=== PATIENT | female | born 1985 | race Two or more races ===

== ENCOUNTER 2020-09-25 08:46 | Outpatient (REF) | payer MEDICAID, SELFPAY | END 2020-09-25 08:47 | disposition home or self-care (01) | LOC: HO.LAB 08:46 | PROVIDERS: Visit Provider Internal Medicine | DX: Z20.828 Contact with and (suspected) exposure to other viral communicable diseases (principal) | CPT/HCPCS: C9803; U0003 ==

== ENCOUNTER → 2021-04-15 11:09 | Outpatient (BNVA) | payer MEDICAID, SELFPAY | PROVIDERS: Visit Provider Anesthesiology | DX: M41.9 Scoliosis, unspecified (principal); M47.816 Spondylosis without myelopathy or radiculopathy, lumbar region; M46.1 Sacroiliitis, not elsewhere classified | CPT/HCPCS: 99202 ==

== ENCOUNTER 2021-08-30 17:29 | Emergency (ER) | payer MEDICAID, SELFPAY ==
--- NOTE | ~2021-08-30 | CT_ITS ---
EXAMINATION: CT ABDOMEN AND PELVIS WITH CONTRAST CLINICAL INFORMATION: Right lower quadrant pain and tenderness. Vomiting. COMPARISON: None TECHNIQUE: Multidetector volumetric images were obtained from the superior aspect of the liver through the pubic symphysis following administration 85 mL of Omnipaque 350 intravenous contrast. Sagittal and coronal reformatted images were obtained on the technologist's workstation. Oral contrast: No This CT examination was performed using dose optimization techniques as appropriate, variously including the following: *Automated exposure control *Adjustment of mA and/or kV according to patient size (this includes techniques or standardized protocols for targeted exams where dose is matched to indication/reason for exam; i.e. extremities or head) *Use of iterative reconstruction technique DLP: 452 mGy-cm FINDINGS: LUNG BASES: The visualized lung bases are unremarkable. LIVER, GALLBLADDER, AND BILIARY TREE: The liver measures up to 20 cm in maximum craniocaudal dimension and is normal in shape and attenuation without focal abnormalities. There is no biliary ductal dilatation. The gallbladder is underdistended limiting assessment of wall thickening. There is no evidence of stones, pericholecystic fat stranding or pericholecystic free fluid to suspected acute cholecystitis. PANCREAS: Unremarkable. SPLEEN: Unremarkable. ADRENAL GLANDS: Unremarkable. KIDNEYS AND URETERS: The kidneys are normal in size, shape, and attenuation. There is a 3 mm calculus in the lower pole of the left kidney situated at 6 cm from the skin of the posterior mid axillary line (image 25 of series 3). There is an additional punctate stone in the mid pole of left kidney (coronal image 46 of series 5). No hydronephrosis or hydroureter. No perinephric stranding. BLADDER: Underdistended without focal abnormalities or perivesical fat stranding. GASTROINTESTINAL TRACT: Small to moderate hiatal hernia. The stomach and the small bowel are nondilated. The appendix is normal. There are no pericolic inflammatory changes or bowel obstruction. ABDOMINAL WALL: There is mild fat stranding of the abdominal wall, more prominent in the lower abdominal wall. There is asymmetric enlargement of the inferior anterior abdominal rectus muscle (image 73 of series 3 and image 71 of series 3) which heterogeneity and increased attenuation of the muscle. LYMPH NODES: No lymphadenopathy by size criteria. VASCULAR: Unremarkable. PELVIC VISCERA: Functional follicle is in both ovaries. Normal CT appearance of the uterus. Trace free fluid is likely physiologic. OSSEOUS STRUCTURES: No acute or aggressive osseous abnormalities. CT/CT abdomen pelvis w IV con IMPRESSION: 1. Asymmetric thickening of the lower anterior abdominal rectus muscle likely related with an intramuscular hematoma. Correlate with history of trauma to this area. Less likely, this could be related with focal myositis or an underlying soft tissue lesion. If indicated, this could be follow-up with a targeted ultrasound to ensure resolution. 2. Mild fat stranding in the abdominal wall, more prominent in the lower abdominal wall of uncertain etiology. Correlate clinically for any edema/tenderness. 3. Mild hepatomegaly. 4. Nonobstructive the renal calculi. 5. Small to moderate hiatal hernia.
[2021-08-30 18:08] VITALS: BP 146/83; PULSE 68; RESP 20; TEMP 37.2; O2SAT 100; BMI 24.2
[2021-08-30 18:28] LABS: MANUAL DIFF FLAG NO
[2021-08-30 18:29] LABS: Appearance Urine HAZY; Color Urine YELLOW; Glucose Urine UA NEG (NEG); Leukocyte Esterase Urine NEG (NEG); Nitrite Urine NEG (NEG); PH 6.5 (5.0-8.0); Specific Gravity - Urine 1.025 (1.005-1.025); UACC Culture Trigger NO; Urine Blood 1+ (NEG); Urine Ketones 5 MG/DL (NEG); Urine Protein NEG (NEG-TRACE)
[2021-08-30 18:30] LABS: Basophils Absolute Auto 0.1 X10*3/uL (0.0-0.2); Basophils Percent Auto 0.7 % (0-2); Eosinophils Absolute Auto 0.3 X10*3/uL (0.0-0.4); Eosinophils Percent Auto 3.2 % (0-4); Hematocrit 38.3 % (37.0-47.0); Hemoglobin 12.3 g/dl (12.0-16.0); Imm Gran Abs Auto 0.02 X10*3/uL (0.00-0.03); Imm Gran Pct Auto 0.2 % (0.0-0.4); Lymphocytes Absolute Auto 2.8 X10*3/uL (1.2-4.9); Lymphocytes Percent Auto 31.1 % (20-40); Mean Corpuscular HGB Conc 32.1 g/dl (31.0-35.0); Mean Corpuscular Volume 87.2 fL (80.0-98.0); Mean Platelet Volume 9.1 fL (9.4-12.3); Monocytes Absolute Auto 0.7 X10*3/uL (0.1-1.2); Monocytes Percent Auto 8.1 % (2-11); Neutrophils Percent Auto 56.7 % (45-73); Platelet Count 321 X10*3/uL (160-400); Red Blood Count 4.39 X10*6/uL (4.20-5.50); Red Cell Distribution Width 14.1 % (11.0-16.0); White Blood Count 8.9 X10*3/uL (4.8-10.8)
[2021-08-30 18:31] LABS: UPreg QC Valid YES; Urine Pregnancy NEGATIVE (NEGATIVE)
[2021-08-30 18:37] LABS: Mucus Urine 2+ /LPF; Squamous Epithelial Cell Urine 1+ /LPF
[2021-08-30 18:38] LABS: Bacteria Urine TRACE /LPF; WBC Urine 0 /HPF (0-4)
[2021-08-30 18:57] LABS: Anion Gap 9 (12-20); Blood Urea Nitrogen 15 mg/dL (9-16); Calcium 8.7 mg/dL (8.4-10.2); Carbon Dioxide 27 mmol/L (22-29); Chloride 106 mmol/L (96-108); Creatinine Clr Calc Pharmacy 75.1; Estimated Glomerular Filt Rate > 60; Glucose Random 94 mg/dL (60-115); Potassium 3.7 mmol/L (3.3-5.1); Sodium 138 mmol/L (135-145)
--- NOTE | 2021-08-30 20:22 | ED_ITS ---
HPI - Abdominal Pain General Chief Complaint: Abdominal Pain Stated Complaint: Lower abdominal pain Time Seen by Provider: 08/30/21 20:11 Source: patient Mode of arrival: ambulatory Limitations: no limitations History of Present Illness HPI narrative: 35 yo female presenting to the ER with constant, worsening RLQ pa in that started last night. She reports last evening she started having low back pain that made it hard for her to sleep. This morning the pain was more in the front of her lower abdomen on the right side more than left. She was nauseous and dry heaves because of the pain this morning. She denies any urinary symptoms. She started her menses today. She has no diarrhea, fever. She reports a history of lower abdominal liposuction 6-7 months ago. She has been having some lower abdominal discomfort and tenderness in that area since then. She denies any bruising or palpable mass. MD elicited complaint: abdominal pain Pertinent past history: none Onset (ago): day(s) (1) Pain Consistency: constant Location: RLQ Severity: moderate Quality: aching Radiation: LLQ Migration to: no migration Exacerbating factors: movement and other (Palpation) Relieving factors: nothing Associated symptoms: nausea and vomiting Related Data Date of Last Menstrual Period: 08/30/21 Patient : No Previous Rx's Medication Instructions Recorded tizanidine 2 mg tablet 2 mg PO TID PRN 30 Days #90 tab 05/01/21 cyclobenzaprine 10 mg tablet 10 mg PO TID PRN #10 tab 08/30/21 tramadol 50 mg tablet 50 mg PO Q8H PRN #7 tab 08/30/21 Allergies Allergy/AdvReac Type Severity Reaction Status Date / Time aspirin Allergy Unknown unknown Verified 04/15/21 11:52 Review of Systems Review of Systems Constitutional: No Fever, No Chills Cardiovascular: No Chest Pain, No SOB Respiratory: No Cough, No Sputum, No Wheezing, No dyspnea Gastrointestinal: + Nausea, + Vomiting, No Diarrhea, + abdominal Pain Genitourinary: No Dysuria, No Urinary Frequency, No Hematuria Musculoskeletal: No joint pain, No Myalgias Skin: No Skin Lesions, No rash Neuro: No Weakness, No Numbness, No Dizziness, No Headache Psych: No Anxiety/Panic, No Depression Heme/Lymph: No Bruising, No Lymphadenopathy Physical Exam Vital Signs: Vital Signs: Last Vital Signs Temp 98.2 F 08/30/21 21:56 Pulse 64 08/30/21 21:56 Resp 16 08/30/21 21:56 BP 106/55 L 08/30/21 21:56 Pulse Ox 99 08/30/21 21:56 Body Mass Index 24.2 Appearance: Alert. Oriented X3. No acute distress. Eyes: Pupils equal, round and reactive to light. ENT: Pharynx normal. Neck: Normal inspection. Neck supple. CVS: Normal heart rate and rhythm. Pulses normal. Respiratory: No respiratory distress. Breath sounds normal. Abdomen: Normal inspection, Soft with tenderness to the RLQ and lower abdominal areas, slight firmness to the RLQ, +guarding without rebound. no skin changes. +BS x4 Skin: Skin warm and dry. Normal skin color. Normal skin turgor. No rashes. Extremities: No lower extremity edema. Neuro: Oriented X 3. Grossly normal, nonfocal. Course Course Course Narrative: 35-year-old female with history of liposuction about 6 months ago presents to the ER with RLQ and lower abdominal pain that seems to be acute on chronic since her liposuction 6 months ago. Labs are unremarkable. negative. UA with 1+ blood but she is on her menses. No hx kidney stones. No CVA tenderness. Will get CT scan for further evaluation. Reevaluation(s) Reevaluation #1: CT scan showing probable lower abdominal muscle hematoma. Question post-op complication as patient denies any trauma to the area recently. No external ecchymosis. No anemia. She is not on anticoagulation. At this time she is stable for discharge home with plan for pain control, follow up with her plastic surgeon and PCP, may need U/S to ensure resolution. irrigation technician used to discuss results and plan and patient is in agreement. MDM - Abdominal Pain Lab Data Attestation: I reviewed the patient's lab results. Result diagrams: 08/30/21 18:23 08/30/21 18:23 Labs: Lab Results 08/30/21 08/30/21 08/30/21 Range/Units 18:23 18:23 18:23 WBC 8.9 (4.8-10.8) X10*3/uL RBC 4.39 (4.20-5.50) X10*6/uL Hgb 12.3 (12.0-16.0) g/dl Hct 38.3 (37.0-47.0) % MCV 87.2 (80.0-98.0) fL MCH 28.0 (27.0-33.0) pg MCHC 32.1 (31.0-35.0) g/dl RDW 14.1 (11.0-16.0) % Plt Count 321 (160-400) X10*3/uL MPV 9.1 L (9.4-12.3) fL Immature Gran % (Auto) 0.2 (0.0-0.4) % Neut % (Auto) 56.7 (45-73) % Lymph % (Auto) 31.1 (20-40) % [place] % (Auto) 8.1 (2-11) % Eos % (Auto) 3.2 (0-4) % Baso % (Auto) 0.7 (0-2) % Lymph # (Auto) 2.8 (1.2-4.9) X10*3/uL [place] # (Auto) 0.7 (0.1-1.2) X10*3/uL Eos # (Auto) 0.3 (0.0-0.4) X10*3/uL Baso # (Auto) 0.1 (0.0-0.2) X10*3/uL Abs Immat Gran (auto) 0.02 (0.00-0.03) X10*3/uL Absolute Neuts (auto) 5.0 (2.0-8.3) x10*3/uL Absolute Nucleated RBC 0.000 (0.0-0.012) X10*3/uL Nucleated RBC % (auto) 0.0 (0.0-0.2) /100WBC Sodium (135-145) mmol/L Potassium (3.3-5.1) mmol/L Chloride (96-108) mmol/L Carbon Dioxide (22-29) mmol/L Anion Gap (12-20) BUN (9-16) mg/dL Creatinine (0.5-1.4) mg/dL Estim Creat Clear Calc Estimated GFR Random Glucose (60-115) mg/dL Calcium (8.4-10.2) mg/dL Total Creatine Kinase (26-140) U/L Urine Color YELLOW Urine Appearance HAZY Urine pH 6.5 (5.0-8.0) Ur Specific [place] 1.025 (1.005-1.025) Urine Protein NEG (NEG-TRACE) MG/DL Urine Glucose (UA) NEG (NEG) MG/DL Urine Ketones 5 (NEG) MG/DL Urine Blood 1+ H (NEG) Urine Nitrite NEG (NEG) Ur Leukocyte Esterase NEG (NEG) Urine RBC 1-4 (0) /HPF Urine WBC 0 (0-4) /HPF Ur Squamous Epith Cells 1+ /LPF Urine Bacteria TRACE /LPF Urine Mucus 2+ /LPF Urine Yeast TRACE /HPF Urine Test NEGATIVE (NEGATIVE) 08/30/21 Range/Units 18:23 WBC (4.8-10.8) X10*3/uL RBC (4.20-5.50) X10*6/uL Hgb (12.0-16.0) g/dl Hct (37.0-47.0) % MCV (80.0-98.0) fL MCH (27.0-33.0) pg MCHC (31.0-35.0) g/dl RDW (11.0-16.0) % Plt Count (160-400) X10*3/uL MPV (9.4-12.3) fL Immature Gran % (Auto) (0.0-0.4) % Neut % (Auto) (45-73) % Lymph % (Auto) (20-40) % [place] % (Auto) (2-11) % Eos % (Auto) (0-4) % Baso % (Auto) (0-2) % Lymph # (Auto) (1.2-4.9) X10*3/uL [place] # (Auto) (0.1-1.2) X10*3/uL Eos # (Auto) (0.0-0.4) X10*3/uL Baso # (Auto) (0.0-0.2) X10*3/uL Abs Immat Gran (auto) (0.00-0.03) X10*3/uL Absolute Neuts (auto) (2.0-8.3) x10*3/uL Absolute Nucleated RBC (0.0-0.012) X10*3/uL Nucleated RBC % (auto) (0.0-0.2) /100WBC Sodium 138 (135-145) mmol/L Potassium 3.7 (3.3-5.1) mmol/L Chloride 106 (96-108) mmol/L Carbon Dioxide 27 (22-29) mmol/L Anion Gap 9 L (12-20) BUN 15 (9-16) mg/dL Creatinine 0.96 (0.5-1.4) mg/dL Estim Creat Clear Calc 75.1 Estimated GFR > 60 Random Glucose 94 (60-115) mg/dL Calcium 8.7 (8.4-10.2) mg/dL Total Creatine Kinase 178 H (26-140) U/L Urine Color Urine Appearance Urine pH (5.0-8.0) Ur Specific [place] (1.005-1.025) Urine Protein (NEG-TRACE) MG/DL Urine Glucose (UA) (NEG) MG/DL Urine Ketones (NEG) MG/DL Urine Blood (NEG) Urine Nitrite (NEG) Ur Leukocyte Esterase (NEG) Urine RBC (0) /HPF Urine WBC (0-4) /HPF Ur Squamous Epith Cells /LPF Urine Bacteria /LPF Urine Mucus /LPF Urine Yeast /HPF Urine Test (NEGATIVE) Imaging Data CT scan - abdomen: Attestation: I personally reviewed and interpreted this imaging study as follows: Radiologist's impression: 1.? Asymmetric thickening of the lower anterior abdominal rectus muscle likely related with an intramuscular hematoma. Correlate with history of trauma to this area. Less likely, this could be related with focal myositis or an underlying soft tissue lesion. If indicated, this could be follow-up with a targeted ultrasound to ensure resolution. 2.? Mild fat stranding in the abdominal wall, more prominent in the lower abdominal wall of uncertain etiology. Correlate clinically for any edema/tenderness. 3.? Mild hepatomegaly. 4.? Nonobstructive the renal calculi. 5.? Small to moderate hiatal hernia.? Critical Care Time Critical Care Time Critical Care Time: No Discharge Plan Discharge Clinical Impression: Abdominal wall hematoma Qualifiers: Encounter type: initial encounter Qualified Code(s): S30.1XXA - Contusion of abdominal wall, initial encounter Patient Disposition: Home, Self-Care Instructions: Abdominal Pain (ED), Hematoma (ED) Additional Instructions: Your CT scan shows some thickening of the abdominal wall muscle which is most likely related to a hematoma inside of the muscle. This could be related to your prior liposuction. It should resolve on its own, although recommend following up with your plastic surgeon. Your lab workup was otherwise unremarkable. Recommend taking the prescribed medications as needed for pain. Also recommend taking 975 mg of Tylenol every 6 hours around the clock. Rest and no strenuous activity. Recommend compression leggings or biker shorts to help with pain and for the hematoma reabsorbe. Follow-up with your primary care doctor, they may want to do an ultrasound of the area to ensure resolution. If you develop new or worsening symptoms call 911 or come back to the ER for further evaluation. [place] tomograf?a computarizada muestra un engrosamiento del m?sculo de la pared abdominal que probablemente est? relacionado con un hematoma dentro del m?sculo. [place] podr?a estar relacionado con sumner liposucci?n anterior. Deber?a resolverse por s? solo, aunque se recomienda realizar un seguimiento con sumner cirujano pl?stico. Por lo dem?s, sumner an?lisis de laboratorio no fue nada especial. Recomiende gwendolyn los medicamentos recetados seg?n sea necesario para el dolor. Tambi?n recomiende gwendolyn 975 mg de Tylenol cada 6 horas pierre todo el d?a. [place] y sin actividad extenuante. Recomendar mallas de compresi?n o pantalones cortos de motociclista para ayudar con el dolor y para la reabsorci?n del hematoma. Brenda un seguimiento con sumner m?dico de atenci?n primaria, es posible que desee realizar liv ecograf?a del ?venus para garantizar la resoluci?n. Si presenta s?ntomas nuevos o que empeoran, llame al 911 o regrese a la flo de emergencias para liv evaluaci?n adicional. Prescriptions: New cyclobenzaprine 10 mg tablet 10 mg PO TID PRN (Reason: muscle spasm) Qty: 10 RF: 0 tramadol 50 mg tablet 50 mg PO Q8H PRN (Reason: pain) Qty: 7 RF: 0 No Action tizanidine 2 mg tablet 2 mg PO TID PRN (Reason: muscle spasticity) 30 Days Qty: 90 RF: 12 Discharge Date/Time: 08/30/21 22:44 Print Language: [place]ian [facility] Past Medical History Medical History (Updated 08/30/21 @ 22:30 by NAHEED Marie) Sacroiliitis Scoliosis Scoliosis of thoracolumbar spine Spondylosis of lumbar region without myelopathy or radiculopathy Date of Last Menstrual Period: 08/30/21 Social History Social History Advance Directives: No Advance Directives Information Provided: No
[2021-08-30 20:25] VITALS: BP 137/66; PULSE 73; RESP 16; TEMP 37.2; O2SAT 99
[2021-08-30] MEDS: 0.9 % Sodium Chloride 1,000 ML 999 ML IVCONT (20:53)
[2021-08-30] MEDS: Ketorolac Tromethamine 15 MG/ML VIAL 30 MG IVPUSH (20:53)
[2021-08-30] MEDS: iohexoL 350 MG/ML 100 ML INFUS..BTL IV (21:12)
[2021-08-30 21:56] VITALS: BP 106/55; PULSE 64; RESP 16; TEMP 36.8; O2SAT 99
== END 2021-08-30 22:44 | disposition home or self-care (01) ==
PROVIDERS: Physician Assistant; Emergency Provider Internal Medicine; PCP Family Medicine
DX: S30.1XXA Contusion of abdominal wall, initial encounter (principal); X58.XXXA Exposure to other specified factors, initial encounter; Y93.9 Activity, unspecified; Y92.9 Unspecified place or not applicable; Y99.9 Unspecified external cause status
CPT/HCPCS: 36415; 74177; 80048; 81001; 81025; 82550; 85025; 96361; 96374; 99284; J1885; Q9967

== ENCOUNTER 2022-09-16 12:29 | Outpatient (REF) | payer MEDICAID, SELFPAY ==
--- NOTE | ~2022-09-16 | XR_ITS ---
EXAMINATION: XR SINUSES CLINICAL INFORMATION: The isthmus of cement placed COMPARISON: None TECHNIQUE: 4 views of the sinuses were obtained. FINDINGS: Paranasal sinuses appear clear without air-fluid levels. No fractures are identified. No radiodense foreign bodies. The mastoid air cells are well-aerated. XR/XR sinus min 3V IMPRESSION: Unremarkable sinus exam.
== END 2022-09-16 12:30 | disposition home or self-care (01) ==
LOC: HO.XRAY 12:29
PROVIDERS: Absent Provider Internal Medicine; PCP Internal Medicine; Visit Provider Internal Medicine
DX: R43.9 Unspecified disturbances of smell and taste (principal)
CPT/HCPCS: 70220

== ENCOUNTER 2022-10-24 02:23 | Emergency (ER) | payer MEDICAID, SELFPAY ==
--- NOTE | 2022-10-24 | ECG_ITS ---
Test Reason : CP Blood Pressure : / mmHG Vent. Rate : 100 BPM Atrial Rate : 100 BPM P-R Int : 146 ms QRS Dur : 080 ms QT Int : 368 ms P-R-T Axes : 091 077 076 degrees QTc Int : 474 ms Normal sinus rhythm Normal ECG When compared with ECG of 12-APR-2020 19:43, No significant change was found Referred By: Generic ED Physician Electronically Signed By:GLORIA GAMEZ
[2022-10-24 02:32] VITALS: BP 118/74; PULSE 220; PULSE 96; RESP 20; TEMP 36.7; O2SAT 100; BMI 24.2
[2022-10-24 02:40] LABS: MANUAL DIFF FLAG NO
[2022-10-24 02:41] LABS: Basophils Absolute Auto 0.1 X10*3/uL (0.0-0.2); Basophils Percent Auto 0.6 % (0-2); Eosinophils Absolute Auto 0.1 X10*3/uL (0.0-0.4); Eosinophils Percent Auto 1.5 % (0-4); Hematocrit 39.9 % (37.0-47.0); Hemoglobin 12.9 g/dl (12.0-16.0); Imm Gran Abs Auto 0.02 X10*3/uL (0.00-0.03); Imm Gran Pct Auto 0.2 % (0.0-0.4); Lymphocytes Absolute Auto 3.5 X10*3/uL (1.2-4.9); Mean Corpuscular HGB Conc 32.3 g/dl (31.0-35.0); Mean Corpuscular Hemoglobin 26.9 pg (27.0-33.0); Mean Corpuscular Volume 83.3 fL (80.0-98.0); Monocytes Absolute Auto 0.5 X10*3/uL (0.1-1.2); Monocytes Percent Auto 5.7 % (2-11); Platelet Count 382 X10*3/uL (160-400); Red Blood Count 4.79 X10*6/uL (4.20-5.50); Red Cell Distribution Width 14.9 % (11.0-16.0); White Blood Count 8.1 X10*3/uL (4.8-10.8)
[2022-10-24] MEDS: methylPREDNISolone Sod Succ 125 MG/2 ML VIAL IVPUSH (02:47)
[2022-10-24] MEDS: diphenhydrAMINE HCL 50 MG/ML VIAL 25 MG IVPUSH (02:47)
[2022-10-24 02:57] LABS: Alanine Aminotransferase 23 U/L (0-31); Alkaline Phosphatase 70 U/L (39-117); Anion Gap 16 (12-20); Aspartate Amino Transferase 28 U/L (5-31); Bilirubin Total 0.6 mg/dL (0.0-1.0); Blood Urea Nitrogen 15 mg/dL (9-16); Calcium 8.6 mg/dL (8.4-10.2); Carbon Dioxide 18 mmol/L (22-29); Chloride 108 mmol/L (96-108); Creatinine Clr Calc Pharmacy 65.5; Estimated Glomerular Filt Rate 56; Glucose Random 190 mg/dL (60-115); Potassium 4.1 mmol/L (3.3-5.1); Sodium 138 mmol/L (135-145); Total Protein 6.9 g/dL (6.5-8.0)
[2022-10-24 03:10] LABS: Troponin-I High Sensitivity < 3.5 ng/L (<3.5-17.0)
--- NOTE | 2022-10-24 03:22 | ED_ITS ---
HPI - Chest Pain General Chief Complaint: Chest Pain Stated Complaint: CP Time Seen by Provider: 10/24/22 02:33 Source: patient Mode of arrival: EMS Limitations: no limitations History of Present Illness HPI narrative: Trey if anxiety no significant cardiac history woke up from sleep with palpitation and chest discomfort when EMS arrived patient heart rate was 220's SVT was given adenosis in at which broke the rhythm to sinus rhythm. Patient was also given aspirin for the chest discomfort but patient was allergic to aspirin. After arrival in the ER patient was complaining of throat tightness patient does have history of anxiety also no significant shortness of breath or stridor noticed Related Data Previous Rx's Medication Instructions Recorded tizanidine 2 mg tablet 2 mg PO TID PRN muscle spasticity 05/01/21 30 days #90 tabs cyclobenzaprine 10 mg tablet 10 mg PO TID PRN muscle spasm #10 08/30/21 tabs tramadol 50 mg tablet 50 mg PO Q8H PRN pain #7 tabs 08/30/21 Allergies Allergy/AdvReac Type Severity Reaction Status Date / Time aspirin [Aspirin] Allergy Unknown SWELLING Unverified 09/16/22 12:41 sea food Allergy Unknown Uncoded 09/16/22 12:41 Seafood Allergy Unknown SWELLING Uncoded 09/16/22 12:41 Review of Systems Review of Systems: Yes all other systems are reviewed and are negative [facility] Past Medical History Medical History Sacroiliitis Scoliosis Scoliosis of thoracolumbar spine Spondylosis of lumbar region without myelopathy or radiculopathy Social History Social History Advance Directives: No Advance Directives Information Provided: Yes Physical Exam Vital Signs: Vital Signs: Last Vital Signs Temp 98.0 F 10/24/22 02:32 Pulse 104 H 10/24/22 04:13 Resp 16 10/24/22 04:13 BP 119/76 10/24/22 04:18 Pulse Ox 99 10/24/22 04:13 O2 Del Method 10/24/22 04:13 BMI result Body Mass Index 24.2 Appearance: Alert. Oriented X3. No acute distress. Eyes: PERRLA, No Nystagmus ENT: Pharynx normal. Oral Mucosa moist Neck: Normal inspection. Neck supple. CVS: sinus tachycardia. No murmur about the Pulses normal. Respiratory: No respiratory distress. Equal air entry bilateral, no wheezing/rales/rhonchi Abdomen: Soft and nontender. Bowel sounds are present, no mass palpable, no CVA tenderness Skin: Skin warm and dry. Normal skin color. Normal skin turgor. Extremities: No lower extremity edema. No calf tenderness Neuro: Oriented X 3. No motor deficit. No sensory deficit.No cerebellar signs , cranial nerves II-XII intact Medications Administered Discontinued Medications Generic Name Dose Route Start Last Admin Trade Name Freq PRN Reason Stop Dose Admin Diphenhydramine HCl 25 mg 10/24/22 02:34 10/24/22 02:47 Diphenhydramine Hcl 50 Mg/Ml Vial IVPUSH 10/24/22 02:35 25 mg ONCE ONE Administration Sodium Chloride 1,000 mls @ 999 mls/hr 10/24/22 03:30 10/24/22 03:32 Ns IV 10/24/22 04:30 999 mls/hr .Q1H1M ONE Administration Methylprednisolone Sodium Succinate 125 mg 10/24/22 02:34 10/24/22 02:47 Methylprednisolone Sod Succ 125 Mg/2 Ml Vial IVPUSH 10/24/22 02:35 125 mg ONCE ONE Administration Medical Decision Making Medical Decision Making [facility] Narrative: EKG done by EMS reviewed showed SVT. EKG done in ER showed normal sinus rhythm. Lab workup negative discharge patient home Lab Data [facility] Lab Attestation statement: I reviewed the patient's lab results. 10/24/22 02:37 10/24/22 02:36 Labs: Lab Results 10/24/22 10/24/22 10/24/22 Range/Units 02:36 02:36 02:37 WBC 8.1 (4.8-10.8) X10*3/uL RBC 4.79 (4.20-5.50) X10*6/uL Hgb 12.9 (12.0-16.0) g/dl Hct 39.9 (37.0-47.0) % MCV 83.3 (80.0-98.0) fL MCH 26.9 L (27.0-33.0) pg MCHC 32.3 (31.0-35.0) g/dl RDW 14.9 (11.0-16.0) % Plt Count 382 (160-400) X10*3/uL MPV 9.0 L (9.4-12.3) fL Immature Gran % (Auto) 0.2 (0.0-0.4) % Neut % (Auto) 49.0 (45-73) % Lymph % (Auto) 43.0 H (20-40) % [place] % (Auto) 5.7 (2-11) % Eos % (Auto) 1.5 (0-4) % Baso % (Auto) 0.6 (0-2) % Lymph # (Auto) 3.5 (1.2-4.9) X10*3/uL [place] # (Auto) 0.5 (0.1-1.2) X10*3/uL Eos # (Auto) 0.1 (0.0-0.4) X10*3/uL Baso # (Auto) 0.1 (0.0-0.2) X10*3/uL Abs Immat Gran (auto) 0.02 (0.00-0.03) X10*3/uL Absolute Neuts (auto) 4.0 (2.0-8.3) x10*3/uL Absolute Nucleated RBC 0.000 (0.0-0.012) X10*3/uL Nucleated RBC % (auto) 0.0 (0.0-0.2) /100WBC PT (10.0-13.1) SEC INR (0.9-1.1) Sodium 138 (135-145) mmol/L Potassium 4.1 (3.3-5.1) mmol/L Chloride 108 (96-108) mmol/L Carbon Dioxide 18 L (22-29) mmol/L Anion Gap 16 (12-20) BUN 15 (9-16) mg/dL Creatinine 1.08 (0.5-1.4) mg/dL Estim Creat Clear Calc 65.5 Estimated GFR 56 Random Glucose 190 H (60-115) mg/dL Calcium 8.6 (8.4-10.2) mg/dL Total Bilirubin 0.6 (0.0-1.0) mg/dL AST 28 (5-31) U/L ALT 23 (0-31) U/L Alkaline Phosphatase 70 (39-117) U/L Troponin I High Sens < 3.5 (<3.5-17.0) ng/L Total Protein 6.9 (6.5-8.0) g/dL Albumin 4.0 (3.5-5.0) g/dL TSH 3.42 (0.32-4.0) uIU/mL 10/24/22 Range/Units 02:37 WBC (4.8-10.8) X10*3/uL RBC (4.20-5.50) X10*6/uL Hgb (12.0-16.0) g/dl Hct (37.0-47.0) % MCV (80.0-98.0) fL MCH (27.0-33.0) pg MCHC (31.0-35.0) g/dl RDW (11.0-16.0) % Plt Count (160-400) X10*3/uL MPV (9.4-12.3) fL Immature Gran % (Auto) (0.0-0.4) % Neut % (Auto) (45-73) % Lymph % (Auto) (20-40) % [place] % (Auto) (2-11) % Eos % (Auto) (0-4) % Baso % (Auto) (0-2) % Lymph # (Auto) (1.2-4.9) X10*3/uL [place] # (Auto) (0.1-1.2) X10*3/uL Eos # (Auto) (0.0-0.4) X10*3/uL Baso # (Auto) (0.0-0.2) X10*3/uL Abs Immat Gran (auto) (0.00-0.03) X10*3/uL Absolute Neuts (auto) (2.0-8.3) x10*3/uL Absolute Nucleated RBC (0.0-0.012) X10*3/uL Nucleated RBC % (auto) (0.0-0.2) /100WBC PT 11.0 (10.0-13.1) SEC INR 1.0 (0.9-1.1) Sodium (135-145) mmol/L Potassium (3.3-5.1) mmol/L Chloride (96-108) mmol/L Carbon Dioxide (22-29) mmol/L Anion Gap (12-20) BUN (9-16) mg/dL Creatinine (0.5-1.4) mg/dL Estim Creat Clear Calc Estimated GFR Random Glucose (60-115) mg/dL Calcium (8.4-10.2) mg/dL Total Bilirubin (0.0-1.0) mg/dL AST (5-31) U/L ALT (0-31) U/L Alkaline Phosphatase (39-117) U/L Troponin I High Sens (<3.5-17.0) ng/L Total Protein (6.5-8.0) g/dL Albumin (3.5-5.0) g/dL TSH (0.32-4.0) uIU/mL Independent Interpretation I performed an independent interpretation of an: EKG Interpretation: Normal sinus rhythm heart rate 100 beats per minute normal interval normal axis no acute ST T wave changes impression normal EKG Discharge Plan Discharge Clinical Impression: SVT (supraventricular tachycardia) Patient Disposition: Home, Self-Care Instructions: Supraventricular Tachycardia (ED) Additional Instructions: Avoid caffeine Report to the ER if recurrence of the episodes Follow with PCP Prescriptions: No Action tizanidine 2 mg tablet 2 mg PO TID PRN (Reason: muscle spasticity) 30 Days Qty: 90 12RF cyclobenzaprine 10 mg tablet 10 mg PO TID PRN (Reason: muscle spasm) Qty: 10 0RF tramadol 50 mg tablet 50 mg PO Q8H PRN (Reason: pain) Qty: 7 0RF
[2022-10-24] MEDS: 0.9 % Sodium Chloride 1,000 ML 999 ML IV (03:32)
[2022-10-24 04:11] LABS: Thyroid Stimulating Hormone 3.42 uIU/mL (0.32-4.0)
[2022-10-24 04:13] VITALS: BP 107/67; PULSE 104; RESP 16; O2SAT 99
[2022-10-24 04:18] VITALS: BP 119/76
== END 2022-10-24 05:05 | disposition home or self-care (01) ==
PROVIDERS: Emergency Provider Internal Medicine
DX: I47.1 Supraventricular tachycardia (principal); R07.89 Other chest pain; R00.2 Palpitations; Z79.899 Other long term (current) drug therapy
CPT/HCPCS: 36415; 80053; 84443; 84484; 85025; 85610; 93005; 96361; 96374; 96375; 99284; 99285; J1200; J2930

== ENCOUNTER 2022-11-10 19:57 | Observation (INO) | payer MEDICAID, SELFPAY ==
--- NOTE | ~2022-11-10 | XR_ITS ---
EXAMINATION: XR CHEST CLINICAL INFORMATION: Chest pain COMPARISON: Chest 04/11/2020 TECHNIQUE: Frontal view of the chest was obtained. FINDINGS: The lungs are well-expanded and clear of acute process. The heart size and pulmonary vascularity is normal. No gross bony abnormality seen. XR/XR chest 1V IMPRESSION: Unremarkable chest exam.
--- NOTE | ~2022-11-10 | CT_ITS ---
EXAMINATION: CT ANGIOGRAM OF THE CHEST WITH AND WITHOUT CONTRAST (CT PULMONARY ANGIOGRAM FOR PE) CLINICAL INFORMATION: Reason for Exam CP elevated D dimer COMPARISON: None TECHNIQUE: Prior to contrast administration, noncontrast localization images were obtained. Subsequently, multidetector volumetric imaging was performed from the thoracic inlet to below the diaphragms following the administration of 80 mL Omnipaque 350 intravenous contrast. No contrast reaction reported Sagittal, coronal, and MIP oblique sagittal reformatted images were obtained on the CT workstation, uploaded to PACS, and reviewed. This CT examination was performed using dose optimization techniques as appropriate, variously including the following: *Automated exposure control *Adjustment of mA and/or kV according to patient size (this includes techniques or standardized protocols for targeted exams where dose is matched to indication/reason for exam; i.e. extremities or head) *Use of iterative reconstruction technique Total exam dose-length product 277 mGy-cm FINDINGS: QUALITY OF STUDY/CONTRAST BOLUS: Satisfactory. PULMONARY ARTERIES: No central or segmental pulmonary emboli. THORACIC AORTA: No aneurysm or dissection. LUNG: No focal consolidation, nodules or masses. PLEURA: No pleural effusion or pneumothorax. MEDIASTINUM: Normal heart size. No pericardial effusion. No hilar or mediastinal lymphadenopathy. No evidence of septal bowing or right heart strain. There is moderate size hiatal hernia. CORONARY ARTERY CALCIFICATION: None visualized on this study. CHEST WALL/AXILLA: No axillary or internal mammary lymphadenopathy. There are bilateral augmented breasts. OSSEOUS STRUCTURES: No acute or suspicious osseous abnormality. UPPER ABDOMEN: Unremarkable. No reflux of contrast into the hepatic veins to suggest elevated right heart pressures. CT/CT angio chest PE protocol IMPRESSION: 1. No evidence of PE. 2. No evidence of aortic dissection or aneurysm. 3. Moderate size hiatal hernia VTE: negative
[2022-11-10 20:00] VITALS: BP 135/88; PULSE 180; RESP 20; TEMP 36.2; O2SAT 100; BMI 23.2
--- NOTE | 2022-11-10 20:02 | ECG_ITS ---
Test Reason : SVT Blood Pressure : / mmHG Vent. Rate : 180 BPM Atrial Rate : 180 BPM P-R Int : 098 ms QRS Dur : 072 ms QT Int : 262 ms P-R-T Axes : 105 062 267 degrees QTc Int : [address] & T wave abnormality, consider inferior ischemia ST & T wave abnormality, consider anterolateral ischemia Abnormal ECG When compared with ECG of 24-OCT-2022 02:26, rhythm change Vent. rate has increased BY [address] now depressed in Anterior leads T wave inversion now evident in Inferior leads T wave inversion more evident in Anterolateral leads Referred By: Rakan Mann Electronically Signed By:GLORIA GAMEZ
--- NOTE | 2022-11-10 20:04 | ED.ARRPALP ---
HPI - Arrhythmia/Palpitations General Chief Complaint: Chest Pain <NAHEED Marie - Last Filed: 11/10/22 20:05> Stated Complaint: Chest pain <NAHEED Marie - Last Filed: 11/10/22 20:05> Time Seen by Provider: 11/10/22 20:05 <NAHEED Marie - Last Filed: 11/10/22 20:05> Source: patient <Rakan Mann MD - Last Filed: 11/11/22 00:26> Limitations: no limitations and language barrier (project surveyor utilized) <Rakan Mann MD - Last Filed: 11/11/22 00:26> History of Present Illness HPI narrative: This is a 37-year-old female with a recent history of SVT on October 24, which converted with adenosine. The patient had been referred to a tube drawing supervisor but had not yet been able to get in for an appointment. The patient complains of dull chest pain for 2 days with associated palpitations and a feeling of a rapid heart rate especially when she is lying down. She has felt fatigued and somewhat dizzy. She denies nausea. She denies any swelling in her feet or legs. She denies being . She denies any history of thyroid disease. <Rakan Mann MD - Last Filed: 11/11/22 00:26> Related Data Home Medications: Previous Rx's Medication Instructions Recorded tizanidine 2 mg tablet 2 mg PO TID PRN muscle spasticity 05/01/21 30 days #90 tabs cyclobenzaprine 10 mg tablet 10 mg PO TID PRN muscle spasm #10 08/30/21 tabs tramadol 50 mg tablet 50 mg PO Q8H PRN pain #7 tabs 08/30/21 <NAHEED Marie - Last Filed: 11/10/22 20:05> Allergies/Adverse Reactions: Allergies Allergy/AdvReac Type Severity Reaction Status Date / Time aspirin [Aspirin] Allergy Unknown SWELLING Verified 11/10/22 20:46 sea food Allergy Unknown Anaphylaxis Uncoded 11/10/22 20:46 Seafood Allergy Unknown SWELLING Uncoded 09/16/22 12:41 <NAHEED Marie - Last Filed: 11/10/22 20:05> Review of Systems Review of Systems: As per HPI <Rakan Mann MD - Last Filed: 11/11/22 00:26> Yes all other systems are reviewed and are negative <Rakan Mann MD - Last Filed: 11/11/22 00:26> Constitutional: Constitutional: Reports fatigue <Rakan Mann MD - Last Filed: 11/11/22 00:26> Endocrine: Endocrine: Reports fatigue <Rakan Mann MD - Last Filed: 11/11/22 00:26> PMFSH Past Medical History Medical History: Medical History Sacroiliitis Scoliosis Scoliosis of thoracolumbar spine Spondylosis of lumbar region without myelopathy or radiculopathy <NAHEED Marie - Last Filed: 11/10/22 20:05> Social History Social History: Social History Alcohol intake: never Smoked in Last 30 Days: No Use of substances other than those prescribed or required for medical reasons: No Advance Directives: No Advance Directives Information Provided: No <NAHEED Marie - Last Filed: 11/10/22 20:05> Physical Exam Vital Signs: Vital Signs: Last Vital Signs Temp 98.6 F 11/11/22 00:07 Pulse 92 11/11/22 00:07 Resp 11/11/22 00:07 BP 110/85 11/11/22 00:07 Pulse Ox 100 11/11/22 00:07 O2 Del Method 11/11/22 00:07 BMI result Body Mass Index 23.2 <NAHEED Marie - Last Filed: 11/10/22 20:05> Vital Signs: Last Vital Signs Temp 98.6 F 11/11/22 00:07 Pulse 92 11/11/22 00:07 Resp 11/11/22 00:07 BP 110/85 11/11/22 00:07 Pulse Ox 100 11/11/22 00:07 O2 Del Method 11/11/22 00:07 BMI result Body Mass Index 23.2 <Rakan Mann MD - Last Filed: 11/11/22 00:26> Const: Other: PERRLA [facility] Mucous membranes moist Throat clear Neck supple Lungs CTA Heart tachycardic RR no murmurs rubs or gallops Abd soft, non tender, non distended Extremities no pitting edema Neuro alert and oriented x 3, non focal <Rakan Mann MD - Last Filed: 11/11/22 00:26> Course Course Course Narrative: RME - 37 yo female presenting with 2 days of substernal chest pain that radiates to her shoulders, SOB and fatigue. She feels palpiations while laying flat. Found to have HR 180s, likely SVT. Brought directly back to treatment room. Labs, EKG and CXR ordered. <NAHEED Marie - Last Filed: 11/10/22 20:05> Medications Administered Discontinued Medications Generic Name Dose Route Start Last Admin Trade Name Freq PRN Reason Stop Dose Admin Adenosine 6 mg 11/10/22 20:22 11/10/22 20:13 Adenosine 6 Mg/2 Ml Vial IVPUSH 11/10/22 20:23 6 mg ONCE ONE Administration Sodium Chloride 500 mls @ 500 mls/hr 11/10/22 20:30 11/10/22 21:20 Ns IV 11/10/22 21:29 Infused .Q1H ANA Infusion Iohexol 100 ml 11/10/22 22:05 11/10/22 22:05 Iohexol 350 Mg/Ml 100 Ml Infus..Btl IV 11/10/22 22:06 65 ml ONCE ONE Administration Metoprolol Tartrate 12.5 mg 11/10/22 20:50 11/10/22 21:32 Metoprolol Tartrate 12.5 Mg Halftab PO 11/10/22 20:51 12.5 mg ONCE ONE Administration Protocol <NAHEED Marie - Last Filed: 11/10/22 20:05> Medications Administered Discontinued Medications Generic Name Dose Route Start Last Admin Trade Name Freq PRN Reason Stop Dose Admin Adenosine 6 mg 11/10/22 20:22 11/10/22 20:13 Adenosine 6 Mg/2 Ml Vial IVPUSH 11/10/22 20:23 6 mg ONCE ONE Administration Sodium Chloride 500 mls @ 500 mls/hr 11/10/22 20:30 11/10/22 21:20 Ns IV 11/10/22 21:29 Infused .Q1H ANA Infusion Iohexol 100 ml 11/10/22 22:05 11/10/22 22:05 Iohexol 350 Mg/Ml 100 Ml Infus..Btl IV 11/10/22 22:06 65 ml ONCE ONE Administration Metoprolol Tartrate 12.5 mg 11/10/22 20:50 11/10/22 21:32 Metoprolol Tartrate 12.5 Mg Halftab PO 11/10/22 20:51 12.5 mg ONCE ONE Administration Protocol <Rakan Mann MD - Last Filed: 11/11/22 00:26> Medical Decision Making Medical Decision Making MDM Narrative: Patient with recurrent SVT, had had an episode on October 24 and was cardioverted with adenosine, returns today with SVT with a rate of 180, that likely has been going on for a few days as the patient has had symptoms of chest pain, palpitations, dizziness for few days. The patient's EKG does show ischemic changes, namely T-wave inversions anteriorly and inferiorly, which persisted even after the patient rate improved after cardioversion with 6 of adenosine. The patient's troponin also was elevated at 105, and at 03:00 hours was about 180. Patient was treated after cardioversion with metoprolol 12.5 mg p.o.. She felt much better. She likely had a rate related type 2 NSTEMI. Given the new EKG changes and troponin elevations, she warrants observation overnight and evaluation by Cardiology. Dr. Barrientos was consulted by telephone regarding this patient and will see the patient in the morning. Dr. Riley of the hospitalist service was consulted regarding need for admission. The patient had been evaluated on October 24 for SVT in the ED, and did have her thyroid stimulating hormone checked at that time, which was normal. The patient did have an elevated D-dimer, and then my suspicion for pulmonary embolism as a cause for SVT was very low, given the chest pain and the elevated D-dimer, CTA was done to rule out pulmonary embolism or aortic dissection or aneurysm and was negative Critical care time for this life-threatening illness exclusive of all other billable procedures was approximately 35 minutes including initial evaluation of the patient, ordering tests, x-ray interpretation, EKG interpretation, medical consultation, documentation, reevaluation. <Rakan Mann MD - Last Filed: 11/11/22 00:26> Differential Diagnosis Differential Diagnoses: The differential diagnosis associated with the presentation includes <Rakan Mann MD - Last Filed: 11/11/22 00:26> Thyroid toxicity, substance abuse, idiopathic SVT, acute coronary syndrome <Rakan Mann MD - Last Filed: 11/11/22 00:26> Admission/Observation Consideration of admission/observation: Escalation of care including admission/observation considered <Rakan Mann MD - Last Filed: 11/11/22 00:26> Consult Healthcare Provider Management of the patient was discussed with: Hospitalist and Disposition Clerk <Rakan Mann MD - Last Filed: 11/11/22 00:26> Lab Data MDM Lab Attestation statement: I reviewed the patient's lab results. <Rakan Mann MD - Last Filed: 11/11/22 00:26> Result Diagrams: 11/10/22 20:13 11/10/22 20:13 <NAHEED Marie - Last Filed: 11/10/22 20:05> Labs: Lab Results 11/10/22 11/10/22 11/10/22 Range/Units 20:13 20:13 20:20 WBC 12.5 H (4.8-10.8) X10*3/uL RBC 4.44 (4.20-5.50) X10*6/uL Hgb 12.1 (12.0-16.0) g/dl Hct 37.1 (37.0-47.0) % MCV 83.6 (80.0-98.0) fL MCH 27.3 (27.0-33.0) pg MCHC 32.6 (31.0-35.0) g/dl RDW 15.2 (11.0-16.0) % Plt Count 332 (160-400) X10*3/uL MPV 9.6 (9.4-12.3) fL Immature Gran % (Auto) 0.2 (0.0-0.4) % Neut % (Auto) 56.8 (45-73) % Lymph % (Auto) 33.0 (20-40) % Whitley % (Auto) 8.9 (2-11) % Eos % (Auto) 0.6 (0-4) % Baso % (Auto) 0.5 (0-2) % Lymph # (Auto) 4.1 (1.2-4.9) X10*3/uL Whitley # (Auto) 1.1 (0.1-1.2) X10*3/uL Eos # (Auto) 0.1 (0.0-0.4) X10*3/uL Baso # (Auto) 0.1 (0.0-0.2) X10*3/uL Abs Immat Gran (auto) 0.03 (0.00-0.03) X10*3/uL Absolute Neuts (auto) 7.1 (2.0-8.3) x10*3/uL Absolute Nucleated RBC 0.000 (0.0-0.012) X10*3/uL Nucleated RBC % (auto) 0.0 (0.0-0.2) /100WBC D-Dimer High Sensitivty NG/ML Sodium 139 (135-145) mmol/L Potassium 4.1 (3.3-5.1) mmol/L Chloride 108 (96-108) mmol/L Carbon Dioxide 20 L (22-29) mmol/L Anion Gap 15 (12-20) BUN 14 (9-16) mg/dL Creatinine 0.98 (0.5-1.4) mg/dL Estim Creat Clear Calc 72.1 Estimated GFR > 60 Random Glucose 96 (60-115) mg/dL Calcium 8.8 (8.4-10.2) mg/dL Magnesium 2.0 (1.6-2.6) mg/dL Total Bilirubin 0.6 (0.0-1.0) mg/dL Direct Bilirubin 0.2 (0.0-0.5) mg/dL AST 28 (5-31) U/L ALT 30 (0-31) U/L Alkaline Phosphatase 74 (39-117) U/L Troponin I High Sens (<3.5-17.0) ng/L Total Protein 7.0 (6.5-8.0) g/dL Albumin 4.0 (3.5-5.0) g/dL TSH 3.03 (0.32-4.0) uIU/mL Urine Color Urine Appearance Urine pH (5.0-9.0) Ur Specific Dodson (1.005-1.025) Urine Protein (Neg-Trace) mg/dL Urine Glucose (UA) (Negative) mg/dL Urine Ketones (Negative) mg/dL Urine Blood (Negative) Urine Nitrite (Negative) Ur Leukocyte Esterase (Negative) Urine Opiates Screen (Not Detect) Urine Fentanyl Screen (Not Detect) Ur Barbiturates Screen (Not Detect) Ur Phencyclidine Scrn (Not Detect) Ur Amphetamines Screen (Not Detect) U Benzodiazepines Scrn (Not Detect) Urine Cocaine Screen (Not Detect) U Marijuana (THC) Screen (Not Detect) COVID-19 (DARELL) (Negative) COVID-19 Clin Com Influenza Type A (VINOD) Negative (Negative) Influenza Type B (VINOD) Negative (Negative) Influenza A & B Note See Note 11/10/22 11/10/22 11/10/22 Range/Units 20:20 20:37 20:37 WBC (4.8-10.8) X10*3/uL RBC (4.20-5.50) X10*6/uL Hgb (12.0-16.0) g/dl Hct (37.0-47.0) % MCV (80.0-98.0) fL MCH (27.0-33.0) pg MCHC (31.0-35.0) g/dl RDW (11.0-16.0) % Plt Count (160-400) X10*3/uL MPV (9.4-12.3) fL Immature Gran % (Auto) (0.0-0.4) % Neut % (Auto) (45-73) % Lymph % (Auto) (20-40) % Whitley % (Auto) (2-11) % Eos % (Auto) (0-4) % Baso % (Auto) (0-2) % Lymph # (Auto) (1.2-4.9) X10*3/uL Whitley # (Auto) (0.1-1.2) X10*3/uL Eos # (Auto) (0.0-0.4) X10*3/uL Baso # (Auto) (0.0-0.2) X10*3/uL Abs Immat Gran (auto) (0.00-0.03) X10*3/uL Absolute Neuts (auto) (2.0-8.3) x10*3/uL Absolute Nucleated RBC (0.0-0.012) X10*3/uL Nucleated RBC % (auto) (0.0-0.2) /100WBC D-Dimer High Sensitivty 420 NG/ML Sodium (135-145) mmol/L Potassium (3.3-5.1) mmol/L Chloride (96-108) mmol/L Carbon Dioxide (22-29) mmol/L Anion Gap (12-20) BUN (9-16) mg/dL Creatinine (0.5-1.4) mg/dL Estim Creat Clear Calc Estimated GFR Random Glucose (60-115) mg/dL Calcium (8.4-10.2) mg/dL Magnesium (1.6-2.6) mg/dL Total Bilirubin (0.0-1.0) mg/dL Direct Bilirubin (0.0-0.5) mg/dL AST (5-31) U/L ALT (0-31) U/L Alkaline Phosphatase (39-117) U/L Troponin I High Sens 101.4 H* D (<3.5-17.0) ng/L Total Protein (6.5-8.0) g/dL Albumin (3.5-5.0) g/dL TSH (0.32-4.0) uIU/mL Urine Color Urine Appearance Urine pH (5.0-9.0) Ur Specific Dodson (1.005-1.025) Urine Protein (Neg-Trace) mg/dL Urine Glucose (UA) (Negative) mg/dL Urine Ketones (Negative) mg/dL Urine Blood (Negative) Urine Nitrite (Negative) Ur Leukocyte Esterase (Negative) Urine Opiates Screen (Not Detect) Urine Fentanyl Screen (Not Detect) Ur Barbiturates Screen (Not Detect) Ur Phencyclidine Scrn (Not Detect) Ur Amphetamines Screen (Not Detect) U Benzodiazepines Scrn (Not Detect) Urine Cocaine Screen (Not Detect) U Marijuana (THC) Screen (Not Detect) COVID-19 (DARELL) Negative (Negative) COVID-19 Clin Com See Note Influenza Type A (VINOD) (Negative) Influenza Type B (VINOD) (Negative) Influenza A & B Note 11/10/22 11/10/22 11/10/22 Range/Units 22:20 22:48 22:48 WBC (4.8-10.8) X10*3/uL RBC (4.20-5.50) X10*6/uL Hgb (12.0-16.0) g/dl Hct (37.0-47.0) % MCV (80.0-98.0) fL MCH (27.0-33.0) pg MCHC (31.0-35.0) g/dl RDW (11.0-16.0) % Plt Count (160-400) X10*3/uL MPV (9.4-12.3) fL Immature Gran % (Auto) (0.0-0.4) % Neut % (Auto) (45-73) % Lymph % (Auto) (20-40) % Whitley % (Auto) (2-11) % Eos % (Auto) (0-4) % Baso % (Auto) (0-2) % Lymph # (Auto) (1.2-4.9) X10*3/uL Whitley # (Auto) (0.1-1.2) X10*3/uL Eos # (Auto) (0.0-0.4) X10*3/uL Baso # (Auto) (0.0-0.2) X10*3/uL Abs Immat Gran (auto) (0.00-0.03) X10*3/uL Absolute Neuts (auto) (2.0-8.3) x10*3/uL Absolute Nucleated RBC (0.0-0.012) X10*3/uL Nucleated RBC % (auto) (0.0-0.2) /100WBC D-Dimer High Sensitivty NG/ML Sodium (135-145) mmol/L Potassium (3.3-5.1) mmol/L Chloride (96-108) mmol/L Carbon Dioxide (22-29) mmol/L Anion Gap (12-20) BUN (9-16) mg/dL Creatinine (0.5-1.4) mg/dL Estim Creat Clear Calc Estimated GFR Random Glucose (60-115) mg/dL Calcium (8.4-10.2) mg/dL Magnesium (1.6-2.6) mg/dL Total Bilirubin (0.0-1.0) mg/dL Direct Bilirubin (0.0-0.5) mg/dL AST (5-31) U/L ALT (0-31) U/L Alkaline Phosphatase (39-117) U/L Troponin I High Sens 183.6 H* D (<3.5-17.0) ng/L Total Protein (6.5-8.0) g/dL Albumin (3.5-5.0) g/dL TSH (0.32-4.0) uIU/mL Urine Color Yellow Urine Appearance Clear Urine pH 6.0 (5.0-9.0) Ur Specific Dodson >= 1.030 H (1.005-1.025) Urine Protein Negative (Neg-Trace) mg/dL Urine Glucose (UA) Negative (Negative) mg/dL Urine Ketones Negative (Negative) mg/dL Urine Blood Negative (Negative) Urine Nitrite Negative (Negative) Ur Leukocyte Esterase Negative (Negative) Urine Opiates Screen Not Detected (Not Detect) Urine Fentanyl Screen Not Detected (Not Detect) Ur Barbiturates Screen Not Detected (Not Detect) Ur Phencyclidine Scrn Not Detected (Not Detect) Ur Amphetamines Screen Not Detected (Not Detect) U Benzodiazepines Scrn Not Detected (Not Detect) Urine Cocaine Screen Not Detected (Not Detect) U Marijuana (THC) Screen Not Detected (Not Detect) COVID-19 (DARELL) (Negative) COVID-19 Clin Com Influenza Type A (VINOD) (Negative) Influenza Type B (VINOD) (Negative) Influenza A & B Note <NAHEED Marie - Last Filed: 11/10/22 20:05> Lab Results 11/10/22 11/10/22 11/10/22 Range/Units 20:13 20:13 20:20 WBC 12.5 H (4.8-10.8) X10*3/uL RBC 4.44 (4.20-5.50) X10*6/uL Hgb 12.1 (12.0-16.0) g/dl Hct 37.1 (37.0-47.0) % MCV 83.6 (80.0-98.0) fL MCH 27.3 (27.0-33.0) pg MCHC 32.6 (31.0-35.0) g/dl RDW 15.2 (11.0-16.0) % Plt Count 332 (160-400) X10*3/uL MPV 9.6 (9.4-12.3) fL Immature Gran % (Auto) 0.2 (0.0-0.4) % Neut % (Auto) 56.8 (45-73) % Lymph % (Auto) 33.0 (20-40) % Whitley % (Auto) 8.9 (2-11) % Eos % (Auto) 0.6 (0-4) % Baso % (Auto) 0.5 (0-2) % Lymph # (Auto) 4.1 (1.2-4.9) X10*3/uL Whitley # (Auto) 1.1 (0.1-1.2) X10*3/uL Eos # (Auto) 0.1 (0.0-0.4) X10*3/uL Baso # (Auto) 0.1 (0.0-0.2) X10*3/uL Abs Immat Gran (auto) 0.03 (0.00-0.03) X10*3/uL Absolute Neuts (auto) 7.1 (2.0-8.3) x10*3/uL Absolute Nucleated RBC 0.000 (0.0-0.012) X10*3/uL Nucleated RBC % (auto) 0.0 (0.0-0.2) /100WBC D-Dimer High Sensitivty NG/ML Sodium 139 (135-145) mmol/L Potassium 4.1 (3.3-5.1) mmol/L Chloride 108 (96-108) mmol/L Carbon Dioxide 20 L (22-29) mmol/L Anion Gap 15 (12-20) BUN 14 (9-16) mg/dL Creatinine 0.98 (0.5-1.4) mg/dL Estim Creat Clear Calc 72.1 Estimated GFR > 60 Random Glucose 96 (60-115) mg/dL Calcium 8.8 (8.4-10.2) mg/dL Magnesium 2.0 (1.6-2.6) mg/dL Total Bilirubin 0.6 (0.0-1.0) mg/dL Direct Bilirubin 0.2 (0.0-0.5) mg/dL AST 28 (5-31) U/L ALT 30 (0-31) U/L Alkaline Phosphatase 74 (39-117) U/L Troponin I High Sens (<3.5-17.0) ng/L Total Protein 7.0 (6.5-8.0) g/dL Albumin 4.0 (3.5-5.0) g/dL TSH 3.03 (0.32-4.0) uIU/mL Urine Color Urine Appearance Urine pH (5.0-9.0) Ur Specific Dodson (1.005-1.025) Urine Protein (Neg-Trace) mg/dL Urine Glucose (UA) (Negative) mg/dL Urine Ketones (Negative) mg/dL Urine Blood (Negative) Urine Nitrite (Negative) Ur Leukocyte Esterase (Negative) Urine Opiates Screen (Not Detect) Urine Fentanyl Screen (Not Detect) Ur Barbiturates Screen (Not Detect) Ur Phencyclidine Scrn (Not Detect) Ur Amphetamines Screen (Not Detect) U Benzodiazepines Scrn (Not Detect) Urine Cocaine Screen (Not Detect) U Marijuana (THC) Screen (Not Detect) COVID-19 (DARELL) (Negative) COVID-19 Clin Com Influenza Type A (VINOD) Negative (Negative) Influenza Type B (VINOD) Negative (Negative) Influenza A & B Note See Note 11/10/22 11/10/22 11/10/22 Range/Units 20:20 20:37 20:37 WBC (4.8-10.8) X10*3/uL RBC (4.20-5.50) X10*6/uL Hgb (12.0-16.0) g/dl Hct (37.0-47.0) % MCV (80.0-98.0) fL MCH (27.0-33.0) pg MCHC (31.0-35.0) g/dl RDW (11.0-16.0) % Plt Count (160-400) X10*3/uL MPV (9.4-12.3) fL Immature Gran % (Auto) (0.0-0.4) % Neut % (Auto) (45-73) % Lymph % (Auto) (20-40) % Whitley % (Auto) (2-11) % Eos % (Auto) (0-4) % Baso % (Auto) (0-2) % Lymph # (Auto) (1.2-4.9) X10*3/uL Whitley # (Auto) (0.1-1.2) X10*3/uL Eos # (Auto) (0.0-0.4) X10*3/uL Baso # (Auto) (0.0-0.2) X10*3/uL Abs Immat Gran (auto) (0.00-0.03) X10*3/uL Absolute Neuts (auto) (2.0-8.3) x10*3/uL Absolute Nucleated RBC (0.0-0.012) X10*3/uL Nucleated RBC % (auto) (0.0-0.2) /100WBC D-Dimer High Sensitivty 420 NG/ML Sodium (135-145) mmol/L Potassium (3.3-5.1) mmol/L Chloride (96-108) mmol/L Carbon Dioxide (22-29) mmol/L Anion Gap (12-20) BUN (9-16) mg/dL Creatinine (0.5-1.4) mg/dL Estim Creat Clear Calc Estimated GFR Random Glucose (60-115) mg/dL Calcium (8.4-10.2) mg/dL Magnesium (1.6-2.6) mg/dL Total Bilirubin (0.0-1.0) mg/dL Direct Bilirubin (0.0-0.5) mg/dL AST (5-31) U/L ALT (0-31) U/L Alkaline Phosphatase (39-117) U/L Troponin I High Sens 101.4 H* D (<3.5-17.0) ng/L Total Protein (6.5-8.0) g/dL Albumin (3.5-5.0) g/dL TSH (0.32-4.0) uIU/mL Urine Color Urine Appearance Urine pH (5.0-9.0) Ur Specific Dodson (1.005-1.025) Urine Protein (Neg-Trace) mg/dL Urine Glucose (UA) (Negative) mg/dL Urine Ketones (Negative) mg/dL Urine Blood (Negative) Urine Nitrite (Negative) Ur Leukocyte Esterase (Negative) Urine Opiates Screen (Not Detect) Urine Fentanyl Screen (Not Detect) Ur Barbiturates Screen (Not Detect) Ur Phencyclidine Scrn (Not Detect) Ur Amphetamines Screen (Not Detect) U Benzodiazepines Scrn (Not Detect) Urine Cocaine Screen (Not Detect) U Marijuana (THC) Screen (Not Detect) COVID-19 (DARELL) Negative (Negative) COVID-19 Clin Com See Note Influenza Type A (VINOD) (Negative) Influenza Type B (VINOD) (Negative) Influenza A & B Note 11/10/22 11/10/22 11/10/22 Range/Units 22:20 22:48 22:48 WBC (4.8-10.8) X10*3/uL RBC (4.20-5.50) X10*6/uL Hgb (12.0-16.0) g/dl Hct (37.0-47.0) % MCV (80.0-98.0) fL MCH (27.0-33.0) pg MCHC (31.0-35.0) g/dl RDW (11.0-16.0) % Plt Count (160-400) X10*3/uL MPV (9.4-12.3) fL Immature Gran % (Auto) (0.0-0.4) % Neut % (Auto) (45-73) % Lymph % (Auto) (20-40) % Whitley % (Auto) (2-11) % Eos % (Auto) (0-4) % Baso % (Auto) (0-2) % Lymph # (Auto) (1.2-4.9) X10*3/uL Whitley # (Auto) (0.1-1.2) X10*3/uL Eos # (Auto) (0.0-0.4) X10*3/uL Baso # (Auto) (0.0-0.2) X10*3/uL Abs Immat Gran (auto) (0.00-0.03) X10*3/uL Absolute Neuts (auto) (2.0-8.3) x10*3/uL Absolute Nucleated RBC (0.0-0.012) X10*3/uL Nucleated RBC % (auto) (0.0-0.2) /100WBC D-Dimer High Sensitivty NG/ML Sodium (135-145) mmol/L Potassium (3.3-5.1) mmol/L Chloride (96-108) mmol/L Carbon Dioxide (22-29) mmol/L Anion Gap (12-20) BUN (9-16) mg/dL Creatinine (0.5-1.4) mg/dL Estim Creat Clear Calc Estimated GFR Random Glucose (60-115) mg/dL Calcium (8.4-10.2) mg/dL Magnesium (1.6-2.6) mg/dL Total Bilirubin (0.0-1.0) mg/dL Direct Bilirubin (0.0-0.5) mg/dL AST (5-31) U/L ALT (0-31) U/L Alkaline Phosphatase (39-117) U/L Troponin I High Sens 183.6 H* D (<3.5-17.0) ng/L Total Protein (6.5-8.0) g/dL Albumin (3.5-5.0) g/dL TSH (0.32-4.0) uIU/mL Urine Color Yellow Urine Appearance Clear Urine pH 6.0 (5.0-9.0) Ur Specific Dodson >= 1.030 H (1.005-1.025) Urine Protein Negative (Neg-Trace) mg/dL Urine Glucose (UA) Negative (Negative) mg/dL Urine Ketones Negative (Negative) mg/dL Urine Blood Negative (Negative) Urine Nitrite Negative (Negative) Ur Leukocyte Esterase Negative (Negative) Urine Opiates Screen Not Detected (Not Detect) Urine Fentanyl Screen Not Detected (Not Detect) Ur Barbiturates Screen Not Detected (Not Detect) Ur Phencyclidine Scrn Not Detected (Not Detect) Ur Amphetamines Screen Not Detected (Not Detect) U Benzodiazepines Scrn Not Detected (Not Detect) Urine Cocaine Screen Not Detected (Not Detect) U Marijuana (THC) Screen Not Detected (Not Detect) COVID-19 (DARELL) (Negative) COVID-19 Clin Com Influenza Type A (VINOD) (Negative) Influenza Type B (VINOD) (Negative) Influenza A & B Note <Rakan Mann MD - Last Filed: 11/11/22 00:26> Independent Interpretation I performed an independent interpretation of an: EKG <Rakan Mann MD - Last Filed: 11/11/22 00:26> Interpretation: EKG 1. Done at 2009: SVT with a rate of 180. T-wave inversions diffusely consistent with ischemic changes. EKG to: Done at 2013, status post adenosine 6 mg IV with conversion back to sinus tachycardia. Sinus tachycardia the rate of 111. Residual T-wave inversions in leads V3 through V6 as well as 2 3 in AVF consistent with resolving ischemia. EKG 3 done at 21 42: Sinus rhythm with a rate of 99. Persistent T-wave inversion in leads V3 V4 V5 V6 as well as the inferior leads <Rakan Mann MD - Last Filed: 11/11/22 00:26> Radiology Impression Discussion of test interpretation with radiology: I have reviewed the radiologist's reading. <Rakan Mann MD - Last Filed: 11/11/22 00:26> Radiologist Impression: CT angio chest: IMPRESSION: 1.? No evidence of PE. 2.? No evidence of aortic dissection or aneurysm. 3.? Moderate size hiatal hernia ? VTE: negative <Rakan Mann MD - Last Filed: 11/11/22 00:26> Procedures Procedure Narrative Procedure Narrative: Chemical cardioversion with adenosine 6 mg IV was undertaken and was successful on the 1st injection, with the patient converting back into sinus tachycardia. Patient was maintained on the monitor during the procedure <Rakan Mann MD - Last Filed: 11/11/22 00:26> Discharge Plan Discharge Clinical Impression: Sustained SVT, Elevated troponin I level, Non-ST elevation NM (NSTEMI) <NAHEED Marie - Last Filed: 11/10/22 20:05> Patient Disposition: Admitted as Observation <NAHEED Marie - Last Filed: 11/10/22 20:05>
[2022-11-10] MEDS: Adenosine 6 MG/2 ML VIAL IVPUSH (20:13)
[2022-11-10] MEDS: 0.9 % Sodium Chloride 500 ML IV (20:15)
[2022-11-10 20:17] LABS: MANUAL DIFF FLAG NO
[2022-11-10 20:18] LABS: Basophils Absolute Auto 0.1 X10*3/uL (0.0-0.2); Basophils Percent Auto 0.5 % (0-2); Eosinophils Absolute Auto 0.1 X10*3/uL (0.0-0.4); Eosinophils Percent Auto 0.6 % (0-4); Hematocrit 37.1 % (37.0-47.0); Hemoglobin 12.1 g/dl (12.0-16.0); Imm Gran Abs Auto 0.03 X10*3/uL (0.00-0.03); Imm Gran Pct Auto 0.2 % (0.0-0.4); Lymphocytes Absolute Auto 4.1 X10*3/uL (1.2-4.9); Mean Corpuscular HGB Conc 32.6 g/dl (31.0-35.0); Mean Corpuscular Hemoglobin 27.3 pg (27.0-33.0); Mean Corpuscular Volume 83.6 fL (80.0-98.0); Mean Platelet Volume 9.6 fL (9.4-12.3); Monocytes Absolute Auto 1.1 X10*3/uL (0.1-1.2); Monocytes Percent Auto 8.9 % (2-11); Neutrophils Absolute Auto 7.1 x10*3/uL (2.0-8.3); Neutrophils Percent Auto 56.8 % (45-73); Platelet Count 332 X10*3/uL (160-400); Red Blood Count 4.44 X10*6/uL (4.20-5.50); Red Cell Distribution Width 15.2 % (11.0-16.0); White Blood Count 12.5 X10*3/uL (4.8-10.8)
--- NOTE | 2022-11-10 20:39 | PC.NURSE ---
Addendum entered by Mary Lou Dowling 11/10/22 20:42: no securement device used as there was not one in the kit Original Note: assumed care of pt labs obtained and sent to lab via tube system (mnemonic and time written on each tube) IV access obtained 20 g to R AC
[2022-11-10 20:42] LABS: Alanine Aminotransferase 30 U/L (0-31); Alkaline Phosphatase 74 U/L (39-117); Anion Gap 15 (12-20); Aspartate Amino Transferase 28 U/L (5-31); Bilirubin Direct 0.2 mg/dL (0.0-0.5); Bilirubin Total 0.6 mg/dL (0.0-1.0); Blood Urea Nitrogen 14 mg/dL (9-16); Calcium 8.8 mg/dL (8.4-10.2); Carbon Dioxide 20 mmol/L (22-29); Chloride 108 mmol/L (96-108); Creatinine Clr Calc Pharmacy 72.1; Estimated Glomerular Filt Rate > 60; Glucose Random 96 mg/dL (60-115); Potassium 4.1 mmol/L (3.3-5.1); Sodium 139 mmol/L (135-145)
[2022-11-10 20:46] LABS: IDNOW Serial# BCCEAD1C; Influenza A Negative (Negative); Influenza B2 Negative (Negative)
[2022-11-10 20:47] LABS: COVID-19 Test Negative (Negative); IDNOW Serial# 16C4AD1C
[2022-11-10 20:51] LABS: D Dimer High Sensitivity 420 NG/ML
--- NOTE | 2022-11-10 20:52 | ECG_ITS ---
Test Reason : CHEST PAIN Blood Pressure : / mmHG Vent. Rate : 099 BPM Atrial Rate : 099 BPM P-R Int : 144 ms QRS Dur : 080 ms QT Int : 362 ms P-R-T Axes : 072 069 211 degrees QTc Int : 464 ms Normal sinus rhythm ST & T wave abnormality, consider inferior ischemia ST & T wave abnormality, consider anterolateral ischemia Prolonged QT Abnormal ECG When compared with ECG of 24-OCT-2022 02:26, No significant changes seen Referred By: Rakan Mann Electronically Signed By:GLORIA GAMEZ
[2022-11-10 20:57] LABS: TSH reflex Free T4 3.03 uIU/mL (0.32-4.0)
[2022-11-10 21:17] LABS: Troponin-I High Sensitivity 101.4 ng/L (<3.5-17.0)
[2022-11-10] MEDS: Metoprolol Tartrate 12.5 MG HALFTAB PO (21:32)
[2022-11-10 21:33] VITALS: BP 109/74; PULSE 101; RESP 18; TEMP 36.9; O2SAT 100
--- NOTE | 2022-11-10 21:35 | PC.NURSE ---
this nurse assessed vs 109/74 notified provider; order for 25 mg metoprolol questioned per provider hold med, will change order to 12.5 mg
--- NOTE | 2022-11-10 21:36 | PC.NURSE ---
admin metoprolol 12.5 mg PO per MAR
[2022-11-10] MEDS: iohexoL 350 MG/ML 100 ML INFUS..BTL IV (22:05)
--- NOTE | 2022-11-10 22:15 | PC.NURSE ---
pt denies chest pain at this time, states feeling very fatigued resting quietly, while at bedside no apparent distress aox4
--- NOTE | 2022-11-10 22:16 | PC.NURSE ---
pt states she drinks 1 cup of coffee if that daily denies following any fad diets, denies consuming any energy products, denies consumption of herbal supplements states h/o Covid + 2x 1st occurrence in 2019 2nd occurrence about 6 mos ago
[2022-11-10 22:21] VITALS: BP 124/79; PULSE 95; RESP 17; TEMP 36.6; O2SAT 99
[2022-11-10 22:55] LABS: Troponin-I High Sensitivity 183.6 ng/L (<3.5-17.0)
[2022-11-10 23:00] LABS: Appearance Urine Clear; Color Urine Yellow; Glucose Urine UA Negative (Negative); Leukocyte Esterase Urine Negative (Negative); Nitrite Urine Negative (Negative); Specific Gravity - Urine >= 1.030 (1.005-1.025); Urine Blood Negative (Negative); Urine Ketones Negative (Negative); Urine Protein Negative (Neg-Trace)
[2022-11-10 23:13] LABS: Amphetamine Screen Urine Not Detected (Not Detect); Barbiturates, Urine Not Detected (Not Detect); Benzodiazepines Screen Urine Not Detected (Not Detect); Cannabinoid Screen Urine Not Detected (Not Detect); Cocaine Screen Urine Not Detected (Not Detect); Fentanyl, urine Not Detected (Not Detect); Opiate Screen Urine Not Detected (Not Detect); Phencyclidine Screen Urine Not Detected (Not Detect)
--- NOTE | 2022-11-10 23:54 | PM.IMHP ---
History of Present Illness Date of Service: 11/10/22 Chief Complaint: palpitations, cp Sammarinese-speaking only, history is obtained with the help of educational interpreter 37-year-old female with past medical history of SVT, sacroiliitis, presents to the hospital with complaints of palpitations as well as chest pain. Patient reports that she was seen in the hospital on 10 24 for the same, where she woke up with palpitations, chest pain, nausea, and just generally not feeling well. Patient reports that at that time she was found to have tachycardia, treated with adenosine and sent home. She returns today with similar symptoms. She describes the chest pain as midsternal, radiating up the chest, worse with deep inspiration as well as laying flat, reports severe palpitation, denies any dizziness, no headache or change in vision. Reports that the chest pain is constant, no relieving factors. On arrival to the ED patient was found to have a heart rate of 180 otherwise stable vitals Patient received adenosine silks mg but converted, on her EKG patient had new inverted T-waves with troponin of 105 that increase to 180, CT angiogram was done which was negative. T-wave inversions in the lateral leads V4 to V6 as well as leads 1, 2, as well as AVF.This case was discussed with Cardiology by ED physician, patient will be admitted for further management and evaluation. Review of Systems Review of Systems: Yes all other systems are reviewed and are negative [facility] Medical History (Updated 11/11/22 @ 06:33 by Grover Gilbert MD) Sacroiliitis Scoliosis Scoliosis of thoracolumbar spine Spondylosis of lumbar region without myelopathy or radiculopathy Surgical History (Updated 11/11/22 @ 06:31 by Grover Gilbert MD) History of breast augmentation Social History Alcohol intake: never Patient Tobacco Use Status: Former Tobacco user Smoked in Last 30 Days: No Use of substances other than those prescribed or required for medical reasons: No Advance Directives: No Advance Directives Information Provided: No Meds Allergies Allergy/AdvReac Type Severity Reaction Status Date / Time aspirin [Aspirin] Allergy Unknown SWELLING Verified 11/10/22 20:46 sea food Allergy Unknown Anaphylaxis Uncoded 11/10/22 20:46 Seafood Allergy Unknown SWELLING Uncoded 09/16/22 12:41 Physical Exam Vital Signs and Narrative: Vital Signs: Last Vital Signs Temp 97.8 F 11/10/22 22:21 Pulse 95 11/10/22 22:21 Resp 17 11/10/22 22:21 BP 124/79 11/10/22 22:21 Pulse Ox 99 11/10/22 22:21 O2 Del Method 11/10/22 22:21 BMI result Body Mass Index 23.2 Const: General: cooperative and no acute distress Orientation/consciousness: patient oriented x3 Eyes: General: appearance normal, both eyes and all related structures Resp: Effort & Inspection: normal respiratory effort, able to speak in complete sentences and abnormal respiratory pattern Auscultation: clear to auscultation bilaterally Cardio: Other: Normal sinus rhythm, no tachycardia Rate: regular rate Rhythm: regular rhythm GI: Palpation (GI): Soft to palpation Auscultation: normal bowel sounds Skin: General skin exam: no rashes or lesions noted Neuro: General: patient oriented x3 Cognition (Neuro): normal cognition Extrem: General: Yes normal to inspection and Yes no pedal edema Results Labs 11/10/22 20:13 11/10/22 20:13 Labs: Laboratory Results - last 24 hr 11/10/22 11/10/22 11/10/22 20:13 20:13 20:20 MCV 83.6 MCH 27.3 MCHC 32.6 RDW 15.2 Plt Count 332 MPV 9.6 Immature Gran % (Auto) 0.2 Neut % (Auto) 56.8 Lymph % (Auto) 33.0 [place] % (Auto) 8.9 Eos % (Auto) 0.6 Baso % (Auto) 0.5 Lymph # (Auto) 4.1 [place] # (Auto) 1.1 Eos # (Auto) 0.1 Baso # (Auto) 0.1 Abs Immat Gran (auto) 0.03 Absolute Neuts (auto) 7.1 Absolute Nucleated RBC 0.000 Nucleated RBC % (auto) 0.0 D-Dimer High Sensitivty Anion Gap 15 Estim Creat Clear Calc 72.1 Estimated GFR > 60 Random Glucose 96 Calcium 8.8 Magnesium 2.0 Total Bilirubin 0.6 Direct Bilirubin 0.2 AST 28 ALT 30 Alkaline Phosphatase 74 Troponin I High Sens Total Protein 7.0 Albumin 4.0 TSH 3.03 Urine Color Urine Appearance Urine pH Ur Specific [place] Urine Protein Urine Glucose (UA) Urine Ketones Urine Blood Urine Nitrite Ur Leukocyte Esterase Urine Opiates Screen Urine Fentanyl Screen Ur Barbiturates Screen Ur Phencyclidine Scrn Ur Amphetamines Screen U Benzodiazepines Scrn Urine Cocaine Screen U Marijuana (THC) Screen COVID-19 (DARELL) COVID-19 Clin Com Influenza Type A (VINOD) Negative Influenza Type B (VINOD) Negative Influenza A & B Note See Note 11/10/22 11/10/22 11/10/22 20:20 20:37 20:37 MCV MCH MCHC RDW Plt Count MPV Immature Gran % (Auto) Neut % (Auto) Lymph % (Auto) [place] % (Auto) Eos % (Auto) Baso % (Auto) Lymph # (Auto) [place] # (Auto) Eos # (Auto) Baso # (Auto) Abs Immat Gran (auto) Absolute Neuts (auto) Absolute Nucleated RBC Nucleated RBC % (auto) D-Dimer High Sensitivty 420 Anion Gap Estim Creat Clear Calc Estimated GFR Random Glucose Calcium Magnesium Total Bilirubin Direct Bilirubin AST ALT Alkaline Phosphatase Troponin I High Sens 101.4 H* D Total Protein Albumin TSH Urine Color Urine Appearance Urine pH Ur Specific [place] Urine Protein Urine Glucose (UA) Urine Ketones Urine Blood Urine Nitrite Ur Leukocyte Esterase Urine Opiates Screen Urine Fentanyl Screen Ur Barbiturates Screen Ur Phencyclidine Scrn Ur Amphetamines Screen U Benzodiazepines Scrn Urine Cocaine Screen U Marijuana (THC) Screen COVID-19 (DARELL) Negative COVID-19 Clin Com See Note Influenza Type A (VINOD) Influenza Type B (VINOD) Influenza A & B Note 11/10/22 11/10/22 11/10/22 22:20 22:48 22:48 MCV MCH MCHC RDW Plt Count MPV Immature Gran % (Auto) Neut % (Auto) Lymph % (Auto) [place] % (Auto) Eos % (Auto) Baso % (Auto) Lymph # (Auto) [place] # (Auto) Eos # (Auto) Baso # (Auto) Abs Immat Gran (auto) Absolute Neuts (auto) Absolute Nucleated RBC Nucleated RBC % (auto) D-Dimer High Sensitivty Anion Gap Estim Creat Clear Calc Estimated GFR Random Glucose Calcium Magnesium Total Bilirubin Direct Bilirubin AST ALT Alkaline Phosphatase Troponin I High Sens 183.6 H* D Total Protein Albumin TSH Urine Color Yellow Urine Appearance Clear Urine pH 6.0 Ur Specific [place] >= 1.030 H Urine Protein Negative Urine Glucose (UA) Negative Urine Ketones Negative Urine Blood Negative Urine Nitrite Negative Ur Leukocyte Esterase Negative Urine Opiates Screen Not Detected Urine Fentanyl Screen Not Detected Ur Barbiturates Screen Not Detected Ur Phencyclidine Scrn Not Detected Ur Amphetamines Screen Not Detected U Benzodiazepines Scrn Not Detected Urine Cocaine Screen Not Detected U Marijuana (THC) Screen Not Detected COVID-19 (DARELL) COVID-19 Clin Com Influenza Type A (VINOD) Influenza Type B (VINOD) Influenza A & B Note Imaging Radiologist's Impressions: Impressions Chest X-Ray 11/10/22 20:45 IMPRESSION: Unremarkable chest exam. Chest CTA 11/10/22 22:10 IMPRESSION: 1. No evidence of PE. 2. No evidence of aortic dissection or aneurysm. 3. Moderate size hiatal hernia VTE: negative Assessment and Plan (1) Sustained SVT: Status: Acute (2) Elevated troponin I level: Status: Acute (3) Chest pain: Status: Acute Plan 37-year-old female with a recently discovered SVT on 10/24 presents to the hospital with complaints of tachycardia, as well as pleuritic chest pain found to have sustained V-tach being admitted for further evaluation # SVT - received 6 mg of adenosine which helped convert to sinus rhythm - patient has EKG abnormalities as mentioned above - cardiology recommended admission for further evaluation, will admit to telemetry, will obtain an echocardiogram - received Lopressor in the ED # chest pain - appears pleuritic in nature - possibly secondary to palpitations - case discussed with Cardiology by ED physician - monitor # elevated troponin - likely type 2 in the setting of his SVT - at this time will hold off starting heparin per Cardiology - monitor on telemetry DVT prophylaxis: Lovenox Time Spent With Patient Time: Total time managing care of this patient today ____ minutes. Quality Stroke Does the patient have a stroke diagnosis?: No VTE Prior VTE?: No VTE Risk Level:: Medical - moderate - high VTE Device Contraindication: Treatment Not Indicated VTE Drug Contraindication: N/A - Med Ordered
[2022-11-11] VITALS (7 sets, daily range): BP systolic 110–120; BP diastolic 54–85; PULSE 79–93; RESP 12–20; TEMP 36.4–37.1; O2SAT 97–100; BMI 25.6
[2022-11-11] MEDS: Enoxaparin Sodium 40 MG/0.4 ML SYRINGE SUBCUT ×2 (00:17→22:19)
[2022-11-11 00:56] LABS: Troponin-I High Sensitivity 163.7 ng/L (<3.5-17.0)
--- NOTE | 2022-11-11 01:03 | PC.NURSE ---
report called to [facility] RN
--- NOTE | 2022-11-11 07:00 | CA_ITS ---
Transthoracic Echocardiogram Patient (Last, First, Middle): Rosita Og, Gender: Female Date of : 1985 Age: 37 Procedure Date: 11/11/2022 Procedure Type: Transthoracic Echocardiogram Location[place] [facility] [place] Height: 167.64 cm Weight: 65.32 kg BSA: 1.74 m2 Heart Rate: bpm BP: 120 / 59 mmHg [place]: Referring MD: Grover Gilbert MD Symptoms: SVT, CP Study Quality: Good ECG Rhythm: Sinus Conclusions: - The left ventricular systolic function is low normal. The calculated ejection fraction is 54% by biplane method. - No obvious valvular pathology seen on this study. Findings Left Ventricle Normal left ventricular cavity size. There is normal left ventricular wall thickness. The left ventricular systolic function is low normal. The calculated ejection fraction is 54% by biplane method. There is no evidence of regional wall motion abnormalities. Diastolic function is normal for age. Right Ventricle Normal right ventricular cavity size and systolic function. Atria Both atria are normal in size. Aortic Valve There is a normal trileaflet aortic valve. There is no aortic valve stenosis. There is no aortic valve regurgitation. Mitral Valve The mitral valve appears normal. There is trace mitral valve regurgitation. There is no mitral valve stenosis. Pulmonic Valve The pulmonic valve is likely normal. Tricuspid Valve Normal tricuspid valve structure. There is trace tricuspid valve regurgitation. There is no evidence of pulmonary hypertension. Great Vessels The aortic annulus, sinuses of valsalva, and asc aorta are normal in size. Venous The inferior vena cava is mildly dilated and collapses less than 50% with inspiration. Pericardium/Pleural There is no evidence of pericardial effusion. Prior Study Comparison Changes noted compared to prior study dated: 01/09/2019. see comment on IVC. Recommendations, Care & Conclusions No obvious valvular pathology seen on this study. Measurements 2D Linear Measurements IVSd: 0.79 0.6-0.9/0.6-1.0 cm LVIDd: 4.62 3.9-5.3/4.2-5.9 cm LVIDd Index: 2.66 2.4-3.2/2.2-3.1 cm/m2 LVIDs: 2.69 2.0-3.6 cm LVPWd: 0.83 0.7-1.1 cm Ao Root: 2.60 2.1-3.5 cm LA Diam: 3.70 2.7-3.8/3.0-4.0 cm LAIDs Index: 2.13 1.5-2.3 cm/m2 LV Mass: 150.74 67-162/88-224 g LV Mass Index: 86.63 43-95/49-115 g/m2 LVOT Diam: 2.00 3.0+(-)1.3 cm 2D Systolic Function EF 4C: 52.80 >55% EF 2C: 54.40 >55% EF BiP: 53.50 >55% Mitral Valve MV Pk E: 0.84 MV PK A: 0.38 MV Decel Time: 202.00 E/A: 2.20 E'Lateral: 13.50 E'Medial: 11.20 E/E' Med: 7.50 E/E' Lat: 6.20 PHT: 59.00 MVA PHT: 3.73 Decel Kay: 4.14 Aortic Valve AoV Pk Jeff: 1.39 AoV Mn Jeff: 0.90 AoV VTI: 0.26 AoV Pk Grad: 8.00 Aov Mn Grad: 4.00 GEOVANY Cont.VTI: 2.31 LVOT LVOT Pk Jeff: 1.01 LVOT Mn Jeff: 0.67 LVOT VTI: 0.19 LVOT Pk Grad: 4.00 LVOT Mn Grad: 2.00 LVOT Diam: 2.00 LVOT Area: 3.14 Diastolic Function MV Pk E: 0.84 MV Pk A: 0.38 E/A: 2.20 E'Medial: 11.20 E/E' Med: 7.50 E' Laterial: 13.50 E/E' Lat: 6.20 Right Ventricle TAPSE (mm): 30.00 TVS' Jeff: 13.00 Tricuspid Valve TR Pk Jeff: 2.55 TR Pk Grad: 26.00 RA Press: 15.00 RVSP: 29.00 Great Vessels Aorta Ao Root-2D: 2.60 2.0-3.7 cm Ao Asc: 2.70 2.1-3.4 cm Pulmonary Valve PV Pk Jeff: 1.10 Peak PV Grad: 5.00 Updated in Other Vendor System with Status of Final Theron Barrientos MD electronically signed on 11/11/2022 11:40:29 AM with status of Final
[2022-11-11 07:01] LABS: Alanine Aminotransferase 31 U/L (0-31); Albumin Level 3.3 g/dL (3.5-5.0); Alkaline Phosphatase 62 U/L (39-117); Anion Gap 10 (12-20); Aspartate Amino Transferase 24 U/L (5-31); Bilirubin Total 0.5 mg/dL (0.0-1.0); Blood Urea Nitrogen 11 mg/dL (9-16); Carbon Dioxide 21 mmol/L (22-29); Chloride 111 mmol/L (96-108); Creatinine Clr Calc Pharmacy 101.1; Estimated Glomerular Filt Rate > 60; Glucose Random 87 mg/dL (60-115); Potassium 3.5 mmol/L (3.3-5.1); Sodium 138 mmol/L (135-145); Total Protein 5.3 g/dL (6.5-8.0)
--- NOTE | 2022-11-11 08:55 | ECG_ITS ---
Test Reason : SVT Blood Pressure : / mmHG Vent. Rate : 105 BPM Atrial Rate : 105 BPM P-R Int : 140 ms QRS Dur : 078 ms QT Int : 340 ms P-R-T Axes : 077 067 207 degrees QTc Int : [address] & T wave abnormality, consider anterolateral ischemia Abnormal ECG When compared with ECG of 24-OCT-2022 02:26, Rate slower; rhythm change Referred By: Rakan Mann Electronically Signed By:GLORIA GAMEZ
--- NOTE | 2022-11-11 09:22 | PM.CNCAR ---
History of Present Illness History of Present Illness Date of Service: 11/11/22 Chief complaint: SVT Narrative: This is a cardiology consultation regarding supraventricular tachycardia. Patient presented with complaints of palpitations as well as chest pain. Multiple complaints including chest pain, difficulty breathing, weakness, palpitations, just not feeling well for the last several days. It seems that she actually came to the ER with tachycardia couple of weeks ago, got adenosine and then sent home. Then returns again with similar complaints today. Chest pain, somewhat pleuritic in nature. Shortness of breath more so while lying down. She also feels very weak and exhausted when walking even short distances. Then it seems that she was thought to have SVT and again given adenosine. Then as EKG was abnormal with T inversions and also elevation of troponins, she was admitted. Around 2014, she was admitted with myopericarditis. Review of Systems Review of Systems: Yes all other systems are reviewed and are negative Constitutional: Constitutional: Reports as per HPI, Reports fatigue, Reports lethargy, Reports malaise and Reports weakness Eyes: Eyes: Reports as per HPI ENT: Reports as per HPI Cardiovascular: Cardiovascular: Reports as per HPI, Denies acrocyanosis, Denies cool extremities, Reports chest pain, Denies leg edema, Denies lightheadedness, Denies palpitations and Reports dyspnea Respiratory: Respiratory: Reports as per HPI, Reports no additional respiratory complaints and Reports dyspnea Gastrointestinal: Gastrointestinal: Reports as per HPI and Reports no additional gastrointestinal complaints Genitourinary: Genitourinary: Reports as per HPI Musculoskeletal: Musculoskeletal: Reports no additional musculoskeletal complaints and Reports as per HPI Integumentary/Breasts: Skin/Breast: Reports system reviewed and no additional complaints, except as docu Neurologic: Reports system reviewed and no additional complaints, except as documented, Reports as per HPI and Reports weakness Psychiatric: Psychiatric: Reports no additional psychiatric complaints and Reports as per HPI Endocrine: Endocrine: Reports no additional endocrine complaints, Reports as per HPI, Reports fatigue and Denies palpitations Hematologic/Lymphatic: Hematologic/Lymphatic: Reports no additional hematologic/lymphatic complaints and Reports as per HPI Allergic/Immunologic: Allergic/Immunologic: Reports no additional allergic/immunologic complaints and Reports as per HPI [facility] Past Medical History Medical History (Updated 11/11/22 @ 09:28 by Theron Barrientos MD) Sacroiliitis Scoliosis Scoliosis of thoracolumbar spine Spondylosis of lumbar region without myelopathy or radiculopathy Family History Family History (Updated 11/11/22 @ 09:26 by Theron Barrientos MD) Mother Breast cancer Father Cardiac arrhythmia Father Cardiac arrhythmia Surgical History Surgical History (Updated 11/11/22 @ 06:31 by Grover Gilbert MD) History of breast augmentation Social History Social History Alcohol intake: never Patient Tobacco Use Status: Former Tobacco user Smoked in Last 30 Days: No Use of substances other than those prescribed or required for medical reasons: No Advance Directives: No Advance Directives Information Provided: No Meds Allergies Allergy/AdvReac Type Severity Reaction Status Date / Time aspirin [Aspirin] Allergy Unknown SWELLING Verified 11/10/22 20:46 sea food Allergy Unknown Anaphylaxis Uncoded 11/10/22 20:46 Seafood Allergy Unknown SWELLING Uncoded 09/16/22 12:41 Active Medications: Current Medications Acetaminophen (Acetaminophen 325 Mg Tablet) 650 mg PO Q6H PRN PRN Reason: Pain, Mild (Pain Scale 1-3) Docusate Sodium (Docusate Sodium 100 Mg Capsule) 100 mg PO DAILY PRN PRN Reason: Constipation Enoxaparin Sodium (Enoxaparin Sodium 40 Mg/0.4 Ml Syringe) 40 mg SUBCUT Q24H ANA Last Admin: 11/11/22 00:17 Dose: 40 mg Ondansetron HCl (Ondansetron Hcl 4 Mg/2 Ml Vial) 4 mg IVPUSH Q8H PRN PRN Reason: Nausea and Vomiting Home Medications Medication Instructions Recorded Confirmed Last Taken Type bupropion HCl 300 mg 24 hr tablet, 1 tab PO QAM 11/11/22 Unknown History extended release escitalopram oxalate 10 mg tablet 1 tab PO DAILY 11/11/22 Unknown History eszopiclone 3 mg tablet 1 tab PO BEDTIME PRN insomnia 11/11/22 Unknown History lidocaine 5 % topical patch 1 patch transdermal DAILY PRN Pain 11/11/22 Unknown History (Lidoderm) oxcarbazepine 150 mg tablet 150 mg PO DAILY 11/11/22 Unknown History oxcarbazepine 150 mg tablet 300 mg PO BEDTIME 11/11/22 Unknown History sumatriptan succinate 50 mg tablet 50 mg PO DAILY MRX1 11/11/22 Unknown History topiramate 50 mg tablet 1 tab PO QAM 11/11/22 Unknown History Physical Exam Vital Signs: Vital Signs: Last Vital Signs Temp 97.6 F 11/11/22 07:30 Pulse 83 11/11/22 07:30 Resp 12 11/11/22 07:30 BP 113/55 L 11/11/22 07:30 Pulse Ox 97 11/11/22 07:30 O2 Del Method 11/11/22 07:30 BMI result Body Mass Index 25.6 Const: General: comfortable and no acute distress Orientation/consciousness: patient oriented x3 HEENT: Other: Unremarkable Head: Yes normal to inspection Neck: Neck: Yes normal visual inspection Chest: Chest palpation & inspection: normal inspection of the chest Resp: Auscultation: clear to auscultation bilaterally Cardio: Palpation: normal PMI Heart sounds: S1 normal heart sound present, S2 normal heart sound present, no gallops, no murmurs and no rubs GI: Palpation (GI): Soft to palpation Back/Spine/Pelvis: Other: unremarkable Skin: General skin exam: no rashes or lesions noted Neuro: General: patient oriented x3 Extrem: General: Yes normal to inspection Psych: Mental Status: mental status grossly normal Objective Labs and Meds 11/10/22 20:13 11/11/22 06:24 Lab results: Laboratory Results - last 24 hr 11/10/22 11/10/22 11/10/22 20:13 20:13 20:20 WBC 12.5 H RBC 4.44 Hgb 12.1 Hct 37.1 MCV 83.6 MCH 27.3 MCHC 32.6 RDW 15.2 Plt Count 332 MPV 9.6 Immature Gran % (Auto) 0.2 Neut % (Auto) 56.8 Lymph % (Auto) 33.0 [place] % (Auto) 8.9 Eos % (Auto) 0.6 Baso % (Auto) 0.5 Lymph # (Auto) 4.1 [place] # (Auto) 1.1 Eos # (Auto) 0.1 Baso # (Auto) 0.1 Abs Immat Gran (auto) 0.03 Absolute Neuts (auto) 7.1 Absolute Nucleated RBC 0.000 Nucleated RBC % (auto) 0.0 D-Dimer High Sensitivty Sodium 139 Potassium 4.1 Chloride 108 Carbon Dioxide 20 L Anion Gap 15 BUN 14 Creatinine 0.98 Estim Creat Clear Calc 72.1 Estimated GFR > 60 Random Glucose 96 Calcium 8.8 Magnesium 2.0 Total Bilirubin 0.6 Direct Bilirubin 0.2 AST 28 ALT 30 Alkaline Phosphatase 74 Troponin I High Sens Total Protein 7.0 Albumin 4.0 TSH 3.03 Urine Color Urine Appearance Urine pH Ur Specific [place] Urine Protein Urine Glucose (UA) Urine Ketones Urine Blood Urine Nitrite Ur Leukocyte Esterase Urine Opiates Screen Urine Fentanyl Screen Ur Barbiturates Screen Ur Phencyclidine Scrn Ur Amphetamines Screen U Benzodiazepines Scrn Urine Cocaine Screen U Marijuana (THC) Screen COVID-19 (DARELL) COVID-19 Clin Com Influenza Type A (VINOD) Negative Influenza Type B (VINOD) Negative Influenza A & B Note See Note 11/10/22 11/10/22 11/10/22 20:20 20:37 20:37 WBC RBC Hgb Hct MCV MCH MCHC RDW Plt Count MPV Immature Gran % (Auto) Neut % (Auto) Lymph % (Auto) [place] % (Auto) Eos % (Auto) Baso % (Auto) Lymph # (Auto) [place] # (Auto) Eos # (Auto) Baso # (Auto) Abs Immat Gran (auto) Absolute Neuts (auto) Absolute Nucleated RBC Nucleated RBC % (auto) D-Dimer High Sensitivty 420 Sodium Potassium Chloride Carbon Dioxide Anion Gap BUN Creatinine Estim Creat Clear Calc Estimated GFR Random Glucose Calcium Magnesium Total Bilirubin Direct Bilirubin AST ALT Alkaline Phosphatase Troponin I High Sens 101.4 H* D Total Protein Albumin TSH Urine Color Urine Appearance Urine pH Ur Specific [place] Urine Protein Urine Glucose (UA) Urine Ketones Urine Blood Urine Nitrite Ur Leukocyte Esterase Urine Opiates Screen Urine Fentanyl Screen Ur Barbiturates Screen Ur Phencyclidine Scrn Ur Amphetamines Screen U Benzodiazepines Scrn Urine Cocaine Screen U Marijuana (THC) Screen COVID-19 (DARELL) Negative COVID-19 Clin Com See Note Influenza Type A (VINOD) Influenza Type B (VINOD) Influenza A & B Note 11/10/22 11/10/22 11/10/22 22:20 22:48 22:48 WBC RBC Hgb Hct MCV MCH MCHC RDW Plt Count MPV Immature Gran % (Auto) Neut % (Auto) Lymph % (Auto) [place] % (Auto) Eos % (Auto) Baso % (Auto) Lymph # (Auto) [place] # (Auto) Eos # (Auto) Baso # (Auto) Abs Immat Gran (auto) Absolute Neuts (auto) Absolute Nucleated RBC Nucleated RBC % (auto) D-Dimer High Sensitivty Sodium Potassium Chloride Carbon Dioxide Anion Gap BUN Creatinine Estim Creat Clear Calc Estimated GFR Random Glucose Calcium Magnesium Total Bilirubin Direct Bilirubin AST ALT Alkaline Phosphatase Troponin I High Sens 183.6 H* D Total Protein Albumin TSH Urine Color Yellow Urine Appearance Clear Urine pH 6.0 Ur Specific [place] >= 1.030 H Urine Protein Negative Urine Glucose (UA) Negative Urine Ketones Negative Urine Blood Negative Urine Nitrite Negative Ur Leukocyte Esterase Negative Urine Opiates Screen Not Detected Urine Fentanyl Screen Not Detected Ur Barbiturates Screen Not Detected Ur Phencyclidine Scrn Not Detected Ur Amphetamines Screen Not Detected U Benzodiazepines Scrn Not Detected Urine Cocaine Screen Not Detected U Marijuana (THC) Screen Not Detected COVID-19 (DARELL) COVID-19 Clin Com Influenza Type A (VINOD) Influenza Type B (VINOD) Influenza A & B Note 11/11/22 11/11/22 00:23 06:24 WBC RBC Hgb Hct MCV MCH MCHC RDW Plt Count MPV Immature Gran % (Auto) Neut % (Auto) Lymph % (Auto) [place] % (Auto) Eos % (Auto) Baso % (Auto) Lymph # (Auto) [place] # (Auto) Eos # (Auto) Baso # (Auto) Abs Immat Gran (auto) Absolute Neuts (auto) Absolute Nucleated RBC Nucleated RBC % (auto) D-Dimer High Sensitivty Sodium 138 Potassium 3.5 Chloride 111 H Carbon Dioxide 21 L Anion Gap 10 L BUN 11 Creatinine 0.76 Estim Creat Clear Calc 101.1 Estimated GFR > 60 Random Glucose 87 Calcium 8.0 L D Magnesium Total Bilirubin 0.5 Direct Bilirubin AST 24 ALT 31 Alkaline Phosphatase 62 Troponin I High Sens 163.7 H* Total Protein 5.3 L Albumin 3.3 L TSH Urine Color Urine Appearance Urine pH Ur Specific [place] Urine Protein Urine Glucose (UA) Urine Ketones Urine Blood Urine Nitrite Ur Leukocyte Esterase Urine Opiates Screen Urine Fentanyl Screen Ur Barbiturates Screen Ur Phencyclidine Scrn Ur Amphetamines Screen U Benzodiazepines Scrn Urine Cocaine Screen U Marijuana (THC) Screen COVID-19 (DARELL) COVID-19 Clin Com Influenza Type A (VINOD) Influenza Type B (VINOD) Influenza A & B Note ECG Interpretation: In the most recent EKG, underlying rhythm is sinus at 99/Min; inverted T-waves across the precordial leads as well as inferior leads. In the initial EKG from yesterday, narrow complex tachycardia at 180/Min, probable SVT. Again anterior and inferior T inversions. The T-wave changes go back to 2015. However, EKGs in the interim show upright T-waves. Imaging Radiologist's impression: Impressions Chest X-Ray 11/10/22 20:45 IMPRESSION: Unremarkable chest exam. Chest CTA 11/10/22 22:10 IMPRESSION: 1. No evidence of PE. 2. No evidence of aortic dissection or aneurysm. 3. Moderate size hiatal hernia VTE: negative Assessment and Plan (1) SVT (supraventricular tachycardia): Status: Acute (2) Elevated troponin I level: Status: Acute Plan Labs show mild leukocytosis. Troponin levels are 101, 183 and 163. Toxicology screen negative. Chest CTA shows no evidence of pulmonary embolism or other abnormalities of significance. There is hiatal hernia. Overall, history of previous myopericarditis 2014; currently supraventricular tachycardia; elevation of troponins; numerous symptoms; not clear if she is having recurrent myopericarditis. Start low-dose [id number] 25 mg daily. Obtain echocardiogram. Start ibuprofen/colchicine. Will follow up with you. Time Spent With Patient Time: Total time managing care of this patient today ____ minutes. Procedures Date of Service Date of Service: 11/11/22
--- NOTE | 2022-11-11 09:49 | PHA.MEDREC ---
Pharmacy Consult ? Medication Reconciliation Pharmacy has completed the medication reconciliation.
[2022-11-11 10:17] LABS: C Reactive Protein 3.25 mg/dL (< or = 0.50)
[2022-11-11] MEDS: Metoprolol Succinate ER 25 MG TAB.ER.24H PO (10:47)
[2022-11-11] MEDS: Omeprazole 20 MG CAPSULE.DR PO ×2 (10:47→16:55)
[2022-11-11] MEDS: Colchicine 0.6 MG TABLET PO ×2 (10:47→20:39)
[2022-11-11 11:03] LABS: Erythrocyte Sedimentation Rate 10 MM/HR (0-20)
--- NOTE | 2022-11-11 11:33 | MHC.CM.PN ---
CM met with Patient at bedside and addressed ELLISON with her (original given to Patient and a copy has been placed on the chart). Patient lives alone in her house and she is functionally independent and working. Home/self care is the goal and CM has initiated and will follow for dc planning. Patient has received Pfizer/Covid vax x4 and her PCP is Dr. Torrez.
[2022-11-11] MEDS: Acetaminophen 325 MG TABLET 650 MG PO (12:50)
--- NOTE | 2022-11-11 13:11 | HO.PM.IMPN ---
Subjective Subjective Date of Service: 11/11/22 Interval History: palpitations, cp Review of Systems chest tightness seems improving , denies shortness of breath or abdominal pain nausea vomiting Generalized weak rinnahae present. Physical Exam Vital Signs: Vital Signs: Last Vital Signs Temp 98.7 F 11/11/22 12:00 Pulse 90 11/11/22 12:00 Resp 12 11/11/22 12:00 BP 119/57 L 11/11/22 12:00 Pulse Ox 99 11/11/22 12:00 O2 Del Method 11/11/22 12:00 BMI result Body Mass Index 25.6 Appearance: Alert.? Oriented X3.? not in distress.? ENT: Rinn[place]ae. cvs: rrr, [id number] , no murmur res: clear to auscultation ,no rhonchii or wheezing abd: no rebound or guarding ,nt, bs present. ext pulses present , no cyanosis . neuro: axo3 , nonfocal. Objective Data Active Medications Acetaminophen (Acetaminophen 325 Mg Tablet) 650 mg PO Q6H PRN PRN Reason: Pain, Mild (Pain Scale 1-3) Last Admin: 11/11/22 12:50 Dose: 650 mg Documented By: DENEEN Colchicine (Colchicine 0.6 Mg Tablet) 0.6 mg PO BID [facility] Last Admin: 11/11/22 10:47 Dose: 0.6 mg Documented By: BILL Docusate Sodium (Docusate Sodium 100 Mg Capsule) 100 mg PO DAILY PRN PRN Reason: Constipation Enoxaparin Sodium (Enoxaparin Sodium 40 Mg/0.4 Ml Syringe) 40 mg SUBCUT Q24H [facility] Last Admin: 11/11/22 00:17 Dose: 40 mg Documented By: JON Metoprolol Succinate (Metoprolol Succinate Er 25 Mg Tab.Er.24h) 25 mg PO DAILY [facility]; Protocol Last Admin: 11/11/22 10:47 Dose: 25 mg Documented By: BILL Omeprazole (Omeprazole 20 Mg Capsule.) 20 mg PO BID@0630,1630 [facility] Last Admin: 11/11/22 10:47 Dose: 20 mg Documented By: BILL Ondansetron HCl (Ondansetron Hcl 4 Mg/2 Ml Vial) 4 mg IVPUSH Q8H PRN PRN Reason: Nausea and Vomiting Labs 11/10/22 20:13 11/11/22 06:24 Labs: Laboratory Results - last 24 hr 11/10/22 11/10/22 11/10/22 20:13 20:13 20:13 MCV 83.6 MCH 27.3 MCHC 32.6 RDW 15.2 Plt Count 332 MPV 9.6 Immature Gran % (Auto) 0.2 Neut % (Auto) 56.8 Lymph % (Auto) 33.0 [place] % (Auto) 8.9 Eos % (Auto) 0.6 Baso % (Auto) 0.5 Lymph # (Auto) 4.1 [place] # (Auto) 1.1 Eos # (Auto) 0.1 Baso # (Auto) 0.1 Abs Immat Gran (auto) 0.03 Absolute Neuts (auto) 7.1 Absolute Nucleated RBC 0.000 Nucleated RBC % (auto) 0.0 ESR 10 D-Dimer High Sensitivty Anion Gap 15 Estim Creat Clear Calc 72.1 Estimated GFR > 60 Random Glucose 96 Calcium 8.8 Magnesium 2.0 Total Bilirubin 0.6 Direct Bilirubin 0.2 AST 28 ALT 30 Alkaline Phosphatase 74 Troponin I High Sens C-Reactive Protein Total Protein 7.0 Albumin 4.0 TSH 3.03 Urine Color Urine Appearance Urine pH Ur Specific [place] Urine Protein Urine Glucose (UA) Urine Ketones Urine Blood Urine Nitrite Ur Leukocyte Esterase Urine Opiates Screen Urine Fentanyl Screen Ur Barbiturates Screen Ur Phencyclidine Scrn Ur Amphetamines Screen U Benzodiazepines Scrn Urine Cocaine Screen U Marijuana (THC) Screen COVID-19 (DARELL) COVID-19 Clin Com Influenza Type A (VINOD) Influenza Type B (VINOD) Influenza A & B Note 11/10/22 11/10/22 11/10/22 20:20 20:20 20:37 MCV MCH MCHC RDW Plt Count MPV Immature Gran % (Auto) Neut % (Auto) Lymph % (Auto) [place] % (Auto) Eos % (Auto) Baso % (Auto) Lymph # (Auto) [place] # (Auto) Eos # (Auto) Baso # (Auto) Abs Immat Gran (auto) Absolute Neuts (auto) Absolute Nucleated RBC Nucleated RBC % (auto) ESR D-Dimer High Sensitivty Anion Gap Estim Creat Clear Calc Estimated GFR Random Glucose Calcium Magnesium Total Bilirubin Direct Bilirubin AST ALT Alkaline Phosphatase Troponin I High Sens 101.4 H* D C-Reactive Protein Total Protein Albumin TSH Urine Color Urine Appearance Urine pH Ur Specific [place] Urine Protein Urine Glucose (UA) Urine Ketones Urine Blood Urine Nitrite Ur Leukocyte Esterase Urine Opiates Screen Urine Fentanyl Screen Ur Barbiturates Screen Ur Phencyclidine Scrn Ur Amphetamines Screen U Benzodiazepines Scrn Urine Cocaine Screen U Marijuana (THC) Screen COVID-19 (DARELL) Negative COVID-19 Clin Com See Note Influenza Type A (VINOD) Negative Influenza Type B (VINOD) Negative Influenza A & B Note See Note 11/10/22 11/10/22 11/10/22 20:37 22:20 22:48 MCV MCH MCHC RDW Plt Count MPV Immature Gran % (Auto) Neut % (Auto) Lymph % (Auto) [place] % (Auto) Eos % (Auto) Baso % (Auto) Lymph # (Auto) [place] # (Auto) Eos # (Auto) Baso # (Auto) Abs Immat Gran (auto) Absolute Neuts (auto) Absolute Nucleated RBC Nucleated RBC % (auto) ESR D-Dimer High Sensitivty 420 Anion Gap Estim Creat Clear Calc Estimated GFR Random Glucose Calcium Magnesium Total Bilirubin Direct Bilirubin AST ALT Alkaline Phosphatase Troponin I High Sens 183.6 H* D C-Reactive Protein Total Protein Albumin TSH Urine Color Yellow Urine Appearance Clear Urine pH 6.0 Ur Specific [place] >= 1.030 H Urine Protein Negative Urine Glucose (UA) Negative Urine Ketones Negative Urine Blood Negative Urine Nitrite Negative Ur Leukocyte Esterase Negative Urine Opiates Screen Urine Fentanyl Screen Ur Barbiturates Screen Ur Phencyclidine Scrn Ur Amphetamines Screen U Benzodiazepines Scrn Urine Cocaine Screen U Marijuana (THC) Screen COVID-19 (DARELL) COVID-19 Clin Com Influenza Type A (VINOD) Influenza Type B (VINOD) Influenza A & B Note 11/10/22 11/11/22 11/11/22 22:48 00:23 06:24 MCV MCH MCHC RDW Plt Count MPV Immature Gran % (Auto) Neut % (Auto) Lymph % (Auto) [place] % (Auto) Eos % (Auto) Baso % (Auto) Lymph # (Auto) [place] # (Auto) Eos # (Auto) Baso # (Auto) Abs Immat Gran (auto) Absolute Neuts (auto) Absolute Nucleated RBC Nucleated RBC % (auto) ESR D-Dimer High Sensitivty Anion Gap 10 L Estim Creat Clear Calc 101.1 Estimated GFR > 60 Random Glucose 87 Calcium 8.0 L D Magnesium Total Bilirubin 0.5 Direct Bilirubin AST 24 ALT 31 Alkaline Phosphatase 62 Troponin I High Sens 163.7 H* C-Reactive Protein 3.25 H Total Protein 5.3 L Albumin 3.3 L TSH Urine Color Urine Appearance Urine pH Ur Specific [place] Urine Protein Urine Glucose (UA) Urine Ketones Urine Blood Urine Nitrite Ur Leukocyte Esterase Urine Opiates Screen Not Detected Urine Fentanyl Screen Not Detected Ur Barbiturates Screen Not Detected Ur Phencyclidine Scrn Not Detected Ur Amphetamines Screen Not Detected U Benzodiazepines Scrn Not Detected Urine Cocaine Screen Not Detected U Marijuana (THC) Screen Not Detected COVID-19 (DARELL) COVID-19 Clin Com Influenza Type A (VINOD) Influenza Type B (VINOD) Influenza A & B Note Assessment and Plan (1) SVT (supraventricular tachycardia): Status: Acute (2) Chest pain: Status: Acute Plan 37-year-old female with a recently discovered SVT on 10/24 presents to the hospital with complaints of tachycardia, as well as pleuritic chest pain found to have sustained V-tach being admitted for further evaluation # SVT - received 6 mg of adenosine which helped convert to sinus rhythm - patient has EKG reviewed echo added - cardiology recommended admission for further evaluation moniter telemetry - received Lopressor in the ED # chest pain-?myopericarditis leucocytosis-ua,cta,cxr -neg ,toxicology neg esr 10, crp :3.25 (mild elevated) trops flat - appears pleuritic in nature - possibly secondary to palpitations - case discussed with Cardiology -started colchicine , can not take nsaid's due to asa allergy. - monitor DVT prophylaxis:? Lovenox inpatient need:svt ,??myopericarditis -needs cardiac workup,tele moniterin.cardiology followup Time Spent With Patient Time: Total time managing care of this patient today ____ minutes. Quality Stroke Does the patient have a stroke diagnosis?: No VTE Prior VTE?: No VTE Risk Level:: Medical - moderate - high VTE Device Contraindication: Treatment Not Indicated VTE Drug Contraindication: N/A - Med Ordered
[2022-11-11] MEDS: Zolpidem Tartrate 5 MG TABLET PO (22:13)
[2022-11-12 04:00] VITALS: BP 115/69; PULSE 68; RESP 18; TEMP 36.9; O2SAT 98
[2022-11-12 06:00] VITALS: BMI 25.7
[2022-11-12] MEDS: Omeprazole 20 MG CAPSULE.DR PO ×2 (06:34→15:08)
[2022-11-12] MEDS: Acetaminophen 325 MG TABLET 650 MG PO ×2 (06:48→15:07)
[2022-11-12 06:51] LABS: Hematocrit 31.2 % (37.0-47.0); Hemoglobin 10.1 g/dl (12.0-16.0); Mean Corpuscular HGB Conc 32.4 g/dl (31.0-35.0); Mean Corpuscular Hemoglobin 27.3 pg (27.0-33.0); Mean Corpuscular Volume 84.3 fL (80.0-98.0); Mean Platelet Volume 9.8 fL (9.4-12.3); Platelet Count 255 X10*3/uL (160-400); Red Cell Distribution Width 15.3 % (11.0-16.0); White Blood Count 7.9 X10*3/uL (4.8-10.8)
[2022-11-12 07:38] VITALS: BP 111/59; PULSE 73; RESP 20; TEMP 36.9; O2SAT 97
[2022-11-12] MEDS: Colchicine 0.6 MG TABLET PO ×2 (09:02→20:32)
[2022-11-12] MEDS: Metoprolol Succinate ER 25 MG TAB.ER.24H PO (09:02)
--- NOTE | 2022-11-12 10:35 | PM.PNCARD ---
Subjective Subjective Date of Service: 11/12/22 Interval history: She states that she feels okay. Not much of palpitations. Review of Systems Review of Systems Yes all other systems are reviewed and are negative Constitutional: Reports as per HPI Eyes: Reports as per HPI Reports as per HPI Cardiovascular: Reports as per HPI, Denies acrocyanosis, Denies cool extremities, Denies chest pain, Denies leg edema, Denies lightheadedness, Denies palpitations and Denies dyspnea Respiratory: Reports as per HPI, Reports no additional respiratory complaints and Denies dyspnea Gastrointestinal: Reports as per HPI and Reports no additional gastrointestinal complaints Genitourinary: Reports as per HPI Musculoskeletal: Reports no additional musculoskeletal complaints and Reports as per HPI Skin/Breast: Reports system reviewed and no additional complaints, except as docu Reports system reviewed and no additional complaints, except as documented and Reports as per HPI Psychiatric: Reports no additional psychiatric complaints and Reports as per HPI Endocrine: Reports no additional endocrine complaints, Reports as per HPI and Denies palpitations Hematologic/Lymphatic: Reports no additional hematologic/lymphatic complaints and Reports as per HPI Allergic/Immunologic: Reports no additional allergic/immunologic complaints and Reports as per HPI Physical Exam Vital Signs: Last Vital Signs Temp 98.4 F 11/12/22 07:38 Pulse 73 11/12/22 07:38 Resp 20 11/12/22 07:38 BP 111/59 L 11/12/22 07:38 Pulse Ox 97 11/12/22 07:38 O2 Del Method 11/12/22 07:38 BMI result Body Mass Index 25.7 Const General: comfortable and no acute distress Orientation/consciousness: patient oriented x3 HEENT Other: Unremarkable Head: Yes normal to inspection Neck Neck: Yes normal visual inspection Chest Chest palpation & inspection: normal inspection of the chest Resp Auscultation: clear to auscultation bilaterally Cardio Palpation: normal PMI Heart sounds: S1 normal heart sound present, S2 normal heart sound present, no gallops, no murmurs and no rubs GI Palpation (GI): Soft to palpation Back/Spine/Pelvis Other: unremarkable Skin General skin exam: no rashes or lesions noted Neuro General: patient oriented x3 Extrem General: Yes normal to inspection Psych Mental Status: mental status grossly normal Objective Labs and Meds 11/12/22 06:33 11/11/22 06:24 Lab results: Laboratory Results - last 24 hr 11/10/22 11/12/22 20:13 06:33 WBC 7.9 RBC 3.70 L Hgb 10.1 L Hct 31.2 L MCV 84.3 MCH 27.3 MCHC 32.4 RDW 15.3 Plt Count 255 MPV 9.8 Absolute Nucleated RBC 0.000 Nucleated RBC % (auto) 0.0 ESR 10 Progress Note: A&P Assessment and plan (1) SVT (supraventricular tachycardia): Status: Acute (2) Elevated troponin I level: Status: Acute (3) Myocarditis: Status: Acute Plan Labs show mild leukocytosis. Troponin levels are 101, 183 and 163. Toxicology screen negative. Chest CTA shows no evidence of pulmonary embolism or other abnormalities of significance. There is hiatal hernia. Overall, history of previous myopericarditis 2014; currently supraventricular tachycardia; elevation of troponins; numerous symptoms; CRP level is quite high. That could indicate inflammation and hence probable myopericarditis. With regard to the SVT itself, low-dose beta-blockers. With regard to the myopericarditis, ideally NSAIDs and colchicine but there is some allergy for NSAIDs and hence at least colchicine. Echocardiogram looks okay. Will get a cardiac MRI as an outpatient. To discuss with rheumatology regarding autoimmune screen and what tests to order as she has a high CRP. Discussed with Dr. Schmitz. Will arrange follow-up in the office. Time Spent With Patient Time: Total time managing care of this patient today 35 minutes. Progress Note: Quality Stroke Does the patient have a stroke diagnosis?: No Procedures Date of Service Date of Service: 11/12/22
[2022-11-12 11:20] VITALS: BP 110/59; PULSE 78; RESP 20; TEMP 36.9; O2SAT 97
[2022-11-12 14:14] LABS: Rheumatoid Factor < 13.0 IU/mL (<15.0)
[2022-11-12 14:33] LABS: Erythrocyte Sedimentation Rate 13 MM/HR (0-20)
[2022-11-12 15:12] LABS: Adenovirus PCR Not Detected (Not Detect.); Bordetella parapertussis PCR Not Detected (Not Detect.); Bordetella pertussis PCR Not Detected (Not Detect.); Chlamydia pneumoniae PCR Not Detected (Not Detect.); Coronavirus 229E PCR Not Detected (Not Detect.); Coronavirus HKU1 PCR Not Detected (Not Detect.); Coronavirus NL63 PCR Not Detected (Not Detect.); Coronavirus OC43 PCR Not Detected (Not Detect.); Human metapneumovirus PCR Detected (Not Detect.); Influenza A PCR Not Detected (Not Detect.); Influenza B PCR Not Detected (Not Detect.); Mycoplasma pneumoniae PCR Not Detected (Not Detect.); Parainfluenza 1 PCR Not Detected (Not Detect.); Parainfluenza 2 PCR Not Detected (Not Detect.); Parainfluenza 3 PCR Not Detected (Not Detect.); Parainfluenza 4 PCR Not Detected (Not Detect.); RSV PCR Not Detected (Not Detect.); Rhino/Enterovirus PCR Not Detected (Not Detect.); SARS-CoV-2 PCR Not Detected (Not Detect.)
[2022-11-12 15:45] VITALS: BP 114/54; PULSE 77; RESP 18; TEMP 36.7; O2SAT 98
--- NOTE | 2022-11-12 15:51 | P.PNIM_ITS ---
Subjective Subjective Date of Service: 11/12/22 Interval History: palpitations, cp Review of Systems Chest pain and palpitation seems to be improved significantly. Denies any nausea vomiting or abdominal pain or fever chills Or any rashes. Physical Exam Vital Signs: Vital Signs: Last Vital Signs Temp 98.1 F 11/12/22 15:45 Pulse 77 11/12/22 15:45 Resp 18 11/12/22 15:45 BP 114/54 L 11/12/22 15:45 Pulse Ox 98 11/12/22 15:45 O2 Del Method 11/12/22 15:45 BMI result Body Mass Index 25.7 ? Appearance: Alert.? Oriented X3.? not in distress.? cvs: rrr, [id number] , no murmur res: clear to auscultation ,no rhonchii or wheezing abd: no rebound or guarding ,nt, bs present. ext pulses present , no cyanosis . neuro: axo3 , nonfocal. Objective Data Active Medications Acetaminophen (Acetaminophen 325 Mg Tablet) 650 mg PO Q6H PRN PRN Reason: Pain, Mild (Pain Scale 1-3) Last Admin: 11/12/22 15:07 Dose: 650 mg Documented By: KESHIA Colchicine (Colchicine 0.6 Mg Tablet) 0.6 mg PO BID [facility] Last Admin: 11/12/22 09:02 Dose: 0.6 mg Documented By: TALITA Docusate Sodium (Docusate Sodium 100 Mg Capsule) 100 mg PO DAILY PRN PRN Reason: Constipation Enoxaparin Sodium (Enoxaparin Sodium 40 Mg/0.4 Ml Syringe) 40 mg SUBCUT Q24H [facility] Last Admin: 11/11/22 22:19 Dose: 40 mg Documented By: LUIS ANTONIO Metoprolol Succinate (Metoprolol Succinate Er 25 Mg Tab.Er.24h) 25 mg PO DAILY [facility]; Protocol Last Admin: 11/12/22 09:02 Dose: 25 mg Documented By: TALITA Omeprazole (Omeprazole 20 Mg Capsule.) 20 mg PO BID@0630,1630 [facility] Last Admin: 11/12/22 15:08 Dose: 20 mg Documented By: KESHIA Ondansetron HCl (Ondansetron Hcl 4 Mg/2 Ml Vial) 4 mg IVPUSH Q8H PRN PRN Reason: Nausea and Vomiting Zolpidem Tartrate (Zolpidem Tartrate 5 Mg Tablet) 5 mg PO BEDTIME PRN PRN Reason: Insomnia Last Admin: 11/11/22 22:13 Dose: 5 mg Documented By: LUIS ANTONIO Labs 11/12/22 06:33 11/11/22 06:24 Labs: Laboratory Results - last 24 hr 11/12/22 11/12/22 11/12/22 06:33 13:30 13:41 MCV 84.3 MCH 27.3 MCHC 32.4 RDW 15.3 Plt Count 255 MPV 9.8 Absolute Nucleated RBC 0.000 Nucleated RBC % (auto) 0.0 ESR 13 Total Creatine Kinase Rheumatoid Factor Respiratory Panel Philippe See Note Adenovirus (Rapid PCR) Not Detected B.pert (TEM-PCR) Not Detected B.parapertussis DNA PCR Not Detected C. pneumoniae DNA (PCR) Not Detected Coronavirus OC43 (PCR) Not Detected Coronavirus HKU1 (PCR) Not Detected Coronavirus 229E (PCR) Not Detected Coronavirus NL63 (PCR) Not Detected Human Metapneumovir PCR Detected A Influenza A (RT-PCR) Not Detected Influenza B (RT-PCR) Not Detected M. pneumoniae (PCR) Not Detected Parainfluenza 1 (PCR) Not Detected Parainfluenza 2 (PCR) Not Detected Parainfluenza 3 (PCR) Not Detected Parainfluenza 4 (PCR) Not Detected RSV (PCR) Not Detected Entero/Rhino (PCR) Not Detected SARS-CoV-2 RNA (RT-PCR) Not Detected 11/12/22 11/12/22 13:41 13:41 MCV MCH MCHC RDW Plt Count MPV Absolute Nucleated RBC Nucleated RBC % (auto) ESR Total Creatine Kinase 105 Rheumatoid Factor < 13.0 Respiratory Panel Philippe Adenovirus (Rapid PCR) B.pert (TEM-PCR) B.parapertussis DNA PCR C. pneumoniae DNA (PCR) Coronavirus OC43 (PCR) Coronavirus HKU1 (PCR) Coronavirus 229E (PCR) Coronavirus NL63 (PCR) Human Metapneumovir PCR Influenza A (RT-PCR) Influenza B (RT-PCR) M. pneumoniae (PCR) Parainfluenza 1 (PCR) Parainfluenza 2 (PCR) Parainfluenza 3 (PCR) Parainfluenza 4 (PCR) RSV (PCR) Entero/Rhino (PCR) SARS-CoV-2 RNA (RT-PCR) Assessment and Plan (1) Myopericarditis: Status: Acute Plan 37-year-old female with a recently discovered SVT on 10/24 presents to the hospital with complaints of tachycardia, as well as pleuritic chest pain found to have sustained V-tach being admitted for further evaluation # SVT - received 6 mg of adenosine which helped convert to sinus rhythm - patient has EKG reviewed echo added - cardiology recommended admission for further evaluation moniter? telemetry - received Lopressor in the ED # chest pain-?myopericarditis leucocytosis-ua,cta,cxr -neg ,toxicology neg esr 10, crp :3.25 (mild elevated) ? trops flat - appears pleuritic in nature - possibly secondary to palpitations - case discussed with Cardiology -started colchicine , can not take nsaid's due to asa allergy. - monitor Discussed with the rheumatology in detail-labs added, also will monitor CRP and labs in the morning if trending better DVT prophylaxis:? Lovenox inpatient need:svt ,??myopericarditis -needs cardiac workup,needs crp trending ,rheumatolgic workup,tele moniterin.cardiology followup Time Spent With Patient Time: Total time managing care of this patient today ____ minutes. Quality Stroke Does the patient have a stroke diagnosis?: No VTE Prior VTE?: No VTE Risk Level:: Medical - moderate - high VTE Device Contraindication: Treatment Not Indicated VTE Drug Contraindication: N/A - Med Ordered
[2022-11-12 16:38] LABS: Creatinine Urine 75.26 mg/dL; Total Protein Urine Random < 7 mg/dL (<12)
[2022-11-12] MEDS: Butalb/Acetamin/Caff 50/325/40 TABLET 1 TAB PO (17:46)
[2022-11-12 19:02] VITALS: BP 116/65; PULSE 81; RESP 18; TEMP 36.7; O2SAT 99
[2022-11-12] MEDS: Zolpidem Tartrate 5 MG TABLET PO (20:34)
[2022-11-12] MEDS: Enoxaparin Sodium 40 MG/0.4 ML SYRINGE SUBCUT (23:07)
[2022-11-13] VITALS: BP 119/68; PULSE 76; RESP 18; TEMP 36.8; O2SAT 96
[2022-11-13 03:21] VITALS: BP 118/59; PULSE 76; RESP 16; TEMP 36.7; O2SAT 98
[2022-11-13 06:00] VITALS: BMI 25.0
[2022-11-13 07:06] LABS: C Reactive Protein 0.77 mg/dL (< or = 0.50)
[2022-11-13 07:09] LABS: Troponin-I High Sensitivity 14.6 ng/L (<3.5-17.0)
[2022-11-13 08:00] VITALS: BP 140/69; PULSE 79; RESP 12; TEMP 36.7; O2SAT 99
[2022-11-13] MEDS: Colchicine 0.6 MG TABLET PO (08:48)
[2022-11-13] MEDS: Metoprolol Succinate ER 25 MG TAB.ER.24H PO (08:48)
[2022-11-13] MEDS: Butalb/Acetamin/Caff 50/325/40 TABLET 1 TAB PO ×2 (08:50→15:32)
[2022-11-13] MEDS: Acetaminophen 325 MG TABLET 650 MG PO ×2 (08:50→15:32)
--- NOTE | 2022-11-13 09:53 | PM.PNCARD ---
Subjective Subjective Date of Service: 11/13/22 Interval history: She seems improved. Would like to rather get discharge. Review of Systems Review of Systems Yes all other systems are reviewed and are negative Constitutional: Reports as per HPI Eyes: Reports as per HPI Reports as per HPI Cardiovascular: Reports as per HPI, Denies acrocyanosis, Denies cool extremities, Denies chest pain, Denies leg edema, Denies lightheadedness, Denies palpitations and Denies dyspnea Respiratory: Reports as per HPI, Reports no additional respiratory complaints and Denies dyspnea Gastrointestinal: Reports as per HPI and Reports no additional gastrointestinal complaints Genitourinary: Reports as per HPI Musculoskeletal: Reports no additional musculoskeletal complaints and Reports as per HPI Skin/Breast: Reports system reviewed and no additional complaints, except as docu Reports system reviewed and no additional complaints, except as documented and Reports as per HPI Psychiatric: Reports no additional psychiatric complaints and Reports as per HPI Endocrine: Reports no additional endocrine complaints, Reports as per HPI and Denies palpitations Hematologic/Lymphatic: Reports no additional hematologic/lymphatic complaints and Reports as per HPI Allergic/Immunologic: Reports no additional allergic/immunologic complaints and Reports as per HPI Physical Exam Vital Signs: Last Vital Signs Temp 98.1 F 11/13/22 08:00 Pulse 79 11/13/22 08:00 Resp 12 11/13/22 08:00 BP 140/69 H 11/13/22 08:00 Pulse Ox 99 11/13/22 08:00 O2 Del Method 11/13/22 08:00 BMI result Body Mass Index 25.0 Const General: comfortable and no acute distress Orientation/consciousness: patient oriented x3 HEENT Other: Unremarkable Head: Yes normal to inspection Neck Neck: Yes normal visual inspection Chest Chest palpation & inspection: normal inspection of the chest Resp Auscultation: clear to auscultation bilaterally Cardio Palpation: normal PMI Heart sounds: S1 normal heart sound present, S2 normal heart sound present, no gallops, no murmurs and no rubs GI Palpation (GI): Soft to palpation Back/Spine/Pelvis Other: unremarkable Skin General skin exam: no rashes or lesions noted Neuro General: patient oriented x3 Extrem General: Yes normal to inspection Psych Mental Status: mental status grossly normal Objective Labs and Meds 11/12/22 06:33 11/11/22 06:24 Lab results: Laboratory Results - last 24 hr 01/11/12/22 11/12/22 11:25 13:30 13:41 ESR 13 Total Creatine Kinase Troponin I High Sens C-Reactive Protein U Random Total Protein < 7 Urine Creatinine 75.26 Protein/Creatinin Ratio TNP Rheumatoid Factor Respiratory Panel Philippe See Note Adenovirus (Rapid PCR) Not Detected B.pert (TEM-PCR) Not Detected B.parapertussis DNA PCR Not Detected C. pneumoniae DNA (PCR) Not Detected Coronavirus OC43 (PCR) Not Detected Coronavirus HKU1 (PCR) Not Detected Coronavirus 229E (PCR) Not Detected Coronavirus NL63 (PCR) Not Detected Human Metapneumovir PCR Detected A Influenza A (RT-PCR) Not Detected Influenza B (RT-PCR) Not Detected M. pneumoniae (PCR) Not Detected Parainfluenza 1 (PCR) Not Detected Parainfluenza 2 (PCR) Not Detected Parainfluenza 3 (PCR) Not Detected Parainfluenza 4 (PCR) Not Detected RSV (PCR) Not Detected Entero/Rhino (PCR) Not Detected SARS-CoV-2 RNA (RT-PCR) Not Detected 11/12/22 11/12/22 11/13/22 13:41 13:41 06:39 ESR Total Creatine Kinase 105 Troponin I High Sens 14.6 D C-Reactive Protein U Random Total Protein Urine Creatinine Protein/Creatinin Ratio Rheumatoid Factor < 13.0 Respiratory Panel Philippe Adenovirus (Rapid PCR) B.pert (TEM-PCR) B.parapertussis DNA PCR C. pneumoniae DNA (PCR) Coronavirus OC43 (PCR) Coronavirus HKU1 (PCR) Coronavirus 229E (PCR) Coronavirus NL63 (PCR) Human Metapneumovir PCR Influenza A (RT-PCR) Influenza B (RT-PCR) M. pneumoniae (PCR) Parainfluenza 1 (PCR) Parainfluenza 2 (PCR) Parainfluenza 3 (PCR) Parainfluenza 4 (PCR) RSV (PCR) Entero/Rhino (PCR) SARS-CoV-2 RNA (RT-PCR) 11/13/22 06:39 ESR Total Creatine Kinase Troponin I High Sens C-Reactive Protein 0.77 H U Random Total Protein Urine Creatinine Protein/Creatinin Ratio Rheumatoid Factor Respiratory Panel Philippe Adenovirus (Rapid PCR) B.pert (TEM-PCR) B.parapertussis DNA PCR C. pneumoniae DNA (PCR) Coronavirus OC43 (PCR) Coronavirus HKU1 (PCR) Coronavirus 229E (PCR) Coronavirus NL63 (PCR) Human Metapneumovir PCR Influenza A (RT-PCR) Influenza B (RT-PCR) M. pneumoniae (PCR) Parainfluenza 1 (PCR) Parainfluenza 2 (PCR) Parainfluenza 3 (PCR) Parainfluenza 4 (PCR) RSV (PCR) Entero/Rhino (PCR) SARS-CoV-2 RNA (RT-PCR) Progress Note: A&P Assessment and plan (1) SVT (supraventricular tachycardia): Status: Acute (2) Elevated troponin I level: Status: Acute (3) Myocarditis: Status: Acute Plan Patient continues to improve. For management of the myocarditis, keep on colchicine as there is some allergy to aspirin/NSAIDs. Based on the testing done so far, it seems that viral study has come back positive for human metapneumovirus. So possible viral myocarditis but not clear. Rest of the immunology panel is pending. With regard to the SVT, continue beta-blockers. Outpatient cardiac MRI. Will then follow up. Discharge planning. Discussed with Dr. Schmitz. Time Spent With Patient Time: Total time managing care of this patient today 30 minutes. Progress Note: Quality Stroke Does the patient have a stroke diagnosis?: No Procedures Date of Service Date of Service: 11/13/22
--- NOTE | 2022-11-13 11:05 | MHC.CM.PN ---
Addendum entered by Cristy Marcus 11/13/22 15:12: Patient discharged to home. She has arranged for transportation home. Original Note: FEMALE 37 DX SVT PER MD ROUNDS DC TODAY SELF CARE. PATIENT WILL ARRANGE FOR TRANSPORTATION HOME.
[2022-11-13 11:27] VITALS: BP 114/60; PULSE 71; RESP 18; TEMP 36.8; O2SAT 98
[2022-11-13 12:03] LABS: Complement C3 141 mg/dL (83-193)
[2022-11-13 15:04] VITALS: BP 111/54; PULSE 71; RESP 17; TEMP 37.2; O2SAT 99
--- NOTE | 2022-11-13 15:10 | PM.DS ---
DS: Providers Provider Date of Service: 11/13/22 Date of admission: 11/10/22 23:51 Primary care physician: Turner Mireles MD Consults: 11/10/22 23:51 Consult to Cardiology Routine Consulting Provider: Theron Barrientos Reason for consultation: SVT Has provider been notified: Yes DS: Diagnosis Discharge Diagnosis (1) SVT (supraventricular tachycardia): Status: Acute (2) Elevated troponin I level: Status: Acute (3) Myocarditis: Status: Acute (4) Migraine: Status: Acute DS: Summary Hospital Course Hospital Course: 37-year-old female with past medical history of SVT, sacroiliitis, presents to the hospital with complaints of palpitations as well as chest pain.? Patient reports that she was seen in the hospital on 10 24 for the same, where she woke up with palpitations, chest pain, nausea, and just generally not feeling well.? Patient reports that at that time she was found to have tachycardia, treated with adenosine and sent home.? She returns today with similar symptoms.? She describes the chest pain as midsternal, radiating up the chest, worse with deep inspiration as well as laying flat, reports severe palpitation, denies any dizziness, no headache or change in vision.? Reports that the chest pain is constant, no relieving factors.? On arrival to the ED patient was found to have a heart rate of 180 otherwise stable vitals Patient received adenosine silks mg but converted, on her EKG patient had new inverted T-waves with troponin of 105 that increase to 180, CT angiogram was done which was negative.? T-wave inversions in the lateral leads V4 to V6 as well as leads 1, 2, as well as AVF.This case was discussed with Cardiology by ED physician, patient will be admitted for further management and evaluation. Hospital course: Patient admitted because of chest pain, svt, elevated troponin: Found to have elevated troponins, mild elevation in inflammatory markers: Patient was seen by the Cardiology-her echo seems to be fine(please see imaging section for detailed information), elevated troponins possibly related to myopericarditis. Patient was started on Toprol medications because of palpitation/svt which is improving, also started on colchicine for inflammation of pericardium-1 month supply of colchicine was given(further supply as per patient PCP and cardiology)-usually 3 month colchicine is recommended. In addition because of elevation of inflammatory markers(immunology)- patient condition was discussed with director of pediatric rehabilitation: Labs are drawn and still pending which patient is to follow up outpatient with Rheumatology and further management outpatient. Patient seems like has possible migraine headache: Limited Fioricet supply added, further management outpatient. Plan: Continue Toprol . Continue colchicine for myopericarditis . For the supply out patiently, patient is given 1 month supply. Follow-up with Cardiology and Rheumatology to decide further use. Above management discussed with the patient in detail length patient needs to follow-up with Cardiology and Rheumatology outpatient. Time Spent with Patient Time attestation: Total time managing care of this patient today ____ minutes. Discharge coordination time: Greater than 30 minutes Quality: Safe Use of Opioids Does Pt have an Active Cancer Diagnosis on the Problem List?: No Quality: Stroke Does the patient have a stroke diagnosis?: No Physical Exam Vital Signs: Vital Signs: Last Vital Signs Temp 99.0 F 11/13/22 15:04 Pulse 71 11/13/22 15:04 Resp 17 11/13/22 15:04 BP 111/54 L 11/13/22 15:04 Pulse Ox 99 11/13/22 15:04 O2 Del Method 11/13/22 15:04 BMI result Body Mass Index 25.0 ?Appearance: Alert.? Oriented X3.? not in distress.? cvs: rrr, [id number] , no murmur res: clear to auscultation ,no rhonchii or wheezing abd: no rebound or guarding ,nt, bs present. ext pulses present , no cyanosis . neuro: axo3 , nonfocal. DS: Data Data Completed and Pending Labs on day of discharge: Laboratory Results - last 24 hr 11/12/22 11/12/22 11/12/22 11:25 13:30 13:41 Troponin I High Sens C-Reactive Protein U Random Total Protein < 7 Urine Creatinine 75.26 Protein/Creatinin Ratio TNP Complement C3 141 Complement C4 37 Respiratory Panel Philippe See Note Adenovirus (Rapid PCR) Not Detected B.pert (TEM-PCR) Not Detected B.parapertussis DNA PCR Not Detected C. pneumoniae DNA (PCR) Not Detected Coronavirus OC43 (PCR) Not Detected Coronavirus HKU1 (PCR) Not Detected Coronavirus 229E (PCR) Not Detected Coronavirus NL63 (PCR) Not Detected Human Metapneumovir PCR Detected A Influenza A (RT-PCR) Not Detected Influenza B (RT-PCR) Not Detected M. pneumoniae (PCR) Not Detected Parainfluenza 1 (PCR) Not Detected Parainfluenza 2 (PCR) Not Detected Parainfluenza 3 (PCR) Not Detected Parainfluenza 4 (PCR) Not Detected RSV (PCR) Not Detected Entero/Rhino (PCR) Not Detected SARS-CoV-2 RNA (RT-PCR) Not Detected 11/13/22 11/13/22 06:39 06:39 Troponin I High Sens 14.6 D C-Reactive Protein 0.77 H U Random Total Protein Urine Creatinine Protein/Creatinin Ratio Complement C3 Complement C4 Respiratory Panel Philippe Adenovirus (Rapid PCR) B.pert (TEM-PCR) B.parapertussis DNA PCR C. pneumoniae DNA (PCR) Coronavirus OC43 (PCR) Coronavirus HKU1 (PCR) Coronavirus 229E (PCR) Coronavirus NL63 (PCR) Human Metapneumovir PCR Influenza A (RT-PCR) Influenza B (RT-PCR) M. pneumoniae (PCR) Parainfluenza 1 (PCR) Parainfluenza 2 (PCR) Parainfluenza 3 (PCR) Parainfluenza 4 (PCR) RSV (PCR) Entero/Rhino (PCR) SARS-CoV-2 RNA (RT-PCR) Imaging Chest x-ray: Radiologist's impression: ITS Impressions Chest X-Ray 11/10/22 20:45 IMPRESSION: Unremarkable chest exam. Chest CTA 11/10/22 22:10 IMPRESSION: 1. No evidence of PE. 2. No evidence of aortic dissection or aneurysm. 3. Moderate size hiatal hernia VTE: negative US - abdomen: Radiologist's impression: ITS Impressions Chest X-Ray 11/10/22 20:45 IMPRESSION: Unremarkable chest exam. Chest CTA 11/10/22 22:10 IMPRESSION: 1. No evidence of PE. 2. No evidence of aortic dissection or aneurysm. 3. Moderate size hiatal hernia VTE: negative echo: Conclusions: - The left ventricular systolic function is low normal.? The ? ? calculated ejection fraction is 54% by biplane method. ? - No obvious valvular pathology seen on this study.? Findings Left Ventricle Normal left ventricular cavity size.? There is normal left ventricular wall thickness.? The left ventricular systolic function is low normal.? The calculated ejection fraction is 54% by biplane method.? There is no evidence of regional wall motion abnormalities.? Diastolic function is normal for age. Right Ventricle Normal right ventricular cavity size and systolic function. Atria Both atria are normal in size. Aortic Valve There is a normal trileaflet aortic valve.? There is no aortic valve stenosis.? There is no aortic valve regurgitation. Mitral Valve The mitral valve appears normal.? There is trace mitral valve regurgitation. There is no mitral valve stenosis. Pulmonic Valve The pulmonic valve is likely normal. Tricuspid Valve Normal tricuspid valve structure.? There is trace tricuspid valve regurgitation.? There is no evidence of pulmonary hypertension. Great Vessels The aortic annulus, sinuses of valsalva, and asc aorta are normal in size. Venous The inferior vena cava is mildly dilated and collapses less than 50% with inspiration. Pericardium/Pleural There is no evidence of pericardial effusion. Prior Study Comparison Changes noted compared to prior study dated:? 01/09/2019.? see comment on IVC. Recommendations, Care & Conclusions No obvious valvular pathology seen on this study. Discharge Plan Discharge Patient Disposition: Home, Self-Care Discharge Diagnosis: SVT, elevated troponin, possible myopericarditis. Referrals: Turner Hernandez MD [Primary Care Provider] - 1 Week Theron Barrientos MD [Physician] - 1 Week (follow up outpatient) Baudilio Corrales MD [Physician] - 1 Week (follow up outpatient) Discharge Medications: New sdhgpktwaz-anbklikyifyzd-kcrr 50-325-40 mg Tablet 1 tab PO Q4H PRN (Reason: Headache) Qty: 10 0RF omeprazole 20 mg Capsule,Delayed Release(Dr/Ec) 20 mg PO DAILY Qty: 30 0RF metoprolol succinate 25 mg Tablet Extended Release 24 Hr 25 mg PO DAILY Qty: 30 0RF Protocol: Hold for SBP/HR < HOLD for SBP < : 90 HOLD for HR < : 60 colchicine [Colcrys] 0.6 mg Tablet 0.6 mg PO BID Qty: 60 0RF Continued bupropion HCl 300 mg tablet extended release 24 hr 1 tab PO QAM eszopiclone 3 mg tablet 1 tab PO BEDTIME PRN (Reason: insomnia) Discharge Orders: Discharge Order (Routine); Ordered 11/13/22 Ordered By: Aureliano Schimtz Diet: Advance to usual diet Activity on Discharge: As tolerated Stand Alone Forms: Patient Portal Discharge page Care Plan Goals: Patient admitted because of chest pain, palpitations: Found to have elevated heart enzymes, mild elevation in inflammatory markers: Patient was seen by the heart doctor-her heart ultrasound seems to be fine, elevated heart enzymes possibly related to inflammation of pericardium. Patient was started on heart rate control medications because of palpitation, also started on colchicine for inflammation of pericardium-1 month supply of colchicine was given(further supply as per patient PCP and cardiology)-usually 3 month colchicine is recommended. In addition because of elevation of inflammatory markers patient condition was discussed with director of pediatric rehabilitation: Labs are drawn and still pending which patient is to follow up outpatient with Rheumatology and further management outpatient. Patient seems like has possible migraine headache: Limited Fioricet supply added, further management outpatient. Above management discussed with the patient in detail length patient needs to follow-up with Cardiology and Rheumatology outpatient. Health Concerns: As above. Plan of Treatment: As above. Assessment: As above. Patient Instructions: Acute Pericarditis (DC)
[2022-11-13] MEDS: Omeprazole 20 MG CAPSULE.DR PO (15:35)
[2022-11-14 06:39] LABS: HIV AB/AG Nonreactive (Nonreactive); HIV Num 1 0.35 S/CO (0.00-0.99)
[2022-11-14 07:07] LABS: HBc Num1 0.07 S/CO (0.00-0.79); HBsAGNum1 0.27 S/CO (0.00-0.99); Hepatitis A Antibody IgM 0.15 Index (0-0.79); Hepatitis B Core Antibody Nonreactive (Nonreactive); Hepatitis B Surface Antigen Negative (Negative); ~Hepatitis A Antibody IgM Nonreactive (Nonreactive); ~Hepatitis B Surface Antibody REACTIVE (Nonreactive); ~Hepatitis C Antibody Nonreactive (Nonreactive)
[2022-11-14 12:34] LABS: IgA 278 mg/dL (47-310); IgG 869 mg/dL (600-1640); IgM 56 mg/dL (50-300)
[2022-11-14 14:13] LABS: Anti Nuclear Antibody Screen NEGATIVE (NEGATIVE)
[2022-11-14 16:24] LABS: Cyclic Citrullinated Peptide <16 UNITS
[2022-11-14 17:58] LABS: Cardiolipin IgG Ab <2.0 GPL-U/mL; Cardiolipin IgM Ab <2.0 MPL-U/mL
[2022-11-14 18:23] LABS: Scleroderma 70 Antibody <1.0 NEG AI (<1.0 NEG)
[2022-11-14 22:29] LABS: ANAchoice Screen NEGATIVE (NEGATIVE); Antibody to SS-A Antigen <1.0 NEG AI (<1.0 NEG); Antibody to SS-B Antigen <1.0 NEG AI (<1.0 NEG); Myeloperoxidase Antibody <1.0 AI; Proteinase 3 PR3 Antibodies <1.0 AI
[2022-11-14 22:38] LABS: Prot Elec - Albumin 3.4 g/dL (3.8-4.8); Prot Elec - Alpha1 0.3 g/dL (0.2-0.3); Prot Elec - Alpha2 0.8 g/dL (0.5-0.9); Prot Elec - Beta 1 0.4 g/dL (0.4-0.6); Prot Elec - Beta 2 0.4 g/dL (0.2-0.5); Prot Elec - Gamma 0.8 g/dL (0.8-1.7); Prot Elec - Total Protein 6.1 g/dL (6.1-8.1)
[2022-11-15 03:39] LABS: TS Negative Control Passed; TS Panel A 0; TS Panel B 0; TS Positive Control Passed; TSpotTB Negative (Negative)
[2022-11-15 14:13] LABS: Anti-Centromere B Antibodies <1.0 NEG AI (<1.0 NEG)
[2022-11-17 14:13] LABS: PTT (LAC) Screen 36 sec (<=40)
[2022-11-18 04:43] LABS: Angiotensin Converting Enzyme 25 U/L (9-67)
[2022-11-18 05:24] LABS: Beta-2 Glycoprotein IgA <2.0 U/mL (<20.0); Beta-2 Glycoprotein IgG <2.0 U/mL (<20.0); Beta-2 Glycoprotein IgM <2.0 U/mL (<20.0)
[2022-11-18 18:58] LABS: Lysozyme, Serum 6.2 mcg/mL (5.0-11.0)
[2022-11-20 16:23] LABS: Cytosolic 5'nuc 1A Ab IgG <5 Units; Ej Ab <11 SI (<11); HMGCR Ab IgG <2 CU (<20); Jo-1 Ab <11 SI (<11); MDA5 Ab <11 SI (<11); Mi-2 alpha Ab <11 SI (<11); Mi-2 beta Ab <11 SI (<11); NXP-2 (MJ) Ab <11 SI (<11); Oj Ab <11 SI (<11); Pl-12 Ab <11 SI (<11); Pl-7 Ab <11 SI (<11); SRP Ab <11 SI (<11); TIF1 gamma Ab <11 SI (<11)
[2022-11-21 13:48] LABS: Centromere Protein A Ab <11 SI (<11); Centromere Protein B Ab <11 SI (<11); Fibrillarin Ab <11 SI (<11); PM SCL 100 Ab <11 SI (<11); PM SCL 75 Ab <11 SI (<11); RNA Polymerase III RP11 Ab <11 SI (<11); RNA Polymerase III RP155 Ab <11 SI (<11); SCL-70 Extractable Nuclear Ab <11 SI (<11); Th-To Ab <11 SI (<11); U1 SNRNP RNP 70KD <11 SI (<11); U1 SNRNP RNP A <11 SI (<11); U1 SNRNP RNP C <11 SI (<11)
== END 2022-11-13 16:58 | disposition home or self-care (01) ==
LOC: HO.ED 20:55 → HO.EDOVER 23:56 → HO.IMC 11-11 00:52
PROVIDERS: Physician Assistant; Student in an Organized Health Care Education/Training Program; Admitting Provider Internal Medicine; Emergency Provider Emergency Medicine; PCP Internal Medicine; Visit Provider Internal Medicine
DX: I47.1 Supraventricular tachycardia (principal); R77.8 Other specified abnormalities of plasma proteins; R07.9 Chest pain, unspecified; R00.2 Palpitations; I21.4 Non-ST elevation (NSTEMI) myocardial infarction; G43.909 Migraine, unspecified, not intractable, without status migrainosus; I51.4 Myocarditis, unspecified; Z20.822 Contact with and (suspected) exposure to COVID-19; Z87.891 Personal history of nicotine dependence; Z79.899 Other long term (current) drug therapy
CPT/HCPCS: 36415; 71045; 71275; 80048; 80053; 80076; 80307; 81003; 82164; 82550; 82784; 83516; 83520; 83735; 84156; 84165; 84182; 84443; 84484; 85025; 85027; 85379; 85549; 85597; 85613; 85652; 85730; 86021; 86038; 86039; 86140; 86146; 86147; 86160; 86200; 86225; 86235; 86334; 86431; 86481; 86704; 86706; 86709; 86803; 87340; 87389; 87502; 87633; 87635; 93005; 93306; 96361; 96372; 96374; 99222; 99285; J0153; J1650; Q9957; Q9967

== ENCOUNTER 2022-12-13 19:15 | Emergency (ER) | payer MEDICAID, SELFPAY ==
--- NOTE | 2022-12-13 | ECG_ITS ---
Test Reason : CHEST PAIN Blood Pressure : / mmHG Vent. Rate : 070 BPM Atrial Rate : 070 BPM P-R Int : 142 ms QRS Dur : 088 ms QT Int : 416 ms P-R-T Axes : 070 065 064 degrees QTc Int : 449 ms Normal sinus rhythm with sinus arrhythmia Normal ECG When compared with ECG of 10-NOV-2022 21:42, T wave inversion no longer evident in Inferior leads T wave inversion no longer evident in Anterolateral leads Referred By: Generic ED Physician Electronically Signed By:GLORIA GAMEZ
[2022-12-13 19:35] VITALS: BP 123/65; PULSE 65; RESP 20; TEMP 36.7; O2SAT 98; BMI 19.3
--- NOTE | 2022-12-13 19:49 | PC.NURSE ---
Pt brought back from waiting room, EKG obtained, this RN placed 20g in LAC and obtained labs. Pt reports she has been having this pain for two days now
[2022-12-13 19:51] VITALS: PULSE 85
[2022-12-13 19:53] LABS: Hematocrit 35.3 % (37.0-47.0); Hemoglobin 11.3 g/dl (12.0-16.0); Mean Corpuscular Hemoglobin 26.5 pg (27.0-33.0); Mean Corpuscular Volume 82.7 fL (80.0-98.0); Mean Platelet Volume 9.2 fL (9.4-12.3); Platelet Count 347 X10*3/uL (160-400); Red Blood Count 4.27 X10*6/uL (4.20-5.50); Red Cell Distribution Width 15.1 % (11.0-16.0); White Blood Count 8.2 X10*3/uL (4.8-10.8)
--- NOTE | 2022-12-13 20:09 | ED_ITS ---
HPI - Chest Pain General Chief Complaint: Chest Pain Stated Complaint: chest pain Time Seen by Provider: 12/13/22 20:08 Source: patient and family () Mode of arrival: ambulatory Limitations: language barrier (Patient's 1st language is Yakut, she does understand and speak some Bahamian, aerial photograph interpreter was used) History of Present Illness HPI narrative: 37-year-old female who presents emergency department for evaluation of chest pain. The chest pain started yesterday, was intermittent and then became constant today. She points to her anterior chest when asked to localize the pain. She rates the pain is a pressure/tightness which is 8/10. She took ibuprofen yesterday with no relief for pain. She states the pain is worse with breathing worse with lying down. The patient denied fever, chills, rhinorrhea, sore throat, cough, shortness of breath, dyspnea on exertion. She had nausea with no vomiting. She states that she was hospitalized 3 weeks ago for myocarditis. I did review the hospitalist discharge note from 11/10/2022. In the ED the patient had an SVT with a rate of 180. She was treated with adenosine and converted. EKG then revealed T-wave inversions in the lateral leads V4 through V6 and 1, 2 and AVF. The patient had elevations in her troponin and her inflammatory markers and was felt that she had myopericarditis. She was treated with Toprol all because for palpitations. She was also started on colchicine for inflammation/pericarditis. Related Data Home Medications Medication Instructions Recorded Confirmed bupropion HCl 300 mg 24 hr tablet, 1 tab PO QAM 11/11/22 11/11/22 extended release eszopiclone 3 mg tablet 1 tab PO BEDTIME PRN insomnia 11/11/22 11/11/22 Previous Rx's Medication Instructions Recorded fidawwdilg-lsqpaillhuund-bpawvglr 1 tab PO Q4H PRN Headache #10 tabs 11/13/22 50 mg-325 mg-40 mg tablet colchicine 0.6 mg tablet (Colcrys) 0.6 mg PO BID #60 tabs 11/13/22 metoprolol succinate 25 mg 25 mg PO DAILY #30 tabs 11/13/22 tablet,extended release 24 hr omeprazole 20 mg capsule,delayed 20 mg PO DAILY #30 caps 11/13/22 release morphine 15 mg immediate release 15 mg PO Q4-6H PRN pain #10 tabs 12/13/22 tablet Allergies Allergy/AdvReac Type Severity Reaction Status Date / Time aspirin [Aspirin] Allergy Unknown SWELLING Verified 11/10/22 20:46 sea food Allergy Unknown Anaphylaxis Uncoded 11/10/22 20:46 Seafood Allergy Unknown SWELLING Uncoded 09/16/22 12:41 Review of Systems Review of Systems: Yes all other systems are reviewed and are negative [facility] Past Medical History [facility] Narrative: Past medical history: Reviewed below, patient also had myocarditis 3 weeks prior. Medical History Non-ST elevation [place] (NSTEMI) Sacroiliitis Scoliosis Scoliosis of thoracolumbar spine Spondylosis of lumbar region without myelopathy or radiculopathy Surgical History History of breast augmentation Family History Family History Mother Breast cancer Father Cardiac arrhythmia Father Cardiac arrhythmia Social History Social History Alcohol intake: never Patient Tobacco Use Status: Former Tobacco user Advance Directives: No Advance Directives Information Provided: Yes service: No Current occupational status: employed Physical Exam Vital Signs: Vital Signs: Last Vital Signs Temp 98.0 F 12/13/22 19:35 Pulse 65 12/13/22 21:37 Resp 17 12/13/22 21:37 BP 129/72 12/13/22 21:37 Pulse Ox 99 12/13/22 21:37 O2 Del Method 12/13/22 21:37 BMI result Body Mass Index 19.3 Const: General: cooperative and no acute distress Orientation/ consciousness: oriented to person and oriented to place Limitations: no limitations HEENT: Head: Yes normal to inspection, Yes normocephalic and Yes atraumatic Ears: external ears normal General nose exam: Normal external nose present Face and sinus: Yes normal facial exam Mouth: Normal oral and palatal mucosa present Throat: Yes posterior oropharynx normal Eyes: General: appearance normal, both eyes and all related structures Pupils: Equal, round and reactive pupils present Neck: Neck: Yes normal visual inspection, Yes no lymphadenopathy, Yes trachea midline and Yes supple Chest: Chest palpation & inspection: normal inspection of the chest and tenderness (Tenderness over the costochondral joints of the anterior chest) Resp: Effort & Inspection: normal respiratory effort and able to speak in complete sentences Auscultation: clear to auscultation bilaterally Cardio: Rate: regular rate Rhythm: regular rhythm Heart sounds: S1 normal heart sound present, S2 normal heart sound present and no murmurs GI: Inspection: Yes normal to inspection Palpation (GI): Soft to palpation, nontender and no guarding Auscultation: normal bowel sounds : General: Yes no CVA tenderness Back/Spine/Pelvis: Back: no CVA tenderness Skin: General skin exam: no rashes or lesions noted Neuro: General: oriented to person and oriented to place Cranial nerves: Yes CN's II-XII intact bilaterally and Yes Equal, round and reactive pupils present Cognition (Neuro): normal cognition Motor exam (neuro): 5/5 motor strength present throughout Extrem: General: Yes normal to inspection Psych: Appearance: grossly normal Speech and movement: Normal speech and movement present Affect: normal affect Attitude: cooperative Thought process: Normal thought process present Thought content: Normal thought content present Medications Administered Discontinued Medications Generic Name Dose Route Start Last Admin Trade Name Freq PRN Reason Stop Dose Admin Ketorolac Tromethamine 30 mg 12/13/22 21:07 12/13/22 21:19 Ketorolac Tromethamine 15 Mg/Ml Vial IVPUSH 12/13/22 21:08 30 mg ONCE STA Administration Morphine Sulfate 4 mg 12/13/22 22:11 12/13/22 22:16 Morphine Sulfate 4 Mg/Ml Cartridge IVPUSH 12/13/22 22:12 4 mg ONCE STA Administration Protocol Medical Decision Making Medical Decision Making [facility] Narrative: 37-year-old female who presents emergency department for evaluation of chest pain x2 days, the pain was intermittent yesterday then became constant today. She describes the pain is a pressure/tightness in her anterior chest. Patient was recently diagnosed with myopericarditis and hospitalized 11/10/2022, discharged on colchicine. The patient's vital signs were normal. Examination did reveal tenderness palpation over her anterior chest over the costochondral joints. My independent interpretation patient's laboratory evaluation is as follows: Mild anemia with an H&H of 11.3 and 35.3 this improved compared to her previous labs. CMP was normal. Troponin was below detectable limits this is compared to the troponin of 14.6 on 11/13/2022. The patient's EKG is normal and previous T-wave inversions have resolved. The patient was initially treated with Toradol 30 mg IV with only minimal improvement for pain. She was given morphine 4 mg IV with complete resolution. At this time I do not think this is recurrence of her myocarditis or pericarditis. Patient's presentation is more consistent with costochondritis. Patient will be discharged home advised to take Tylenol and ibuprofen for pain. For pain not relieved by these medications she was prescribed morphine 15 mg every 4-6 hours as needed. Differential Diagnosis Differential diagnosis includes but is not limited to myocardial infarction, pericarditis, myocarditis, costochondritis, musculoskeletal pain Lab Data [facility] Lab Attestation statement: I reviewed the patient's lab results. Please see [facility] for my discussion 12/13/22 19:46 12/13/22 19:46 Labs: Lab Results 12/13/22 12/13/22 12/13/22 Range/Units 19:46 19:46 19:46 WBC 8.2 (4.8-10.8) X10*3/uL RBC 4.27 (4.20-5.50) X10*6/uL Hgb 11.3 L (12.0-16.0) g/dl Hct 35.3 L (37.0-47.0) % MCV 82.7 (80.0-98.0) fL MCH 26.5 L (27.0-33.0) pg MCHC 32.0 (31.0-35.0) g/dl RDW 15.1 (11.0-16.0) % Plt Count 347 D (160-400) X10*3/uL MPV 9.2 L (9.4-12.3) fL Absolute Nucleated RBC 0.000 (0.0-0.012) X10*3/uL Nucleated RBC % (auto) 0.0 (0.0-0.2) /100WBC Sodium 140 (135-145) mmol/L Potassium 4.2 (3.3-5.1) mmol/L Chloride 108 (96-108) mmol/L Carbon Dioxide 24 (22-29) mmol/L Anion Gap 12 (12-20) BUN 15 (9-16) mg/dL Creatinine 0.99 (0.5-1.4) mg/dL Estim Creat Clear Calc 65.5 Estimated GFR > 60 Random Glucose 96 (60-115) mg/dL Calcium 9.0 D (8.4-10.2) mg/dL Total Bilirubin 0.2 (0.0-1.0) mg/dL AST 18 (5-31) U/L ALT 14 (0-31) U/L Alkaline Phosphatase 68 (39-117) U/L Troponin I High Sens < 3.5 D (<3.5-17.0) ng/L Total Protein 7.1 (6.5-8.0) g/dL Albumin 3.9 (3.5-5.0) g/dL Independent Interpretation I performed an independent interpretation of an: EKG Interpretation: My independent interpretation of the patient's 12 EKG done at 19:39 hours is as follows, normal sinus rhythm with a rate of 70, normal ID interval, QRS duration QTC interval, no ST segment elevation, no ST segment depression, no PACs, no PVCs. Compared to EKG dated 11/10/2022, the inverted T-waves in leads 2, 3, AVF, V3 through V 6 have resolved. Discharge Plan Discharge Clinical Impression: Acute costochondritis Patient Disposition: Home, Self-Care Instructions: Costochondritis (ED) Additional Instructions: Your blood work today was normal. Your troponin (marker of heart damage) was below detectable limits which is very reassuring. Your EKG was normal and improved from your previous EKG when your hospitalized. At this time, I believe that your pain is caused by inflammation of the joints of your chest (costochondritis). Take ibuprofen 200 mg pills, 2 pills every 6 hours for the next 4-5 days then as needed. Take Tylenol (acetaminophen) 2 pills every 4-6 hours as needed for pain. For pain not relieved by ibuprofen or Tylenol take morphine 15 mg pills, 1 pill every 4 hours as needed for pain. This medication will make you sleepy, do not drive or work while taking this medication. Morphine is a narcotic medication and can be addicting. If you are concerned about addiction you can ask the pharmacist for less pills or do not get this prescription filled. Follow-up with your doctor in 2 days. Please return to the emergency department if your symptoms get worse or if you develop any symptoms that are concerning to you. Prescriptions: New morphine 15 mg tablet 15 mg PO Q4-6H PRN (Reason: pain) Qty: 10 0RF Rx Instructions: The patient may ask for partial fill; Partial Fill upon patient request. No Action bupropion HCl 300 mg tablet extended release 24 hr 1 tab PO QAM eszopiclone 3 mg tablet 1 tab PO BEDTIME PRN (Reason: insomnia) cljnvwvvek-offtynkyhplqc-aeye 50-325-40 mg Tablet 1 tab PO Q4H PRN (Reason: Headache) Qty: 10 0RF omeprazole 20 mg Capsule,Delayed Release(Dr/Ec) 20 mg PO DAILY Qty: 30 0RF metoprolol succinate 25 mg Tablet Extended Release 24 Hr 25 mg PO DAILY Qty: 30 0RF Protocol: Hold for SBP/HR < HOLD for SBP < : 90 HOLD for HR < : 60 colchicine [Colcrys] 0.6 mg Tablet 0.6 mg PO BID Qty: 60 0RF Print Language: Yakut
[2022-12-13 20:32] LABS: Alanine Aminotransferase 14 U/L (0-31); Albumin Level 3.9 g/dL (3.5-5.0); Alkaline Phosphatase 68 U/L (39-117); Anion Gap 12 (12-20); Aspartate Amino Transferase 18 U/L (5-31); Bilirubin Total 0.2 mg/dL (0.0-1.0); Blood Urea Nitrogen 15 mg/dL (9-16); Carbon Dioxide 24 mmol/L (22-29); Chloride 108 mmol/L (96-108); Creatinine Clr Calc Pharmacy 65.5; Estimated Glomerular Filt Rate > 60; Glucose Random 96 mg/dL (60-115); Potassium 4.2 mmol/L (3.3-5.1); Sodium 140 mmol/L (135-145); Total Protein 7.1 g/dL (6.5-8.0); Troponin-I High Sensitivity < 3.5 ng/L (<3.5-17.0)
[2022-12-13] MEDS: Ketorolac Tromethamine 15 MG/ML VIAL 30 MG IVPUSH (21:19)
[2022-12-13 21:37] VITALS: BP 129/72; PULSE 65; RESP 17; O2SAT 99
--- NOTE | 2022-12-13 22:05 | PC.NURSE ---
pt reports pain has not improved since receiving Toradol aware
[2022-12-13] MEDS: Morphine Sulfate 4 MG/ML CARTRIDGE IVPUSH (22:16)
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
== END 2022-12-13 23:36 | disposition home or self-care (01) ==
PROVIDERS: Emergency Provider Emergency Medicine Emergency Medical Services; PCP Internal Medicine
DX: M94.0 Chondrocostal junction syndrome [Tietze] (principal); Z87.891 Personal history of nicotine dependence; Z79.899 Other long term (current) drug therapy
CPT/HCPCS: 36415; 80053; 84484; 85027; 93005; 96374; 96375; 99284; J1885; J2270

== ENCOUNTER → 2023-01-13 14:49 | Outpatient (BNVA) | payer MEDICAID, SELFPAY | PROVIDERS: PCP Internal Medicine; Referring Provider Internal Medicine; Visit Provider Internal Medicine | DX: I31.9 Disease of pericardium, unspecified (principal); I47.1 Supraventricular tachycardia | CPT/HCPCS: 99212 ==

== ENCOUNTER → 2023-01-14 08:18 | Outpatient (BNVA) | payer MEDICAID, SELFPAY | PROVIDERS: PCP Internal Medicine; Visit Provider Student in an Organized Health Care Education/Training Program | DX: I31.9 Disease of pericardium, unspecified (principal) | CPT/HCPCS: 99202 ==

== ENCOUNTER 2023-03-21 21:22 | Emergency (ER) | payer MEDICAID, SELFPAY ==
--- NOTE | 2023-03-21 | ECG_ITS ---
Test Reason : CHEST PAIN Blood Pressure : / mmHG Vent. Rate : 072 BPM Atrial Rate : 072 BPM P-R Int : 150 ms QRS Dur : 084 ms QT Int : 396 ms P-R-T Axes : 073 065 067 degrees QTc Int : 433 ms Normal sinus rhythm Nonspecific ST abnormality Borderline ECG When compared with ECG of 13-DEC-2022 19:39, No significant change was found Referred By: Generic ED Physician Electronically Signed By:KENDRA LOUIS MD
--- NOTE | ~2023-03-21 | XR_ITS ---
EXAMINATION: XR CHEST CLINICAL INFORMATION: Shortness of breath COMPARISON: 11/10/2022 TECHNIQUE: Frontal view of the chest was obtained. FINDINGS: Lung volumes are symmetric. No focal consolidation is seen. No evidence of pneumothorax, significant pleural effusion, or pulmonary edema. The cardiomediastinal contour is unremarkable. No acute osseous findings are seen. XR/XR chest 1V IMPRESSION: No acute cardiopulmonary findings.
[2023-03-21 21:31] VITALS: BP 126/45; PULSE 80; RESP 18; TEMP 36; O2SAT 96; BMI 24.8
[2023-03-21 21:45] LABS: MANUAL DIFF FLAG NO
[2023-03-21 21:50] LABS: Basophils Absolute Auto 0.1 X10*3/uL (0.0-0.2); Basophils Percent Auto 0.6 % (0-2); Eosinophils Absolute Auto 0.2 X10*3/uL (0.0-0.4); Eosinophils Percent Auto 2.1 % (0-4); Hematocrit 37.3 % (37.0-47.0); Imm Gran Abs Auto 0.02 X10*3/uL (0.00-0.03); Imm Gran Pct Auto 0.2 % (0.0-0.4); Lymphocytes Absolute Auto 3.5 X10*3/uL (1.2-4.9); Lymphocytes Percent Auto 42.8 % (20-40); Mean Corpuscular HGB Conc 32.2 g/dl (31.0-35.0); Mean Corpuscular Hemoglobin 26.8 pg (27.0-33.0); Mean Corpuscular Volume 83.3 fL (80.0-98.0); Mean Platelet Volume 9.6 fL (9.4-12.3); Monocytes Absolute Auto 0.7 X10*3/uL (0.1-1.2); Monocytes Percent Auto 8.6 % (2-11); Neutrophils Absolute Auto 3.7 x10*3/uL (2.0-8.3); Neutrophils Percent Auto 45.7 % (45-73); Platelet Count 349 X10*3/uL (160-400); Red Blood Count 4.48 X10*6/uL (4.20-5.50); Red Cell Distribution Width 15.5 % (11.0-16.0); White Blood Count 8.2 X10*3/uL (4.8-10.8)
[2023-03-21 22:03] LABS: Alanine Aminotransferase 18 U/L (0-31); Albumin Level 4.3 g/dL (3.5-5.0); Alkaline Phosphatase 68 U/L (39-117); Anion Gap 12 (12-20); Aspartate Amino Transferase 16 U/L (5-31); Bilirubin Total 0.4 mg/dL (0.0-1.0); Blood Urea Nitrogen 15 mg/dL (9-16); Calcium 9.2 mg/dL (8.4-10.2); Carbon Dioxide 24 mmol/L (22-29); Chloride 108 mmol/L (96-108); Estimated Glomerular Filt Rate 53; Glucose Random 91 mg/dL (60-115); Potassium 4.1 mmol/L (3.3-5.1); Sodium 140 mmol/L (135-145); Total Protein 7.3 g/dL (6.5-8.0)
[2023-03-21 22:14] LABS: Troponin-I High Sensitivity < 2.7 ng/L (<3.5-17.0)
[2023-03-21 22:46] VITALS: BP 113/64; PULSE 70; RESP 16; O2SAT 98
--- NOTE | 2023-03-21 22:58 | ED_ITS ---
HPI - Chest Pain General Chief Complaint: Chest Pain Stated Complaint: chest pain Time Seen by Provider: 03/21/23 22:22 Source: patient Mode of arrival: ambulatory Limitations: no limitations History of Present Illness HPI narrative: Patient comes emergency room complaining of chest pain for 2-3 days. Patient also complaining of intermittent shortness of breath, hot flashes. Denies any recent URIs. Related Data Home Medications Medication Instructions Recorded Confirmed bupropion HCl 300 mg 24 hr tablet, 300 mg PO QAM 01/13/23 01/14/23 extended release eszopiclone 3 mg tablet 3 mg PO BEDTIME PRN insomnia 01/13/23 01/14/23 colchicine 0.6 mg tablet 0.6 mg PO DAILY 01/14/23 01/14/23 Previous Rx's Medication Instructions Recorded metoprolol succinate 25 mg 25 mg PO DAILY #30 tabs 11/13/22 tablet,extended release 24 hr omeprazole 20 mg capsule,delayed 20 mg PO DAILY #30 caps 11/13/22 release Allergies Allergy/AdvReac Type Severity Reaction Status Date / Time aspirin [Aspirin] Allergy Unknown SWELLING Verified 03/21/23 21:31 sea food Allergy Unknown Anaphylaxis Uncoded 01/14/23 08:39 Seafood Allergy Unknown SWELLING Uncoded 01/14/23 08:39 Review of Systems Review of Systems: Constitutional : No Weight loss, No Fever, No Chills, No Night Sweats, No Fatigu e, No Malaise, complaining of hot flashes ENT/Mouth : No Hearing loss, No Ear Pain, No Nasal Congestion, No Sinus Pain, No Hoarseness, No sore throat, No Rhinorrhea, No Swallowing Difficulty Eyes: No Eye Pain, No Swelling, No Redness, No Foreign Body, No Discharge, No Vision Changes Cardiovascular : No Chest Pain, No SOB, No Dyspnea on Exertion, No Orthopnea, No Edema, No Palpitations Respiratory : No Cough, No Sputum, No Wheezing, complaining of pain with inspiration Gastrointestinal : No Nausea, No Vomiting, No Diarrhea, No Constipation, No abdominal Pain, No Hematochezia, No Melena Genitourinary : no irregular bleeding, No Dysuria, No Urinary Frequency, No Hematuria, No Urinary Incontinence, No Urgency, No Flank Pain, No Urinary Flow Changes, No Hesitancy Musculoskeletal : Complaining of back pain radiating from the upper back to lower back. No joint pain, No Myalgias, No Joint Swelling Skin : No Skin Lesions, No rash Neuro : No Weakness, No Numbness, No Paresthesias, No Loss of Consciousness, No Dizziness, No Headache Psych : No Anxiety/Panic, No Depression, No SI/HI/AH/VH, No Social Issues, Heme/Lymph: No Bruising, No Bleeding,No Lymphadenopathy Endocrine : No Polyuria, No Polydipsia, No Temperature Intolerance [facility] Past Medical History Medical History Non-ST elevation [place] (NSTEMI) Sacroiliitis Scoliosis Scoliosis of thoracolumbar spine Spondylosis of lumbar region without myelopathy or radiculopathy Surgical History History of breast augmentation Family History Family History Mother Breast cancer Father Cardiac arrhythmia Father Cardiac arrhythmia Social History Social History Alcohol intake: never Patient Tobacco Use Status: Former Tobacco user Advance Directives: No Advance Directives Information Provided: No service: No Current occupational status: employed Physical Exam Vital Signs: Vital Signs: Last Vital Signs Temp 96.8 F 03/21/23 21:31 Pulse 70 03/21/23 22:46 Resp 16 03/21/23 22:46 BP 113/64 03/21/23 22:46 Pulse Ox 98 03/21/23 22:46 O2 Del Method Room Air 03/21/23 22:46 BMI result Body Mass Index 24.8 Const: Other: Appearance: Alert. Oriented X3. No acute distress. Eyes: Pupils equal, round and reactive to light. ENT: Pharynx normal. Neck: Normal inspection. Neck supple. No lymph nodes noted. No crepitus CVS: Normal heart rate and rhythm. Pulses normal. Normal S1 and S2 Respiratory: No respiratory distress. Breath sounds normal. No Wheezing. No rales Abdomen: Soft and nontender. No rigidity. No distention. Skin: Skin warm and dry. Normal skin color. Normal skin turgor. Extremities: No lower extremity edema. No Lacerations. No Rash Neuro: Oriented X 3. No motor deficit. No sensory deficit. Moving all extremities. No slurred speech. CN 2 through 12 grossly intact Psych: calm, cooperative, anxious Medical Decision Making Medical Decision Making [facility] Narrative: -my interpretation EKG: Sinus rhythm,HR 72, no ST segment depression or elevation, no T-wave inversion, QTC 433 -troponin negative, wells criteria score for pulmonary embolism 0 -at this time, patient states she has no shortness of breath or chest pain. - Differential Diagnosis Differential Diagnoses: The differential diagnosis associated with the presentation includes (Pleurisy, costochondritis, anxiety) Lab Data [facility] Lab Attestation statement: I reviewed the patient's lab results. 03/21/23 21:40 03/21/23 21:40 Labs: Lab Results 03/21/23 03/21/23 03/21/23 Range/Units 21:40 21:40 21:40 WBC 8.2 (4.8-10.8) X10*3/uL RBC 4.48 (4.20-5.50) X10*6/uL Hgb 12.0 (12.0-16.0) g/dl Hct 37.3 (37.0-47.0) % MCV 83.3 (80.0-98.0) fL MCH 26.8 L (27.0-33.0) pg MCHC 32.2 (31.0-35.0) g/dl RDW 15.5 (11.0-16.0) % Plt Count 349 (160-400) X10*3/uL MPV 9.6 (9.4-12.3) fL Immature Gran % (Auto) 0.2 (0.0-0.4) % Neut % (Auto) 45.7 (45-73) % Lymph % (Auto) 42.8 H (20-40) % [place] % (Auto) 8.6 (2-11) % Eos % (Auto) 2.1 (0-4) % Baso % (Auto) 0.6 (0-2) % Lymph # (Auto) 3.5 (1.2-4.9) X10*3/uL [place] # (Auto) 0.7 (0.1-1.2) X10*3/uL Eos # (Auto) 0.2 (0.0-0.4) X10*3/uL Baso # (Auto) 0.1 (0.0-0.2) X10*3/uL Abs Immat Gran (auto) 0.02 (0.00-0.03) X10*3/uL Absolute Neuts (auto) 3.7 (2.0-8.3) x10*3/uL Absolute Nucleated RBC 0.000 (0.0-0.012) X10*3/uL Nucleated RBC % (auto) 0.0 (0.0-0.2) /100WBC Sodium 140 (135-145) mmol/L Potassium 4.1 (3.3-5.1) mmol/L Chloride 108 (96-108) mmol/L Carbon Dioxide 24 (22-29) mmol/L Anion Gap 12 (12-20) BUN 15 (9-16) mg/dL Creatinine 1.14 (0.5-1.4) mg/dL Estim Creat Clear Calc 62.0 Estimated GFR 53 Random Glucose 91 (60-115) mg/dL Calcium 9.2 (8.4-10.2) mg/dL Total Bilirubin 0.4 (0.0-1.0) mg/dL AST 16 (5-31) U/L ALT 18 (0-31) U/L Alkaline Phosphatase 68 (39-117) U/L Troponin I High Sens (<3.5-17.0) ng/L B-Natriuretic Peptide 16 (<100) pg/mL Total Protein 7.3 (6.5-8.0) g/dL Albumin 4.3 (3.5-5.0) g/dL 03/21/23 Range/Units 21:41 WBC (4.8-10.8) X10*3/uL RBC (4.20-5.50) X10*6/uL Hgb (12.0-16.0) g/dl Hct (37.0-47.0) % MCV (80.0-98.0) fL MCH (27.0-33.0) pg MCHC (31.0-35.0) g/dl RDW (11.0-16.0) % Plt Count (160-400) X10*3/uL MPV (9.4-12.3) fL Immature Gran % (Auto) (0.0-0.4) % Neut % (Auto) (45-73) % Lymph % (Auto) (20-40) % [place] % (Auto) (2-11) % Eos % (Auto) (0-4) % Baso % (Auto) (0-2) % Lymph # (Auto) (1.2-4.9) X10*3/uL [place] # (Auto) (0.1-1.2) X10*3/uL Eos # (Auto) (0.0-0.4) X10*3/uL Baso # (Auto) (0.0-0.2) X10*3/uL Abs Immat Gran (auto) (0.00-0.03) X10*3/uL Absolute Neuts (auto) (2.0-8.3) x10*3/uL Absolute Nucleated RBC (0.0-0.012) X10*3/uL Nucleated RBC % (auto) (0.0-0.2) /100WBC Sodium (135-145) mmol/L Potassium (3.3-5.1) mmol/L Chloride (96-108) mmol/L Carbon Dioxide (22-29) mmol/L Anion Gap (12-20) BUN (9-16) mg/dL Creatinine (0.5-1.4) mg/dL Estim Creat Clear Calc Estimated GFR Random Glucose (60-115) mg/dL Calcium (8.4-10.2) mg/dL Total Bilirubin (0.0-1.0) mg/dL AST (5-31) U/L ALT (0-31) U/L Alkaline Phosphatase (39-117) U/L Troponin I High Sens < 2.7 (<3.5-17.0) ng/L B-Natriuretic Peptide (<100) pg/mL Total Protein (6.5-8.0) g/dL Albumin (3.5-5.0) g/dL Radiology Impression Discussion of test interpretation with radiology: I have reviewed the radiologist's reading. Radiologist Impression: Lung volumes are symmetric. No focal consolidation is seen. No evidence of pneumothorax, significant pleural effusion, or pulmonary edema. The cardiomediastinal contour is unremarkable. No acute osseous findings are seen. XR/XR chest 1V IMPRESSION: No acute cardiopulmonary findings Discharge Plan Discharge Clinical Impression: Atypical chest pain Patient Disposition: Home, Self-Care Instructions: Chest Pain (ED) Additional Instructions: Please follow-up with your primary care physician tomorrow. If you have any w orsening or new symptoms, please return to the emergency room or call 911 Prescriptions: No Action omeprazole 20 mg Capsule,Delayed Release(Dr/Ec) 20 mg PO DAILY Qty: 30 0RF metoprolol succinate 25 mg Tablet Extended Release 24 Hr 25 mg PO DAILY Qty: 30 0RF Protocol: Hold for SBP/HR < HOLD for SBP < : 90 HOLD for HR < : 60 bupropion HCl 300 mg tablet extended release 24 hr 300 mg PO QAM eszopiclone 3 mg tablet 3 mg PO BEDTIME PRN (Reason: insomnia) colchicine 0.6 mg tablet 0.6 mg PO DAILY
[2023-03-21 22:59] LABS: B Type Natriuretic Peptide 16 pg/mL (<100)
== END 2023-03-21 23:35 | disposition home or self-care (01) ==
PROVIDERS: Emergency Provider Emergency Medicine; PCP Internal Medicine
DX: R07.89 Other chest pain (principal); R06.02 Shortness of breath; Z87.891 Personal history of nicotine dependence; Z79.899 Other long term (current) drug therapy
CPT/HCPCS: 36415; 71045; 80053; 83880; 84484; 85025; 93005; 99283; 99285

== ENCOUNTER 2023-04-01 08:06 | Emergency (ER) | payer MEDICAID, SELFPAY ==
--- NOTE | ~2023-04-01 | XR_ITS ---
EXAMINATION: XR ABDOMEN COMPLETE CLINICAL INDICATION: Abdominal pain and distention COMPARISON: CT abdomen pelvis 08/30/2021 TECHNIQUE: AP view of the abdomen. FINDINGS: The bowel gas pattern is normal with no evidence of ileus or obstruction. No unusual soft tissue calcifications are noted. Phleboliths are present in the pelvis. Hepatomegaly is again noted with the liver measuring over 20 cm in cephalocaudad dimension. The bones are unremarkable. XR/XR abdomen min 2V IMPRESSION: No evidence of bowel obstruction. Hepatomegaly.
[2023-04-01 08:34] VITALS: BP 120/66; PULSE 78; RESP 16; TEMP 36.8; O2SAT 99; BMI 24.5
[2023-04-01] MEDS: Famotidine/PF 20 MG/2 ML VIAL IVPUSH (08:58)
[2023-04-01] MEDS: 0.9 % Sodium Chloride 1,000 ML 999 ML IV (08:58)
[2023-04-01] MEDS: Ondansetron ODT 4 MG TAB.RAPDIS TRANSLINGU (08:58)
[2023-04-01 09:03] LABS: MANUAL DIFF FLAG NO
[2023-04-01 09:06] LABS: Basophils Percent Auto 0.1 % (0-2); Eosinophils Absolute Auto 0.2 X10*3/uL (0.0-0.4); Eosinophils Percent Auto 2.1 % (0-4); Hematocrit 37.2 % (37.0-47.0); Imm Gran Abs Auto 0.01 X10*3/uL (0.00-0.03); Imm Gran Pct Auto 0.1 % (0.0-0.4); Lymphocytes Absolute Auto 1.3 X10*3/uL (1.2-4.9); Lymphocytes Percent Auto 17.5 % (20-40); Mean Corpuscular HGB Conc 32.3 g/dl (31.0-35.0); Mean Corpuscular Hemoglobin 26.9 pg (27.0-33.0); Mean Corpuscular Volume 83.4 fL (80.0-98.0); Mean Platelet Volume 9.9 fL (9.4-12.3); Monocytes Absolute Auto 0.6 X10*3/uL (0.1-1.2); Monocytes Percent Auto 8.3 % (2-11); Neutrophils Absolute Auto 5.2 x10*3/uL (2.0-8.3); Neutrophils Percent Auto 71.9 % (45-73); Platelet Count 285 X10*3/uL (160-400); Red Blood Count 4.46 X10*6/uL (4.20-5.50); Red Cell Distribution Width 15.4 % (11.0-16.0); White Blood Count 7.3 X10*3/uL (4.8-10.8)
--- NOTE | 2023-04-01 09:12 | ED_ITS ---
HPI - Abdominal Pain General Chief Complaint: Abdominal Pain Stated Complaint: abd pain, diharea for a month, vomiting Time Seen by Provider: 04/01/23 08:20 Source: patient Mode of arrival: ambulatory Limitations: no limitations History of Present Illness HPI narrative: 37-year-old female with no major medical problems presents with abdominal pain, distension, diarrhea. Symptoms started 3 weeks ago. The patient is describes symptoms as moderate to severe. The symptoms are intermittent. Pain is located in the left lower quadrant. Does not radiate. She describes that pain is mild. Is no clear relieving or exacerbating features. Her symptoms are also associated with nausea but no vomiting. She denies any fevers but has had chills. She denies any urinary frequency, urgency, dysuria, vaginal bleeding or discharge. She describes abdominal distension and the sensation of gassiness and a lot of abdominal noises. Patient has never had these symptoms before. Related Data Home Medications Medication Instructions Recorded Confirmed bupropion HCl 300 mg 24 hr tablet, 300 mg PO QAM 01/13/23 01/14/23 extended release eszopiclone 3 mg tablet 3 mg PO BEDTIME PRN insomnia 01/13/23 01/14/23 colchicine 0.6 mg tablet 0.6 mg PO DAILY 01/14/23 01/14/23 Previous Rx's Medication Instructions Recorded metoprolol succinate 25 mg 25 mg PO DAILY #30 tabs 11/13/22 tablet,extended release 24 hr omeprazole 20 mg capsule,delayed 20 mg PO DAILY #30 caps 11/13/22 release Allergies Allergy/AdvReac Type Severity Reaction Status Date / Time aspirin [Aspirin] Allergy Unknown SWELLING Verified 04/01/23 08:34 sea food Allergy Unknown Anaphylaxis Uncoded 01/14/23 08:39 Seafood Allergy Unknown SWELLING Uncoded 01/14/23 08:39 Review of Systems Review of Systems CONSTITUTIONAL: Denies weight loss, fever + chills. HEENT: Denies changes in vision and hearing. RESPIRATORY: Denies SOB and cough. CV: Denies palpitations no CP. GI: See HPI : Denies dysuria and urinary frequency. MSK: Denies myalgia and joint pain. SKIN: Denies rash and pruritus. NEUROLOGICAL: Denies headache and syncope. PSYCHIATRIC: Denies recent changes in mood. Denies anxiety and depression. All other ROS are negative unless in HPI PMFSH Past Medical History Medical History Non-ST elevation [place] (NSTEMI) Sacroiliitis Scoliosis Scoliosis of thoracolumbar spine Spondylosis of lumbar region without myelopathy or radiculopathy Surgical History History of breast augmentation Family History Family History Mother Breast cancer Father Cardiac arrhythmia Father Cardiac arrhythmia Social History Social History Alcohol intake: never Patient Tobacco Use Status: Former Tobacco user Advance Directives: No service: No Current occupational status: employed Physical Exam ED Vital Signs: Vital Signs - 24 hr 04/01/23 08:34 Temperature 98.2 F Pulse Rate 78 Respiratory Rate 16 Blood Pressure 120/66 Pulse Oximetry 99 Oxygen Delivery Method Room Air BMI result Body Mass Index 24.5 GEN: Well developed, no acute distress, alert, oriented HEENT: Normocephalic, atraumatic, normal external ears, nose appears normal, no oropharyngeal edema or exudates Eyes: Normal to appearance Neck: Supple, no lymphadenopathy Respiratory: Talks in complete sentences, no respiratory distress, clear to auscultation bilaterally Cardiovascular: Regular rate and rhythm, no murmurs rubs or gallops Abdomen: Soft, nontender, mild distention, no guarding, no rebound Back: No CVA tenderness Extremities: No clubbing cyanosis or edema Neurologic: No focal neurologic deficits, cranial nerves 2-12 intact, strength is 5/5 bilaterally Skin: No rash Course Course Course Narrative: The workup is complete at this time. Patient is having diarrhea for the past 3 weeks. Abdominal exam reveals some distension. Lab work did not show any obvious abnormalities. X-ray showed a nonspecific bowel gas pattern. There is no obstruction. Suspect bacterial overgrowth her IBS or motility dysfunction. Will refer the patient to GI. Will recommend fiber supplementation, probiotic treatment. Medical Decision Making Medical Decision Making [facility] Narrative: 37-year-old female with no major medical problems presents with abdominal pain, nausea, diarrhea. Examination was benign with exception of mild abdominal distention. Differential diagnosis includes IBD, IBS, bacterial overgrowth, colitis, infectious etiology. Will obtain routine laboratory analysis, provide a patient with IV fluids and antiemetics. Will get an x-ray to rule out any obstructive type of symptomatology. Will re-evaluate patient Differential Diagnosis Differential Diagnoses: The differential diagnosis associated with the presentation includes (See above) Lab Data [facility] Lab Attestation statement: I reviewed the patient's lab results. 04/01/23 08:57 04/01/23 08:57 Labs: Lab Results 04/01/23 04/01/23 Range/Units 08:57 08:57 WBC 7.3 (4.8-10.8) X10*3/uL RBC 4.46 (4.20-5.50) X10*6/uL Hgb 12.0 (12.0-16.0) g/dl Hct 37.2 (37.0-47.0) % MCV 83.4 (80.0-98.0) fL MCH 26.9 L (27.0-33.0) pg MCHC 32.3 (31.0-35.0) g/dl RDW 15.4 (11.0-16.0) % Plt Count 285 (160-400) X10*3/uL MPV 9.9 (9.4-12.3) fL Immature Gran % (Auto) 0.1 (0.0-0.4) % Neut % (Auto) 71.9 (45-73) % Lymph % (Auto) 17.5 L (20-40) % [place] % (Auto) 8.3 (2-11) % Eos % (Auto) 2.1 (0-4) % Baso % (Auto) 0.1 (0-2) % Lymph # (Auto) 1.3 (1.2-4.9) X10*3/uL [place] # (Auto) 0.6 (0.1-1.2) X10*3/uL Eos # (Auto) 0.2 (0.0-0.4) X10*3/uL Baso # (Auto) 0.0 (0.0-0.2) X10*3/uL Abs Immat Gran (auto) 0.01 (0.00-0.03) X10*3/uL Absolute Neuts (auto) 5.2 (2.0-8.3) x10*3/uL Absolute Nucleated RBC 0.000 (0.0-0.012) X10*3/uL Nucleated RBC % (auto) 0.0 (0.0-0.2) /100WBC Sodium 140 (135-145) mmol/L Potassium 3.9 (3.3-5.1) mmol/L Chloride 109 H (96-108) mmol/L Carbon Dioxide 23 (22-29) mmol/L Anion Gap 12 (12-20) BUN 15 (9-16) mg/dL Creatinine 0.84 (0.5-1.4) mg/dL Estim Creat Clear Calc 84.2 Estimated GFR > 60 Random Glucose 113 (60-115) mg/dL Calcium 8.5 D (8.4-10.2) mg/dL Total Bilirubin 0.9 (0.0-1.0) mg/dL AST 14 (5-31) U/L ALT 14 (0-31) U/L Alkaline Phosphatase 62 (39-117) U/L Total Protein 6.9 (6.5-8.0) g/dL Albumin 3.9 (3.5-5.0) g/dL Lipase 17 (8-78) U/L Independent Interpretation I performed an independent interpretation of an: Plain X-Ray Prescription Management I considered prescription management with: Pain Medication Medications Administered Discontinued Medications Generic Name Dose Route Start Last Admin Trade Name Parth PRN Reason Stop Dose Admin Famotidine 20 mg 04/01/23 08:29 04/01/23 08:58 Famotidine/Pf 20 Mg/2 Ml Vial IVPUSH 04/01/23 08:30 20 mg ONCE ONE Administration Sodium Chloride 1,000 mls @ 999 mls/hr 04/01/23 08:30 04/01/23 08:58 Ns IV 04/01/23 09:30 999 mls/hr .Q1H1M ANA Administration Ondansetron HCl 4 mg 04/01/23 08:29 04/01/23 08:58 Ondansetron Odt 4 Mg Tab.Rapdis TRANSLINGU 04/01/23 08:30 4 mg ONCE ONE Administration Discharge Plan Discharge Clinical Impression: Diarrhea Patient Disposition: Home, Self-Care Instructions: Acute Diarrhea (ED) Additional Instructions: For your diarrhea, I am recommending a probiotic medications such as acidophilus or lactobacillus. These are available [id number]. In addition, I am recommending fiber supplementation on a daily basis with appropriate levels of hydration. Fiber supplements include Benefiber, FiberCon, Metamucil, etc.. Prescriptions: No Action omeprazole 20 mg Capsule,Delayed Release(Dr/Ec) 20 mg PO DAILY Qty: 30 0RF metoprolol succinate 25 mg Tablet Extended Release 24 Hr 25 mg PO DAILY Qty: 30 0RF Protocol: Hold for SBP/HR < HOLD for SBP < : 90 HOLD for HR < : 60 bupropion HCl 300 mg tablet extended release 24 hr 300 mg PO QAM eszopiclone 3 mg tablet 3 mg PO BEDTIME PRN (Reason: insomnia) colchicine 0.6 mg tablet 0.6 mg PO DAILY Referrals: Robi Veras [Physician] - 10 days
[2023-04-01 09:17] LABS: Alanine Aminotransferase 14 U/L (0-31); Albumin Level 3.9 g/dL (3.5-5.0); Alkaline Phosphatase 62 U/L (39-117); Anion Gap 12 (12-20); Aspartate Amino Transferase 14 U/L (5-31); Bilirubin Total 0.9 mg/dL (0.0-1.0); Blood Urea Nitrogen 15 mg/dL (9-16); Calcium 8.5 mg/dL (8.4-10.2); Carbon Dioxide 23 mmol/L (22-29); Chloride 109 mmol/L (96-108); Creatinine Clr Calc Pharmacy 84.2; Estimated Glomerular Filt Rate > 60; Glucose Random 113 mg/dL (60-115); Lipase 17 U/L (8-78); Potassium 3.9 mmol/L (3.3-5.1); Sodium 140 mmol/L (135-145); Total Protein 6.9 g/dL (6.5-8.0)
== END 2023-04-01 10:39 | disposition home or self-care (01) ==
PROVIDERS: Emergency Provider Emergency Medicine; PCP Internal Medicine
DX: R19.7 Diarrhea, unspecified (principal); R10.32 Left lower quadrant pain
CPT/HCPCS: 36415; 74019; 80053; 83690; 85025; 96361; 96374; 99283; 99284

== ENCOUNTER 2023-06-01 13:11 | Emergency (ER) | payer MEDICAID, SELFPAY ==
--- NOTE | ~2023-06-01 | US_ITS ---
EXAMINATION: US ABDOMEN LIMITED CLINICAL INFORMATION: Right upper quadrant, epigastric pain. COMPARISON: Abdominal ultrasound dated 12/11/2015. TECHNIQUE: Real-time imaging of the right upper quadrant abdominal viscera. FINDINGS: PANCREAS: Visualized portions unremarkable. LIVER: Unremarkable. GALLBLADDER: Unremarkable. COMMON BILE DUCT: Normal in caliber measuring 0.4 cm in diameter. RIGHT KIDNEY: 11.9 cm. Unremarkable. FREE FLUID: None. US/US abdomen limited IMPRESSION: Unremarkable abdominal ultrasound.
[2023-06-01 13:39] VITALS: BP 133/56; PULSE 74; RESP 18; TEMP 36.6; O2SAT 99; BMI 24.9
--- NOTE | 2023-06-01 13:40 | ED_ITS ---
HPI - Abdominal Pain General Chief Complaint: Abdominal Pain Stated Complaint: covid + abd pain Time Seen by Provider: 06/01/23 20:40 Source: patient Mode of arrival: ambulatory History of Present Illness HPI narrative: 37-year-old female who was COVID positive last Thursday and presents with right- sided abdominal discomfort for 2 weeks associated with nausea but denies any vomiting/diarrhea and has continued to have daily bowel movements and pass flatus. She denies any fevers or chills but states she has been coughing frequently due to her COVID. Related Data Home Medications Medication Instructions Recorded Confirmed bupropion HCl 300 mg 24 hr tablet, 300 mg PO QAM 01/13/23 01/14/23 extended release eszopiclone 3 mg tablet 3 mg PO BEDTIME PRN insomnia 01/13/23 01/14/23 colchicine (gout) 0.6 mg tablet 0.6 mg PO DAILY 01/14/23 01/14/23 Previous Rx's Medication Instructions Recorded metoprolol succinate 25 mg 25 mg PO DAILY #30 tabs 11/13/22 tablet,extended release 24 hr omeprazole 20 mg capsule,delayed 20 mg PO DAILY #30 caps 11/13/22 release Allergies Allergy/AdvReac Type Severity Reaction Status Date / Time aspirin [Aspirin] Allergy Unknown SWELLING Verified 04/01/23 08:34 sea food Allergy Unknown Anaphylaxis Uncoded 01/14/23 08:39 Seafood Allergy Unknown SWELLING Uncoded 01/14/23 08:39 Review of Systems Review of Systems Pertinent positives and negatives as stated in HPI PMFSH Past Medical History Source: nursing notes reviewed Medical History Non-ST elevation [place] (NSTEMI) Sacroiliitis Scoliosis Scoliosis of thoracolumbar spine Spondylosis of lumbar region without myelopathy or radiculopathy Surgical History History of breast augmentation Family History Family History Mother Breast cancer Father Cardiac arrhythmia Father Cardiac arrhythmia Social History Social History Alcohol intake: never Patient Tobacco Use Status: Former Tobacco user Advance Directives: No Advance Directives Information Provided: No service: No Current occupational status: employed Physical Exam ED Vital Signs: Vital Signs - 24 hr 06/01/23 13:39 06/01/23 20:30 Temperature 97.9 F 98.4 F Pulse Rate 74 72 Respiratory Rate 18 16 Blood Pressure 133/56 L 121/54 L Pulse Oximetry 99 98 Oxygen Delivery Method Room Air Room Air BMI result Body Mass Index 24.9 VITAL SIGNS: Reviewed. GENERAL: Well developed, well nourished, in no acute distress. HEAD: Normocephalic/atraumatic EYES: PERRLA, EOMI EARS: Ext canals without abnormality NOSE: Nares patent bilateral OROPHARYNX: no oral lesions noted, posterior pharynx clear NECK: Supple, no adenopathy LUNGS: Normal breath sounds. No adventitious sounds or accessory muscle use. SpO2<98> CARDIOVASCULAR: Regular rate and rhythm without noted murmurs ABDOMEN: Soft, non-tender, non-distended with bowel sounds. MUSCULOSKELETAL: No tenderness, deformities, or effusions noted on gross inspection. EXTREMITIES: No cyanosis, clubbing or edema. SKIN: Inspection of the skin reveals no rashes NEUROLOGIC: Alert and oriented x 4. Strength and sensation to light touch were grossly intact x 4. Course Course Course Narrative: RME: 37yo F w/PMHx chronic diarrhea, SVT, COVID+ on 05/26 c/o RUQ abdominal pain x2 weeks. Admits pain worse with eating, moving, cough & assoc nausea Abdomen soft w/RUQ and epigastric tenderness, no rebound or guarding Labs, UA, abdomen ultrasound ordered Full HPI, ROS and PE to be performed by primary ED provider. Medical Decision Making Medical Decision Making MDM Narrative: 37-year-old female with history and clinical presentation, DDX: Gastroenteritis, dyspepsia, UTI, renal colic, lower clinical suspicion for SBO. I reviewed all investigations and hematologic indices are negative for leukocytosis or left shift, there is a very mild microcytic anemia and no thro mbocytopenia. Chemistry and sees are negative for electrolyte or liver enzyme abnormalities, there is no KURT. Urinalysis is negative for UTI or hematuria an abdominal ultrasound is negative for evidence to suggest acute cholecystitis, renal colic. Given the fact the patient is passing gas and having daily bowel movements no concern for obstruction at this time. She is instructed to follow- up with her primary care doctor and request referral for Gastroenterology. Differential Diagnosis Differential Diagnoses: The differential diagnosis associated with the presentation includes Please see the discussion above Admission/Observation Consideration of admission/observation: Escalation of care including admission/observation considered Please see the discussion above Lab Data MDM Lab Attestation statement: I reviewed the patient's lab results. Please see the discussion above 06/01/23 14:20 06/01/23 14:20 Labs: Lab Results 06/01/23 06/01/23 06/01/23 Range/Units 14:20 14:20 20:33 WBC 6.0 (4.8-10.8) X10*3/uL RBC 4.10 L (4.20-5.50) X10*6/uL Hgb 11.4 L (12.0-16.0) g/dl Hct 35.0 L (37.0-47.0) % MCV 85.4 (80.0-98.0) fL MCH 27.8 (27.0-33.0) pg MCHC 32.6 (31.0-35.0) g/dl RDW 14.8 (11.0-16.0) % Plt Count 337 (160-400) X10*3/uL MPV 9.3 L (9.4-12.3) fL Immature Gran % (Auto) 0.2 (0.0-0.4) % Neut % (Auto) 46.4 (45-73) % Lymph % (Auto) 43.0 H (20-40) % [place] % (Auto) 7.2 (2-11) % Eos % (Auto) 2.7 (0-4) % Baso % (Auto) 0.5 (0-2) % Lymph # (Auto) 2.6 (1.2-4.9) X10*3/uL [place] # (Auto) 0.4 (0.1-1.2) X10*3/uL Eos # (Auto) 0.2 (0.0-0.4) X10*3/uL Baso # (Auto) 0.0 (0.0-0.2) X10*3/uL Abs Immat Gran (auto) 0.01 (0.00-0.03) X10*3/uL Absolute Neuts (auto) 2.8 (2.0-8.3) x10*3/uL Absolute Nucleated RBC 0.000 (0.0-0.012) X10*3/uL Nucleated RBC % (auto) 0.0 (0.0-0.2) /100WBC Sodium 138 (135-145) mmol/L Potassium 4.0 (3.3-5.1) mmol/L Chloride 110 H (96-108) mmol/L Carbon Dioxide 24 (22-29) mmol/L Anion Gap 8 L (12-20) BUN 9 (9-16) mg/dL Creatinine 1.06 (0.5-1.4) mg/dL Estim Creat Clear Calc 66.6 Estimated GFR 58 Random Glucose 93 (60-115) mg/dL Calcium 9.2 D (8.4-10.2) mg/dL Total Bilirubin 0.5 (0.0-1.0) mg/dL Direct Bilirubin 0.1 (0.0-0.5) mg/dL AST 17 (5-31) U/L ALT 18 (0-31) U/L Alkaline Phosphatase 54 (39-117) U/L Total Protein 7.2 (6.5-8.0) g/dL Albumin 4.0 (3.5-5.0) g/dL Lipase 73 (8-78) U/L Urine Color Yellow Urine Appearance Cloudy Urine pH 7.0 (5.0-9.0) Ur Specific [place] 1.020 (1.005-1.025) Urine Protein Negative (Neg-Trace) mg/dL Urine Glucose (UA) Negative (Negative) mg/dL Urine Ketones Negative (Negative) mg/dL Urine Blood Negative (Negative) Urine Nitrite Negative (Negative) Ur Leukocyte Esterase Negative (Negative) Urine Test (NEGATIVE) 06/01/23 Range/Units 20:33 WBC (4.8-10.8) X10*3/uL RBC (4.20-5.50) X10*6/uL Hgb (12.0-16.0) g/dl Hct (37.0-47.0) % MCV (80.0-98.0) fL MCH (27.0-33.0) pg MCHC (31.0-35.0) g/dl RDW (11.0-16.0) % Plt Count (160-400) X10*3/uL MPV (9.4-12.3) fL Immature Gran % (Auto) (0.0-0.4) % Neut % (Auto) (45-73) % Lymph % (Auto) (20-40) % [place] % (Auto) (2-11) % Eos % (Auto) (0-4) % Baso % (Auto) (0-2) % Lymph # (Auto) (1.2-4.9) X10*3/uL [place] # (Auto) (0.1-1.2) X10*3/uL Eos # (Auto) (0.0-0.4) X10*3/uL Baso # (Auto) (0.0-0.2) X10*3/uL Abs Immat Gran (auto) (0.00-0.03) X10*3/uL Absolute Neuts (auto) (2.0-8.3) x10*3/uL Absolute Nucleated RBC (0.0-0.012) X10*3/uL Nucleated RBC % (auto) (0.0-0.2) /100WBC Sodium (135-145) mmol/L Potassium (3.3-5.1) mmol/L Chloride (96-108) mmol/L Carbon Dioxide (22-29) mmol/L Anion Gap (12-20) BUN (9-16) mg/dL Creatinine (0.5-1.4) mg/dL Estim Creat Clear Calc Estimated GFR Random Glucose (60-115) mg/dL Calcium (8.4-10.2) mg/dL Total Bilirubin (0.0-1.0) mg/dL Direct Bilirubin (0.0-0.5) mg/dL AST (5-31) U/L ALT (0-31) U/L Alkaline Phosphatase (39-117) U/L Total Protein (6.5-8.0) g/dL Albumin (3.5-5.0) g/dL Lipase (8-78) U/L Urine Color Urine Appearance Urine pH (5.0-9.0) Ur Specific [place] (1.005-1.025) Urine Protein (Neg-Trace) mg/dL Urine Glucose (UA) (Negative) mg/dL Urine Ketones (Negative) mg/dL Urine Blood (Negative) Urine Nitrite (Negative) Ur Leukocyte Esterase (Negative) Urine Test NEGATIVE (NEGATIVE) Radiology Impression Discussion of test interpretation with radiology: I have reviewed the radiologist's reading. Radiologist Impression: Please see the discussion above External Record Review External record reviewed: Outpatient record, Prior outpatient labs and Prior outpatient radiology Discharge Plan Discharge Clinical Impression: Abdominal discomfort, Musculoskeletal pain Patient Disposition: Home, Self-Care Instructions: Abdominal Pain (ED), Musculoskeletal Pain (ED) Additional Instructions: 1. Reanudar todos los medicamentos caseros seg?n lo prescrito. 2. Recomiende un seguimiento con sumner m?dico de atenci?n primaria y discuta la derivaci?n a Gastroenterolog?a para caracterizar mejor las molestias abdominales que est? experimentando. Regrese a la flo de emergencias si los s?ntomas empeoran. 1. Resume all home medications as prescribed. 2. Recommend follow-up with your primary care doctor and discuss referral for Gastroenterology to better characterize see abdominal discomfort that you are experiencing. Return to the ER for any worsening symptoms. Prescriptions: No Action omeprazole 20 mg Capsule,Delayed Release(Dr/Ec) 20 mg PO DAILY Qty: 30 0RF metoprolol succinate 25 mg Tablet Extended Release 24 Hr 25 mg PO DAILY Qty: 30 0RF Protocol: Hold for SBP/HR < HOLD for SBP < : 90 HOLD for HR < : 60 bupropion HCl 300 mg tablet extended release 24 hr 300 mg PO QAM eszopiclone 3 mg tablet 3 mg PO BEDTIME PRN (Reason: insomnia) colchicine (gout) 0.6 mg tablet 0.6 mg PO DAILY Referrals: Turner Hernandez MD [Primary Care Provider] - Print Language: Urdu
[2023-06-01 14:23] LABS: MANUAL DIFF FLAG NO
[2023-06-01 14:25] LABS: Basophils Percent Auto 0.5 % (0-2); Eosinophils Absolute Auto 0.2 X10*3/uL (0.0-0.4); Eosinophils Percent Auto 2.7 % (0-4); Hemoglobin 11.4 g/dl (12.0-16.0); Imm Gran Abs Auto 0.01 X10*3/uL (0.00-0.03); Imm Gran Pct Auto 0.2 % (0.0-0.4); Lymphocytes Absolute Auto 2.6 X10*3/uL (1.2-4.9); Mean Corpuscular HGB Conc 32.6 g/dl (31.0-35.0); Mean Corpuscular Hemoglobin 27.8 pg (27.0-33.0); Mean Corpuscular Volume 85.4 fL (80.0-98.0); Mean Platelet Volume 9.3 fL (9.4-12.3); Monocytes Absolute Auto 0.4 X10*3/uL (0.1-1.2); Monocytes Percent Auto 7.2 % (2-11); Neutrophils Absolute Auto 2.8 x10*3/uL (2.0-8.3); Neutrophils Percent Auto 46.4 % (45-73); Platelet Count 337 X10*3/uL (160-400); Red Cell Distribution Width 14.8 % (11.0-16.0)
[2023-06-01 14:48] LABS: Alanine Aminotransferase 18 U/L (0-31); Alkaline Phosphatase 54 U/L (39-117); Anion Gap 8 (12-20); Aspartate Amino Transferase 17 U/L (5-31); Bilirubin Direct 0.1 mg/dL (0.0-0.5); Bilirubin Total 0.5 mg/dL (0.0-1.0); Blood Urea Nitrogen 9 mg/dL (9-16); Calcium 9.2 mg/dL (8.4-10.2); Carbon Dioxide 24 mmol/L (22-29); Chloride 110 mmol/L (96-108); Creatinine Clr Calc Pharmacy 66.6; Estimated Glomerular Filt Rate 58; Glucose Random 93 mg/dL (60-115); Lipase 73 U/L (8-78); Sodium 138 mmol/L (135-145); Total Protein 7.2 g/dL (6.5-8.0)
[2023-06-01 20:30] VITALS: BP 121/54; PULSE 72; RESP 16; TEMP 36.9; O2SAT 98
--- NOTE | 2023-06-01 20:35 | MHC.EDTECH ---
this pct just assumed care of patient ,vitals sign taken and urine sample collected and sent to lab ,patient resting quietly in bed .
[2023-06-01 20:44] LABS: UPreg QC Valid YES; Urine Pregnancy NEGATIVE (NEGATIVE)
[2023-06-01 20:46] LABS: Appearance Urine Cloudy; Color Urine Yellow; Glucose Urine UA Negative (Negative); Leukocyte Esterase Urine Negative (Negative); Nitrite Urine Negative (Negative); Urine Blood Negative (Negative); Urine Ketones Negative (Negative); Urine Protein Negative (Neg-Trace)
== END 2023-06-01 21:42 | disposition home or self-care (01) ==
PROVIDERS: Physician Assistant; Emergency Provider Student in an Organized Health Care Education/Training Program; PCP Internal Medicine
DX: R10.9 Unspecified abdominal pain (principal); M79.18 Myalgia, other site
CPT/HCPCS: 36415; 76705; 80048; 80076; 81003; 81025; 83690; 85025; 99283; 99284

== ENCOUNTER 2023-06-23 13:47 | Outpatient (AMB) | payer MEDICAID, SELFPAY ==
--- NOTE | 2023-06-23 14:10 | A.OFFVIS_ITS ---
Intake Vital Signs 06/23/23 14:15 Height 5 ft 6 in Weight 156 lb 8.451 oz BMI 25.3 BP 114/63 Blood Pressure Location Lt brachial Position Sitting Pulse 65 Intake Visit Reasons: Chronic Diarrhea Intake Note: Rosita presents in the office as a new patient for chronic diarrhea. CC: She states that she has diarrhea sometimes - after she has a meal. She will get inflammation in her stomach and sharp pains in the RUQ. [employer] Supervisor Required: Yes [employer] Supervisor Name: [id number] Maxwell Allergies aspirin [Aspirin] Allergy (Unknown, Verified 06/23/23 14:17) SWELLING sea food Allergy (Unknown, Uncoded 06/23/23 14:17) Anaphylaxis Seafood Allergy (Unknown, Uncoded 06/23/23 14:17) SWELLING HPI HPI Comments History of Present Illness Details 37 y.o F with PMH of inflammatory pericarditis and SVT, hx of abdominoplasty, who is here for changes in bowel habits. Reports diarrhea started almost 3 months ago with insiduous onset assoc with cramping abd pain and bloating. Has up to 4-5 loose watery BMs per day. Also has night time sx at least 3 times a week. Urgency +. No tenesmus. No blood in stool. BMs fluctuate between diarrhea and constipation. Abd pain gets worse after BM. No change in appetite no unintentional weight loss. [facility] Medical History Non-ST elevation [place] (NSTEMI) Sacroiliitis Scoliosis Scoliosis of thoracolumbar spine Spondylosis of lumbar region without myelopathy or radiculopathy Surgical History History of breast augmentation Family History Mother Breast cancer Father Cardiac arrhythmia Father Cardiac arrhythmia Social History Alcohol intake: never Patient Tobacco Use Status: Former Tobacco user service: No Current occupational status: employed Review of Systems Const All systems reviewed & are unremarkable except as noted in HPI and below Physical Exam Vital Signs: Last Vital Signs Pulse 65 06/23/23 14:15 BP 114/63 06/23/23 14:15 BMI result Body Mass Index 25.3 Gen appear: NAD HEENT: nonicteric, no cervical lymphadenopathy Chest: CTA CVS: Regular S1/S2 Abd: soft, nontender, nondistended, bowel sounds + Ext: no peripheral edema Neuro: A/Ox3, noted to move all extremities spontaneously Psych: interacting appropriately Assessment & Plan Assessment & Plan (1) Chronic diarrhea: Code(s): K52.9 - Noninfective gastroenteritis and colitis, unspecified (2) Bloating: Code(s): R14.0 - Abdominal distension (gaseous) (3) Abdominal pain: Code(s): R10.9 - Unspecified abdominal pain Plan DDx include IBD, celiac, microscopic colitis, IBS, malabsoprtion, SIBO. Labs ordered as below. Depending on results may need dedicated abd imaging +/- endoscopy. Follow up in 6 weeks. Orders: Orders Calprotectin, Fecal Today K52.9 - Noninfective gastroenteritis and colitis, unspecified C Reactive Protein Today K52.9 - Noninfective gastroenteritis and colitis, unspecified Ferritin Today K52.9 - Noninfective gastroenteritis and colitis, unspecified IRON PROFILE Today K52.9 - Noninfective gastroenteritis and colitis, unspecified TSH reflex Free T4 Today K52.9 - Noninfective gastroenteritis and colitis, unspecified Vitamin D 25-OH Total Today K52.9 - Noninfective gastroenteritis and colitis, unspecified Immunoglobulin A Today K52.9 - Noninfective gastroenteritis and colitis, unspecified Transglutaminase IgA Today K52.9 - Noninfective gastroenteritis and colitis, unspecified Coding Level of Care Code New Pt Level 4 (02945) Diagnoses Chronic diarrhea K52.9 Bloating R14.0 Abdominal pain R10.9
[2023-06-23 14:15] VITALS: BP 114/63; PULSE 65; BMI 25.3
== END 2023-06-23 15:00 | disposition home or self-care (01) ==
PROVIDERS: PCP Internal Medicine; Visit Provider Internal Medicine
DX: K52.9 Noninfective gastroenteritis and colitis, unspecified (principal); R14.0 Abdominal distension (gaseous); R10.9 Unspecified abdominal pain
CPT/HCPCS: 99204

== ENCOUNTER 2023-06-23 13:47 | Outpatient (REF) | payer MEDICAID, SELFPAY ==
[2023-06-23 17:14] LABS: C Reactive Protein 0.16 mg/dL (< or = 0.50); Iron 60 mcg/dL (30-160); Percent Iron Saturation 20 % (15-50); Total Iron Binding Capacity 307 mcg/dL (228-428); Unsaturated Iron Binding 247 ug/dL
[2023-06-23 17:31] LABS: Ferritin 17 ng/mL (10-122); TSH reflex Free T4 0.96 uIU/mL (0.32-4.0); Vitamin D 25-OH Total 20.3 ng/mL (>30)
[2023-06-25 13:59] LABS: Transglutaminase IgA <1.0 U/mL
[2023-06-25 14:18] LABS: Immunoglobulin A 300 mg/dL (47-310)
== END 2023-06-23 13:48 | disposition home or self-care (01) ==
LOC: HO.LAB 13:47
PROVIDERS: PCP Internal Medicine; Visit Provider Internal Medicine
DX: K52.9 Noninfective gastroenteritis and colitis, unspecified (principal); R14.0 Abdominal distension (gaseous); R10.9 Unspecified abdominal pain
CPT/HCPCS: 36415; 82306; 82728; 82784; 83540; 84443; 86140; 86364; 99202

== ENCOUNTER 2023-07-01 | Outpatient (REF) | payer MEDICAID, SELFPAY ==
[2023-07-06 19:44] LABS: Calprotectin, Fecal 7 mcg/g
== END 2023-07-01 00:01 | disposition home or self-care (01) ==
LOC: HO.LNP
PROVIDERS: Visit Provider Internal Medicine
DX: K52.9 Noninfective gastroenteritis and colitis, unspecified (principal)
CPT/HCPCS: 83993

== ENCOUNTER 2023-08-05 14:58 | Outpatient (AMB) | payer MEDICAID, SELFPAY ==
--- NOTE | 2023-08-05 14:59 | MHC.OFFVIS ---
Intake Vital Signs 08/05/23 15:02 Height 5 ft 6 in Weight 158 lb 11.725 oz BMI 25.6 BP 140/77 H Blood Pressure Location Lt brachial Position Sitting Pulse 77 Intake Visit Reasons: 69 week follow up Intake Note: Rosita presents in the office as a 6 week follow up. CC: She is having the same symptoms - pains in her stomach. [employer] Developer Required: Yes [employer] Developer Name: [id number] Shereen Allergies aspirin [Aspirin] Allergy (Unknown, Verified 08/05/23 15:03) SWELLING sea food Allergy (Unknown, Uncoded 08/05/23 15:03) Anaphylaxis HPI HPI Comments History of Present Illness Details 37 y.o F with PMH of inflammatory pericarditis and SVT, hx of abdominoplasty, who is here for changes in bowel habits. Reports diarrhea started almost 3 months ago with insiduous onset assoc with cramping abd pain and bloating. Has up to 4-5 loose watery BMs per day. Also has night time sx at least 3 times a week. Urgency +. No tenesmus. No blood in stool. BMs fluctuate between diarrhea and constipation. Abd pain gets worse after BM. No change in appetite no unintentional weight loss. 08/05/23: Reports resolution of diarrhea but noticing increased bloating now almost on a daily basis. Reports waking up feeling bloated which is also associated with abd discomfort and sensation of abd getting hard. Wearing a binder helps. Diet consists of cream of wheat, white rice, chicken, dairy. Labs reviewed including normal celiac serology and fecal calpro. Low Vit D. [facility] Medical History Non-ST elevation [place] (NSTEMI) Scoliosis Sacroiliitis Spondylosis of lumbar region without myelopathy or radiculopathy Scoliosis of thoracolumbar spine Surgical History History of breast augmentation Family History Mother Breast cancer Father Cardiac arrhythmia Father Cardiac arrhythmia Social History Alcohol intake: never Patient Tobacco Use Status: Former Tobacco user service: No Current occupational status: employed Review of Systems Const All systems reviewed & are unremarkable except as noted in HPI and below Physical Exam Vital Signs: Last Vital Signs Pulse 77 08/05/23 15:02 BP 140/77 H 08/05/23 15:02 BMI result Body Mass Index 25.6 Assessment & Plan Assessment & Plan (1) Chronic diarrhea: Code(s): K52.9 - Noninfective gastroenteritis and colitis, unspecified (2) Bloating: Code(s): R14.0 - Abdominal distension (gaseous) (3) Abdominal pain: Code(s): R10.9 - Unspecified abdominal pain (4) Irritable bowel syndrome (IBS): Code(s): K58.9 - Irritable bowel syndrome without diarrhea Plan Discussed with the pt that based on work up so far most likely consistent with irritable bowel syndrome with diarrhea. Was reassured that no evidence of malabsorption, celiac, IBD based on preliim work up. Would recommend trial of low FODMAP diet orss as bloating seems to be a predominant complaints. Was also advised to cut down gluten and dairy (again also part of low FODMAP diet) as sx with close correlation with ingestion of these based on her reported diet. Will bring her back in 4 months to review response - can consider Rifaximin next if minimal improvement which would help with both IBS-D as well as SIBO. Also reminded to do the stool sample for H Pylori (unable to do office breath test as pt not NPO) Follow up in 4 months Orders: Orders H pylori Ag Stool 08/05/23 R10.9 - Unspecified abdominal pain Medications: New omeprazole 20 mg PO DAILY 90 caps 0RF Coding Level of Care Code Est Pt Level 4 (04600) Diagnoses Chronic diarrhea K52.9 Bloating R14.0 Abdominal pain R10.9 Irritable bowel syndrome (IBS) K58.9
[2023-08-05 15:02] VITALS: BP 140/77; PULSE 77; BMI 25.6
== END 2023-08-05 15:36 | disposition home or self-care (01) ==
PROVIDERS: PCP Internal Medicine; Visit Provider Internal Medicine
DX: K58.9 Irritable bowel syndrome, unspecified (principal); R14.0 Abdominal distension (gaseous); R10.9 Unspecified abdominal pain
CPT/HCPCS: 99214

== ENCOUNTER → 2023-08-05 14:58 | Outpatient (BNVA) | payer MEDICAID, SELFPAY | PROVIDERS: PCP Internal Medicine; Visit Provider Internal Medicine | DX: K52.9 Noninfective gastroenteritis and colitis, unspecified (principal); K58.9 Irritable bowel syndrome, unspecified; R14.0 Abdominal distension (gaseous); R10.9 Unspecified abdominal pain | CPT/HCPCS: 99212 ==

== ENCOUNTER 2023-08-23 | Outpatient (REF) | payer MEDICAID, SELFPAY | END 2023-08-23 00:01 | disposition home or self-care (01) | LOC: HO.LNP | PROVIDERS: Visit Provider Internal Medicine | DX: R10.9 Unspecified abdominal pain (principal) | CPT/HCPCS: 87338 ==

== ENCOUNTER 2023-09-09 19:09 | Emergency (ER) | payer MEDICAID, SELFPAY ==
--- NOTE | 2023-09-09 19:35 | ED.URI ---
HPI - URI/Sore Throat General Chief Complaint: Upper Respiratory Symptoms Stated Complaint: persistent cough Time Seen by Provider: 09/09/23 20:00 Source: patient Mode of arrival: ambulatory Limitations: no limitations History of Present Illness HPI Narrative: Patient is a 37-year-old female presents emergency department for evaluation of upper respiratory symptoms, nonproductive cough, bilateral sinus pain, nasal congestion, and and intermittent headache. Her daughter is ill with similar symptoms. She denies fevers, chills, dizziness, lightheadedness, neck pain, neck stiffness, chest pain, shortness of breath, nausea, vomiting, abdominal pain. Related Data Home Medications Medication Instructions Recorded Confirmed bupropion HCl 300 mg 24 hr tablet, 300 mg PO QAM 01/13/23 01/14/23 extended release eszopiclone 3 mg tablet 3 mg PO BEDTIME PRN insomnia 01/13/23 01/14/23 lidocaine 5 % topical patch 1 patch topical QA 06/23/23 Previous Rx's Medication Instructions Recorded metoprolol succinate 25 mg 25 mg PO DAILY #30 tabs 11/13/22 tablet,extended release 24 hr omeprazole 20 mg capsule,delayed 20 mg PO DAILY #90 caps 08/05/23 release amoxicillin 875 mg-potassium 1 tab PO BID #14 tabs 09/09/23 clavulanate 125 mg tablet Allergies Allergy/AdvReac Type Severity Reaction Status Date / Time aspirin [Aspirin] Allergy Unknown SWELLING Verified 09/09/23 19:38 sea food Allergy Unknown Anaphylaxis Uncoded 08/05/23 15:03 Review of Systems Review of Systems: Yes all other systems are reviewed and are negative PMFSH Past Medical History Attestation statement: The following information was validated with the patient. Source: old records reviewed Medical History Non-ST elevation [place] (NSTEMI) Scoliosis Sacroiliitis Spondylosis of lumbar region without myelopathy or radiculopathy Scoliosis of thoracolumbar spine Surgical History History of breast augmentation Family History Family History Mother Breast cancer Father Cardiac arrhythmia Father Cardiac arrhythmia Social History (Reviewed 08/05/23 @ 15:02 by MENDEL Bradley Alcohol intake: never Patient Tobacco Use Status: Former Tobacco user Advance Directives: No service: No Current occupational status: employed Physical Exam Vital Signs: Vital Signs: Last Vital Signs Temp 98 F 09/09/23 19:36 Pulse 65 09/09/23 19:36 Resp 18 09/09/23 19:36 BP 139/74 09/09/23 19:36 Pulse Ox 99 09/09/23 19:36 O2 Del Method Room Air 09/09/23 19:36 BMI result Body Mass Index 26.1 Appearance: Alert.?Oriented to person, place and time. No acute distress.?Normal affect. Eyes: Pupils equal, round and reactive to light.? ENT: Pharynx normal.??Bilateral maxillary sinus tenderness upon palpation Neck: Normal inspection.? Neck supple.?? CVS: Heart sounds normal. Normal heart rate and rhythm.? Pulses normal.?? Respiratory: No respiratory distress.? Lung sounds clear to auscultation bilaterally?? Abdomen: Soft and non-tender. Normoactive bowel sounds. ? Skin: Skin warm and dry.? Normal skin color.? Extremities: No lower extremity edema.? Neuro: Moves all extremities spontaneously. Sensation intact bilaterally. No focal neuro deficits. Ambulates with normal steady gait. Course Course Course Narrative: This is a rapid medical exam. Deferred additional HPI, ROS, PE to primary provider. 37 yo female here with URI symptoms, headache x 1 week. Here with daughter who has similar symptoms. Will check testing for flu, covid, rsv. VSS Medical Decision Making Medical Decision Making [facility] Narrative: Patient is a 37-year-old female presents emergency department for evaluation of upper respiratory symptoms as per HPI for the time examination she is overall well-appearing, nontoxic, afebrile. She is without tachypnea, tachycardia, or hypoxia. No respiratory distress. Clinically have a low suspicion for pneumonia. COVID/influenza/RSV testing are negative. She has bilateral maxillary sinus tenderness upon palpation, given duration of symptoms concerning for acute sinusitis, discussed saline rinses, course of antibiotics, worrisome signs and symptoms that would warrant re-evaluation in the emergency department, outpatient follow-up with primary care provider as needed. Differential Diagnosis Differential Diagnoses: The differential diagnosis associated with the presentation includes (As noted above) Lab Data [facility] Lab Attestation statement: I reviewed the patient's lab results. (As noted above) Labs: Lab Results 09/09/23 Range/Units 19:43 Influenza Type A (PCR) NEGATIVE (Negative) Influenza Type B (PCR) NEGATIVE (Negative) RSV RNA Qual (PCR) NEGATIVE (Negative) SARS-CoV-2 RNA (RT-PCR) NEGATIVE (Negative) External Record Review External record reviewed: Outpatient record Tests considered The following testing was considered but not selected: Considered XR imaging, clinically low suspicion for pneumonia, see narrative above Prescription Management I considered prescription management with: Antibiotic Discharge Plan Discharge Clinical Impression: Acute maxillary sinusitis Patient Disposition: Home, Self-Care Instructions: Sinusitis (ED) Prescriptions: New amoxicillin-pot clavulanate 875-125 mg tablet 1 tab PO BID Qty: 14 0RF No Action metoprolol succinate 25 mg Tablet Extended Release 24 Hr 25 mg PO DAILY Qty: 30 0RF Protocol: Hold for SBP/HR < HOLD for SBP < : 90 HOLD for HR < : 60 bupropion HCl 300 mg tablet extended release 24 hr 300 mg PO QAM eszopiclone 3 mg tablet 3 mg PO BEDTIME PRN (Reason: insomnia) lidocaine 5 % adhesive patch,medicated 1 patch topical QAM omeprazole 20 mg capsule,delayed release(DR/EC) 20 mg PO DAILY Qty: 90 0RF Referrals: [facility] [Primary Care Provider] -
[2023-09-09 19:36] VITALS: BP 139/74; PULSE 65; RESP 18; TEMP 36.6; O2SAT 99; BMI 26.1
[2023-09-09 20:29] LABS: Influenza A PCR NEGATIVE (Negative); Influenza B PCR NEGATIVE (Negative); Resp Syncy Virus RNA Qual PCR NEGATIVE (Negative); SARS COV2 PCR INHOUSE NEGATIVE (Negative)
== END 2023-09-09 22:06 | disposition home or self-care (01) ==
PROVIDERS: Nurse Practitioner Family; Emergency Provider Emergency Medicine
DX: J01.00 Acute maxillary sinusitis, unspecified (principal); R05.9 Cough, unspecified; R09.81 Nasal congestion; Z20.822 Contact with and (suspected) exposure to COVID-19; Z20.828 Contact with and (suspected) exposure to other viral communicable diseases; R51.9 Headache, unspecified
CPT/HCPCS: 0241U; 99283

== ENCOUNTER 2023-12-09 14:20 | Outpatient (AMB) | payer MEDICAID, SELFPAY ==
[2023-12-09 14:22] VITALS: BP 136/75; PULSE 68; BMI 26.6
--- NOTE | 2023-12-09 14:22 | MHC.OFFVIS ---
Intake Vital Signs 12/09/23 14:22 Height 5 ft 6 in Weight 165 lb BMI 26.6 BP 136/75 Blood Pressure Location Rt brachial Position Sitting Pulse 68 Pulse Source Monitor Intake Visit Reasons: 4 month follow up Intake Note: Patient states shes been experiencing having nausea for the last week with right side stomach pain. No other curent GI issues. Log Chain Worker Required: Yes Log Chain Worker Name: [facility] Work[place] Accompanied by: Self / Same As Patient Allergies aspirin [Aspirin] Allergy (Unknown, Verified 12/09/23 14:26) SWELLING sea food Allergy (Unknown, Uncoded 08/05/23 15:03) Anaphylaxis HPI HPI Comments History of Present Illness Details 37 y.o F with PMH of inflammatory pericarditis and SVT, hx of abdominoplasty, who is here for changes in bowel habits. Reports diarrhea started almost 3 months ago with insiduous onset assoc with cramping abd pain and bloating. Has up to 4-5 loose watery BMs per day. Also has night time sx at least 3 times a week. Urgency +. No tenesmus. No blood in stool. BMs fluctuate between diarrhea and constipation. Abd pain gets worse after BM. No change in appetite no unintentional weight loss. 08/05/23: Reports resolution of diarrhea but noticing increased bloating now almost on a daily basis. Reports waking up feeling bloated which is also associated with abd discomfort and sensation of abd getting hard. Wearing a binder helps. Diet consists of cream of wheat, white rice, chicken, dairy. Labs reviewed including normal celiac serology and fecal calpro. Low Vit D. 12/09/23: Reports improvment in diarrhea ross since avoiding dairy. However has not been able to cut down gluten. Also reports localised epigastric comfort assoc with nausea. No assoc with food intake or passing BMs. Notices it on positional changes, worse on going from laying down to sitting up position. [facility] Medical History Non-ST elevation DE (NSTEMI) Scoliosis Sacroiliitis Spondylosis of lumbar region without myelopathy or radiculopathy Scoliosis of thoracolumbar spine Surgical History History of breast augmentation Family History Mother Breast cancer Father Cardiac arrhythmia Father Cardiac arrhythmia Social History Alcohol intake: never Patient Tobacco Use Status: Former Tobacco user service: No Current occupational status: employed Review of Systems Const All systems reviewed & are unremarkable except as noted in HPI and below Physical Exam Vital Signs: Last Vital Signs Pulse 68 12/09/23 14:22 BP 136/75 12/09/23 14:22 BMI result Body Mass Index 26.6 Const General: cooperative and healthy appearing Resp Effort & Inspection: normal respiratory effort and able to speak in complete sentences GI Inspection: Yes normal to inspection and Yes scar Abdomen image: 1. localised pain with POSITIVE carnett's sign Office Procedures Injection Trigger Point Multi Site was marked and prepped with alcohol swab. While lighlty pinching the skin a 21g 1.5inch needle was inserted perpendicularly. 3ml of 1% lidocaine was injected at the site to confirm appropriate location and for local anesthesia. This was then followed with 1ml of Triamcinolone (40mg). Minimal bleeding was noted at the end of procedure. A band aid was applied. Assessment & Plan Assessment & Plan (1) Abdominal pain: Code(s): R10.9 - Unspecified abdominal pain (2) Irritable bowel syndrome (IBS): Code(s): K58.9 - Irritable bowel syndrome without diarrhea Plan 1. Bloating and diarrhea has resolved with dietary discretion. Also has some element of gluten sensitivity but finds it difficult to avoid it completely. H Pylori negative. 2. Localised abd pain suspicious for ACNES given location and character. Trigger point inj given today as above. Follow up in 3 months for repeat inj or as needed. Coding Level of Care Code Est Pt Level 4 (70548) Diagnoses Abdominal pain R10.9 Irritable bowel syndrome (IBS) K58.9
== END 2023-12-09 14:54 | disposition home or self-care (01) ==
PROVIDERS: PCP Internal Medicine; Visit Provider Internal Medicine
DX: R10.9 Unspecified abdominal pain (principal); K58.9 Irritable bowel syndrome, unspecified
CPT/HCPCS: 99214

== ENCOUNTER → 2023-12-09 14:20 | Outpatient (BNVA) | payer MEDICAID, SELFPAY | PROVIDERS: PCP Internal Medicine; Visit Provider Internal Medicine | DX: R10.9 Unspecified abdominal pain (principal); K58.9 Irritable bowel syndrome, unspecified | CPT/HCPCS: 20552; 99212 ==

== ENCOUNTER 2024-01-14 07:13 | Emergency (ER) | payer MEDICAID, SELFPAY ==
--- NOTE | ~2024-01-14 | US_ITS ---
EXAMINATION: US ABDOMEN LIMITED CLINICAL INFORMATION: Right upper quadrant pain. COMPARISON: Ultrasound dated 06/01/2023. CT scan of the abdomen dated 08/30/2021. TECHNIQUE: Real-time imaging of the right upper quadrant abdominal viscera. FINDINGS: PANCREAS: Head and body appear unremarkable. Tail not visualized. LIVER: The liver is normal in size. The liver contour is normal. Parenchymal echogenicity appears unremarkable. No focal hepatic lesion identified. No intrahepatic biliary duct dilatation is seen. Hepatopedal portal flow. GALLBLADDER: The gallbladder is physiologically distended without evidence of stones, sludge, polyps, wall thickening or pericholecystic fluid. Technologist reports negative sonographic Chandra's sign. COMMON BILE DUCT: Normal in caliber measuring 0.3 cm in diameter. RIGHT KIDNEY: No hydronephrosis. No renal calculi or focal parenchymal lesion identified. The kidney measures 11.0 cm in maximum dimension. FREE FLUID: None. US/US abdomen limited IMPRESSION: Normal right upper quadrant ultrasound examination.
[2024-01-14 07:19] VITALS: BP 122/59; PULSE 88; RESP 16; TEMP 36; O2SAT 99; BMI 26.1
[2024-01-14 07:52] LABS: MANUAL DIFF FLAG NO
[2024-01-14 07:55] LABS: Basophils Percent Auto 0.3 % (0-2); Eosinophils Absolute Auto 0.2 X10*3/uL (0.0-0.4); Eosinophils Percent Auto 2.8 % (0-4); Hematocrit 38.9 % (37.0-47.0); Hemoglobin 12.6 g/dl (12.0-16.0); Imm Gran Abs Auto 0.03 X10*3/uL (0.00-0.03); Imm Gran Pct Auto 0.4 % (0.0-0.4); Lymphocytes Absolute Auto 1.9 X10*3/uL (1.2-4.9); Lymphocytes Percent Auto 25.6 % (20-40); Mean Corpuscular HGB Conc 32.4 g/dl (31.0-35.0); Mean Corpuscular Hemoglobin 26.9 pg (27.0-33.0); Mean Corpuscular Volume 82.9 fL (80.0-98.0); Monocytes Absolute Auto 0.6 X10*3/uL (0.1-1.2); Monocytes Percent Auto 8.3 % (2-11); Neutrophils Absolute Auto 4.7 x10*3/uL (2.0-8.3); Neutrophils Percent Auto 62.6 % (45-73); Platelet Count 361 X10*3/uL (160-400); Red Blood Count 4.69 X10*6/uL (4.20-5.50); Red Cell Distribution Width 14.1 % (11.0-16.0); White Blood Count 7.6 X10*3/uL (4.8-10.8)
[2024-01-14 08:10] LABS: Alanine Aminotransferase 19 U/L (0-31); Albumin Level 4.2 g/dL (3.5-5.0); Alkaline Phosphatase 69 U/L (39-117); Anion Gap 11 (12-20); Aspartate Amino Transferase 15 U/L (5-31); Bilirubin Total 0.3 mg/dL (0.0-1.0); Blood Urea Nitrogen 14 mg/dL (9-16); Calcium 8.8 mg/dL (8.4-10.2); Carbon Dioxide 25 mmol/L (22-29); Chloride 106 mmol/L (96-108); Creatinine Clr Calc Pharmacy 92.4; Estimated Glomerular Filt Rate > 60; Glucose Random 95 mg/dL (60-115); Lipase 19 U/L (8-78); Potassium 3.9 mmol/L (3.3-5.1); Sodium 138 mmol/L (135-145); Total Protein 7.4 g/dL (6.5-8.0)
[2024-01-14 08:32] LABS: Influenza A PCR NEGATIVE (Negative); Influenza B PCR NEGATIVE (Negative); Resp Syncy Virus RNA Qual PCR NEGATIVE (Negative); SARS COV2 PCR INHOUSE NEGATIVE (Negative)
[2024-01-14 09:53] VITALS: BP 127/78; PULSE 68; RESP 18; TEMP 36.6; O2SAT 98
--- NOTE | 2024-01-14 09:56 | PC.NURSE ---
Pt presents from home to ED with complaints of ABD pain RLQ radiating to right lower back since Thursday. Pt reports pain is intermittent and aching, 10/10 when pain comes. Pt reports a few episodes of vomiting and intermittent fevers since Thursday as well, denies any CP, SOB, cough or diarrhea. Pt reports no PO intake today, feels unwell. Denies any issues with urination. Denies anyone sick at home. Pt is alert and oriented, breathing even and unlabored, skin WNL. Pt resting in bed, no acute resp distress. ABD slightly distended per pt report.
--- NOTE | 2024-01-14 10:17 | ED.ABDPAIN ---
HPI - Abdominal Pain General Chief Complaint: Abdominal Pain Stated Complaint: Vomiting, abd pain Time Seen by Provider: 01/14/24 09:49 History of Present Illness HPI narrative: Rosita is a 38 year old female with history of IBS, SVT, and myocarditis presents today for evaluation of abdominal pain for 6 days. She reports onset of abdominal pain to be last Thursday. Started as sharp right upper quadrant pain that radiates to epigastric region. States that she's had the pain for a while but noticed it worsening last Thursday with diarrhea and vomiting. Said she had a fever on Thursday, felt fine on Thursday and was vomiting on Thursday. Has lower back pain with the abdominal pain. When asked to localize pain, patient pointed to region on right upper quadrant and states that GI told her she had a pinched nerve in that region and was treated with steroid injections. Denies any changes in appetite. Denies chest pain. Last bowel movement was yesterday and formed stools. On presentation, she states that she is tired and has more flatulence but otherwise feeling okay. MD elicited complaint: abdominal pain Pertinent past history: other Onset (ago): day(s) () Location: epigastric and RUQ Severity: moderate Quality: other (intermittent and sharp) Radiation: epigastric Exacerbating factors: nothing Relieving factors: rest Associated symptoms: nausea, vomiting, diarrhea and fever Related Data Home Medications Medication Instructions Recorded Confirmed bupropion HCl 300 mg 24 hr tablet, 300 mg PO QAM 01/13/23 01/14/23 extended release lidocaine 5 % topical patch 1 patch topical QAM 06/23/23 Previous Rx's Medication Instructions Recorded metoprolol succinate 25 mg 25 mg PO DAILY #30 tabs 11/13/22 tablet,extended release 24 hr omeprazole 20 mg capsule,delayed 20 mg PO DAILY #90 caps 08/05/23 release Allergies Allergy/AdvReac Type Severity Reaction Status Date / Time aspirin [Aspirin] Allergy Unknown SWELLING Verified 01/14/24 07:19 sea food Allergy Unknown Anaphylaxis Uncoded 08/05/23 15:03 Review of Systems Review of Systems Yes all other systems are reviewed and are negative [facility] Past Medical History Medical History Non-ST elevation [place] (NSTEMI) Scoliosis Sacroiliitis Spondylosis of lumbar region without myelopathy or radiculopathy Scoliosis of thoracolumbar spine Surgical History History of breast augmentation Family History Family History Mother Breast cancer Father Cardiac arrhythmia Father Cardiac arrhythmia Social History Social History Alcohol intake: never Patient Tobacco Use Status: Former Tobacco user Smoked in Last 30 Days: No Use of substances other than those prescribed or required for medical reasons: No Advance Directives: No Advance Directives Information Provided: No service: No Current occupational status: employed Physical Exam ED Vital Signs: Vital Signs - 24 hr 01/14/24 07:19 01/14/24 09:53 01/14/24 12:54 Temperature 96.8 F 97.8 F 97.8 F Pulse Rate 88 68 66 Respiratory Rate 16 18 16 Blood Pressure 122/59 L 127/78 125/82 Pulse Oximetry 99 98 Oxygen Delivery Method Room Air Room Air BMI result Body Mass Index 26.1 Const General: cooperative, healthy appearing and comfortable Orientation/consciousness: patient oriented x3 Limitations: language barrier (geospatial specialist ) Chest Chest palpation & inspection: normal inspection of the chest Resp Effort & Inspection: normal respiratory effort and able to speak in complete sentences Auscultation: clear to auscultation bilaterally Cardio Rhythm: regular rhythm Heart sounds: S1 normal heart sound present and S2 normal heart sound present GI Inspection: Yes distended (mild diffuse distention) Palpation (GI): Firmness to palpation present (GI) Percussion: Yes tympanic to percussion Auscultation: normal bowel sounds Neuro General: patient oriented x3 Course Reevaluation(s) Reevaluation #1: Patient is feeling better. She is sitting on her phone. She has no longer having pain. Not vomiting. She has an appointment and would like to be discharged. We do not have the results of her ultrasound. Images were reviewed by myself, no gallbladder wall thickening noted, no pericholecystic fluid and no gallstones appreciated. Awaiting official read. At this time patient is stable for discharge from the emergency department, will follow-up official ultrasound read and call the patient if there is major abnormality requiring follow-up. Otherwise patient has been counseled for most likely diagnosis of viral gastroenteritis along with supportive care as management. Stable for discharge. Time: 13:00 Medical Decision Making Medical Decision Making [facility] Narrative: Rosita is a 38 year old female with history of IBS, myocarditis, SVT, presenting today for evaluation of RUQ and epigastric pain for 6 days. She reports onset of diarrhea and worsening of abdominal pain to be last Thursday. Says that she has had the pain for a while, follows with GI for IBS and chronic abdominal pain but states that this feels different. Reports fever on Thursday. And continuance of vomiting on Thursday. No changes in appetite. reports that she has much more flatulence than usual and that her abdomen appears distended. On physical exam, she is resting and reports that she is feeling okay at this moment. No nausea. Had formed BM yesterday. Last episode of vomiting was this morning. On palpation, abdomen is diffusely firm and mildly distended. No tenderness to palpation, no rigidity or guarding. Points to pain starting in RUQ that travels to epigastric region and lower back. UA is negative. Ordered RUQ ultrasound to evaluate for acute inflammation or obstruction such as cholecystitis, appendicitis. Low clinical suspicion for cholecystis, appendicitis considering negative RUQ US. At this time, most likely cause for presentation is viral gastroenteritis, considering benign workup, acute on chronic onset, and febrile episode with vomiting/diarrhea. Differential Diagnosis Differential Diagnoses: The differential diagnosis associated with the presentation includes viral gastroenteritis, IBS, cholecystitis, choledocolithiasis, appendicitis, UTI, H. pylori infection,pancreatitis, Admission/Observation Consideration of admission/observation: Escalation of care including admission/observation considered Lab Data [facility] Lab Attestation statement: I reviewed the patient's lab results. 01/14/24 07:47 01/14/24 07:47 Labs: Lab Results 01/14/24 01/14/24 Range/Units 07:47 10:28 WBC 7.6 (4.8-10.8) X10*3/uL RBC 4.69 (4.20-5.50) X10*6/uL Hgb 12.6 (12.0-16.0) g/dl Hct 38.9 (37.0-47.0) % MCV 82.9 (80.0-98.0) fL MCH 26.9 L (27.0-33.0) pg MCHC 32.4 (31.0-35.0) g/dl RDW 14.1 (11.0-16.0) % Plt Count 361 (160-400) X10*3/uL MPV 9.0 L (9.4-12.3) fL Immature Gran % (Auto) 0.4 (0.0-0.4) % Neut % (Auto) 62.6 (45-73) % Lymph % (Auto) 25.6 (20-40) % Allen % (Auto) 8.3 (2-11) % Eos % (Auto) 2.8 (0-4) % Baso % (Auto) 0.3 (0-2) % Lymph # (Auto) 1.9 (1.2-4.9) X10*3/uL Allen # (Auto) 0.6 (0.1-1.2) X10*3/uL Eos # (Auto) 0.2 (0.0-0.4) X10*3/uL Baso # (Auto) 0.0 (0.0-0.2) X10*3/uL Abs Immat Gran (auto) 0.03 (0.00-0.03) X10*3/uL Absolute Neuts (auto) 4.7 (2.0-8.3) x10*3/uL Absolute Nucleated RBC 0.000 (0.0-0.012) X10*3/uL Nucleated RBC % (auto) 0.0 (0.0-0.2) /100WBC Sodium 138 (135-145) mmol/L Potassium 3.9 (3.3-5.1) mmol/L Chloride 106 (96-108) mmol/L Carbon Dioxide 25 (22-29) mmol/L Anion Gap 11 L (12-20) BUN 14 (9-16) mg/dL Creatinine 0.83 (0.5-1.4) mg/dL Estim Creat Clear Calc 92.4 Estimated GFR > 60 Random Glucose 95 (60-115) mg/dL Calcium 8.8 (8.4-10.2) mg/dL Total Bilirubin 0.3 (0.0-1.0) mg/dL AST 15 (5-31) U/L ALT 19 (0-31) U/L Alkaline Phosphatase 69 (39-117) U/L Total Protein 7.4 (6.5-8.0) g/dL Albumin 4.2 (3.5-5.0) g/dL Lipase 19 (8-78) U/L Urine Color Yellow Urine Appearance Clear Urine pH 5.5 (5.0-9.0) Ur Specific [place] >= 1.030 H (1.005-1.025) Urine Protein Negative (Neg-Trace) mg/dL Urine Glucose (UA) Negative (Negative) mg/dL Urine Ketones Negative (Negative) mg/dL Urine Blood Negative (Negative) Urine Nitrite Negative (Negative) Ur Leukocyte Esterase Negative (Negative) Influenza Type A (PCR) NEGATIVE (Negative) Influenza Type B (PCR) NEGATIVE (Negative) RSV RNA Qual (PCR) NEGATIVE (Negative) SARS-CoV-2 RNA (RT-PCR) NEGATIVE (Negative) Independent Interpretation I performed an independent interpretation of an: Ultrasound Interpretation: No gallstones, no pericholecystic fluid no gallbladder wall thickening Radiology Impression Discussion of test interpretation with radiology: I have reviewed the radiologist's reading. Radiologist Impression: EXAMINATION: US ABDOMEN LIMITED CLINICAL INFORMATION: Right upper quadrant pain. COMPARISON: Ultrasound dated 06/01/2023. CT scan of the abdomen dated 08/30/2021. TECHNIQUE: Real-time imaging of the right upper quadrant abdominal viscera. FINDINGS: PANCREAS: Head and body appear unremarkable. Tail not visualized. LIVER: The liver is normal in size. The liver contour is normal. Parenchymal echogenicity appears unremarkable. No focal hepatic lesion identified. No intrahepatic biliary duct dilatation is seen. Hepatopedal portal flow. GALLBLADDER: The gallbladder is physiologically distended without evidence of stones, sludge, polyps, wall thickening or pericholecystic fluid. Technologist reports negative sonographic Chandra's sign. COMMON BILE DUCT: Normal in caliber measuring 0.3 cm in diameter. RIGHT KIDNEY: No hydronephrosis. No renal calculi or focal parenchymal lesion identified. The kidney measures 11.0 cm in maximum dimension. FREE FLUID: None. US/US abdomen limited IMPRESSION: Normal right upper quadrant ultrasound examination. External Record Review External record reviewed: Office record Prescription Management I considered prescription management with: Pain Medication Critical Care Time Critical Care Time Critical Care Time: No Discharge Plan Discharge Clinical Impression: Gastroenteritis Patient Disposition: Home, Self-Care Instructions: Gastroenteritis (DC) Additional Instructions: You lab workup today was unremarkable. Your urine test was negative for infection and . You most likely have a viral GI bug also known as gastroenteritis. Treatment is supportive care, symptoms usually resolve on their own in 48-72 hours. Recommend rest and plenty of oral hydration. Stick to a bland diet like soup and toast while you are not feeling well. Take the prescribed medication as needed for nausea. Recommend over the counter Pepto Bismol or Imodium for upset stomach and diarrhea. Follow up with your doctor as needed. If you develop new or worsening symptoms call 911 or come back to the ER for further evaluation. Prescriptions: No Action metoprolol succinate 25 mg Tablet Extended Release 24 Hr 25 mg PO DAILY Qty: 30 0RF Protocol: Hold for SBP/HR < HOLD for SBP < : 90 HOLD for HR < : 60 bupropion HCl 300 mg tablet extended release 24 hr 300 mg PO QAM lidocaine 5 % adhesive patch,medicated 1 patch topical QAM omeprazole 20 mg capsule,delayed release(DR/EC) 20 mg PO DAILY Qty: 90 0RF Referrals: Turner Hernandez MD [Primary Care Provider] - Interventions: ED Discharge Assessment Last Done: 01/14/24 12:54 Discharge Date/Time: 01/14/24 12:55
[2024-01-14 10:37] LABS: Appearance Urine Clear; Color Urine Yellow; Glucose Urine UA Negative (Negative); Leukocyte Esterase Urine Negative (Negative); Nitrite Urine Negative (Negative); PH 5.5 (5.0-9.0); Specific Gravity - Urine >= 1.030 (1.005-1.025); Urine Blood Negative (Negative); Urine Ketones Negative (Negative); Urine Protein Negative (Neg-Trace)
[2024-01-14 12:54] VITALS: BP 125/82; PULSE 66; RESP 16; TEMP 36.6
== END 2024-01-14 12:55 | disposition home or self-care (01) ==
PROVIDERS: Emergency Provider Emergency Medicine; PCP Internal Medicine
DX: K52.9 Noninfective gastroenteritis and colitis, unspecified (principal); Z11.52 Encounter for screening for COVID-19; Z20.828 Contact with and (suspected) exposure to other viral communicable diseases
CPT/HCPCS: 0241U; 36415; 76705; 80053; 81003; 83690; 85025; 99284

== ENCOUNTER 2024-01-26 12:50 | Outpatient (REF) | payer MEDICAID, SELFPAY ==
--- NOTE | ~2024-01-26 | XR_ITS ---
EXAMINATION: XR CHEST CLINICAL INFORMATION: Preop COMPARISON: Previous chest x-ray October 2022 TECHNIQUE: 2 views of the chest were obtained. FINDINGS: The cardiac and mediastinal contours are stable. The lungs are clear. No pleural effusion or pneumothorax. Bony structures are normal. XR/XR chest 2V IMPRESSION: Unremarkable examination.
== END 2024-01-26 12:51 | disposition home or self-care (01) ==
LOC: HO.HHCX 12:50
PROVIDERS: Visit Provider Internal Medicine
DX: Z01.818 Encounter for other preprocedural examination (principal)
CPT/HCPCS: 71046

== ENCOUNTER 2024-01-31 22:35 | Emergency (ER) | payer MEDICAID, SELFPAY ==
--- NOTE | 2024-01-31 | ECG_ITS ---
Test Reason : REPEAT Blood Pressure : / mmHG Vent. Rate : 091 BPM Atrial Rate : 091 BPM P-R Int : 148 ms QRS Dur : 084 ms QT Int : 398 ms P-R-T Axes : 057 061 053 degrees QTc Int : 489 ms Sinus rhythm with occasional Premature ventricular complexes Prolonged QT Abnormal ECG When compared with ECG of 31-JAN-2024 22:38, Vent. rate has decreased BY [address] no longer depressed in Inferior leads ST no longer depressed in Lateral leads Referred By: Jean Marie Nash Electronically Signed By:GOLRIA GAMEZ
--- NOTE | 2024-01-31 | ECG_ITS ---
Test Reason : SVT Blood Pressure : / mmHG Vent. Rate : 183 BPM Atrial Rate : 000 BPM P-R Int : 000 ms QRS Dur : 084 ms QT Int : 252 ms P-R-T Axes : 000 059 -79 degrees QTc Int : [address] depression, consider subendocardial injury Abnormal ECG When compared with ECG of 21-MAR-2023 21:23, Vent. rate has increased BY [address] now depressed in Inferior leads ST now depressed in Lateral leads Referred By: Generic ED Physician Electronically Signed By:GLORIA GAMEZ
[2024-01-31 22:45] VITALS: BP 105/61; PULSE 183; RESP 22; TEMP 36.4; O2SAT 95; BMI 25.3
[2024-01-31 22:47] LABS: MANUAL DIFF FLAG NO
[2024-01-31] MEDS: Adenosine 6 MG/2 ML VIAL 12 MG IVPUSH (22:47)
[2024-01-31 22:49] LABS: Basophils Percent Auto 0.4 % (0-2); Eosinophils Absolute Auto 0.3 X10*3/uL (0.0-0.4); Eosinophils Percent Auto 3.3 % (0-4); Hematocrit 37.4 % (37.0-47.0); Hemoglobin 12.2 g/dl (12.0-16.0); Imm Gran Abs Auto 0.01 X10*3/uL (0.00-0.03); Imm Gran Pct Auto 0.1 % (0.0-0.4); Lymphocytes Absolute Auto 3.9 X10*3/uL (1.2-4.9); Lymphocytes Percent Auto 51.5 % (20-40); Mean Corpuscular HGB Conc 32.6 g/dl (31.0-35.0); Mean Corpuscular Hemoglobin 27.2 pg (27.0-33.0); Mean Corpuscular Volume 83.3 fL (80.0-98.0); Mean Platelet Volume 9.2 fL (9.4-12.3); Monocytes Absolute Auto 0.5 X10*3/uL (0.1-1.2); Neutrophils Absolute Auto 2.9 x10*3/uL (2.0-8.3); Neutrophils Percent Auto 37.7 % (45-73); Platelet Count 346 X10*3/uL (160-400); Red Blood Count 4.49 X10*6/uL (4.20-5.50); Red Cell Distribution Width 14.3 % (11.0-16.0); White Blood Count 7.6 X10*3/uL (4.8-10.8)
--- NOTE | 2024-01-31 22:50 | ED.ARRPALP ---
HPI - Arrhythmia/Palpitations General Chief Complaint: Arrhythmia/Palpitations Stated Complaint: CHEST PAIN, IN SVT 190, NO REACTION TO ADENOSINE Time Seen by Provider: 01/31/24 22:50 Source: patient Mode of arrival: EMS Limitations: language barrier (Malagasy speaking only, [employer] dynamics ax consultant used) History of Present Illness HPI narrative: 38-year-old female with history of SVT, myocarditis, migraines, irritable bowel syndrome, who presents emergency department for evaluation of rapid heart rate. Patient was transported by paramedics and was found to be in an SVT with a heart rate in the 180 range. She was given adenosine 6 mg and 12 mg with no effect. Here in the emergency department the patient was in an SVT with a heart rate of 183 beats per minute. She was rapid IV push of adenosine 12 mg IV and converted to a sinus tachycardia with a rate of 113. Patient states that she was having chest pain, lightheadedness, dizziness. She states she currently is feeling very anxious but feels better after her heart rate improved. Related Data Home Medications ?Medication ?Instructions ?Recorded ?Confirmed bupropion HCl 300 mg 24 hr tablet, 300 mg PO QAM 01/13/23 01/14/23 extended release lidocaine 5 % topical patch 1 patch topical QAM 06/23/23 Previous Rx's ?Medication ?Instructions ?Recorded metoprolol succinate 25 mg 25 mg PO DAILY #30 tabs 11/13/22 tablet,extended release 24 hr omeprazole 20 mg capsule,delayed 20 mg PO DAILY #90 caps 08/05/23 release Allergies Allergy/AdvReac Type Severity Reaction Status Date / Time aspirin [Aspirin] Allergy Unknown SWELLING Verified 01/31/24 22:49 sea food Allergy Unknown Anaphylaxis Uncoded 01/31/24 22:49 Review of Systems Review of Systems: Yes all other systems are reviewed and are negative [facility] Past Medical History Medical History Non-ST elevation [place] (NSTEMI) Scoliosis Sacroiliitis Spondylosis of lumbar region without myelopathy or radiculopathy Scoliosis of thoracolumbar spine Surgical History History of breast augmentation Family History Family History Mother Breast cancer Father Cardiac arrhythmia Father Cardiac arrhythmia Social History Social History (System 01/25/24 @ 08:17 by Elaina Ho) Alcohol intake: never Patient Tobacco Use Status: Former Tobacco user Advance Directives: No Advance Directives Information Provided: Yes service: No Current occupational status: employed Physical Exam Vital Signs: Vital Signs: Last Vital Signs Temp 97.7 F 02/01/24 00:00 Pulse 92 02/01/24 00:00 Resp 21 H 02/01/24 00:00 BP 97/56 L 02/01/24 00:00 Pulse Ox 99 02/01/24 00:00 O2 Del Method Room Air 02/01/24 00:00 BMI result Body Mass Index 25.3 Vital signs revealed elevated heart rate of 183 and elevated respiratory rate of 22 Exam: General: Awake, appears anxious, answers questions appropriately Head: Normocephalic, atraumatic EENT: PERRL, Lids normal, sclera normal, conjunctiva normal, nose normal , ears normal, throat without erythema or exudates Neck: Supple, no adenopathy Lung: breath sounds symmetric, no wheezing, rales or rhonchi Chest: symmetric movement, nontender Heart: Rapid heart rate with no appreciable murmurs Abdomen: soft, non-tender, nondistended, normal bowel sounds Back: no vertebral tenderness, no CVAT Extremities: no deformities, moves all extremities symmetrically Neuro: Awake, alert, oriented, normal speech, cranial nerves intact, moves all extremities symmetrically Psych: Pleasant, cooperative Medications Administered Discontinued Medications Generic Name Dose Route Start Last Admin Trade Name Freq PRN Reason Stop Dose Admin Adenosine 12 mg 01/31/24 22:54 01/31/24 22:47 Adenosine 6 Mg/2 Ml Vial IVPUSH 01/31/24 22:55 12 mg ONCE ONE Administration Sodium Chloride 1,000 mls @ 999 mls/hr 01/31/24 22:51 01/31/24 22:55 Ns IV 01/31/24 23:51 999 mls/hr .Q1H1M STA Administration Lorazepam 1 mg 01/31/24 22:51 01/31/24 23:28 Lorazepam 2 Mg/Ml Vial IVPUSH 01/31/24 22:52 1 mg STAT STA Administration Medical Decision Making Medical Decision Making MDM Narrative: 38-year-old female with a history of SVT who presents emergency department with SVT with a heart rate of 180 beats per minute, patient received 6 mg and 12 mg of adenosine by paramedics with no effect. In the emergency department she was given rapid push of adenosine 12 mg IV and converted to a sinus tachycardia. Differential diagnosis: ?Includes but is not limited to SVT, myocardial infarction, myocardial ischemia, electrolyte abnormalities, hyperthyroidism Following evaluation was ordered: CBC, CMP, quantitative beta-hCG, troponin, TSH with reflex T4 Patient was initially treated with the following: Adenosine 12 mg IV push Course: 00:33 My interpretation patient's laboratory evaluation as follows: CBC was normal. CMP revealed an elevated glucose of 140. TSH was normal. Quantitative beta-hCG was below detectable limits. High sensitive troponin I was below detectable limits. Patient is feeling significantly better. She was given metoprolol 25 mg orally which is her normal dose that she missed this evening. Patient was advised to follow up with a radiography technician to discuss further management and possible ablation for her SVT. She has had 3 episodes in approximately 1 year. Admission/Observation Consideration of admission/observation: Escalation of care including admission/observation considered Lab Data MDM Lab Attestation statement: I reviewed the patient's lab results. 01/31/24 22:41 01/31/24 22:41 Labs: Lab Results 01/31/24 Range/Units 22:41 WBC 7.6 (4.8-10.8) X10*3/uL RBC 4.49 (4.20-5.50) X10*6/uL Hgb 12.2 (12.0-16.0) g/dl Hct 37.4 (37.0-47.0) % MCV 83.3 (80.0-98.0) fL MCH 27.2 (27.0-33.0) pg MCHC 32.6 (31.0-35.0) g/dl RDW 14.3 (11.0-16.0) % Plt Count 346 (160-400) X10*3/uL MPV 9.2 L (9.4-12.3) fL Immature Gran % (Auto) 0.1 (0.0-0.4) % Neut % (Auto) 37.7 L (45-73) % Lymph % (Auto) 51.5 H (20-40) % [place] % (Auto) 7.0 (2-11) % Eos % (Auto) 3.3 (0-4) % Baso % (Auto) 0.4 (0-2) % Lymph # (Auto) 3.9 (1.2-4.9) X10*3/uL [place] # (Auto) 0.5 (0.1-1.2) X10*3/uL Eos # (Auto) 0.3 (0.0-0.4) X10*3/uL Baso # (Auto) 0.0 (0.0-0.2) X10*3/uL Abs Immat Gran (auto) 0.01 (0.00-0.03) X10*3/uL Absolute Neuts (auto) 2.9 (2.0-8.3) x10*3/uL Absolute Nucleated RBC 0.000 (0.0-0.012) X10*3/uL Nucleated RBC % (auto) 0.0 (0.0-0.2) /100WBC Sodium 138 (135-145) mmol/L Potassium 3.7 (3.3-5.1) mmol/L Chloride 105 (96-108) mmol/L Carbon Dioxide 22 (22-29) mmol/L Anion Gap 15 (12-20) BUN 19 H (9-16) mg/dL Creatinine 0.95 (0.5-1.4) mg/dL Estim Creat Clear Calc 76.5 Estimated GFR > 60 Random Glucose 140 H (60-115) mg/dL Calcium 8.4 (8.4-10.2) mg/dL Total Bilirubin 0.4 (0.0-1.0) mg/dL AST 37 H (5-31) U/L ALT 38 H (0-31) U/L Alkaline Phosphatase 89 (39-117) U/L Troponin I High Sens < 2.7 (<3.5-17.0) ng/L Total Protein 6.9 (6.5-8.0) g/dL Albumin 3.9 (3.5-5.0) g/dL TSH 2.30 (0.32-4.0) uIU/mL Beta HCG, Quant < 2 mIU/mL Independent Interpretation I performed an independent interpretation of an: EKG Interpretation: My independent interpretation patient's 12 EKG done at 22:38 hours is as follows: Supraventricular tachycardia with a rate of 183, normal QRS and QTC duration, ST segment depression in leads 2, AVF, V3 through V6. My independent interpretation patient's 12 EKG done at 22:51 hours after receiving 12 mg of adenosine IV push is as follows: Sinus rhythm with occasional PVC with a rate of 91, normal DC interval, QRS duration, prolonged QTC of 489 milliseconds, no ST segment elevation, no ST segment depression, no significant T-wave abnormalities. Independent Historian Clinical information obtained from an independent historian. History obtained from or confirmed by: EMS Critical Care Time Critical Care Time Critical Care Time: Yes Total Critical Care Time: 45 Attestation: Critical Care: The patient was critically ill with a high probability of imminent or life threatening deterioration. I spent greater than 30 minutes of discontinuous time evaluating the patient,delivering critical care at the bedside, discussing and evaluating pertinent data with consultants. Critical care time does not include time spent performing separately billable procedures or teaching. Total time spent performing critical care was 45 minutes. Discharge Plan Discharge Clinical Impression: SVT (supraventricular tachycardia), Prolonged QT interval Patient Disposition: Home, Self-Care Instructions: Supraventricular Tachycardia (ED) Additional Instructions: Your EKG revealed that you had a supraventricular tachycardia (SVT) You were treated with adenosine 12 mg IV push which caused your heart rhythm to go back into a normal beating pattern. Your repeat EKG after you went back into a normal beating pattern show that you have a prolonged QTC interval, you should discuss this with your radiography technician as well Your blood work was normal. Your thyroid screening test was normal. Your high sensitive troponin I was below detectable limits, this is reassuring and suggests that you did not have any heart damage from your heart beating so quickly. You need to follow-up with your radiography technician to determine if you need any further medication management or if you need a cardiac ablation to stop you from having SVT in the future. Continue taking medications as prescribed by your providers. Follow-up with your doctor in 2 days. Please return to the emergency department if your symptoms get worse or if you develop any symptoms that are concerning to you. Prescriptions: No Action metoprolol succinate 25 mg Tablet Extended Release 24 Hr 25 mg PO DAILY Qty: 30 0RF Protocol: Hold for SBP/HR < HOLD for SBP < : 90 HOLD for HR < : 60 bupropion HCl 300 mg tablet extended release 24 hr 300 mg PO QAM lidocaine 5 % adhesive patch,medicated 1 patch topical QAM omeprazole 20 mg capsule,delayed release(DR/EC) 20 mg PO DAILY Qty: 90 0RF Print Language: Malagasy
[2024-01-31 22:51] VITALS: BP 130/80; PULSE 180
[2024-01-31] MEDS: 0.9 % Sodium Chloride 1,000 ML 999 ML IV (22:55)
[2024-01-31 23:02] LABS: Alanine Aminotransferase 38 U/L (0-31); Albumin Level 3.9 g/dL (3.5-5.0); Alkaline Phosphatase 89 U/L (39-117); Anion Gap 15 (12-20); Aspartate Amino Transferase 37 U/L (5-31); Bilirubin Total 0.4 mg/dL (0.0-1.0); Blood Urea Nitrogen 19 mg/dL (9-16); Calcium 8.4 mg/dL (8.4-10.2); Carbon Dioxide 22 mmol/L (22-29); Chloride 105 mmol/L (96-108); Creatinine Clr Calc Pharmacy 76.5; Estimated Glomerular Filt Rate > 60; Glucose Random 140 mg/dL (60-115); Potassium 3.7 mmol/L (3.3-5.1); Sodium 138 mmol/L (135-145); Total Protein 6.9 g/dL (6.5-8.0)
[2024-01-31 23:10] LABS: Troponin-I High Sensitivity < 2.7 ng/L (<3.5-17.0)
[2024-01-31] MEDS: LORazepam 2 MG/ML VIAL 1 MG IVPUSH (23:28)
[2024-01-31 23:37] LABS: HCG Quantitative < 2 mIU/mL
[2024-02-01] VITALS: BP 97/56; PULSE 92; RESP 21; TEMP 36.5; O2SAT 99
[2024-02-01 01:12] VITALS: PULSE 90
[2024-02-01] MEDS: Metoprolol Tartrate 25 MG TABLET PO (01:19)
[2024-02-01 01:24] VITALS: BP 109/64; PULSE 90; RESP 18; TEMP 36.3; O2SAT 96
== END 2024-02-01 01:32 | disposition home or self-care (01) ==
PROVIDERS: Emergency Provider Emergency Medicine Emergency Medical Services
DX: I47.10 Supraventricular tachycardia, unspecified (principal); R94.31 Abnormal electrocardiogram [ECG] [EKG]; I25.2 Old myocardial infarction; Z88.6 Allergy status to analgesic agent
CPT/HCPCS: 36415; 80053; 84443; 84484; 84702; 85025; 93005; 96374; 96375; 99284; 99285; J0153; J2060

== ENCOUNTER → 2024-01-31 22:38 | Outpatient (BNV) | payer MEDICAID, SELFPAY | PROVIDERS: Emergency Provider Emergency Medicine Emergency Medical Services; Visit Provider Internal Medicine | DX: I47.10 Supraventricular tachycardia, unspecified (principal); I49.3 Ventricular premature depolarization | CPT/HCPCS: 93010 ==

== ENCOUNTER 2024-03-18 14:29 | Outpatient (REF) | payer MEDICAID, SELFPAY ==
--- NOTE | ~2024-03-18 | MM_ITS ---
EXAMINATION: MM SCREENING DIGITAL BREAST TOMOSYNTHESIS, BILATERAL WITH BILATERAL BREAST IMPLANTS. CLINICAL INFORMATION: Screening. Asymptomatic. COMPARISON: Mammography: This study is compared with the only prior mammogram from 2020. TECHNIQUE: Digital mammography is performed in craniocaudal and mediolateral oblique views along with computer-aided detection (CAD). Digital breast tomosynthesis is performed in implant-displaced craniocaudal and implant-displaced mediolateral oblique views along with computer-aided detection (CAD). Synthesized 2D images are generated from the tomosynthesis. FINDINGS: There are scattered areas of fibroglandular density (ACR BI-RADS breast composition Category b). Since the last mammogram from 2019, the patient has had implants placed. There are bilateral, mammographically intact, retropectoral silicone breast implants. There are no significant masses, abnormal calcifications, or other abnormalities. MM/MM tomosynthesis screen imp BI IMPRESSION: There are no significant changes from prior study. ASSESSMENT: BI-RADS BI-RADS 1 - Negative RECOMMENDATION: Routine annual mammography screening. 1 year F/U This patient's information was entered into a reminder system with a target due date for their next mammogram.
== END 2024-03-18 14:30 | disposition home or self-care (01) ==
LOC: HO.MAMMO 14:29
PROVIDERS: PCP Internal Medicine; Visit Provider Internal Medicine
DX: Z12.31 Encounter for screening mammogram for malignant neoplasm of breast (principal)
CPT/HCPCS: 77063; 77067

== ENCOUNTER → 2024-03-18 14:45 | Outpatient (BNV) | payer MEDICAID, SELFPAY | PROVIDERS: PCP Internal Medicine; Visit Provider Radiology Diagnostic Radiology | DX: Z12.31 Encounter for screening mammogram for malignant neoplasm of breast (principal) | CPT/HCPCS: 77063; 77067 ==

== ENCOUNTER 2024-04-14 14:11 | Outpatient (REF) | payer MEDICAID, SELFPAY ==
[2024-04-15 12:02] LABS: CT PCR NOT DETECTED (Not Detect.); NG PCR NOT DETECTED (Not Detect.)
== END 2024-04-14 14:12 | disposition home or self-care (01) ==
LOC: HO.CHCLNP 14:11
PROVIDERS: Visit Provider Pediatrics
DX: Z01.419 Encounter for gynecological examination (general) (routine) without abnormal findings (principal)
CPT/HCPCS: 36415; 87491; 87591; 87625; 88175

== ENCOUNTER 2024-05-30 11:14 | Outpatient (AMB) | payer MEDICAID, SELFPAY ==
--- NOTE | 2024-05-30 11:24 | A.OFFVIS_ITS ---
Vital Signs 05/30/24 11:32 Height 5 ft 7 in Weight 169 lb BMI 26.5 BP 147/72 H Blood Pressure Location Lt brachial Position Sitting Pulse 78 Intake Visit Reasons: 3 month f.u r/s Intake Note: Betty presents in the office as a 3 month follow up CC: She states that she is having pains in her stomach and difficulty with shortness of breath. Allergies aspirin [Aspirin] Allergy (Unknown, Verified 05/30/24 11:31) SWELLING sea food Allergy (Unknown, Uncoded 05/30/24 11:31) Anaphylaxis HPI Comments Details: 37 y.o F with PMH of inflammatory pericarditis and SVT, hx of abdominoplasty, who is here for changes in bowel habits. Reports diarrhea started almost 3 months ago with insiduous onset assoc with cramping abd pain and bloating. Has up to 4-5 loose watery BMs per day. Also has night time sx at least 3 times a week. Urgency +. No tenesmus. No blood in stool. BMs fluctuate between diarrhea and constipation. Abd pain gets worse af ter BM. No change in appetite no unintentional weight loss. 08/05/23: Reports resolution of diarrhea but noticing increased bloating now almost on a daily basis. Reports waking up feeling bloated which is also associated with abd discomfort and sensation of abd getting hard. Wearing a binder helps. Diet consists of cream of wheat, white rice, chicken, dairy. Labs reviewed including normal celiac serology and fecal calpro. Low Vit D. 12/09/23: Reports improvment in diarrhea ross since avoiding dairy. However has not been able to cut down gluten. Also reports localised epigastric comfort assoc with nausea. No assoc with food intake or passing BMs. Notices it on positional changes, worse on going from laying down to sitting up position. 05/30/24: Reports minimal response to the trigger point inj. Now describes more of left sided abd pain that often radiates to her chest. Does get burning retrosternal pain with this which she manages with omeprazoe 20 once daily. Pt also seeing Card again Dr Cosme for worsening dyspnea on exertion and lightheadedness. [facility] Medical History Non-ST elevation [place] (NSTEMI) Scoliosis Sacroiliitis Spondylosis of lumbar region without myelopathy or radiculopathy Scoliosis of thoracolumbar spine Surgical History History of breast augmentation Family History Mother Breast cancer Father Cardiac arrhythmia Father Cardiac arrhythmia Social History Alcohol intake: never Patient Tobacco Use Status: Former Tobacco user service: No Current occupational status: employed Review of Systems Const All systems reviewed & are unremarkable except as noted in HPI and below Physical Exam Vital Signs: Last Vital Signs Pulse 78 05/30/24 11:32 BP 147/72 H 05/30/24 11:32 BMI result Body Mass Index 26.5 No apparent distress Nonicteric Abdomen with binder on - underlying abd soft, nontender Alert and oriented x3, normal gait Assessment & Plan Assessment & Plan (1) Abdominal pain: Code(s): R10.9 - Unspecified abdominal pain Category: Medical (2) Irritable bowel syndrome (IBS): Code(s): K58.9 - Irritable bowel syndrome without diarrhea Category: Medical (3) Bloating: Code(s): R14.0 - Abdominal distension (gaseous) Category: Medical Plan Ddx include PUD, SIBO, functional bloating. Celiac serology neg from 2022. No response to trigger point inj for possible ACNES. Plan: - pt advised against prolonged use of abd binder as that can weaken her core further and aggravate bloating - start omeprazole 20 once daily on empty stomach - EGD to be booked after clearance obtained from [facility] follow up after EGD Medications: Refilled omeprazole 20 mg PO DAILY 90 caps 0RF Coding Level of Care Code Est Pt Level 4 (61324) Diagnoses Abdominal pain R10.9 Irritable bowel syndrome (IBS) K58.9 Bloating R14.0
[2024-05-30 11:32] VITALS: BP 147/72; PULSE 78; BMI 26.5
== END 2024-05-30 12:45 | disposition home or self-care (01) ==
PROVIDERS: PCP Internal Medicine; Referring Provider Internal Medicine; Visit Provider Internal Medicine
DX: R10.9 Unspecified abdominal pain (principal); K58.9 Irritable bowel syndrome, unspecified; R14.0 Abdominal distension (gaseous)
CPT/HCPCS: 99214

== ENCOUNTER → 2024-05-30 11:14 | Outpatient (BNVA) | payer MEDICAID, SELFPAY | PROVIDERS: PCP Internal Medicine; Visit Provider Internal Medicine | DX: R10.9 Unspecified abdominal pain (principal); R14.0 Abdominal distension (gaseous); K58.9 Irritable bowel syndrome, unspecified | CPT/HCPCS: 99212 ==

== ENCOUNTER 2024-06-04 10:57 | Emergency (ER) | payer MEDICAID, SELFPAY ==
--- NOTE | ~2024-06-04 | XR_ITS ---
EXAMINATION: XR CHEST CLINICAL INFORMATION: Shortness of breath and cough COMPARISON: 01/26/2024 TECHNIQUE: 2 views of the chest were obtained. FINDINGS: Lungs are well-inflated and clear. Trachea is midline in position. No interstitial disease, consolidation or mass. No pleural effusion or pneumothorax. Cardiac silhouette and pulmonary vessels are normal in size. The mediastinum and kaity have normal contour. The visualized bones and upper abdomen are unremarkable. Bilateral breast implants in place. XR/XR chest 2V IMPRESSION: Lungs have a normal appearance. No acute cardiopulmonary abnormality.
[2024-06-04 11:08] VITALS: BP 124/65; PULSE 108; RESP 18; TEMP 37.3; O2SAT 98; BMI 27.3
[2024-06-04 12:04] LABS: IDNOW Serial# 58CA691E; Strep A Nucleic Acid Negative (Negative)
[2024-06-04 12:23] LABS: Influenza A PCR NEGATIVE (Negative); Influenza B PCR NEGATIVE (Negative); Resp Syncy Virus RNA Qual PCR NEGATIVE (Negative); SARS COV2 PCR INHOUSE POSITIVE (Negative)
--- NOTE | 2024-06-04 12:45 | ED_ITS ---
HPI - General Adult General Chief complaint: Upper Respiratory Symptoms Stated complaint: running nose headache Time Seen by Provider: 06/04/24 11:23 Source: patient and RN notes reviewed Mode of arrival: ambulatory Limitations: no limitations History of Present Illness ED Provider: Cat Riggs PA-C [facility] narrative: This is a 38-year-old [place]uran-speaking female, with a history of SVT, who presents emergency department with complaints of body aches, runny nose, sore throat, dry cough chills x 3 days. 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 She endorses subjective fevers and chills. She denies any chest pain, shortness of breath, wheezing, nausea, vomiting or diarrhea. Denies taking any medications at home to treat her current symptoms. No other complaints or concerns at this time. MD complaint: Cough, congestion, runny nose Radiation: non-radiation Severity: moderate Relieving factors: none Exacerbating factors: none Treatments prior to arrival: none Related Data Home Medications ?Medication ?Instructions ?Recorded ?Confirmed bupropion HCl 300 mg 24 hr tablet, 300 mg PO QAM 01/13/23 01/14/23 extended release lidocaine 5 % topical patch 1 patch topical QAM 06/23/23 eszopiclone 3 mg tablet 3 mg PO BEDTIME PRN insomnia 05/30/24 Previous Rx's ?Medication ?Instructions ?Recorded metoprolol succinate 25 mg 25 mg PO DAILY #30 tabs 11/13/22 tablet,extended release 24 hr omeprazole 20 mg capsule,delayed 20 mg PO DAILY #90 caps 05/30/24 release acetaminophen 500 mg tablet 1,000 mg (2 x 500 mg) PO QID PRN 06/04/24 (Tylenol Extra Strength) pain #30 tabs ibuprofen 600 mg tablet 600 mg PO Q6H PRN fever or pain 06/04/24 #30 tabs Allergies Allergy/AdvReac Type Severity Reaction Status Date / Time aspirin [Aspirin] Allergy Unknown SWELLING Verified 06/04/24 11:14 sea food Allergy Unknown Anaphylaxis Uncoded 05/30/24 11:31 Review of Systems Review of Systems: Yes all other systems are reviewed and are negative Constitutional: Constitutional: Reports as per [facility] Past Medical History Attestation statement: The following information was validated with the patient. Medical History Non-ST elevation [place] (NSTEMI) Scoliosis Sacroiliitis Spondylosis of lumbar region without myelopathy or radiculopathy Scoliosis of thoracolumbar spine Surgical History History of breast augmentation Family History Family History Mother Breast cancer Father Cardiac arrhythmia Father Cardiac arrhythmia Social History Social History Alcohol intake: never Patient Tobacco Use Status: Former Tobacco user Advance Directives: No Advance Directives Information Provided: No Do you have a plan to hurt others: No Plan service: No Current occupational status: employed Physical Exam ED Vital Signs: Vital Signs - 24 hr 06/04/24 11:08 06/04/24 13:03 Temperature 99.1 F 99.1 F Pulse Rate 108 H 108 H Respiratory Rate 18 18 Blood Pressure 124/65 124/65 Pulse Oximetry 98 98 Oxygen Delivery Method Room Air Room Air BMI result Body Mass Index 27.3 Const General: cooperative, comfortable and no acute distress Orientation/consciousness: patient oriented x3 Limitations: no limitations HENMT Other: Oropharynx is erythematous, no tonsillar hypertrophy or exudates. Uvula is midline. No trimus, drooling or dysphonia. Head: Yes normal to inspection, Yes normocephalic and Yes atraumatic Ears: hearing grossly normal bilaterally and TM's normal bilaterally General nose exam: Normal external nose present Face and sinus: Yes normal facial exam Mouth: Normal oral and palatal mucosa present, oropharynx normal and moist mucous membranes Throat: Yes posterior oropharynx normal Eyes General: appearance normal, both eyes and all related structures Eyelids: Yes eyelids normal Conjunctivae: conjunctivae normal Sclerae: sclerae normal Pupils: Equal, round and reactive pupils present EOM: EOMs intact bilaterally Neck Neck: Yes normal visual inspection, Yes full ROM and Yes no lymphadenopathy Lymphatic: no lymphadenopathy noted Chest Chest palpation & inspection: normal inspection of the chest Resp Effort & Inspection: normal respiratory effort and able to speak in complete sentences Auscultation: clear to auscultation bilaterally, no crackles, no rales, no rhonchi and no wheezes Cardio Rate: regular rate Rhythm: regular rhythm Heart sounds: S1 normal heart sound present and S2 normal heart sound present GI Other: Abdomen is soft, nontender, nondistended Inspection: Yes normal to inspection Back/Spine/Pelvis Other: Tenderness palpation along the lumbar paraspinous muscles Skin General skin exam: no rashes or lesions noted Trauma: no lacerations or abrasions Wounds: no wounds Neuro General: patient oriented x3 and moves all extremities Cranial nerves: Yes Equal, round and reactive pupils present Extrem General: Yes normal to inspection Right upper extremity: normal to inspection Left upper extremity: normal to inspection Right lower extremity: normal to inspection Left lower extremity: normal to inspection Medications Administered Discontinued Medications Generic Name Dose Route Start Last Admin Trade Name Freq PRN Reason Stop Dose Admin Acetaminophen 975 mg 06/04/24 12:47 06/04/24 13:02 Acetaminophen 325 Mg Tablet PO 06/04/24 12:48 975 mg ONCE ONE Administration Medical Decision Making Medical Decision Making [facility] Narrative: This is a 38-year-old female, with a history of SVT, who presents emergency department with complaints of body aches, runny nose, sore throat, chills for the last 3 days. On arrival, patient mildly tachycardic at 108., she is afebrile, nontoxic-appearing. Lungs are clear to auscultation bilaterally. Differential diagnoses include URI, COVID, flu, RSV, strep pharyngitis. Less likely pneumonia. Swabs were collected, patient does positive for COVID, inform patient of her results. Chest x-ray unremarkable. Patient discharged with ibuprofen and Tylenol, given strict return precautions. She understands and agrees with plan. Patient stable for discharge. Differential Diagnosis Differential Diagnoses: The differential diagnosis associated with the presentation includes See above Lab Data [facility] Lab Attestation statement: I reviewed the patient's lab results. Positive COVID Labs: Lab Results 06/04/24 Range/Units 11:33 Influenza Type A (PCR) NEGATIVE (Negative) Influenza Type B (PCR) NEGATIVE (Negative) RSV RNA Qual (PCR) NEGATIVE (Negative) SARS-CoV-2 RNA (RT-PCR) POSITIVE A (Negative) S. pyogenes GrpA VINOD Negative (Negative) Radiology Impression Discussion of test interpretation with radiology: I have reviewed the radiologist's reading. Radiologist Impression: XR/XR chest 2V IMPRESSION: Lungs have a normal appearance. No acute cardiopulmonary abnormality. Dictated By: Kamran Moser MD Signed By: <Electronically signed by Kamran Moser MD in OV> Discharge Plan Discharge Clinical Impression: COVID-19 Patient Disposition: Home, Self-Care Instructions: COVID-19 (Coronavirus Disease 2019) (ED) Additional Instructions: You were seen in the emergency department today. You tested positive for COVID-19. Please drink plenty of fluids get plenty of rest. Alternate between ibuprofen and Tylenol as needed for pain and symptoms. You may do this by taking Tylenol 1000 mg every 8 hours, and ibuprofen 600 mg every 6 hours. We gave you your 1st dose of Tylenol in the department today. Any new or worsening symptoms occur including but not limited to chest pain, shortness of breath, fevers not responding to Tylenol or Motrin, please return for re-evaluation. Prescriptions: New acetaminophen [Tylenol Extra Strength] 500 mg tablet 1,000 mg PO QID PRN (Reason: pain) Qty: 30 0RF ibuprofen 600 mg tablet 600 mg PO Q6H PRN (Reason: fever or pain) Qty: 30 0RF No Action metoprolol succinate 25 mg Tablet Extended Release 24 Hr 25 mg PO DAILY Qty: 30 0RF Protocol: Hold for SBP/HR < HOLD for SBP < : 90 HOLD for HR < : 60 bupropion HCl 300 mg tablet extended release 24 hr 300 mg PO QAM lidocaine 5 % adhesive patch,medicated 1 patch topical QAM eszopiclone 3 mg tablet 3 mg PO BEDTIME PRN (Reason: insomnia) omeprazole 20 mg capsule,delayed release(DR/EC) 20 mg PO DAILY Qty: 90 0RF Stand Alone Forms: Work/School Release Interventions: ED Discharge Assessment Last Done: 06/04/24 13:03 Discharge Date/Time: 06/04/24 13:04 Print Language: [place]uran
[2024-06-04] MEDS: Acetaminophen 325 MG TABLET 975 MG PO (13:02)
[2024-06-04 13:03] VITALS: BP 124/65; PULSE 108; RESP 18; TEMP 37.3; O2SAT 98
== END 2024-06-04 13:04 | disposition home or self-care (01) ==
PROVIDERS: Emergency Provider Emergency Medicine; PCP Internal Medicine
DX: U07.1 COVID-19 (principal); J02.9 Acute pharyngitis, unspecified
CPT/HCPCS: 0241U; 71046; 87651; 99283

== ENCOUNTER 2024-11-06 07:31 | Emergency (ER) | payer MEDICAID, SELFPAY ==
--- NOTE | ~2024-11-06 | XR_ITS ---
CLINICAL HISTORY: Coughing, SOB One view of the chest Comparison: CR/WI/SR - XR CHEST 2V - 06/04/24 11:22 EDT Findings: Cardiac and mediastinal contours are normal. Mild interstitial prominence. No focal consolidation. No effusion. No pneumothorax. No acute osseous finding. Impression: Mild interstitial prominence, similar to prior. No focal consolidation. This document has been electronically signed by: Richard Greene MD on 11/06/2024 09:28:42
[2024-11-06 07:46] VITALS: BP 114/52; PULSE 111; RESP 18; TEMP 37.3; O2SAT 98; BMI 26.8
[2024-11-06 08:39] LABS: Influenza A PCR POSITIVE (Negative); Influenza B PCR NEGATIVE (Negative); Resp Syncy Virus RNA Qual PCR NEGATIVE (Negative); SARS COV2 PCR INHOUSE NEGATIVE (Negative)
--- NOTE | 2024-11-06 08:48 | ED_ITS ---
HPI - General Adult General Chief complaint: Fever Stated complaint: headache vomiting Time Seen by Provider: 11/06/24 08:03 Source: patient Mode of arrival: ambulatory Limitations: no limitations History of Present Illness ED Provider: DR. 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 Patient also is complaining of burning chest sensation with coughing.. Related Data Home Medications ?Medication ?Instructions ?Recorded ?Confirmed bupropion HCl 300 mg 24 hr tablet, 300 mg PO QAM 01/13/23 01/14/23 extended release lidocaine 5 % topical patch 1 patch topical QAM 06/23/23 eszopiclone 3 mg tablet 3 mg PO BEDTIME PRN insomnia 05/30/24 Previous Rx's ?Medication ?Instructions ?Recorded metoprolol succinate 25 mg 25 mg PO DAILY #30 tabs 11/13/22 tablet,extended release 24 hr omeprazole 20 mg capsule,delayed 20 mg PO DAILY #90 caps 05/30/24 release acetaminophen 500 mg tablet 1,000 mg (2 x 500 mg) PO QID PRN 06/04/24 (Tylenol Extra Strength) pain #30 tabs ibuprofen 600 mg tablet 600 mg PO Q6H PRN fever or pain 06/04/24 #30 tabs oseltamivir 75 mg capsule (Tamiflu) 75 mg PO Q12H 5 days #10 caps 11/06/24 Allergies Allergy/AdvReac Type Severity Reaction Status Date / Time aspirin [Aspirin] Allergy Unknown SWELLING Verified 11/06/24 07:48 sea food Allergy Unknown Anaphylaxis Uncoded 05/30/24 11:31 Review of Systems Review of Systems: All other systems are reviewed and are negative Constitutional: Reports as per HPI and Reports no additional constitutional complaints Eyes: Reports as per HPI and Reports no additional eye complaints Reports system reviewed and no additional complaints, except as documented Cardiovascular: Reports as per HPI and Reports no additional cardiovascular complaints Respiratory: Reports as per HPI and Reports no additional respiratory complaints Gastrointestinal: Reports as per HPI and Reports no additional gastrointestinal complaints Genitourinary: Reports no additional female genitourinary complaints Musculoskeletal: Reports no additional musculoskeletal complaints Skin/Breast: Reports system reviewed and no additional complaints, except as docu Psychiatric: Reports no additional psychiatric complaints Endocrine: Reports no additional endocrine complaints Hematologic/Lymphatic: Reports no additional hematologic/lymphatic complaints Allergic/Immunologic: Reports no additional allergic/immunologic complaints Reports system reviewed and no additional complaints, except as documented and Reports Abnormal speech present [facility] Past Medical History Medical History Non-ST elevation [place] (NSTEMI) Scoliosis Sacroiliitis Spondylosis of lumbar region without myelopathy or radiculopathy Scoliosis of thoracolumbar spine Surgical History History of breast augmentation Family History Family History Mother Breast cancer Father Cardiac arrhythmia Father Cardiac arrhythmia Social History Social History Alcohol intake: never Patient Tobacco Use Status: Former Tobacco user Advance Directives: No Advance Directives Information Provided: Yes service: No Current occupational status: employed Physical Exam ED Vital Signs: Vital Signs - 24 hr 11/06/24 07:46 Temperature 99.2 F Pulse Rate 111 H Respiratory Rate 18 Blood Pressure 114/52 L Pulse Oximetry 98 Oxygen Delivery Method Room Air BMI result Body Mass Index 26.8 Vital signs have been reviewed and appear to be correct. Blood pressure elevated. Heart rate normal. Respiratory rate normal. Temperature normal. Oxygen saturation normal. Appearance: Alert. Oriented X3. No acute distress. Head: Normal external exam. Normocephalic. Atraumatic. No Frazier signs noted. No raccoon eyes noted Eyes: PERRLA. EOMI. Conjunctiva and sclera normal. Eyelids normal. ENT: TM's Normal. Pharynx normal. Uvula midline. Moist mucous membranes. No trismus noted. No drooling noted. No muffled voice noted. Neck: Normal inspection. Neck supple. FROM. No adenopathy. Thyroid Normal. No meningeal signs. No neck mass noted. CVS: Normal heart rate and rhythm. Heart sound normal. No murmurs noted. Pulses normal throughout. Respiratory: No respiratory distress. Painless inspiration. Breath sounds normal. No wheezes/rales/rhonchi noted. Chest nontender. No accessory muscle usage noted or decreased air movement noted. Abdomen: Soft and nontender. Bowel sounds normal in all 4 quadrants. No distention noted. No organomegaly noted. No visible injury noted. Back: No CVA tenderness. Full range of motion noted. Skin: Skin warm and dry. Normal skin color. Normal skin turgor. No rashes/lesions/lacerations noted. Extremities: No lower extremity edema. Extremities exhibit normal range of motion. Extremities nontender. Neuro: Oriented X 3. Cranial nerve exam: II-XII are grossly intact No motor deficit. No sensory deficit. Reflexes normal. Course Reevaluation(s) Reevaluation #1: Influenza a started within the last 2 days, may benefit from Tamiflu. Complaining of chest burning sensation x2 days will check EKG, troponin. Time: 08:51 Reevaluation #2: Negative workup for ACS. Time: 10:00 Medical Decision Making Differential Diagnosis Differential Diagnoses: The differential diagnosis associated with the presentation includes (Influenza, COVID-19, RSV, ACS.) Admission/Observation Consideration of admission/observation: Escalation of care including admission/observation considered Lab Data MDM Lab Attestation statement: I reviewed the patient's lab results. Labs: Lab Results 11/06/24 Range/Units 07:53 Influenza Type A (PCR) POSITIVE A (Negative) Influenza Type B (PCR) NEGATIVE (Negative) RSV RNA Qual (PCR) NEGATIVE (Negative) SARS-CoV-2 RNA (RT-PCR) NEGATIVE (Negative) Independent Interpretation I performed an independent interpretation of an: EKG and Plain X-Ray Radiology Impression Discussion of test interpretation with radiology: I have reviewed the radiologist's reading. Discharge Plan Discharge Clinical Impression: Influenza A Patient Disposition: Home, Self-Care Instructions: Influenza (ED) Additional Instructions: Use face mask at all times. Frequent hand wash. Keep social distance and self quarantine for 3 days. Drink plenty of fluids. Prescriptions: New oseltamivir [Tamiflu] 75 mg capsule 75 mg PO Q12H 5 Days Qty: 10 0RF No Action metoprolol succinate 25 mg Tablet Extended Release 24 Hr 25 mg PO DAILY Qty: 30 0RF Protocol: Hold for SBP/HR < HOLD for SBP < : 90 HOLD for HR < : 60 bupropion HCl 300 mg tablet extended release 24 hr 300 mg PO QAM acetaminophen [Tylenol Extra Strength] 500 mg tablet 1,000 mg PO QID PRN (Reason: pain) Qty: 30 0RF ibuprofen 600 mg tablet 600 mg PO Q6H PRN (Reason: fever or pain) Qty: 30 0RF lidocaine 5 % adhesive patch,medicated 1 patch topical QAM eszopiclone 3 mg tablet 3 mg PO BEDTIME PRN (Reason: insomnia) omeprazole 20 mg capsule,delayed release(DR/EC) 20 mg PO DAILY Qty: 90 0RF Referrals: Turner Hernandez MD [Primary Care Provider] - Stand Alone Forms: Work/School Release Print Language: Uzbek
--- NOTE | 2024-11-06 08:50 | ECG_ITS ---
Test Reason : CHEST PAIN Blood Pressure : */* mmHG Vent. Rate : 95 BPM Atrial Rate : 95 BPM P-R Int : 142 ms QRS Dur : 82 ms QT Int : 354 ms P-R-T Axes : 61 42 53 degrees QTcB Int : 444 ms Normal sinus rhythm Normal ECG When compared with ECG of 31-Jan-2024 22:51, Premature ventricular complexes are no longer Present Referred By: Najma Maurer Electronically Signed By: Bacilio Boyer
[2024-11-06 08:52] VITALS: BP 128/55; PULSE 106; RESP 16; TEMP 36.9; O2SAT 96
[2024-11-06 09:13] LABS: MANUAL DIFF FLAG NO
[2024-11-06 09:14] LABS: Basophils Percent Auto 0.2 % (0-2); Eosinophils Percent Auto 0.2 % (0-4); Hematocrit 35.7 % (37.0-47.0); Hemoglobin 11.5 g/dl (12.0-16.0); Imm Gran Abs Auto 0.03 X10*3/uL (0.00-0.03); Imm Gran Pct Auto 0.5 % (0.0-0.4); Lymphocytes Absolute Auto 0.7 X10*3/uL (1.2-4.9); Lymphocytes Percent Auto 13.1 % (20-40); Mean Corpuscular HGB Conc 32.2 g/dl (31.0-35.0); Mean Corpuscular Hemoglobin 24.6 pg (27.0-33.0); Mean Corpuscular Volume 76.4 fL (80.0-98.0); Mean Platelet Volume 9.2 fL (9.4-12.3); Monocytes Absolute Auto 0.6 X10*3/uL (0.1-1.2); Monocytes Percent Auto 10.4 % (2-11); Neutrophils Absolute Auto 4.2 x10*3/uL (2.0-8.3); Neutrophils Percent Auto 75.6 % (45-73); Platelet Count 320 X10*3/uL (160-400); Red Blood Count 4.67 X10*6/uL (4.20-5.50); Red Cell Distribution Width 16.4 % (11.0-16.0); White Blood Count 5.6 X10*3/uL (4.8-10.8)
[2024-11-06 09:26] LABS: Anion Gap 14 (12-20); Blood Urea Nitrogen 11 mg/dL (9-16); Calcium 8.5 mg/dL (8.4-10.2); Carbon Dioxide 21 mmol/L (22-29); Chloride 105 mmol/L (96-108); Creatinine Clr Calc Pharmacy 107.3; Estimated Glomerular Filt Rate > 60; Glucose Random 106 mg/dL (60-115); Potassium 3.8 mmol/L (3.3-5.1); Sodium 136 mmol/L (135-145)
[2024-11-06 10:14] LABS: Troponin-I High Sensitivity < 2.7 ng/L (<3.5-17.0)
[2024-11-06 13:22] VITALS: BP 113/61; PULSE 96; TEMP 37.2; O2SAT 100
[2024-11-06] MEDS: Ondansetron ODT 4 MG TAB.RAPDIS TRANSLINGU (14:02)
[2024-11-06 14:07] VITALS: BP 113/61; PULSE 96; RESP 16; TEMP 37.2; O2SAT 100
== END 2024-11-06 14:07 | disposition home or self-care (01) ==
PROVIDERS: Emergency Provider Emergency Medicine; PCP Internal Medicine
DX: J10.1 Influenza due to other identified influenza virus with other respiratory manifestations (principal); R50.9 Fever, unspecified; R11.2 Nausea with vomiting, unspecified; R51.9 Headache, unspecified; R09.81 Nasal congestion; M79.10 Myalgia, unspecified site; Z87.891 Personal history of nicotine dependence; Z03.818 Encounter for observation for suspected exposure to other biological agents ruled out
CPT/HCPCS: 0241U; 36415; 71045; 80048; 84484; 85025; 93005; 99284

== ENCOUNTER → 2024-11-06 08:50 | Outpatient (BNV) | payer MEDICAID, SELFPAY | PROVIDERS: Emergency Provider Emergency Medicine; PCP Internal Medicine; Visit Provider Internal Medicine Cardiovascular Disease | DX: R07.9 Chest pain, unspecified (principal) | CPT/HCPCS: 93010 ==

== ENCOUNTER → 2024-11-06 08:53 | Outpatient (BNV) | payer MEDICAID, SELFPAY | PROVIDERS: Emergency Provider Emergency Medicine; PCP Internal Medicine; Visit Provider Radiology Vascular & Interventional Radiology | DX: R05.9 Cough, unspecified (principal); R06.02 Shortness of breath | CPT/HCPCS: 71045 ==

== ENCOUNTER 2024-11-22 | Outpatient (REF) | payer MEDICAID, SELFPAY ==
[2024-11-24 09:07] LABS: Adenovirus PCR Not Detected (Not Detect.); Bordetella parapertussis PCR Not Detected (Not Detect.); Bordetella pertussis PCR Not Detected (Not Detect.); Chlamydia pneumoniae PCR Not Detected (Not Detect.); Coronavirus 229E PCR Not Detected (Not Detect.); Coronavirus HKU1 PCR Not Detected (Not Detect.); Coronavirus NL63 PCR Not Detected (Not Detect.); Coronavirus OC43 PCR Not Detected (Not Detect.); Human metapneumovirus PCR Not Detected (Not Detect.); Influenza A PCR Not Detected (Not Detect.); Influenza B PCR Not Detected (Not Detect.); Mycoplasma pneumoniae PCR Not Detected (Not Detect.); Parainfluenza 1 PCR Not Detected (Not Detect.); Parainfluenza 2 PCR Not Detected (Not Detect.); Parainfluenza 3 PCR Not Detected (Not Detect.); Parainfluenza 4 PCR Not Detected (Not Detect.); RSV PCR Not Detected (Not Detect.); Rhino/Enterovirus PCR Not Detected (Not Detect.); SARS-CoV-2 PCR Not Detected (Not Detect.)
== END 2024-11-22 00:01 | disposition home or self-care (01) ==
LOC: HO.HHCLNP
PROVIDERS: Visit Provider Family Medicine
DX: R05.9 Cough, unspecified (principal)
CPT/HCPCS: 87633

== ENCOUNTER 2025-04-05 17:42 | Emergency (ER) | payer MEDICAID, SELFPAY ==
--- NOTE | ~2025-04-05 | XR_ITS ---
CLINICAL HISTORY: pain --- Additional Notes or Special Instructions: constipation 1 view abdomen Comparison: None provided Findings: No pneumoperitoneum or pneumatosis. No abnormal calcifications. No acute fractures. IMPRESSION: The bowel gas pattern is normal. No significant stool burden. This document has been electronically signed by: Janiya Vincent MD on 04/05/2025 23:53:35
[2025-04-05 17:45] VITALS: BP 150/51; PULSE 77; RESP 16; TEMP 36.2; O2SAT 96; BMI 27.7
--- NOTE | 2025-04-05 17:45 | ED_ITS ---
HPI - General Adult General Chief complaint: Abdominal Pain Stated complaint: abd pain Time Seen by Provider: 04/05/25 22:22 Source: patient Limitations: language barrier History of Present Illness ED Provider: Christina Ramos PA-C HPI narrative: 39-year-old female with a history of IBS, chronic diarrhea, chronic back pain, migraine, obesity, who presents with the abdominal pain times 3-4 days. Patient has chronic abdominal pain degree, she alternates between having diarrhea and constipation. Over the past few days, she has developed bloating, epigastric burning, nausea and minimal bowel movements. The patient is still passing gas. Denies fever. Related Data Home Medications ?Medication ?Instructions ?Recorded ?Confirmed bupropion HCl 300 mg 24 hr tablet, 300 mg PO QAM 01/1301/14/23 extended release lidocaine 5 % topical patch 1 patch topical QAM eszopiclone 3 mg tablet 3 mg PO BEDTIME PRN insomnia 05/30/24 Previous Rx's ?Medication ?Instructions ?Recorded metoprolol succinate 25 mg 25 mg PO DAILY #30 tabs tablet,extended release 24 hr acetaminophen 500 mg tablet 1,000 mg (2 x 500 mg) PO Q ID PRN 06/04/24 (Tylenol Extra Strength) pain #30 tabs ibuprofen 600 mg tablet 600 mg PO Q6H PRN fever or p ain 06/04/24 #30 tabs oseltamivir 75 mg capsule (Tamiflu) 75 mg PO Q12H 5 da ys #10 caps 11/06/24 omeprazole 20 mg capsule,delayed 20 mg PO DAILY #90 ca ps 02/22/25 release ondansetron HCl 4 mg tablet 4 mg PO Q8H PRN nausea and 04/06/25 vomiting #10 tabs sucralfate 100 mg/mL oral 10 ml PO QID PRN indigestion #300 04/06/25 suspension (Carafate) mL Allergies Allergy/AdvReac Type Severity Reaction Status Date / Time aspirin (Aspirin) Allergy Unknown SWELLING Verified 04/05/25 17:48 sea food Allergy Unknown Anaphylaxis Uncoded 05/30/24 11:31 Review of Systems 2 Review of Systems: Yes all other systems are reviewed and are negative Constitutional: Constitutional: Denies fatigue and Denies fever(s) Cardiovascular: Cardiovascular: Denies chest pain and Denies dyspnea Respiratory: Respiratory: Denies cough and Denies dyspnea Gastrointestinal: Gastrointestinal: Reports abdominal pain, Reports constipation, Reports dyspepsia, Reports heartburn, Reports nausea and Denies vomiting Endocrine: Endocrine: Denies fatigue [facility] Past Medical History Attestation statement: The following information was validated with the patient. Medical History Non-ST elevation [place] (NSTEMI) Scoliosis Sacroiliitis Spondylosis of lumbar region without myelopathy or radiculopathy Scoliosis of thoracolumbar spine Surgical History History of breast augmentation Family History Family History Mother Breast cancer Father Cardiac arrhythmia Father Cardiac arrhythmia Social History Social History Alcohol intake: never Patient Tobacco Use Status: Former Tobacco user service: No Current occupational status: employed Physical Exam ED Vital Signs: Vital Signs - 24 hr 04/05/25 17:45 04/05/25 22:11 04/06/25 01:05 Temperature 97.2 F 98.7 F 97.3 F Pulse Rate 77 71 57 Respiratory Rate 16 16 16 Blood Pressure 150/51 H 138/66 117/51 L Pulse Oximetry 96 97 98 Oxygen Delivery Method Room Air Room Air Room Air 04/06/25 01:29 Temperature 97.3 F Pulse Rate 57 Respiratory Rate 16 Blood Pressure 117/51 L Pulse Oximetry 98 Oxygen Delivery Method Room Air BMI result Body Mass Index 27.7 Const Other: Alert well-appearing Orientation/consciousness: patient oriented x3 Resp Effort & Inspection: normal respiratory effort Cardio Other: Normal peripheral perfusion GI Other: Abdomen is soft, nondistended, obese, generalized tenderness to palpation over upper abdomen no guarding Skin Other: Warm dry no rash Neuro General: patient oriented x3, gait normal, no focal motor deficits and CN's II- XI intact bilaterally Psych Other: Cooperative Course Course Course Narrative: RME, this is a rapid medical exam performed by Yuri Potts please refer to primary provider for complete H&P- 39-year-old female presents for evaluation of upper abdominal pain. Symptoms have been ongoing for some time but worsening since last night. She had associated nausea. Plan for labs, urinalysis Medications Administered Discontinued Medications Generic Name Dose Route Start Last Admin Trade Name Parth PRN Reason Stop Dose Admin Sucralfate 1 gm 04/06/25 01:15 04/06/25 01:22 Sucralfate Oral Suspension 1 Gm/10 Ml Oral.Susp PO 04/06/25 01:16 1 gm ONCE ONE Administration Medical Decision Making Medical Decision Making [facility] Narrative: 39-year-old female with a history of IBS, chronic diarrhea, chronic back pain, migraine, obesity, who presents with the abdominal pain times 3-4 days. Patient has chronic abdominal pain degree, she alternates between having diarrhea and constipation. Over the past few days, she has developed bloating, epigastric burning, nausea and minimal bowel movements. The patient is still passing gas. Denies fever. Problem: IBS History: Per patient I have considered the following differential diagnoses: Biliary colic, cholecystitis, gastritis, GERD, constipation, SBO Plan: Patient here with vague symptoms, she does have IBS. Her exam was benign. Her labs are also completely normal, and she has had symptoms for several days. She alternates between having constipation diarrhea, perhaps she is now constipated which is exacerbating reflux symptoms. We will give Carafate, and obtain a KUB. To note she does not have any obstructive symptoms at this time. I have independently reviewed the following tests: Labs: No leukocytosis, not anemic, no electrolyte abnormality, liver function tests are baseline, not , urine not in fact KUB:1 view abdomen Comparison: None provided Findings: No pneumoperitoneum or pneumatosis. No abnormal calcifications. No acute fractures. IMPRESSION: The bowel gas pattern is normal. No significant stool burden. Lab Data 04/05/25 17:56 04/05/25 17:56 Labs: Lab Results 04/05/25 04/05/25 Range/Units 17:56 23:06 WBC 8.0 (4.8-10.8) X10*3/uL RBC 4.49 (4.20-5.50) X10*6/uL Hgb 11.2 L (12.0-16.0) g/dl Hct 35.2 L (37.0-47.0) % MCV 78.4 L (80.0-98.0) fL MCH 24.9 L (27.0-33.0) pg MCHC 31.8 (31.0-35.0) g/dl RDW 16.1 H (11.0-16.0) % Plt Count 331 (160-400) X10*3/uL MPV 9.3 L (9.4-12.3) fL Immature Gran % (Auto) 0.4 (0.0-0.4) % Neut % (Auto) 54.0 (45-73) % Lymph % (Auto) 34.2 (20-40) % [place] % (Auto) 7.1 (2-11) % Eos % (Auto) 3.3 (0-4) % Baso % (Auto) 1.0 (0-2) % Lymph # (Auto) 2.7 (1.2-4.9) X10*3/uL [place] # (Auto) 0.6 (0.1-1.2) X10*3/uL Eos # (Auto) 0.3 (0.0-0.4) X10*3/uL Baso # (Auto) 0.1 (0.0-0.2) X10*3/uL Abs Immat Gran (auto) 0.03 (0.00-0.03) X10*3/uL Absolute Neuts (auto) 4.3 (2.0-8.3) x10*3/uL Absolute Nucleated RBC 0.000 (0.0-0.012) X10*3/uL Nucleated RBC % (auto) 0.0 (0.0-0.2) /100WBC Sodium 138 (135-145) mmol/L Potassium 3.8 (3.3-5.1) mmol/L Chloride 106 (96-108) mmol/L Carbon Dioxide 25 (22-29) mmol/L Anion Gap 11 L (12-20) BUN 12 (9-16) mg/dL Creatinine 0.89 (0.5-1.4) mg/dL Estim Creat Clear Calc 90.6 Estimated GFR > 60 Random Glucose 84 (60-115) mg/dL Lactic Acid 0.7 (0.5-2.0) mmol/L Calcium 8.7 (8.4-10.2) mg/dL Total Bilirubin 0.3 (0.0-1.0) mg/dL Direct Bilirubin 0.1 (0.0-0.5) mg/dL AST 57 H (5-31) U/L ALT 98 H (0-31) U/L Alkaline Phosphatase 70 (39-117) U/L Total Protein 6.9 (6.5-8.0) g/dL Albumin 4.3 (3.5-5.0) g/dL Lipase 30 (8-78) U/L Beta HCG, Quant < 2 mIU/mL Urine Color Yellow Urine Appearance Cloudy Urine pH 6.5 (5.0-9.0) Ur Specific [place] 1.025 (1.005-1.025) Urine Protein Negative (Neg-Trace) mg/dL Urine Glucose (UA) Negative (Negative) mg/dL Urine Ketones Negative (Negative) mg/dL Urine Blood Trace H (Negative) Urine Nitrite Negative (Negative) Ur Leukocyte Esterase Small (1+) H (Negative) Urine RBC 0-2 (0-2) /HPF Urine WBC 0-5 (0-5) /HPF Ur Squamous Epith Cells 11-20 (0-2) /HPF Urine Bacteria 1+ (None Seen) Hyaline Casts 0-2 (0-2) /LPF Discharge Plan Discharge Clinical Impression: GERD (gastroesophageal reflux disease), Constipation, Irritable bowel syndrome (IBS) Patient Disposition: Home, Self-Care Instructions: Irritable Bowel Syndrome (ED), Constipation (ED), GERD (Gastroesophageal Reflux Disease) (ED) Additional Instructions: All of your screening labs were normal the urine is not infected. The x-ray of the abdomen reveals that you have gas and some degree of stool in the abdomen. See home care instructions. Not having regular bowel habits can cause acid reflux symptoms, it can cause nausea and abdominal bloating. I see you have a diagnosis of IBS, it is important to try to maintain regular bowel habits. I would use [id number] MiraLax as needed, for when you are not having normal bowel movements. Use the Carafate as needed for upper abdominal discomfort, uses Zofran as needed for nausea. In regard to acid reflux symptoms, eating small more frequent meals throughout the day can help curb symptoms. Do not eat 3 hours before bed. Diet and weight loss are also instrumental in helping to alleviate symptoms. Follow up with your primary care provider as needed. Prescriptions: New sucralfate [Carafate] 100 mg/mL suspension 10 ml PO QID PRN (Reason: indigestion) Qty: 300 0RF Rx Instructions: swish in mouth and swallow; use after food/drink ondansetron HCl 4 mg tablet 4 mg PO Q8H PRN (Reason: nausea and vomiting) Qty: 10 0RF No Action omeprazole 20 mg capsule,delayed release(DR/EC) 20 mg PO DAILY Qty: 90 0RF metoprolol succinate 25 mg Tablet Extended Release 24 Hr 25 mg PO DAILY Qty: 30 0RF Protocol: Hold for SBP/HR < HOLD for SBP < : 90 HOLD for HR < : 60 bupropion HCl 300 mg tablet extended release 24 hr 300 mg PO QAM oseltamivir [Tamiflu] 75 mg capsule 75 mg PO Q12H 5 Days Qty: 10 0RF acetaminophen [Tylenol Extra Strength] 500 mg tablet 1,000 mg PO QID PRN (Reason: pain) Qty: 30 0RF ibuprofen 600 mg tablet 600 mg PO Q6H PRN (Reason: fever or pain) Qty: 30 0RF lidocaine 5 % adhesive patch,medicated 1 patch topical QAM eszopiclone 3 mg tablet 3 mg PO BEDTIME PRN (Reason: insomnia) Interventions: ED Discharge Assessment Last Done: 04/06/25 01:29 Discharge Date/Time: 04/06/25 01:31 Print Language: Faroese
[2025-04-05 18:01] LABS: MANUAL DIFF FLAG NO
[2025-04-05 18:03] LABS: Basophils Absolute Auto 0.1 X10*3/uL (0.0-0.2); Eosinophils Absolute Auto 0.3 X10*3/uL (0.0-0.4); Eosinophils Percent Auto 3.3 % (0-4); Hematocrit 35.2 % (37.0-47.0); Hemoglobin 11.2 g/dl (12.0-16.0); Imm Gran Abs Auto 0.03 X10*3/uL (0.00-0.03); Imm Gran Pct Auto 0.4 % (0.0-0.4); Lymphocytes Absolute Auto 2.7 X10*3/uL (1.2-4.9); Lymphocytes Percent Auto 34.2 % (20-40); Mean Corpuscular HGB Conc 31.8 g/dl (31.0-35.0); Mean Corpuscular Hemoglobin 24.9 pg (27.0-33.0); Mean Corpuscular Volume 78.4 fL (80.0-98.0); Mean Platelet Volume 9.3 fL (9.4-12.3); Monocytes Absolute Auto 0.6 X10*3/uL (0.1-1.2); Monocytes Percent Auto 7.1 % (2-11); Neutrophils Absolute Auto 4.3 x10*3/uL (2.0-8.3); Platelet Count 331 X10*3/uL (160-400); Red Blood Count 4.49 X10*6/uL (4.20-5.50); Red Cell Distribution Width 16.1 % (11.0-16.0)
[2025-04-05 18:20] LABS: Lactic Acid 0.7 mmol/L (0.5-2.0)
[2025-04-05 18:23] LABS: Alanine Aminotransferase 98 U/L (0-31); Albumin Level 4.3 g/dL (3.5-5.0); Alkaline Phosphatase 70 U/L (39-117); Anion Gap 11 (12-20); Aspartate Amino Transferase 57 U/L (5-31); Bilirubin Direct 0.1 mg/dL (0.0-0.5); Bilirubin Total 0.3 mg/dL (0.0-1.0); Blood Urea Nitrogen 12 mg/dL (9-16); Calcium 8.7 mg/dL (8.4-10.2); Carbon Dioxide 25 mmol/L (22-29); Chloride 106 mmol/L (96-108); Creatinine Clr Calc Pharmacy 90.6; Estimated Glomerular Filt Rate > 60; Glucose Random 84 mg/dL (60-115); Lipase 30 U/L (8-78); Potassium 3.8 mmol/L (3.3-5.1); Sodium 138 mmol/L (135-145); Total Protein 6.9 g/dL (6.5-8.0)
[2025-04-05 18:31] LABS: HCG Quantitative < 2 mIU/mL
[2025-04-05 22:11] VITALS: BP 138/66; PULSE 71; RESP 16; TEMP 37.1; O2SAT 97
[2025-04-05 23:13] LABS: Appearance Urine Cloudy; Color Urine Yellow; Glucose Urine UA Negative (Negative); Leukocyte Esterase Urine Small (1+) (Negative); Nitrite Urine Negative (Negative); PH 6.5 (5.0-9.0); Specific Gravity - Urine 1.025 (1.005-1.025); UMIC TRIGGER UACC YES; Urine Blood Trace (Negative); Urine Ketones Negative (Negative); Urine Protein Negative (Neg-Trace)
[2025-04-05 23:24] LABS: Bacteria Urine 1+ (None Seen); Hyaline Casts Urine 0-2 /LPF (0-2); RBC Urine 0-2 /HPF (0-2); UACC Culture Trigger YES; WBC Urine 0-5 /HPF (0-5)
[2025-04-06 01:05] VITALS: BP 117/51; PULSE 57; RESP 16; TEMP 36.3; O2SAT 98
[2025-04-06] MEDS: Sucralfate Oral Suspension 1 GM/10 ML ORAL.SUSP PO (01:22)
[2025-04-06 01:29] VITALS: BP 117/51; PULSE 57; RESP 16; TEMP 36.3; O2SAT 98
== END 2025-04-06 01:31 | disposition home or self-care (01) ==
PROVIDERS: Physician Assistant; Emergency Provider Emergency Medicine; PCP Internal Medicine
DX: K21.9 Gastro-esophageal reflux disease without esophagitis (principal); K58.9 Irritable bowel syndrome, unspecified; K59.00 Constipation, unspecified; R10.10 Upper abdominal pain, unspecified
CPT/HCPCS: 36415; 74018; 80048; 80076; 81001; 83605; 83690; 84702; 85025; 87086; 87147; 99283; 99284

== ENCOUNTER → 2025-04-05 22:51 | Outpatient (BNV) | payer MEDICAID, SELFPAY | PROVIDERS: Emergency Provider Emergency Medicine; PCP Internal Medicine; Visit Provider Student in an Organized Health Care Education/Training Program | DX: R10.9 Unspecified abdominal pain (principal) | CPT/HCPCS: 74018 ==

== ENCOUNTER 2025-04-27 10:28 | Outpatient (REF) | payer MEDICAID, SELFPAY ==
--- OUTSIDE RECORDS SUMMARY | 2025-04-27 11:09 | XMS_ITS | Encounter Summary ---
Author Organization [employer] Address [address] [place] [address] Care Team Providers Care Dairy Products Maker Name Role Phone Turner Hernandez MD Primary Care Prov ider Encounter Details Date Type Department Care Team (Latest Contact Info) Description 04/24/2025 Travel Social History Tobacco Use Types Packs/Day Years Used Date Smoking Tobacco: Every Day Cigarettes 0.3 10 Passive Smoke Exposure: Current Smokeless Tobacco: Never Alcohol Use Standard Drinks/Week Comments Yes 0 (1 standard drink = 0.6 oz pur e alcohol) Depression Answer Date Recorded Patient Health Questionnaire-9 Score 4 04/24/2025 Patient Health Questionnaire-9 Score 4 04/24/2025 Last PHQ-9: Questionnaire Data Not on file 0 04/24/2025 Housing Stability Answer Date Recorded What is your housing situation today? I have julisa helms 04/14/[address] you li ve. Do you have problems with any of the following? None of the above 04/14/2025 Food Insecurity Answer Date Recorded Within the past 12 months, y ou worried that your food would run out before you got money to buy more: Never True 04/14/2025 Within the past 12 months,th e food you bought just didn't last and you didn't have enough money to get more: Never True Transportation Answer Date Recorded In the past 12 months, has l ack of transportation kept you from medical appts, meetings, work or from getting things needed for daily living? No 04/14/2025 Utilities Answer Date Recorded In the past 12 months, has t he electric, gas, oil or water company threatened to shut off services in your home? No 04/14/2025 Depression Answer Date Recorded Patient Health Questionnaire-2 Score 0 04/24/2025 Internet Access Answer Date Recorded Internet Access Q1 Yes 04/14/2025 Internet Access Q2 Not on file 04/14/2025 Comments Unknown Sex and Gender Information Value Date Recorded Sex Assigned at Female 08/18/2022 10:20 AM EDT Legal Sex Female 10:20 AM EDT Gender Identity Female 08/18/2022 10:20 AM EDT Sexual Orientation Choose not to disclose 2021 10:20 AM EDT documented as of this encounter Functional Status * Over the past 2 weeks, how often have you been bothered by any of the following problems? Question Answer Date of Assessment Author Patient Health Questionnaire -2 Score 0 04/24/2025 2:22 PM EDT Lea Bhatti MA * Little interest or pleasure in doing things Answer Date of Assessment Author Not at all 04/24/2025 2:22 PM EDT Rebeca Bhatti MA * Feeling down, depressed, or hopeless Answer Date of Assessment Author Not at all 04/24/2025 2:22 PM EDT Rebeca Bhatti MA * Trouble falling or staying asleep, or sleeping too much Answer Date of Assessment Author Nearly every day 04/24/2025 2:22 PM EDT Rebeca Quevedo MA * Feeling tired or having little energy Answer Date of Assessment Author Several days 04/24/2025 2:22 PM EDT Rebeca Bhatti MA * Poor appetite or overeating Answer Date of Assessment Author Not at all 04/24/2025 2:22 PM EDT Rebeca Bhatti MA * Feeling bad about yourself - or that you are a failure or have let yourself or your family down Answer Date of Assessment Author Not at all 04/24/2025 2:22 PM EDT Rebeca Bhatti MA * Trouble concentrating on things, such as reading the newspaper or watching television Answer Date of Assessment Author Not at all 04/24/2025 2:22 PM EDT Rebeca Bhatti MA * Moving or speaking so slowly that other people could have noticed? Or the opposite - being so fidgety or restless that you have been moving around a lot more than usual. Answer Date of Assessment Author Not at all 04/24/2025 2:22 PM EDT Rebeca Bhatti MA * Thoughts that you would be better off or hurting yourself in some way Answer Date of Assessment Author Not at all 04/24/2025 2:22 PM EDT Rebeca Bhatti MA * Patient Health Questionnaire-9 Score Answer Date of Assessment Author 4 04/24/2025 2:22 PM EDT Rebeca Bhatti MA * How difficult have these problems made it for you to do your work, take care of things at home, or get along with other people? Answer Date of Assessment Author Not difficult at all 04/24/2025 2:22 PM EDT Rebeca Jon MA documented as of this encounter Plan of Treatment Not on file documented as of this encounter Visit Diagnoses Not on filedocumented in this encounter Additional Health Concerns Assessment Noted Time PHQ-9 Depression Total Score: 4 04/24/20 25 2:22 PM EDT documented as of this encounter Care Teams Dairy Products Maker Relationship Specialty Start Date End Date Turner Hernnadez MD [address] [place] [id number] PCP - General Internal Medicine 03/06/20 documented as of this encounter
[2025-04-27 16:26] LABS: Alanine Aminotransferase 140 U/L (0-31); Albumin Level 4.2 g/dL (3.5-5.0); Alkaline Phosphatase 61 U/L (39-117); Anion Gap 11 (12-20); Aspartate Amino Transferase 75 U/L (5-31); Blood Urea Nitrogen 10 mg/dL (9-16); Calcium 8.7 mg/dL (8.4-10.2); Carbon Dioxide 24 mmol/L (22-29); Chloride 107 mmol/L (96-108); Cholesterol 148 mg/dL (<200); Estimated Glomerular Filt Rate > 60; HDL Cholesterol 36 mg/dL (>40); Potassium 4.1 mmol/L (3.3-5.1); Sodium 138 mmol/L (135-145); Total Protein 7.0 g/dL (6.5-8.0); Triglycerides 92 mg/dL (<150)
== END 2025-04-27 10:29 | disposition home or self-care (01) ==
LOC: HO.CHCLDS 10:28
PROVIDERS: Visit Provider Internal Medicine
DX: R63.5 Abnormal weight gain (principal)
CPT/HCPCS: 36415; 80053; 80061; 84443

== ENCOUNTER 2025-05-16 15:02 | Outpatient (REF) | payer MEDICAID, SELFPAY ==
--- OUTSIDE RECORDS SUMMARY | 2025-05-16 15:54 | XMS_ITS | Clinical Summary ---
Author Organization [employer] Address [address] [facility] [address] [place] [address] Care Team Providers Care Debt Collector Name Role Phone Turner Hernandez MD Primary Care Prov ider Allergies Active Allergy Reactions Criticality Noted Date Comments Aspirin Swelling 05/22/2015 Other 10/01/2022 Seafood Shellfish Allergy Anaphylaxis,Swelling High 01/15/20 23 Medications ProAir HFA 108 (90 Base) MCG/ACT inhaler INHALE 2 PUFF BY INHALATION ROUTE EVERY 4 - 6 HOURS NEEDED NEEDED FOR SHORT OF BREATH 022 Active eszopiclone (Lunesta) 3 MG tablet TAKE 1 TABLET BY MOUTH EVERY DAY AT BEDTIME NEEDED FOR SLEEP 022 Active metoprolol succinate XL (Toprol-XL) 25 MG 24 hr tabletIndications:H /O supraventricular tachycardia Take 1 tablet (25 mg) by mouth in the morning. Do not crush or chew. 90 tablet 3 023 Active lidocaine (Lidoderm) 5 % patch APPLY 1 PATCH IN THE MORNING REMOVE AND DISARD PATCH WITHIN 12 HOURS OR DIRECTED 90 patch 025 Active cyclobenzaprine (Flexeril) 10 MG tablet TAKE 1 TABLET BY MOUTH THREE TIMES DAILY FOR 10 DAYS 30 tablet 025 Active omeprazole (PriLOSEC) [address] capsuleIndications: Gastroesophageal reflux disease without esophagitis TAKE 1 CAPSULE BY MOUTH BEFORE BREAKFAST. DO NOT CRUSH OR CHEW. 90 capsule 3 025 Active Omeprazole 20 MG tablet delayed-release Take 1 tablet (20 mg) by mouth 2 times daily. 60 tablet 3 025 Active naproxen (Naprosyn) 500 MG tabletIndications:M igraine without aura and without status migrainosus, not intractable TAKE 1 TABLET BY MOUTH TWICE A DAY NEEDED 60 tablet 025 Active topiramate (Topamax) 50 MG tablet Take 1 tablet (50 mg) by mouth Once per day. 60 tablet 3 025 Active dicyclomine (Bentyl) 10 MG capsule Take 1 capsule (10 mg) by mouth 4 times daily. 120 capsule 11 025 2025 Active naproxen (Naprosyn) 500 MG tabletIndications:M igraine without aura and without status migrainosus, not intractable TAKE 1 TABLET BY MOUTH TWICE A DAY NEEDED 60 tablet 025 2024 Discontinued Active Problems Problem Noted Date Diagnosed Date Weight gain 04/24/2025 Assessment & Plan (04/24/2025 2:22 PM EDT): Patient has gained over 15lbs in 1 year, diet changes reinforced, will order tsh, started on topamax for migraine headaches which will also help with her appetite Acute bilateral low back pain without sciatica 0 06/21/2024 Assessment & Plan (06/21/2024 5:21 PM EDT): Complains of acute upper and lower back pain, will provide flexeryl, continue nsaids, rest joint, apply ice/heat, call back if not improving in 2-3 weeks Encounter for screening mamm ogram for malignant neoplasm of breast 02/25/2024 Assessment & Plan (02/25/2024 1:10 PM EDT): Will order a breast mammogram Pre-op evaluation 01/27/2024 Assessment & Plan (01/27/2024 12:30 AM EDT): Patient will undergo surgery on 02/04 where she is undergoing liposuction. Patient denied chest pain/shortness of breath, refers being physically active. Blood pressure repeated was 125/81. Labs/EKG/chest xray reviewed. Patient is clered for surgery, told to avoid aspirin/nsaid 5 days prior surgery. Acute maxillary sinusitis 01/26/2024 Bloating 01/26/2024 Abdominal discomfort 01/26/2024 Abdominal pain 01/26/2024 Chest pain 01/26/2024 Elevated troponin I level 01/26/2024 Gastroenteritis 01/26/2024 Irritable bowel syndrome (IBS) 01/26/2024 Assessment & Plan (04/24/2025 2:21 PM EDT): Fodmap diet reviewed, will start on bentyl, follow up gastroenterology Migraine 01/26/2024 Assessment & Plan (02/25/2024 1:12 PM EDT): Controlled with current treatment, continue lifestyle modifications Musculoskeletal pain 01/26/2024 Myocarditis 01/26/2024 Myopericarditis 01/26/2024 Sacroiliitis 01/26/2024 Spondylosis of lumbar region without myelopathy or radiculopathy 01/26/2024 SVT (supraventricular tachycardia) 01/26/2024 Assessment & Plan (06/21/2024 5:19 PM EDT): Followed by cardiology, she will undergo a stress echocardiogram, will follow up cardiology reccomendations Scoliosis 01/26/2024 Chronic diarrhea 04/10/2023 Assessment & Plan (07/13/2023 9:17 AM EDT): Followed by gastroenterology, she continues with on-off episode of diarrhea, will follow gi reccomendations Assessment & Plan (04/10/2023 9:34 AM EDT): Adam complains of episode of diarrhea without blood, with associated bloating, visited er recently, told to increase fiber in diet, reviewed types of foods to avoid, will refer to gastroenterology for evaluation IBS???. Annual physical exam 02/05/2023 Assessment & Plan (04/24/2025 2:23 PM EDT): Unremarkable physical exam, will order blood test for further evaluation, paperwork for work will be filled out Assessment & Plan (02/25/2024 1:09 PM EDT): Unremarkable, she recently had plastic surgery at [facility], no complications Labs reviewed from 01/2024 Pending mammogram Pending pap smear Assessment & Plan (02/05/2023 9:45 AM EDT): Physical examination was unremarkable, refer pap smear was done at [facility] , will request results, will place lab order for follow up Acute idiopathic pericarditis 11/20/2022 Assessment & Plan (02/05/2023 9:43 AM EDT): Followed by cardiology, no further er visit, she is on metoprolol and colchicine, no changes will be made Assessment & Plan (01/06/2023 2:10 PM EDT): Patient being followed by cardiology, she had a cardiac MRI, currently with 30 day monitor, will follow up recommendations, continue metoprolol and colchicine Assessment & Plan (11/20/2022 12:52 PM EST): Patient was admitted with pericarditis, given colchicine bid, will switch to daily due to weight, currently she is asymptomatic, follow up with cardiology, treatment will be needed for 3 months Gastroesophageal reflux disease without esophagi tis 11/20/2022 Assessment & Plan (02/25/2024 1:07 PM EDT): Symptoms controlled, continue lifestyle modifications, continue omperazole as needed Assessment & Plan (01/08/2024 9:29 AM EDT): Controlled, on omeprazole, continue lifestyle changes, follow up GI Assessment & Plan (11/20/2022 12:53 PM EST): Will provide omeprazole, lifestyle modifications reccomended H/O supraventricular tachycardia 10/28/2022 Assessment & Plan (01/27/2024 12:30 AM EDT): Controlled with metoprolol, followed by cardiology Assessment & Plan (01/08/2024 9:31 AM EDT): Followed by cardiology, no recent er visit to palpitation/svt, continue metoprolol 25mg Assessment & Plan (07/13/2023 9:15 AM EDT): Followed by cardiology, recently dose of metoprolol was decreased to 25mg daily, she has no further episode of palpitation reported. Assessment & Plan (04/10/2023 9:32 AM EDT): Patient on metoprolol 50mg, she is followed by cardiology, recently visited er due to chest pain, cardiac markers were negative, most likely MSK related Assessment & Plan (11/20/2022 12:51 PM EST): Patient saw cardiology on 11/18, pending echocardiogram and holter, will follow up receemonedations Assessment & Plan (10/28/2022 1:09 PM EST): Patient went to er on 10/24/22 found with svt, given adenosine x1 which converted to sinus rhythm, denied further epidoses, ekg performed in office was NSR, will refer to cardiology Neck muscle spasm 10/09/2022 Assessment & Plan (10/09/2022 9:38 AM EST): Patient complains of neck muscle pain since 3 weeks, she has tried otc remedies without improvement, she also complains of headaches, I think her headaches and spasm are related, will treat with cyclobenzaprine, apply heat/cold pads. Migraine without aura and wi thout status migrainosus, not intractable 10/09/2022 Assessment & Plan (04/24/2025 2:21 PM EDT): Will start on topamax, call back if not improving Assessment & Plan (02/05/2023 9:43 AM EDT): Controlled, on sumatriptan/naproxen for acute episodes Assessment & Plan (10/22/2022 11:48 AM EST): Headaches have improved, but still having 2-3 epidodes a week, will start on topamax, side effects reviewed Assessment & Plan (10/09/2022 9:39 AM EST): Patient complains of throbing headaches for the past 3 weeks, associated with neck pain, no vision loss, will provide sumatriptan and naproxen, will follow up in 2 weeks Nasal dryness 10/09/2022 Assessment & Plan (10/09/2022 9:41 AM EST): Refers symptoms started this winter, will prescribe nasal saline to maintain area humid, also told she might benefit from air humidifier Seafood allergy 10/01/2022 History of tubal ligation 10/01/2022 Family history of malignant neoplasm of breast 1 12/02/2021 Cacosmia 09/22/2022 Idiopathic scoliosis 12/27/2018 Encounters Date Type Department Care Team Description 05/01/2025 Results Follow-Up [facility] [address] [place] [address] Turner Hernandez MD Comprehensive Metabolic Panel, Lipid Panel, Standard, TSH W/Reflex to FT4 04/24/2025 1:45 PM EDT Office Visit [facility] [address] [place] [address] Turner Hernandez MD Weight gain (Primary Dx); Irritable bowel syndrome with both constipation and diarrhea; Migraine without aura and without status migrainosus, not intractable; Annual physical exam 04/24/2025 Travel 04/17/2025 Refill [facility] [address], [place] [phone] Turner Hernandez MD Migraine without aura and without status migrainosus, not intractable 04/14/2025 Patient Outreach [facility] [address] [place] [address] [phone] Turner Hernandez MD Pre-visit Planning (SDOH screening negative and Tobacco screening negative) 04/13/2025 1:40 PM EDT Office Visit [facility] [address] [place] [address] [phone] Keshia Lord MD Irritable bowel syndrome with both constipation and diarrhea (Primary Dx) 04/13/2025 Travel 04/13/2025 Telephone [facility] [address] [place] [address] Turner Hernandez MD Nurse Triage 04/05/2025 Orders Only GENERIC EXTERNAL DATA DEPARTMENT Provider, Generic External Data 03/14/2025 Refill [facility] [address], [place] [phone] Turner Hernandez MD Migraine without aura and without status migrainosus, not intractable; Gastroesophageal reflux disease without esophagitis from Last 3 Months Immunizations Immunization Administration Dates Next Due Hep B, adult 07/25/2019, 9,01/02/2014,2011,09/23/2011,08/21/2011 Influenza injectable quadriv alent IIV4 with preservative 07/11/2015 Influenza injectable quadriv alent preservative free 08/09/2021,09/10/2020,07/12/2019 Influenza, Split (incl. korina fied surface antigen) 08/16/2012 MMR 07/25/2019,06/27/2019,10/31/2015 Pfizer Covid-19 Vaccine 12+ 09/09/2021,,11/24/2020 Tdap 02/25/2017,01/06/2011 Social History Tobacco Use Types Packs/Day Years Used Date Smoking Tobacco: Every Day Cigarettes 0.3 10 Passive Smoke Exposure: Current Smokeless Tobacco: Never Tobacco Cessation:Ready to Q uit: Not Asked; Counseling Given: Not Answered Alcohol Use Standard Drinks/Week Comments Yes 0 [...] the past 12 months, has t he [employer], gas, oil or water company threatened to [...] not to disclose 2021 10:20 AM EDT Last Filed Vital Signs Vital Sign Reading Time Taken Comments Blood Pressure 120/82 04/24/2025 1:36 PM EDT Pulse 72 04/24/2025 1:36 PM EDT Temperature 36.3 C (97.4 F) 04/24/2025 1:36 PM EDT Respiratory Rate 20 04/24/2025 1:36 PM EDT Oxygen Saturation 97% 04/13/2025 1:42 PM EDT Inhaled Oxygen Concentration - - Weight 78 kg (172 lb) 04/24/2025 1:36 PM EDT Height 167 cm (5' 5.75 ) 04/24/2025 1:36 PM EDT Body Mass Index 27.97 04/24/2025 1:36 PM EDT Plan of Treatment Health Maintenance Due Date Last Done Comments Family Planning (PISQ) 1998 HPV Vaccines (1 - 3-dose series) 1998 Pneumococcal Vaccine: Pediatrics (0 to 5 Years) and At-Risk Patients (6 to 49) Years (1 of 2 - PCV) 2002 COVID-19 Vaccine ( season) 2024 09/09/2021, 12/15/2020, 11/24/2020 Influenza Vaccine (#1) 2025 , 09/10/2020, 07/12/2019, Additional history exists Mammogram 03/18/2026 03/18/2024, 01/09/2020 SDOH Screening 04/14/2026 04/14/2025 Alcohol/Substance Use Screening 04/24/2026 04/24/2025 Depression Screening 04/24/2026 04/24/2025, 04/24/20 25 Disability Screening 04/24/2026 04/24/2025 Tobacco Screening 04/24/2026 04/24/2025 DTaP/Tdap/Td Vaccines (3 - Td or Tdap) 02/25/2027 02/25/2017, 01/06/2011 Cervical Cancer Screening 04/14/2027 HPV/Cotest 04/14/2027 Pap Smear 04/14/2027 04/14/2024 Lipid Panel 04/27/2030 04/27/2025, 04/2 , 08/09/2021 Zoster Vaccines (1 of 2) 2033 RSV Patients and Patients Aged 60 years or older (1 - 1-dose 75+ series) 2058 Hepatitis B Vaccines Completed 07/25/2019, 06/27/2019, 01/02/2014, Additional history exists HIV Screening Completed 02/05/2023, 08/09/2021 Hepatitis C Screening Completed 02/05/2023, 021 HIB Vaccines Aged Out No longer eligi ble based on patient's age to complete this topic Hepatitis A Vaccines Aged Out No long er eligible based on patient's age to complete this topic IPV Vaccines Aged Out No longer eligi ble based on patient's age to complete this topic Meningococcal B Vaccine Aged Out No l onger eligible based on patient's age to complete this topic Meningococcal Vaccine Aged Out No vivian marcos eligible based on patient's age to complete this topic RSV under 20 months Aged Out No longe r eligible based on patient's age to complete this topic Rotavirus Vaccines Aged Out No longer eligible based on patient's age to complete this topic Procedures Procedure Name Priority Date/Time Associated Diagnosis Comments TSH W/REFLEX TO FT4 Routine 04/27/2025 1 0:29 AM EDT Weight gain LIPID PANEL, STANDARD Routine 04/27/2025 10:29 AM EDT Weight gain COMPREHENSIVE METABOLIC PANEL Routine 04/27/2025 10:29 AM EDT Weight gain XR KUB AND UPRIGHT 2 VIEWS Routine 04/05/2025 11:53 PM EDT URINALYSIS, COMPLETE, WITH REFLEX TO CULTURE Routine 04/05/2025 11:06 PM EDT HCG, TOTAL, QN Routine 04/05/2025 5:56 PM EDT LIPASE Routine 04/05/2025 5:56 PM EDT BASIC METABOLIC PANEL Routine 04/05/2025 5:56 PM EDT HEPATIC FUNCTION PANEL Routine 5:56 PM EDT LACTIC ACID Routine 04/05/2025 5:56 PM EDT CBC WITH AUTO DIFFERENTIAL Routine 04/05/2025 5:56 PM EDT CULTURE, URINE, ROUTINE Routine 04/05/2025 12:00 AM EDT THINPREP IMAGING PAP REFL HPV MRNA(IF ASCUS,ASC-H,LSIL) Routine 04/14/2024 1:35 PM EDT BI MAMMOGRAM SCREEN W JORGE W IMPLANTS ZANE Routine 03/18/2024 2:55 PM EDT HEPATITIS C AB W/REFL TO HCV RNA, QN, PCR Routine 02/05/2023 9:43 AM EDT Annual physical exam HIV 1 RNA, QN PCR W/RFL SUSAN (RTI,PI,INTEGRASE) Routine 02/05/2023 9:43 AM EDT Annual physical exam from Last 3 Months or Most Recently Relevant to Health Maintenance Results * TSH W/Reflex to FT4 (04/27/2025 10:29 AM EDT) TSH reflex Free T4 0.84 0.32 - 4.0 uIU/mL [facility] Blood Venous blood specimen / Unknown 04/27/2025 10:29 AM EDT 04/27/2025 3:46 PM EDT us Turner Mireles MD LAB BLOOD ORDERABL ES Final Result [facility] [address] [place] [phone] * (ABNORMAL) Lipid Panel, Standard (04/27/2025 10:29 AM EDT) Triglycerides 92 <150 mg/dL [facility] Comment:Desirable Triglyceri de: less than 150 mg/dLBorderline High Triglyceride 150-199 mg/dLHigh Triglyceride: 200-499 mg/dLVery High Triglyceride: greater than or equal to 5OO mg/dL Cholesterol 148 <200 mg/dL [facility] Comment:Desirable Cholestero l: less than 200 mg/dLBorderline High Cholesterol: 200-239 mg/dLHigh Cholesterol: greater than 239 mg/dL LDL Cholesterol Calculated 94 <100 mg/dL [facility] Comment:Desirable LDL: less than 100 mg/dLNear Optimal/Above Optimal LDL: 110- 129 mg/dLBorderline High LDL: 130-159 mg/dLHigh LDL: 160-189 mg/dLVery High LDL: greater than or equal to 190 mg/dL HDL Cholesterol 36(L) >40 mg/dL [facility] Comment:Desirable HDL: great er than 40 mg/dL Note: This HDL assay may give artificially low results in patients with liver disease. Blood Venous blood specimen / Unknown 04/27/2025 10:29 AM EDT 04/27/2025 3:46 PM EDT us Turner Mireles MD LAB BLOOD ORDERABL ES Final Result Performing Organization Address City/[facility]/ZIP Co de Phone Number [facility] [address] [place] [phone] * (ABNORMAL) Comprehensive Metabolic Panel (04/27/2025 10:29 AM EDT) Sodium 138 135 - 145 mmol/L [facility] Potassium 4.1 3.3 - 5.1 mmol/L [facility] Chloride 107 96 - 108 mmol/L [facility] Carbon Dioxide 24 22 - 29 mmol/L [facility] Anion Gap 11(L) 12 - 20 [facility] Urea Nitrogen (BUN) 10 9 - 16 mg/dL [facility] Creatinine, Serum 0.81 0.5 - 1.4 mg/dL [facility] Estimated Glomerular Filt Rate >60 [facility] Comment:Chronic Kidney Disea se: Estimated GFR < 60 mL/min/[id number] Kidney Disease: Estimated GFR < 15 mL/min/1.73m2 Glucose 86 60 - 115 mg/dL [facility] Calcium 8.7 8.4 - 10.2 mg/dL [facility] Bilirubin, Total 0.5 0.0 - 1.0 mg/dL [facility] Aspartate Amino Transferase 75(H) 5 - 31 U/L [facility] Alanine Aminotransferase 140(H) 0 - 31 U/L [facility] Total Protein 7.0 6.5 - 8.0 g/dL [facility] Albumin Level 4.2 3.5 - 5.0 g/dL [facility] Alkaline Phosphatase 61 39 - 117 U/L [facility] Blood Venous blood specimen / Unknown 04/27/2025 10:29 AM EDT 04/27/2025 3:46 PM EDT us Turner Mrieles MD LAB BLOOD ORDERABL ES Final Result [facility] [address] [place] [phone] * XR KUB and Upright 2 Views (04/05/2025 11:53 PM EDT) Anatomical Region Laterality Modality Radiographic Lizeth ging 04/05/2025 11:5 3 PM EDT Narrative 04/05/2025 11:54 PM EDT [address] [id number] XRay Report Signed Patient: Rosita Og MR#: [id number] : 1985 Acct:[id number] Age/Sex: 39 / F ADM Date: 04/05/25 Loc: HO.ED Attending Dr: Ordering Physician: Christina Ramos Date of Service: 04/05/25 Procedure(s): XR KUB Accession Number(s): [id number] cc: Turner Hernandez MD; Christina Ramos CLINICAL HISTORY: pain --- Additional Notes or Special Instructions: constipation 1 view abdomen Comparison: None provided Findings: No pneumoperitoneum or pneumatosis. No abnormal calcifications. No acute fractures. IMPRESSION: The bowel gas pattern is normal. No significant stool burden. This document has been electronically signed by: Janiya Vincent MD on 04/05/2025 23:53:35 Dictated By: Janiya Vincent MD Signed By: <Electronically signed by Janiya Vincent MD in OV> 04/05/254 DD/ 52 TD/TT: 04/05/252352 Yard Conductor: Procedure Note Donotuseinterpreter, Image - 04/05/[address] [id number] XRay Report Signed Patient: Rosita OgMR#: [id number] : 1985Acct:[id number] Age/Sex: 39 / FADM Date: 04/05/25 Loc: HO.ED Attending Dr: Ordering Physician: Christina Ramos Date of Service: 04/05/25 Procedure(s): XR KUB Accession Number(s): [id number] cc: Turner Hernandez MD; Christina Ramos CLINICAL HISTORY: pain --- Additional Notes or Special Instructions:constipation 1 view abdomen Comparison: None provided Findings: No pneumoperitoneum or pneumatosis. No abnormal calcifications. No acute fractures. IMPRESSION: The bowel gas pattern is normal. No significant stool burden. This document has been electronically signed by: Janiya Vincent MD on 04/05/2025 23:53:35 Dictated By: Janiya Vincent MD Signed By: <Electronically signed by Janiya Vincent MD in OV> 04/05/252353 DD/ 52 TD/TT: 04/05/252352 Yard Conductor: [facility] External Provider IMG XR PROCEDURES Edited Result - Final * (ABNORMAL) Urinalysis, Complete, with Reflex to Culture (04/05/2025 11:06 PM EDT) Color Urine Yellow [facility] Appearance Urine Cloudy [facility] PH 6.5 5.0 - 9.0 [facility] Glucose Urine UA Negative Negative mg/dL [facility] Urine Blood Trace(A) Negative [facility] Specific [place] - Urine 1.025 1.005 - 1.025 [facility] Urine Protein Negative Neg-Trace mg/dL [facility] Urine Ketones Negative Negative mg/dL [facility] Nitrite Urine Negative Negative [facility] Leukocyte Esterase Urine Small (1+)(A) Negative [facility] RBC Urine 0-2 0 - 2 /HPF [facility] Urine WBC 0-5 0 - 5 /HPF [facility] Urine Squamous Epithelial Cell 11-20 0 - 2 /HPF [facility] Urine Bacteria 1+ None Seen [facility] Hyaline Casts, Urine 0-2 0 - 2 /LPF [facility] 04/05/2025 11:0 6 PM EDT 04/05/2025 11:10 PM EDT Narrative [facility] - 04/05/2025 11:25 PM EDT Urine, Clean Catch us Generic External Data Provider LAB URINE ORDERAB LES Final Result [facility] [address] [place] [phone] [phone] * (ABNORMAL) CBC auto differential (04/05/2025 5:56 PM EDT) White Blood Count 8.0 4.8 - 10.8 X10*3/uL [facility] Red Blood Count 4.49 4.20 - 5.50 X10*6/uL [facility] Hemoglobin 11.2(L) 12.0 - 16.0 g/dl [facility] Hematocrit 35.2(L) 37.0 - 47.0 % [facility] Mean Corpuscular Volume 78.4(L) 80.0 - 98.0 fL [facility] Mean Corpuscular Hemoglobin 24.9(L) 27.0 - 33.0 pg [facility] Mean Corpuscular HGB Conc 31.8 31.0 - 35.0 g/dl [facility] Red Cell Distribution Width 16.1(H) 11.0 - 16.0 % [facility] Platelet Count 331 160 - 400 X10*3/uL [facility] Mean Platelet Volume 9.3(L) 9.4 - 12.3 fL [facility] Neutrophils Percent Auto 54.0 45 - 73 % [facility] Imm Gran Pct Auto 0.4 0.0 - 0.4 % [facility] Lymphocytes Percent Auto 34.2 20 - 40 % [facility] Monocytes Percent Auto 7.1 2 - 11 % [facility] Eosinophils Percent Auto 3.3 0 - 4 % [facility] Basophils Percent Auto 1.0 0 - 2 % [facility] NRBC Pct Auto 0.0 0.0 - 0.2 /100WBC [facility] Neutrophils Absolute Auto 4.3 2.0 - 8.3 x10*3/uL [facility] Imm Gran Abs Auto 0.03 0.00 - 0.03 X10*3/uL [facility] Lymphocytes Absolute Auto 2.7 1.2 - 4.9 X10*3/uL [facility] Monocytes Absolute Auto 0.6 0.1 - 1.2 X10*3/uL [facility] Eosinophils Absolute Auto 0.3 0.0 - 0.4 X10*3/uL [facility] Basophils Absolute Auto 0.1 0.0 - 0.2 X10*3/uL [facility] NRBC Abs Auto 0.000 0.0 - 0.012 X10*3/uL [facility] 04/05/2025 5:56 PM EDT 04/05/2025 6:00 PM EDT us Generic External Data Provider LAB BLOOD ORDERAB LES Final Result Performing Organization Address City/State/[facility] Co de Phone Number [facility] [address] [place] [phone] * hCG, Total, Quantitative (04/05/2025 5:56 PM EDT) HCG Quantitative <2 mIU/mL [facility] Comment:Weeks post LMP Appro ximate hCG(Last Menstrual Period) Range (mIU/ml)3 - 4 weeks 9 - 1304 - 5 weeks 75 - 2,6005 - 6 weeks 850 - 20,8006 - 7 weeks 4000 - 100,2007 - 12 weeks 11,500 - 289,18867 - 16 weeks 18,300 - 137,61744 - 29 weeks (2nd trimester) 1,400 - 53,39628 - 41 weeks (3rd trimester) 940 - 60,000The Love B- hCG assay is used for the early detection ofpregnancy; it cannot be used to diagnose any conditionunrelated to . If a B-hCG level is not supportedby the clinical evidence, results should be confirmed by analternative method (qualitative urine hCG, for example). 04/05/2025 5:56 PM EDT 04/05/2025 6:00 PM EDT us Generic External Data Provider LAB BLOOD ORDERAB LES Final Result Performing Organization Address [facility]/[place] [facility] Co de Phone Number [facility] [address] [place] [phone] * Lipase (04/05/2025 5:56 PM EDT) Lipase 30 8 - 78 U/L [facility] 04/05/2025 5:56 PM EDT 04/05/2025 6:00 PM EDT Generic External Data Provider LAB BLOOD ORDERAB LES Final Result Performing Organization Address [facility] de Phone Number [facility] [address] [place] [phone] * Lactic Acid (04/05/2025 5:56 PM EDT) Lactic Acid 0.7 0.5 - 2.0 mmol/L [facility] 04/05/2025 5:56 PM EDT 04/05/2025 6:00 PM EDT Generic External Data Provider LAB BLOOD ORDERAB LES Final Result Performing Organization Address [facility] Co de Phone Number [facility] [address] [place] [phone] * (ABNORMAL) Hepatic Function Panel (04/05/2025 5:56 PM EDT) Bilirubin, Total 0.3 0.0 - 1.0 mg/dL [facility] Bilirubin, Direct 0.1 0.0 - 0.5 mg/dL [facility] Aspartate Amino Transferase 57(H) 5 - 31 U/L [facility] Alanine Aminotransferase 98(H) 0 - 31 U/L [facility] Total Protein 6.9 6.5 - 8.0 g/dL [facility] Albumin Level 4.3 3.5 - 5.0 g/dL [facility] Alkaline Phosphatase 70 39 - 117 U/L [facility] 04/05/2025 5:56 PM EDT 04/05/2025 6:00 PM EDT us Generic External Data Provider LAB BLOOD ORDERAB LES Final Result [facility] [address] [place] [address] [phone] * (ABNORMAL) Basic Metabolic Panel (04/05/2025 5:56 PM EDT) Sodium 138 135 - 145 mmol/L [facility] Potassium 3.8 3.3 - 5.1 mmol/L [facility] Chloride 106 96 - 108 mmol/L [facility] Carbon Dioxide 25 22 - 29 mmol/L [facility] Anion Gap 11(L) 12 - 20 [facility] Urea Nitrogen (BUN) 12 9 - 16 mg/dL [facility] Creatinine, Serum 0.89 0.5 - 1.4 mg/dL [facility] Creatinine Clr Calc Pharmacy 90.6 [facility] Comment:Provided height and weight: 170.18 cm,80.1 kg.eGFR (calculated from the MDRD study equation) and eCrCl(calculated from the Cockcroft-Gault equation) are based ondifferent parameters and may not yield comparable results.If eCrCl result is absurd, please check patient'sheight/weight. Estimated Glomerular Filt Rate >60 [facility] Comment:Chronic Kidney Disea se: Estimated GFR < 60 mL/min/1.02q4Nxsdrn Kidney Disease: Estimated GFR < 15 mL/min/1.73m2 Glucose 84 60 - 115 mg/dL [facility] Calcium 8.7 8.4 - 10.2 mg/dL [facility] 04/05/2025 5:56 PM EDT 04/05/2025 6:00 PM EDT us Generic External Data Provider LAB BLOOD ORDERAB LES Final Result Performing Organization Address [facility]/ZIP Co de Phone Number [facility] [address] [place] [phone] * Culture, Urine, Routine (04/05/2025 12:00 AM EDT) Urine Urine specimen obtained by clean catch procedure / Unknown 04/05/2025 04/05/2025 Comment:UACC Narrative [facility] - 04/07/2025 1:18 PM EDT Strep agalactiae (Grp B) Quant > 100,000 cfu/mL Susc N/A Susceptibility not routinely performed on this isolate. Specimen Source: Urine clean catch Generic External Data Provider LAB MICROBIOLOGY - GENERAL ORDERABLES Final Result Performing Organization Address [facility] Co de Phone Number [facility] [address] [place] [phone] * ThinPrep?? Imaging Pap Refl HPV mRNA(if ASCUS,ASC-H,LSIL,HSIL,SINGH)Refl Genotype (04/14/2024 1:35 PM EDT) HPV nRNA E6/E7 [facility] HPV 16,18/45 [facility] SOURCE: [facility] Comment:None given Report Status: [facility] Clinical Information: SEE NOTE [facility] Comment:None given LMP: [facility] Comment:NONE GIVEN Prev. PAP: SEE NOTE [facility] Comment:NONE GIVEN Prev. BX: SEE NOTE [facility] Comment:NONE GIVEN Statement Of Adequacy: SEE NOTE [facility] Comment:Satisfactory for fuentes luation.Endocervical/transformation zone componentpresent. General Categorization: [facility] Interpretation/Result: SEE NOTE [facility] Comment:Cytology Results: Ne gative for intraepitheliallesion or malignancy. Cytology Comment SEE NOTE [facility] Comment:This Pap test has be en evaluated with computerassisted technology. Power Generation Engineer: SEE NOTE [facility] Comment:RMM, CT(ASCP)CT scre ening location: [address] [address] Review Power Generation Engineer: [facility] Pathologist [facility] PAP Infection [facility] See Note SEE NOTE [facility] Comment:EXPLANATORY NOTE:The Pap is a screening test for cervical cancer. It isnot a diagnostic test and is subject to false negativeand false positive results. It is most reliable when asatisfactory sample, regularly obtained, is submittedwith relevant clinical findings and history, and whenthe Pap result is evaluated along with historic andcurrent clinical information.THIS TEST WAS PERFORMED AT:[employer] [address] [phone] RESTREPO MD 04/14/2024 1:35 PM EDT 04/14/2024 7:43 PM EDT Narrative [facility] - 04/20/2024 11:52 AM EDT SEE EMR FOR SCANNED REPORT us Rayne Duran MD LAB CYTOLOGY ORDERABLES Final Result [facility] [address] [place] [address] [phone] * BI Mammogram Screen w/ Jorge w/ Implants Zane (03/18/2024 2:55 PM EDT) Anatomical Region Laterality Modality Mammography 03/18/2024 2:55 PM EDT Narrative 04/12/2024 6:02 PM EDT [facility] [address] [place] [address] Mammography Report Signed Patient: Rosita Og MR#: [id number] : 1985 Acct:[id number] Age/Sex: 38 / F ADM Date: 03/18/24 Loc: HO.MAMMO Attending Dr: Turner Mireles MD Ordering Physician: Turner Hernandez MD Res ults: 1Negative Date of Service: 03/18/24 Follow Up: 1 Year From Orig inal Mammogram Procedure(s): MM tomosynthesis screen imp BI Accession Number(s): [id number] cc: Turner Hernandez MD EXAMINATION: MM SCREENING DIGITAL BREAST TOMOSYNTHESIS, BILATERAL WITH BILATERAL BREAST IMPLANTS. CLINICAL INFORMATION: Screening. Asymptomatic. COMPARISON: Mammography: This study is compared with the only prior mammogram from 2019. TECHNIQUE: Digital mammography is performed in craniocaudal and mediolateral oblique views along with computer-aided detection (CAD). Digital breast tomosynthesis is performed in implant-displaced craniocaudal and implant-displaced mediolateral oblique views along with computer-aided detection (CAD). Synthesized 2D images are generated from the tomosynthesis. FINDINGS: There are scattered areas of fibroglandular density (ACR BI-RADS breast composition Category b). Since the last mammogram from 2019, the patient has had implants placed. There are bilateral, mammographically intact, retropectoral silicone breast implants. There are no significant masses, abnormal calcifications, or other abnormalities. MM/MM tomosynthesis screen imp BI IMPRESSION: There are no significant changes from prior study. ASSESSMENT: BI-RADS BI-RADS 1 - Negative RECOMMENDATION: Routine annual mammography screening. 1 year F/U This patient's information was entered into a reminder system with a target due date for their next mammogram. Dictated By: Lori Blair MD Signed By: <Electronically signed by Lori Blair MD in OV> 04/12/24 1758 DD/ 1455 TD/TT: Yard Conductor: Procedure Note Donotuseinterpreter, Image - 04/12/2024 [place] [facility] [address] [place] [address] Mammography Report Signed Patient: Rosita OgMR#: [id number] : 1985Acct:[id number] Age/Sex: 38 / FADM Date: 03/18/24 Loc: HO.MAMMO Attending Dr: Turner Mireles MD Ordering Physician: Turner Hernandez ults: 1Negative Date of Service: 03/18/24Follow Up: 1 Year From Orig ina Mammogram Procedure(s): MM tomosynthesis screen imp BI Accession Number(s): [id number] cc: Turner Hernandez MD EXAMINATION: MM SCREENING DIGITAL BREAST TOMOSYNTHESIS, BILATERAL WITH BILATERAL BREAST IMPLANTS. CLINICAL INFORMATION: Screening. Asymptomatic. COMPARISON: Mammography: This study is compared with the only prior mammogram from 2019. TECHNIQUE: Digital mammography is performed in craniocaudal and mediolateral oblique views along with computer-aided detection (CAD). Digital breast tomosynthesis is performed in implant-displaced craniocaudal and implant-displaced mediolateral oblique views along with computer-aided detection (CAD). Synthesized 2D images are generated from the tomosynthesis. FINDINGS: There are scattered areas of fibroglandular density (ACR BI-RADS breast composition Category b). Since the last mammogram from 2019, the patient has had implants placed. There are bilateral, mammographically intact, retropectoral silicone breast implants. There are no significant masses, abnormal calcifications, or other abnormalities. MM/MM tomosynthesis screen imp BI IMPRESSION: There are no significant changes from prior study. ASSESSMENT: BI-RADS BI-RADS 1 - Negative RECOMMENDATION: Routine annual mammography screening. 1 year F/U This patient's information was entered into a reminder system with a target due date for their next mammogram. Dictated By: Lori Blair MD Signed By: <Electronically signed by Lori Blair MD in OV> 04/12/24 1758 DD/ 1455 TD/TT: Yard Conductor: Turner Mireles MD [facility] BI PROCEDURES Final Result * HIV-1 RNA, Quantitative, Real-Time PCR with Reflex to Genotype (RTI, PI, Integrase) (02/05/2023 9:43 AM EDT) HIV 1 RNA, QN PCR NOT DETECTED copies/mL [email or web address] HIV 1 RNA, QN PCR NOT DETECTED Log copies/mL [facility], Comment: REFERENCE RANGE: NOT DETECTED copies/mL NOT DETECTED Log copies/mL This test was performed using Real-Time Polymerase Chain Reaction. Reportable range is 20 to 10,000,000 copies/mL (1.30-7.00 Log copies/mL). 02/05/2023 9:43 AM EDT 02/05/2023 9:43 AM EDT Narrative [facility] - 02/09/2023 10:15 AM EDT FASTING:NO AN UPDATE OR CORRECTION HAS BEEN MADE TO NAME FASTING: NO Turner Mireles MD LAB BLOOD ORDERABL ES Final Result Performing Organization Address [facility] Co de Phone Number [facility] [address] [place] [address], [place] [phone] [facility], [address] [place] [address] * Hepatitis C Antibody with Reflex to HCV, RNA, Quantitative, Real-Time PCR (02/05/2023 9:43 AM EDT) Hepatitis C Antibody NON-REACT KRYSTEN NON-REACT KRYSTEN [facility] [place] [employer] Index 0.08 <1.00 [employer] [place] [employer] Comment: HCV antibody was non-reactive. There is no laboratory evidence of HCV infection. In most cases, no further action is required. However, if recent HCV exposure is suspected, a test for HCV RNA (test code 28138) is suggested. For additional information please refer to http://education.[employer].Kinsights/faq/OSL82r9 (This link is being provided for informational/ educational purposes only.) Blood Venous blood specimen / Unknown 02/05/2023 9:43 AM EDT 02/05/2023 9:43 AM EDT Narrative [facility] - 02/09/2023 10:15 AM EDT FASTING:NO AN UPDATE OR CORRECTION HAS BEEN MADE TO NAME FASTING: NO Turner Mireles MD LAB BLOOD ORDERABL ES Final Result Performing Organization Address [facility] Co de Phone Number [facility] [address] [place] [address], [place] [address] [facility] [address] [place] [address] from Last 3 Months or Most Recently Relevant to Health Maintenance Insurance [facility] C3 Care Teams Debt Collector Relationship Specialty Start Date End Date Turner Hernandez MD [address] [place] [phone] PCP - General Internal Medicine 03/06/20
== END 2025-05-16 15:03 | disposition home or self-care (01) ==
LOC: HO.MAMMO 15:02
PROVIDERS: PCP Internal Medicine; Visit Provider Internal Medicine
DX: Z12.31 Encounter for screening mammogram for malignant neoplasm of breast (principal)
CPT/HCPCS: 77063; 77067

== ENCOUNTER → 2025-05-16 16:30 | Outpatient (BNV) | payer MEDICAID, SELFPAY | PROVIDERS: PCP Internal Medicine; Visit Provider Internal Medicine | DX: Z12.31 Encounter for screening mammogram for malignant neoplasm of breast (principal) | CPT/HCPCS: 77063; 77067 ==

== ENCOUNTER 2025-06-28 14:25 | Outpatient (AMB) | payer MEDICAID, SELFPAY ==
--- NOTE | 2025-06-28 14:26 | A.OFFVIS_ITS ---
Vital Signs 06/28/25 14:31 Height 5 ft 7 in Weight 176 lb 5.917 oz BMI 27.6 BP 131/59 L Blood Pressure Location Lt brachial Position Sitting Pulse 73 Intake Visit Reasons: ibs Intake Note: Rosita presents in the office as a IBS follow up. CC: Gas pains at night, bloating, constipation and diarrhea back and forth. Vegetable Handler Required: Yes Allergies aspirin (Aspirin) Allergy (Unknown, Verified 06/28/25 14:32) SWELLING sea food Allergy (Unknown, Uncoded 06/28/25 14:32) Anaphylaxis HPI Comments Details: 37 y.o F with PMH of inflammatory pericarditis and SVT, hx of abdominoplasty, who is here for changes in bowel habits. Reports diarrhea started almost 3 months ago with insiduous onset assoc with cramping abd pain and bloating. Has up to 4-5 loose watery BMs per day. Also has night time sx at least 3 times a week. Urgency +. No tenesmus. No blood in stool. BMs fluctuate between diarrhea and constipation. Abd pain gets worse after BM. No change in appetite no unintentional weight loss. 08/05/23: Reports resolution of diarrhea but noticing increased bloating now almost on a daily basis. Reports waking up feeling bloated which is also associated with abd discomfort and sensation of abd getting hard. Wearing a binder helps. Diet consists of cream of wheat, white rice, chicken, dairy. Labs reviewed including normal celiac serology and fecal calpro. Low Vit D. 12/09/23: Reports improvment in diarrhea ross since avoiding dairy. However has not been able to cut down gluten. Also reports localised epigastric comfort assoc with nausea. No assoc with food intake or passing BMs. Notices it on positional changes, worse on going from laying down to sitting up position. 05/30/24: Reports minimal response to the trigger point inj. Now describes more of left sided abd pain that often radiates to her chest. Does get burning retrosternal pain with this which she manages with omeprazoe 20 once daily. Pt also seeing Card again Dr Cosme for worsening dyspnea on exertion and lightheadedness. 06/28/25: Here for follow up. Was supposed to be [facility] for egd after cardiology clearance but had to go to [facility] for a family emergency in Sep 2024. Main sx are retrosternal chest pain with abd bloating and frequent BMs. Has 1- 3BMs per day which are formed but with urgency. No blood. Prev labs with normal fecal víctor. Pt also reports foreign body sensation in throat has to frequently clear her throat or cough up phlegm. Reports blacksmith assistant advised to go ahead with egd - records pending. [facility] Medical History Non-ST elevation GA (NSTEMI) Scoliosis Sacroiliitis Spondylosis of lumbar region without myelopathy or radiculopathy Scoliosis of thoracolumbar spine Surgical History History of breast augmentation Family History Mother Breast cancer Father Cardiac arrhythmia Father Cardiac arrhythmia Social History Alcohol intake: never Patient Tobacco Use Status: Former Tobacco user service: No Current occupational status: employed Review of Systems Const All systems reviewed & are unremarkable except as noted in HPI and below Physical Exam Exam Exam: No apparent distress Nonicteric Abdomen soft, nondistended Alert and oriented x3, normal gait Vital Signs: Last Vital Signs Pulse 73 06/28/25 14:31 BP 131/59 L 06/28/25 14:31 BMI result Body Mass Index 27.6 Assessment & Plan Assessment & Plan (1) Abdominal pain: Code(s): R10.9 - Unspecified abdominal pain Category: Medical (2) Irritable bowel syndrome (IBS): Code(s): K58.9 - Irritable bowel syndrome, unspecified Category: Medical (3) Bloating: Code(s): R14.0 - Abdominal distension (gaseous) Category: Medical (4) Globus sensation: Code(s): R09.A2 - Foreign body sensation, throat Category: Medical Plan Ddx include PUD, SIBO, functional bloating. Celiac serology and fecal calpro neg. Cardiac w.up for retrosternal pain and palpitations completed. Plan: - Start cipro 500 BID x 10 days for possible SIBO - Barium swallow - EGD to be booked- will get records from [facility] - Cont omeprazole 20 once daily on empty stomach Follow up after egd Orders: Orders [place] barium swallow Today R09.A2 - Foreign body sensation, throat Medications: New ciprofloxacin HCl (Cipro) 500 mg PO BID 20 tabs 0RF 10 days Refilled omeprazole 20 mg PO DAILY 90 caps 0RF Coding Level of Care Code Est Pt Level 4 (89196) Diagnoses Abdominal pain R10.9 Irritable bowel syndrome (IBS) K58.9 Bloating R14.0 Globus sensation R09.A2
[2025-06-28 14:31] VITALS: BP 131/59; PULSE 73; BMI 27.6
--- OUTSIDE RECORDS SUMMARY | 2025-06-28 17:44 | XMS_ITS | Encounter Summary ---
Author Organization [employer] Address [address] [facility] [address] [place] [address] Care Team Providers Care Service Person Name Role Phone Turner Hernandez MD Primary Care Prov ider Encounter Details Date Type Department Care Team (Latest Contact Info) Description 05/01/2025 Results Follow-Up [facility] [address] [place], [place] [phone] Turner Hernandez MD [address] [place] [address] Comprehensive Metabolic Panel, Lipid Panel, Standard, TSH W/Reflex to FT4 Social History Tobacco Use Types Packs/Day Years [...] your housing situation today? I have julisa helsm 04/14/[address] you li [...] AM EDT documented as of this encounter Plan of Treatment Upcoming Encounters Date Type Department Care Team (Late st Contact Info) Description 07/10/2025 1:00 PM EDT Nutrition [facility] [address] [place] [address] Sophia Watson, JOSEPHINE [address] [place] [address] documented as of this encounter Visit Diagnoses Not on filedocumented in this encounter Additional Health Concerns Assessment Noted Time PHQ-9 Depression Total Score: 4 04/24/20 25 2:22 PM EDT documented as of this encounter Care Teams Service Person Relationship Specialty Start Date End Date Turner Hernandez MD [address] [place] [phone] PCP - General Internal Medicine 03/06/20 documented as of this encounter
--- OUTSIDE RECORDS SUMMARY | 2025-06-28 17:44 | XMS_ITS | Encounter Summary ---
Author Organization [employer] Address [address] [facility] [address] [place] [address] Care Team Providers Care Anesthetic Assistant Name Role Phone Turner Hernandez MD Primary Care Prov ider Reason for Visit * Reason Onset Date Comments Pre-op Exam 01/12/2024 Encounter Details Date Type Department Care Team ([facility] st Contact Info) Description 01/12/2024 Telephone [facility] [address] [place] [address] Turner Hernandez MD [address] [place] [address] Pre-op Exam Social History Tobacco Use Types Packs/Day Years Used Date Smoking Tobacco: Every Day Cigarettes 0.3 10 Smokeless Tobacco: Never Alcohol Use Standard Drinks/Week Comments Yes 0 (1 standard drink = 0.6 oz pur e alcohol) Depression Answer Date Recorded Patient Health Questionnaire-9 Score 0 10/28/2022 Housing Stability Answer Date Recorded What is your housing situation today? I have julisa helms 08/24/[address] you li ve. Do you have problems with any of the following? None of the above 08/24/2023 Food Insecurity Answer Date Recorded Within the past 12 months, y ou worried that your food would run out before you got money to buy more: Never True 08/24/2023 Within the past 12 months,th e food you bought just didn't last and you didn't have enough money to get more: Never True 03/2023 Transportation Answer Date Recorded In the past 12 months, has l ack of transportation kept you from medical appts, meetings, work or from getting things needed for daily living? No 08/24/2023 Utilities Answer Date Recorded In the past 12 months, has t he electric, gas, oil or water company threatened to shut off services in your home? No 08/24/2023 Depression Answer Date Recorded Patient Health Questionnaire-2 Score 0 10/28/2022 Comments Unknown Sex and Gender Information Value Date Recorded Sex Assigned at Female 08/18/2022 10:20 AM EDT Legal Sex Female 10:20 AM EDT Gender Identity Female 08/18/2022 10:20 AM EDT Sexual Orientation Choose not to disclose 2021 10:20 AM EDT documented as of this encounter Miscellaneous Notes * Telephone Encounter - Aarti Monet RN - 01/13/2024 4:44 PM EDT TC placed to patient and patient confirms that [place]. She states that she already has lab orders for anoutside laboratory and will get those done this coming Thursday. She also has an appointment with her roving technician for an EKG and cardiac clearance. She is also required to get a chest x-ray and to have clearance from her PCP to go ahead with surgery. Tried twice to reach surgeon's office at [facility] and could not get through to anyone to confirm information. Patient scheduled for pre-op withPCP on 01/26/24 @ 2:30 pm. Patient asks if chest x-ray can be ordered prior to this visit. Routing note to PCP for review. Date of Surgery: 02/04 Surgical procedure being done: Liposuction, Type of anesthesia: General Lab needed: Yes EKG: Yes Surgeon's name: Dr. Fei Beard Facility name: [facility] Surgery Surgeon's office number: [phone] Surgeon's office fax number: Contact name (person you spoke with): Betty howell patient Last office note from surgeon requested: patient will bring in to office * Telephone Encounter - Temo Salazar - 01/12/2024 9:06 AM EDT Date of Surgery: 02/04 Surgical procedure being done: Liposuction, Type of anesthesia: General Lab needed: Yes EKG: Yes Surgeon's name: Dr. Fei Beard Facility name: [facility] Surgery Surgeon's office number: [phone] Surgeon's office fax number: Contact name (person you spoke with): Betty the patient Last office note from surgeon requested: patient will bring in to office documented in this encounter Plan of Treatment Upcoming Encounters Date Type Department Care Team (Late st Contact Info) Description 07/10/2025 1:00 PM EDT Nutrition [facility]NUTRITION [address] [place] [address] [place] [address] documented as of this encounter Visit Diagnoses Not on filedocumented in this encounter Additional Health Concerns Assessment Noted Time PHQ-9 Depression Total Score: 0 10/28/19 23 10:43 AM EST documented as of this encounter Care Teams Anesthetic Assistant Relationship Specialty Start Date End Date Turenr Hernandez MD [address] [place] [phone] PCP - General Internal Medicine 03/06/20 documented as of this encounter
--- OUTSIDE RECORDS SUMMARY | 2025-06-28 17:44 | XMS_ITS | Clinical Summary ---
Author Organization [employer] Address [address] [facility] [address] [place] [address] Care Team Providers Care Print Buyer Name Role Phone Turner Hernandez MD Primary Care Prov ider Allergies Active Allergy Reactions Criticality Noted Date Comments Aspirin Swelling 05/22/2015 Other 10/01/2022 Seafood Shellfish Allergy Anaphylaxis,Swelling High 01/15/20 23 Medications ProAir HFA 108 (90 Base) MCG/ACT inhaler INHALE 2 PUFF BY INHALATION ROUTE EVERY 4 - 6 HOURS NEEDED NEEDED FOR SHORT OF BREATH 05/05/20 22 Active eszopiclone (Lunesta) 3 MG tablet TAKE 1 TABLET BY MOUTH EVERY DAY AT BEDTIME NEEDED FOR SLEEP 08/05/20 22 Active metoprolol succinate XL (Toprol-XL) 25 MG 24 hr tabletIndications:H/ O supraventricular tachycardia Take 1 tablet (25 mg) by mouth in the morning. Do not crush or chew. 90 tablet 3 11/20/19 23 Active cyclobenzaprine (Flexeril) 10 MG tablet TAKE 1 TABLET BY MOUTH THREE TIMES DAILY FOR 10 DAYS 30 tablet 03/16/20 25 Active omeprazole (PriLOSEC) [address] capsuleIndications:G astroesophageal reflux disease without esophagitis TAKE 1 CAPSULE BY MOUTH BEFORE BREAKFAST. DO NOT CRUSH OR CHEW. 90 capsule 3 03/16/20 25 Active Omeprazole 20 MG tablet delayed-release Take 1 tablet (20 mg) by mouth 2 times daily. 60 tablet 3 04/13/20 25 Active naproxen (Naprosyn) 500 MG tabletIndications:Mi graine without aura and without status migrainosus, not intractable TAKE 1 TABLET BY MOUTH TWICE A DAY NEEDED 60 tablet 04/17/20 25 Active topiramate (Topamax) 50 MG tablet Take 1 tablet (50 mg) by mouth Once per day. 60 tablet 3 04/24/20 25 Active dicyclomine (Bentyl) 10 MG capsule Take 1 capsule (10 mg) by mouth 4 times daily. 120 capsule 11 04/24/20 25 026 Active lidocaine (Lidoderm) 5 % patch APPLY 1 PATCH IN THE MORNING REMOVE AND DISARD PATCH WITHIN 12 HOURS OR DIRECTED 90 patch 05/22/20 25 Active Active Problems Problem Noted Date Diagnosed Date [...] Assessment & Plan (04/10/2023 9:34 AM EDT): Stephanien complains of episode of diarrhea without blood, [...] Unremarkable, she recently had plastic surgery at [place], no complications Labs reviewed from 01/2024 Pending mammogram Pending pap smear Assessment & Plan (02/05/2023 9:45 AM EDT): Physical examination was unremarkable, refer pap smear was done at [facility] woman on , will request results, will [...] Encounters Date Type Department Care Team Description 06/07/2025 Telephone [facility] [address] [place] [address] Turner Hernandez MD Referral 05/20/2025 Refill [facility] [address] [place] [address] Melvina Andrade MD 05/16/2025 Orders Only [facility] [address] [place] [phone] Turner Hernandez MD 05/01/2025 Results Follow-Up [facility] [address] [place] [address] Turner Hernandez MD Comprehensive Metabolic Panel, Lipid Panel, Standard, TSH W/Reflex to FT4 04/24/2025 1:45 PM EDT Office Visit [facility] [address] [place] [address] Turner Hernandez MD Weight gain (Primary Dx); Irritable bowel syndrome with both constipation and diarrhea; Migraine without aura and without status migrainosus, not intractable; Annual physical exam 04/24/2025 Travel 04/17/2025 Refill [facility] [address] [place] [address] Turner Hernandez MD Migraine without aura and without status migrainosus, not intractable 04/14/2025 Patient Outreach [facility] [address] [place] [address] Turner Hernandez MD Pre-visit Planning (SDOH screening negative and Tobacco screening negative) 04/13/2025 1:40 PM EDT Office Visit [facility] [address] [place] [address] Keshia Lord MD Irritable bowel syndrome with both constipation and diarrhea (Primary Dx) 04/13/2025 Travel 04/13/2025 Telephone [facility] [address] [place] [address] Turner Hernandez MD Nurse Triage 04/05/2025 Orders Only GENERIC EXTERNAL DATA DEPARTMENT Provider, Generic External Data from Last 3 Months Immunizations Immunization Administration [...] 04/24/2025 1:36 PM EDT Plan of Treatment Upcoming Encounters Date Type Department Care Team (Late st Contact Info) Description 07/10/2025 1:00 PM EDT Nutrition [facility] DIABETES/NUTRITION [address] [place], [place] [phone] [place] [address] Health Maintenance Due Date Last Done Comments Family Planning (PISQ) 1998 HPV Vaccines (1 - 3-dose series) 1998 Pneumococcal Vaccine: Pediatrics (0 to 5 Years) and At-Risk Patients (6 to 49) Years (1 of 2 - PCV) 2002 COVID-19 Vaccine ( season) 2025 09/09/2021, 12/15/2020, 11/24/2020 Influenza Vaccine (#1) 2025 , 09/10/2020, 07/12/2019, Additional history exists SDOH Screening 04/14/2026 04/14/2025 Alcohol/Substance Use Screening 04/24/2026 04/24/2025 Depression Screening 04/24/2026 04/24/2025, 04/24/20 25 Disability Screening 04/24/2026 04/24/2025 Tobacco Screening 04/24/2026 04/24/2025 DTaP/Tdap/Td Vaccines (3 - Td or Tdap) 02/25/2027 02/25/2017, 01/06/2011 Cervical Cancer Screening 04/14/2027 HPV/Cotest 04/14/2027 Pap Smear 04/14/2027 04/14/2024 Mammogram 05/16/2027 05/16/2025, 0510/2023, 01/09/2020 Lipid Panel 04/27/2030 04/27/2025, 01/18, 08/09/2021 Zoster Vaccines (1 of 2) 2033 [...] Procedure Name Priority Date/Time Associated Diagnosis Comments BI MAMMOGRAM SCREEN W JORGE W IMPLANTS ZANE Routine 05/16/2025 3:20 PM EDT TSH W/REFLEX TO FT4 Routine 04/27/2025 1 [...] MRNA(IF ASCUS,ASC-H,LSIL) Routine 04/14/2024 1:35 PM EDT HEPATITIS C AB W/REFL TO HCV RNA, QN, PCR Routine 02/05/2023 9:43 AM EDT Annual physical exam HIV 1 RNA, QN PCR W/RFL SUSAN (RTI,PI,INTEGRASE) Routine 02/05/2023 9:43 AM EDT Annual physical exam from Last 3 Months or Most Recently Relevant to Health Maintenance Results * BI Mammogram Screen w/ Jorge w/ Implants Zane (05/16/2025 3:20 PM EDT) Anatomical Region Laterality Modality Mammography 05/16/2025 3:20 PM EDT Narrative 05/26/2025 3:41 PM EDT [facility] [address] [place] [address] Mammography Report Signed Patient: Rosita Og MR#: [id number] : 1985 Acct:[id number] Age/Sex: 39 / F ADM Date: 05/16/25 Loc: HO.MAMMO Attending Dr: Turner Mireles MD Ordering Physician: Turner Hernandez MD Res ults: 2Benign Findings Date of Service: 05/16/25 Follow Up: 1 Year From Orig ina Mammogram Procedure(s): MM tomosynthesis screen imp BI Accession Number(s): [id number] cc: Turner Hernandez MD EXAMINATION: MM SCREENING DIGITAL BREAST TOMOSYNTHESIS, BILATERAL CLINICAL INFORMATION: Screening. Asymptomatic. COMPARISON: Mammography: Comparison is made with relevant avialable priors. TECHNIQUE: Digital mammography is performed in craniocaudal and mediolateral oblique views along with computer-aided detection (CAD). Digital breast tomosynthesis is performed in implant-displaced craniocaudal and implant-displaced mediolateral oblique views along with computer-aided detection (CAD). FINDINGS: There are scattered areas of fibroglandular density (ACR BI-RADS breast composition Category b). Bilateral retropectoral silicone implants are stable. There are no significant masses, abnormal calcifications, or other abnormalities. MM/MM tomosynthesis screen imp BI IMPRESSION: There are no significant changes from prior study. ASSESSMENT: BI-RADS BI-RADS 2 - Benign Findings RECOMMENDATION: Routine annual mammography screening. 1 year F/U This patient's information was entered into a reminder system with a target due date for their next mammogram. Electronically signed by: Tanya Andersen DO 05/26/2025 03:38 PM EDT Dictated By: Tanya Andersen DO Signed By: <Electronically signed by Tanya Andersen DO in OV> 05/26/25 1538 DD/ 1520 TD/TT: 05/16/25 1535 Pattern Worker: Procedure Note Donotuseinterpreter, Image - 05/26/2025 [facility] [address] [place] [address] Mammography Report Signed Patient: Rosita OgMR#: [id number] : 1985Acct:[id number] Age/Sex: 39 / FADM Date: 05/16/25 Loc: HO.MAMMO Attending Dr: Turner Mireles MD Ordering Physician: Turner Hernandez ults: 2Benign Findings Date of Service: 05/16/25Follow Up: 1 Year From [facility] Mammogram Procedure(s): MM tomosynthesis screen imp BI Accession Number(s): [id number] cc: Turner Hernandez MD EXAMINATION: MM SCREENING DIGITAL BREAST TOMOSYNTHESIS, BILATERAL CLINICAL INFORMATION: Screening. Asymptomatic. COMPARISON: Mammography: Comparison is made with relevant avialable priors. TECHNIQUE: Digital mammography is performed in craniocaudal and mediolateral oblique views along with computer-aided detection (CAD). Digital breast tomosynthesis is performed in implant-displaced craniocaudal and implant-displaced mediolateral oblique views along with computer-aided detection (CAD). FINDINGS: There are scattered areas of fibroglandular density (ACR BI-RADS breast composition Category b). Bilateral retropectoral silicone implants are stable. There are no significant masses, abnormal calcifications, or other abnormalities. MM/MM tomosynthesis screen imp BI IMPRESSION: There are no significant changes from prior study. ASSESSMENT: BI-RADS BI-RADS 2 - Benign Findings RECOMMENDATION: Routine annual mammography screening. 1 year F/U This patient's information was entered into a reminder system with a target due date for their next mammogram. Electronically signed by: Tanya Andersen DO 05/26/2025 03:38 PM EDT RP Dictated By: Tanya Andersen DO Signed By: <Electronically signed by Tanya Andersen DO in OV> 05/26/25 1538 DD/ 1520 TD/TT: 05/16/25 153 Pattern Worker: Turner Mireles MD IMG BI PROCEDURES Final Result * TSH W/Reflex to FT4 (04/27/2025 10:29 AM EDT) TSH reflex Free T4 0.84 0.32 - 4.0 uIU/mL [facility] Blood Venous blood specimen / Unknown 04/27/2025 10:29 AM EDT 04/27/2025 3:46 PM EDT Turner Mireles MD LAB BLOOD ORDERABL ES Final Result [facility] [address] [place] [phone] * (ABNORMAL) Lipid Panel, Standard (04/27/2025 10:29 AM EDT) Triglycerides 92 <150 mg/dL [facility] Comment:Desirable Triglyceri de: less than 150 mg/dLBorderline High Triglyceride 150-199 mg/dLHigh Triglyceride: 200-499 mg/dLVery High Triglyceride: greater than or equal to 5OO mg/dL Cholesterol 148 <200 mg/dL [facility] Comment:Desirable Cholestero l: less than 200 mg/dLBorderline High Cholesterol: 200-239 mg/dLHigh Cholesterol: greater than 239 mg/dL LDL Cholesterol Calculated 94 <100 mg/dL [facility] Comment:Desirable LDL: less than 100 mg/dLNear Optimal/Above Optimal LDL: 110- 129 mg/dLBorderline High LDL: 130-159 mg/dLHigh LDL: 160-189 mg/dLVery High LDL: greater than or equal to 190 mg/dL HDL Cholesterol 36(L) >40 mg/dL [facility] Comment:Desirable HDL: great er than 40 mg/dL Note: This HDL assay may give artificially low results in patients with liver disease. Blood Venous blood specimen / Unknown 04/27/2025 10:29 AM EDT 04/27/2025 3:46 PM EDT us Turner Mireles MD LAB BLOOD ORDERABL ES Final Result [facility] [address] [place] [phone] [phone] * (ABNORMAL) Comprehensive Metabolic Panel (04/27/2025 10:29 AM EDT) Sodium 138 135 - 145 mmol/L [facility] Potassium 4.1 3.3 - 5.1 mmol/L [facility] Chloride 107 96 - 108 mmol/L [facility] Carbon Dioxide 24 22 - 29 mmol/L [facility] Anion Gap 11(L) 12 - 20 [facility] Urea Nitrogen (BUN) 10 9 - 16 mg/dL [facility] Creatinine, Serum 0.81 0.5 - 1.4 mg/dL [facility] Estimated Glomerular Filt Rate >60 [facility] Comment:Chronic Kidney Disea se: Estimated GFR < 60 mL/min/[id number] Kidney Disease: Estimated GFR < 15 mL/min/1.73m2 Glucose 86 60 - 115 mg/dL [facility] Calcium 8.7 8.4 - 10.2 mg/dL [facility] Bilirubin, Total 0.5 0.0 - 1.0 mg/dL [facility] Aspartate Amino Transferase 75(H) 5 - 31 U/L [facility] Alanine Aminotransferase 140(H) 0 - 31 U/L [facility] Total Protein 7.0 6.5 - 8.0 g/dL [facility] Albumin Level 4.2 3.5 - 5.0 g/dL [facility] Alkaline Phosphatase 61 39 - 117 U/L [facility] Blood Venous blood specimen / Unknown 04/27/2025 10:29 AM EDT 04/27/2025 3:46 PM EDT us Turner Mireles MD LAB BLOOD ORDERABL ES Final Result Performing Organization Address City/State/[facility] Co de Phone Number [facility] [address] [place] [phone] * XR KUB and Upright 2 Views (04/05/2025 11:53 PM EDT) Anatomical Region Laterality Modality Radiographic Lizeth ging 04/05/2025 11:5 3 PM EDT Narrative 04/05/2025 11:54 PM EDT [address] [address] XRay Report Signed Patient: Rosita Og MR#: [id number] : 1985 Acct:[id number] Age/Sex: 39 / F ADM Date: 04/05/25 Loc: HO.ED Attending Dr: Ordering Physician: Christina Ramos Date of Service: 04/05/25 Procedure(s): XR KUB Accession Number(s): [id number] cc: Turner Hernandez MD; Christina Ramos CLINICAL [...] in OV> 04/05/252353 DD/ 52 TD/TT: 04/05/252352 Pattern Worker: Procedure Note Kailyn, Image - 04/05/[address] [address] XRay Report Signed Patient: Rosita OgMR#: [id number] : 1985Acct:[id number] Age/Sex: 39 / FADM Date: 04/05/25 Loc: HO.ED Attending Dr: Ordering Physician: Christina Ramos Date of Service: 04/05/25 Procedure(s): XR KUB Accession Number(s): [id number] cc: Turner Hernandez MD; Christina Ramos CLINICAL [...] in OV> 04/05/252353 DD/ 52 TD/TT: 04/05/252352 Pattern Worker: [facility] External Provider IMG XR PROCEDURES Edited Result - Final * (ABNORMAL) Urinalysis, Complete, with Reflex to Culture (04/05/2025 11:06 PM EDT) Color Urine Yellow [facility] Appearance Urine Cloudy [facility] PH 6.5 5.0 - 9.0 [facility] Glucose Urine UA Negative Negative mg/dL [facility] Urine Blood Trace(A) Negative [facility] Specific [place] - Urine 1.025 1.005 - 1.025 [facility] Urine Protein Negative Neg-Trace mg/dL [facility] Urine Ketones Negative Negative mg/dL [facility] Nitrite Urine Negative Negative [facility] Leukocyte Esterase Urine Small (1+)(A) Negative [facility] RBC Urine 0-2 0 - 2 /HPF [facility] Urine WBC 0-5 0 - 5 /HPF [facility] Urine Squamous Epithelial Cell 11-20 0 - 2 /HPF [facility] Urine Bacteria 1+ None Seen [facility] Hyaline Casts, Urine 0-2 0 - 2 /LPF [facility] 04/05/2025 11:0 6 PM EDT 04/05/2025 11:10 PM EDT Narrative [facility] - 04/05/2025 11:25 PM EDT Urine, Clean Catch us Generic External Data Provider LAB URINE ORDERAB LES Final Result [facility] [address] [place] [address] [phone] * (ABNORMAL) CBC auto differential (04/05/2025 5:56 PM EDT) White Blood Count 8.0 4.8 - 10.8 X10*3/uL [facility] Red Blood Count 4.49 4.20 - 5.50 X10*6/uL [facility] Hemoglobin 11.2(L) 12.0 - 16.0 g/dl [facility] Hematocrit 35.2(L) 37.0 - 47.0 % [facility] Mean Corpuscular Volume 78.4(L) 80.0 - 98.0 fL [facility] Mean Corpuscular Hemoglobin 24.9(L) 27.0 - 33.0 pg [facility] Mean Corpuscular HGB Conc 31.8 31.0 - 35.0 g/dl [facility] Red Cell Distribution Width 16.1(H) 11.0 - 16.0 % [facility] Platelet Count 331 160 - 400 X10*3/uL [facility] Mean Platelet Volume 9.3(L) 9.4 - 12.3 fL [facility] Neutrophils Percent Auto 54.0 45 - 73 % [facility] Imm Gran Pct Auto 0.4 0.0 - 0.4 % [facility] Lymphocytes Percent Auto 34.2 20 - 40 % [facility] Monocytes Percent Auto 7.1 2 - 11 % [facility] Eosinophils Percent Auto 3.3 0 - 4 % [facility] Basophils Percent Auto 1.0 0 - 2 % [facility] NRBC Pct Auto 0.0 0.0 - 0.2 /100WBC [facility] Neutrophils Absolute Auto 4.3 2.0 - 8.3 x10*3/uL [facility] Imm Gran Abs Auto 0.03 0.00 - 0.03 X10*3/uL [facility] Lymphocytes Absolute Auto 2.7 1.2 - 4.9 X10*3/uL [facility] Monocytes Absolute Auto 0.6 0.1 - 1.2 X10*3/uL [facility] Eosinophils Absolute Auto 0.3 0.0 - 0.4 X10*3/uL [facility] Basophils Absolute Auto 0.1 0.0 - 0.2 X10*3/uL [facility] NRBC Abs Auto 0.000 0.0 - 0.012 X10*3/uL [facility] 04/05/2025 5:56 PM EDT 04/05/2025 6:00 PM EDT us Generic External Data Provider LAB BLOOD ORDERAB LES Final Result [facility] [address] [place] [phone] * hCG, Total, Quantitative (04/05/2025 5:56 PM EDT) HCG Quantitative <2 mIU/mL [facility] Comment:Weeks post LMP Appro ximate hCG(Last Menstrual Period) Range (mIU/ml)3 - 4 weeks 9 - 1304 - 5 weeks 75 - 2,6005 - 6 weeks 850 - 20,8006 - 7 weeks 4000 - 100,2007 - 12 weeks 11,500 - 289,07620 - 16 weeks 18,300 - 137,85052 - 29 weeks (2nd trimester) 1,400 - 53,84761 - 41 weeks (3rd trimester) 940 - [...] ORDERAB LES Final Result Performing Organization Address [facility] Co de Phone Number [facility] [address] [place] [phone] * Lipase (04/05/2025 5:56 PM EDT) Lipase 30 8 - 78 U/L [facility] 04/05/2025 5:56 PM EDT 04/05/2025 6:00 PM EDT Generic External Data Provider LAB BLOOD ORDERAB LES Final Result Performing Organization Address [facility] Co de Phone Number [facility] [address] [place] [phone] * Lactic Acid (04/05/2025 5:56 PM EDT) Lactic Acid 0.7 0.5 - 2.0 mmol/L [facility] 04/05/2025 5:56 PM EDT 04/05/2025 6:00 PM EDT Generic External Data Provider LAB BLOOD ORDERAB LES Final Result Performing Organization Address [facility]/ZIP Co de Phone Number [facility] [address] [place] [phone] [phone] * (ABNORMAL) Hepatic Function Panel (04/05/2025 5:56 PM EDT) [facility] Bilirubin, Total 0.3 0.0 - 1.0 mg/dL [facility] Bilirubin, Direct 0.1 0.0 - 0.5 mg/dL [facility] Aspartate Amino Transferase 57(H) 5 - 31 U/L [facility] Alanine Aminotransferase 98(H) 0 - 31 U/L [facility] Total Protein 6.9 6.5 - 8.0 g/dL [facility] Albumin Level 4.3 3.5 - 5.0 g/dL [facility] Alkaline Phosphatase 70 39 - 117 U/L [facility] 04/05/2025 5:56 PM EDT 04/05/2025 6:00 PM EDT us Generic External Data Provider LAB BLOOD ORDERAB LES Final Result Performing Organization Address [facility] de Phone Number [facility] [address] [place] [phone] * (ABNORMAL) Basic Metabolic Panel (04/05/2025 5:56 PM EDT) [facility] Sodium 138 135 - 145 mmol/L [facility] Potassium 3.8 3.3 - 5.1 mmol/L [facility] Chloride 106 96 - 108 mmol/L [facility] Carbon Dioxide 25 22 - 29 mmol/L [facility] Anion Gap 11(L) 12 - 20 [facility] Urea Nitrogen (BUN) 12 9 - 16 mg/dL [facility] Creatinine, Serum 0.89 0.5 - 1.4 mg/dL [facility] Creatinine Clr Calc Pharmacy 90.6 [facility] Comment:Provided height and weight: 170.18 cm,80.1 kg.eGFR (calculated from the MDRD study equation) and eCrCl(calculated from the Cockcroft-Gault equation) are based ondifferent parameters and may not yield comparable results.If eCrCl result is absurd, please check patient'sheight/weight. Estimated Glomerular Filt Rate >60 [facility] Comment:Chronic Kidney Disea se: Estimated GFR < 60 mL/min/[id number] Kidney Disease: Estimated GFR < 15 mL/min/1.73m2 Glucose 84 60 - 115 mg/dL [facility] Calcium 8.7 8.4 - 10.2 mg/dL [facility] 04/05/2025 5:56 PM EDT 04/05/2025 6:00 PM EDT Generic External Data Provider LAB BLOOD ORDERAB LES Final Result Performing Organization Address [facility] Co de Phone Number [facility] [address] [place] [phone] * Culture, Urine, Routine (04/05/2025 12:00 AM EDT) Urine Urine specimen obtained by clean catch procedure / Unknown 04/05/2025 04/05/2025 Comment:UACC Narrative [facility] - 04/07/2025 1:18 PM EDT Strep agalactiae (Grp B) Quant > 100,000 cfu/mL Susc N/A Susceptibility not routinely performed on this isolate. Specimen Source: Urine clean catch Generic External Data Provider LAB MICROBIOLOGY - GENERAL ORDERABLES Final Result Performing Organization Address [facility] Co de Phone Number [facility] [address] [place] [phone] * ThinPrep?? Imaging Pap Refl HPV mRNA(if ASCUS,ASC-H,LSIL,HSIL,SINGH)Refl Genotype (04/14/2024 1:35 PM EDT) HPV nRNA E6/E7 [facility] HPV 16,18/45 [facility] SOURCE: SEE NOTE [facility] Comment:None given Report Status: [facility] Clinical Information: SEE NOTE [facility] Comment:None given LMP: SEE NOTE [facility] Comment:NONE GIVEN Prev. PAP: SEE NOTE [facility] Comment:NONE GIVEN Prev. BX: SEE NOTE [facility] [facility] Comment:NONE GIVEN Statement Of Adequacy: SEE NOTE [facility] Comment:Satisfactory for fuetnes luation.Endocervical/transformation zone componentpresent. General Categorization: [facility] Interpretation/Result: SEE NOTE [facility] Comment:Cytology Results: Ne gative for intraepitheliallesion or malignancy. Cytology Comment SEE NOTE [facility] Comment:This Pap test has be en evaluated with computerassisted technology. Rubber Cutter And Shape Carver: SEE NOTE [facility] Comment:RMM, CT(ASCP)CT scre ening location: [place] [address] Review Rubber Cutter And Shape Carver: [facility] Pathologist [facility] PAP Infection [facility] See Note SEE NOTE [facility] Comment:EXPLANATORY NOTE:The Pap is a screening test for cervical cancer. It isnot a diagnostic test and is subject to false negativeand false positive results. It is most reliable when asatisfactory sample, regularly obtained, is submittedwith relevant clinical findings and history, and whenthe Pap result is evaluated along with historic andcurrent clinical information.THIS TEST WAS PERFORMED AT:[facility] [address] [id number] RESTREPO MD 04/14/2024 1:35 PM EDT 04/14/2024 7:43 PM EDT Narrative [facility] - 04/20/2024 11:52 AM EDT SEE EMR FOR SCANNED REPORT us Rayne Duran MD LAB CYTOLOGY ORDERABLES Final Result [facility] [address] [place] [address] [phone] * HIV-1 RNA, Quantitative, Real-Time PCR with Reflex to Genotype (RTI, PI, Integrase) (02/05/2023 9:43 AM EDT) Pathologist [facility] [place] HIV 1 RNA, QN PCR NOT DETECTED copies/mL [facility], HIV 1 RNA, QN PCR NOT DETECTED Log copies/mL [facility], Comment: REFERENCE RANGE: NOT DETECTED copies/mL NOT DETECTED Log copies/mL This test was performed using Real-Time Polymerase Chain Reaction. Reportable range is 20 to 10,000,000 copies/mL (1.30-7.00 Log copies/mL). 02/05/2023 9:43 AM EDT 02/05/2023 9:43 AM EDT Narrative [facility] - 02/09/2023 10:15 AM EDT FASTING:NO AN UPDATE OR CORRECTION HAS BEEN MADE TO NAME FASTING: NO Turner Mireles MD LAB BLOOD ORDERABL ES Final Result [facility] [address], [place] [address] [facility], [address] [place] [address] * Hepatitis C Antibody with Reflex to HCV, RNA, Quantitative, Real-Time PCR (02/05/2023 9:43 AM EDT) Pathologist [facility] Hepatitis C Antibody NON-REACT KRYSTEN NON-REACT KRYSTEN [facility] [place] [facility] Index 0.08 <1.00 [facility] [place] [facility] Comment: HCV antibody was non-reactive. There is no laboratory evidence of HCV infection. In most cases, no further action is required. However, if recent HCV exposure is suspected, a test for HCV RNA (test code 63654) is suggested. For additional information please refer to http://education.Chute/faq/SFX35n3 (This link is being provided for informational/ educational purposes only.) Blood Venous blood specimen / Unknown 02/05/2023 9:43 AM EDT 02/05/2023 9:43 AM EDT Narrative [facility] - 02/09/2023 10:15 AM EDT FASTING:NO AN UPDATE OR CORRECTION HAS BEEN MADE TO NAME FASTING: NO Turner Mireles MD LAB BLOOD ORDERABL ES Final Result [facility] [address], [place] [address] [facility] [address] [place] [address] from Last 3 Months or Most Recently Relevant to Health Maintenance Insurance [employer] Care Teams Print Buyer Relationship Specialty Start Date End Date Turner Hernandez MD [address] [place] [address] PCP - General Internal Medicine 03/06/20
--- OUTSIDE RECORDS SUMMARY | 2025-06-28 17:44 | XMS_ITS | Encounter Summary ---
Author Organization [employer] Address [address] [facility] 7t [place] [address] Care Team Providers Care Hands Hanger Name Role Phone Turner Hernandez MD Primary Care Prov ider Reason for Visit * Reason Comments Med Change Request Encounter Details Date Type Department Care Team ([facility] Contact Info) Description 07/15/2023 Refill [facility] CHC MED & PEDS [address] [place], [place] [phone] Turner Hernandez MD [address] [place] [address] Social History Tobacco Use Types Packs/Day Years Used Date Smoking Tobacco: Every Day Cigarettes 0.3 10 Smokeless Tobacco: Never Alcohol Use Standard Drinks/Week Comments Yes 0 (1 standard drink = 0.6 oz pur e alcohol) Depression Answer Date Recorded Patient Health Questionnaire-9 Score 0 10/28/2022 Depression Answer Date Recorded Patient Health Questionnaire-2 [...] Upcoming Encounters Date Type Department Care Team ([facility] Contact Info) Description 07/10/2025 1:00 PM EDT Nutrition [facility] DIABETES/NUTRITION [address] [place], [place] [phone] [address] [place], [place] [phone] documented as of this encounter Visit Diagnoses Not on filedocumented in this encounter Additional Health Concerns Assessment Noted Time PHQ-9 Depression Total Score: 0 10/28/19 23 10:43 AM EST documented as of this encounter Care Teams Hands Hanger Relationship Specialty Start Date End Date Turner Hernandez MD [address] [place] [address] PCP - General Internal Medicine 03/06/20 documented as of this encounter
== END 2025-06-28 14:48 | disposition home or self-care (01) ==
PROVIDERS: PCP Internal Medicine; Visit Provider Internal Medicine
DX: R10.9 Unspecified abdominal pain (principal); K58.9 Irritable bowel syndrome, unspecified; R14.0 Abdominal distension (gaseous); R09.A2 Foreign body sensation, throat
CPT/HCPCS: 99214

== ENCOUNTER → 2025-06-28 14:25 | Outpatient (BNVA) | payer MEDICAID, SELFPAY | PROVIDERS: PCP Internal Medicine; Visit Provider Internal Medicine | DX: R14.0 Abdominal distension (gaseous) (principal); K58.9 Irritable bowel syndrome, unspecified; R09.A2 Foreign body sensation, throat; R10.9 Unspecified abdominal pain | CPT/HCPCS: 99212 ==

== ENCOUNTER 2025-08-22 08:25 | Day surgery (SDC) | payer MEDICAID, SELFPAY ==
--- OUTSIDE RECORDS SUMMARY | 2025-07-25 13:18 | XMS_ITS | Encounter Summary ---
Author Organization [employer] Address [address] [facility] 7 [place] [address] Care Team Providers Care Jewelry Facer Name Role Phone Turner Hernandez MD Primary Care Prov ider Reason for Visit * Reason Onset Date Comments Pre-op Exam 01/12/2024 Encounter Details Date Type Department Care Team ([facility] st Contact Info) Description 01/12/2024 Telephone [facility] MEDICINE [address] [place] [address] Turner Hernandez MD [address] [place] [address] Pre-op Exam Social History Tobacco Use Types [...] She also has an appointment with her relish maker for an EKG and cardiac clearance. She is also required to get a chest x-ray and to have clearance from her PCP to go ahead with surgery. Tried twice to reach surgeon's office at [facility] and could not get through to anyone to confirm information. Patient scheduled for pre-op withPCP on 01/26/24 @ 2:30 pm. Patient asks if chest x-ray can be ordered prior to this visit. Routing note to PCP for review. Date of Surgery: 02/04 Surgical procedure being done: Liposuction, Type of anesthesia: General Lab needed: Yes EKG: Yes Surgeon's name: Dr. Fei Beard Facility name: [facility] Plastic Surgery Surgeon's office number: [phone] Surgeon's office fax number: Contact name (person you spoke with): Betty hwoell patient Last office note from surgeon requested: patient will bring in to office * Telephone Encounter - Temo Salazar - 01/12/2024 9:06 AM EDT Date of Surgery: 02/04 Surgical procedure being done: Liposuction, Type of anesthesia: General Lab needed: Yes EKG: Yes Surgeon's name: Dr. Fei Beard Facility name: [facility] Surgery Surgeon's office number: [phone] Surgeon's office fax number: Contact name (person you spoke with): Betty the patient Last office note from surgeon requested: patient will bring in to office documented in this encounter Plan of Treatment Not on file documented as of this encounter Visit Diagnoses Not on filedocumented in this encounter Additional Health Concerns Assessment Noted Time PHQ-9 Depression Total Score: 0 10/28/19 23 10:43 AM EST documented as of this encounter Care Teams Jewelry Facer Relationship Specialty Start Date End Date CentenoTurner Moya MD [address] [place] [phone] PCP - General Internal Medicine 03/06/20 documented as of this encounter
--- OUTSIDE RECORDS SUMMARY | 2025-07-25 13:18 | XMS_ITS | Encounter Summary ---
Author Organization [employer] Address [address] [facility] 7 [place] [address] Care Team Providers Care Bioinformatics Computer Scientist Name Role Phone Turner Hernandez MD Primary Care Prov ider Reason for Visit * Reason Comments Med Change Request Encounter Details Date Type Department Care Team ([facility] Contact Info) Description 07/15/2023 Refill [facility] CHC MED & PEDS [address] [place], [place] [phone] Turner Hernandez MD [address] [place] [address] Social History Tobacco Use Types Packs/Day Years [...] documented as of this encounter Care Teams Bioinformatics Computer Scientist Relationship Specialty Start Date End Date Turner Hernandez MD [address] [place] [phone] PCP - General Internal Medicine 03/06/20 documented as of this encounter
--- OUTSIDE RECORDS SUMMARY | 2025-07-25 13:18 | XMS_ITS | Clinical Summary ---
Author Organization [employer] Address [address] [facility] 7t [place] [address] Care Team Providers Care Tower Loader Operator Name Role Phone Turner Hernandez MD Primary [...] continue lifestyle modifications Musculoskeletal pain 01/26/2024 Myocarditis (CMS/HCC) 01/26/2024 Myopericarditis 01/26/2024 Sacroiliitis 01/26/2024 Spondylosis of [...] Unremarkable, she recently had plastic surgery at [place], no complications Labs reviewed from 01/2024 Pending mammogram Pending pap smear Assessment & Plan (02/05/2023 9:45 AM EDT): Physical examination was unremarkable, refer pap smear was done at [facility] woman on , will request results, will [...] Encounters Date Type Department Care Team Description 07/10/2025 1:00 PM EDT Nutrition [facility] DIABETES/NUTRITION [address] [place] [address] Irritable bowel syndrome with both constipation and diarrhea 07/10/2025 Travel 06/07/2025 Telephone [facility] MEDICINE [address] [place] [address] Turner Hernandez MD Referral 05/20/2025 Refill [facility] MED & PEDS [address] [place] [address] Melvina Andrade MD 05/16/2025 Orders Only [facility] MED & PEDS [address] [place] [address] Turner Hernandez MD 05/01/2025 Results Follow-Up [facility] MED & PEDS [address] [place] [address] Turner Hernandez MD Comprehensive Metabolic Panel, Lipid Panel, Standard, TSH W/Reflex to FT4 04/24/2025 1:45 PM EDT Office Visit [facility] MED & PEDS [address] [place] [address] Turner Hernandez MD Weight gain (Primary Dx); Irritable bowel syndrome with both constipation and diarrhea; Migraine without aura and without status migrainosus, not intractable; Annual physical exam 04/24/2025 Travel from Last 3 Months Immunizations Immunization Administration [...] EDT Inhaled Oxygen Concentration - - Weight 80.3 kg (177 lb) 07/13/2025 10:07 AM EDT Height 167 cm (5' 5.75 ) 07/13/2025 10:07 AM EDT Body Mass Index 28.79 07/13/2025 10:07 AM EDT Plan of Treatment Health Maintenance Due [...] 04/24/2026 04/24/2025 Depression Screening 04/24/2026 04/24/2025, 04/24/20 Disability Screening 04/24/2026 04/24/2025 Tobacco Screening 04/24/2026 04/24/2025 DTaP/Tdap/Td Vaccines (3 - Td or Tdap) 02/25/2027 02/25/2017, 01/06/2011 Cervical Cancer Screening 04/14/2027 HPV/Cotest 04/14/2027 Pap Smear 04/14/2027 04/14/2024 Mammogram 05/16/2027 05/16/2025, 05/3 10/2023, 01/09/2020 Lipid Panel 04/27/2030 04/27/2025, 01/18, 08/09/2021 [...] Routine 04/27/2025 10:29 AM EDT Weight gain [facility] PAP REFL HPV MRNA(IF ASCUS,ASC-H,LSIL) [...] PM EDT Narrative 05/26/2025 3:41 PM EDT [facility]'[address] [place] [address] Mammography Report Signed Patient: Rosita Og MR#: [id number] : 1985 Acct:[id number] Age/Sex: 39 / F ADM Date: 05/16/25 Loc: HO.MAMMO Attending Dr: Turner Mireles MD Ordering Physician: Turner Hernandez MD Res ults: 2Benign Findings Date of Service: 05/16/25 Follow Up: 1 Year From Orig ina Mammogram Procedure(s): MM tomosynthesis screen imp BI Accession Number(s): [id number] cc: Turner Hernandez MD EXAMINATION: MM SCREENING [...] 05/26/25 1538 DD/ 1520 TD/TT: 05/16/25 1535 Metrology Specialist: Procedure Note Donotuseinterpreter, Image - 05/26/2025 [facility]'s [address] [place] [address] Mammography Report Signed Patient: Rosita OgMR#: [id number] : 1985Acct:[id number] Age/Sex: 39 / FADM Date: 05/16/25 Loc: HO.MAMMO Attending Dr: Turner Mireles MD Ordering Physician: Turner Hernandez ults: 2Benign Findings Date of Service: 05/16/25Follow Up: 1 Year From Orig inal Mammogram Procedure(s): MM tomosynthesis screen imp BI Accession Number(s): [id number] cc: Turner Hernandez MD EXAMINATION: MM SCREENING [...] 05/26/25 1538 DD/ 1520 TD/TT: 05/16/25 153 Metrology Specialist: Turner Mireles MD IMG BI PROCEDURES Final Result * TSH W/Reflex to FT4 (04/27/2025 10:29 AM EDT) TSH reflex Free T4 0.84 0.32 - 4.0 uIU/mL [facility] Blood Venous blood specimen / Unknown 04/27/2025 10:29 AM EDT 04/27/2025 3:46 PM EDT Turner Mireles MD LAB BLOOD ORDERABL ES Final Result [facility] [address] [place] [address] [phone] * (ABNORMAL) Lipid Panel, Standard (04/27/2025 10:29 AM EDT) Triglycerides 92 <150 mg/dL [facility] Comment:Desirable Triglyceri de: less than 150 mg/dLBorderline High Triglyceride 150-199 mg/dLHigh Triglyceride: 200-499 mg/dLVery High Triglyceride: greater than or equal to 5OO mg/dL Cholesterol 148 <200 mg/dL [facility] Comment:Desirable Cholestero l: less than 200 mg/dLBorderline High Cholesterol: 200-239 mg/dLHigh Cholesterol: greater than 239 mg/dL LDL Cholesterol Calculated 94 <100 mg/dL [facility] Comment:Desirable LDL: less than 100 mg/dLNear Optimal/Above Optimal LDL: 110- 129 mg/dLBorderline High LDL: 130-159 mg/dLHigh LDL: 160-189 mg/dLVery High LDL: greater than or equal to 190 mg/dL HDL Cholesterol 36(L) >40 mg/dL [facility] Comment:Desirable HDL: great er than 40 mg/dL Note: This HDL assay may give artificially low results in patients with liver disease. Blood Venous blood specimen / Unknown 04/27/2025 10:29 AM EDT 04/27/2025 3:46 PM EDT us Turner Mireles MD LAB BLOOD ORDERABL ES Final Result [facility] [address] [place] [phone] * (ABNORMAL) Comprehensive Metabolic Panel (04/27/2025 10:29 AM EDT) Sodium 138 135 - 145 mmol/L [facility] Potassium 4.1 3.3 - 5.1 mmol/L [facility] Chloride 107 96 - 108 mmol/L [facility] Carbon Dioxide 24 22 - 29 mmol/L [facility] Anion Gap 11(L) 12 - 20 [facility] Urea Nitrogen (BUN) 10 9 - 16 mg/dL [facility] Creatinine, Serum 0.81 0.5 - 1.4 mg/dL [facility] Estimated Glomerular Filt Rate >60 [facility] Comment:Chronic Kidney Disea se: Estimated GFR < 60 mL/min/[id number] Kidney Disease: Estimated GFR < 15 mL/min/1.73m2 Glucose 86 60 - 115 mg/dL [facility] Calcium 8.7 8.4 - 10.2 mg/dL [facility] Bilirubin, Total 0.5 0.0 - 1.0 mg/dL [facility] Aspartate Amino Transferase 75(H) 5 - 31 U/L [facility] Alanine Aminotransferase 140(H) 0 - 31 U/L [facility] Total Protein 7.0 6.5 - 8.0 g/dL [facility] Albumin Level 4.2 3.5 - 5.0 g/dL [facility] Alkaline Phosphatase 61 39 - 117 U/L [facility] Blood Venous blood specimen / Unknown 04/27/2025 10:29 AM EDT 04/27/2025 3:46 PM EDT us Turner Mireles MD LAB BLOOD ORDERABL ES Final Result [facility] [address] [place] [address] [phone] * ThinPrep?? Imaging Pap Refl HPV mRNA(if ASCUS,ASC-H,LSIL,HSIL,SINGH)Refl Genotype (04/14/2024 1:35 PM EDT) HPV nRNA E6/E7 [facility] HPV 16,18/45 [facility] SOURCE: SEE NOTE [facility] Comment:None given Report Status: [facility] Clinical Information: SEE [facility] Comment:None given LMP: SEE [facility] Comment:NONE GIVEN Prev. PAP: SEE NOTE [facility] Comment:NONE GIVEN Prev. BX: SEE [facility] Comment:NONE GIVEN Statement Of Adequacy: SEE NOTE [facility] Comment:Satisfactory for fuentes luation.Endocervical/transformation zone componentpresent. General Categorization: [facility] Interpretation/Result: SEE NOTE [facility] Comment:Cytology Results: Ne gative for intraepitheliallesion or malignancy. Cytology Comment SEE NOTE [facility] Comment:This Pap test has be en evaluated with computerassisted technology. Guidance Consultant: SEE NOTE [facility] Comment:RMM, CT(ASCP)CT scre ening location: [address] [address] Review Guidance Consultant: [facility] Pathologist [facility] PAP Infection [facility] See Note SEE NOTE [facility] Comment:EXPLANATORY NOTE:The Pap is a screening test for cervical cancer. It isnot a diagnostic test and is subject to false negativeand false positive results. It is most reliable when asatisfactory sample, regularly obtained, is submittedwith relevant clinical findings and history, and whenthe Pap result is evaluated along with historic andcurrent clinical information.THIS TEST WAS PERFORMED AT:[employer] [address] [phone] RESTREPO MD 04/14/2024 1:35 PM EDT 04/14/2024 7:43 PM EDT [facility] - 04/20/2024 11:52 AM EDT SEE EMR FOR SCANNED REPORT Rayne Duran MD LAB CYTOLOGY ORDERABLES Final Result [facility] [address] [place] [address] [phone] * HIV-1 RNA, Quantitative, Real-Time PCR with Reflex to Genotype (RTI, PI, Integrase) (02/05/2023 9:43 AM EDT) HIV 1 RNA, QN PCR NOT DETECTED copies/mL [facility], HIV 1 RNA, QN PCR NOT DETECTED Log copies/mL [facility], Comment: REFERENCE RANGE: NOT DETECTED copies/mL NOT DETECTED Log copies/mL This test was performed using Real-Time Polymerase Chain Reaction. Reportable range is 20 to 10,000,000 copies/mL (1.30-7.00 Log copies/mL). 02/05/2023 9:43 AM EDT 02/05/2023 9:43 AM EDT [facility] - 02/09/2023 10:15 AM EDT FASTING:NO AN UPDATE OR CORRECTION HAS BEEN MADE TO NAME FASTING: NO Turner Mireles MD LAB BLOOD ORDERABL ES Final Result Performing Organization Address [facility] de Phone Number [facility] [address], [facility] [place] [address] [facility], [address] [place] [address] * Hepatitis C Antibody with Reflex to HCV, RNA, Quantitative, Real-Time PCR (02/05/2023 9:43 AM EDT) Hepatitis C Antibody NON-REACT KRYSTEN NON-REACT KRYSTEN Vapotherm Index 0.08 <1.00 [facility] [place] [employer] Comment: HCV antibody was non-reactive. There is no laboratory evidence of HCV infection. In most cases, no further action is required. However, if recent HCV exposure is suspected, a test for HCV RNA (test code 49573) is suggested. For additional information please refer to http://education.theeventwall/faq/VBP40e4 (This link is being provided for informational/ educational purposes only.) Blood Venous blood specimen / Unknown 02/05/2023 9:43 AM EDT 02/05/2023 9:43 AM EDT Narrative [facility] - 02/09/2023 10:15 AM EDT FASTING:NO AN UPDATE OR CORRECTION HAS BEEN MADE TO NAME FASTING: NO Turner Mireles MD LAB BLOOD ORDERABL ES Final Result Performing Organization Address [facility] Co de Phone Number [facility] [address], [facility] [place] [address] [facility] [place] [employer] [address] [place] [address] from Last 3 Months or Most Recently Relevant to Health Maintenance Insurance [facility] [address] [address] C[address] Care Teams Tower Loader Operator Relationship Specialty Start Date End Date Turner Hernandez MD [address] [place] [address] PCP - General Internal Medicine 03/06/20
--- NOTE | 2025-08-18 11:53 | HO.ANESPROP2 ---
Documented by User: Zulma Webster NP 08/18/25 11:54 HPI - Anesthesia Eval Consult details Narrative: 39yo F for Upper Endoscopy Cardiac optimized, Follows [facility] for SVT, myopericarditis. Stable at 02/2025 office visit - atypical CP likely r/t GERD. Echo and Stress ECHO 2023 [place] [facility] Active Problems Active Problems: All Active Problems Globus sensation (Acute) COVID-19 (Acute) Irritable bowel syndrome (IBS) (Acute) Abdominal pain (Acute) Bloating (Acute) Chronic diarrhea (Acute) Migraine (Acute) Myopericarditis (Acute) Myocarditis (Acute) SVT (supraventricular tachycardia) (Acute) Chest pain (Acute) Elevated troponin I level (Acute) Scoliosis (Acute) Scoliosis of thoracolumbar spine (Acute) Spondylosis of lumbar region without myelopathy or radiculopathy (Acute) Sacroiliitis (Acute) Past Medical History Medical History IBS (irritable bowel syndrome) SVT (supraventricular tachycardia) Myopericarditis Migraines Sacroiliitis Spondylosis of lumbar region without myelopathy or radiculopathy Scoliosis of thoracolumbar spine Family History Family History Mother Breast cancer Father Cardiac arrhythmia Father Cardiac arrhythmia Surgical History Surgical History History of breast augmentation Social History Social History Are you a primary cardiac care unit nurse to a significant other at home: No Do you presently have visiting nurse or other home services: No Alcohol intake: never Patient Tobacco Use Status: Former Tobacco user service: No Current occupational status: employed Meds Allergies Allergy/AdvReac Type Severity Reaction Status Date / Time aspirin (Aspirin) Allergy Intermediate SWELLING Verified 08/22/25 09:04 seafood AdvReac Severe Anaphylaxis Verified 08/22/25 09:04 Home Medications ?Medication ?Instructions ?Recorded ?Confirmed ?Last Taken ?Type bupropion HCl 300 mg 24 hr tablet, 300 mg PO QAM 01/13/23 08/22/25 Unknown History extended release lidocaine 5 % topical patch 1 patch topical QAM 06/23/23 08/22/25 Unknown History eszopiclone 3 mg tablet 3 mg PO BEDTIME PRN insomnia 05/30/24 08/22/25 Unknown History metoprolol succinate 50 mg 50 mg PO DAILY 06/28/25 08/22/25 Unknown History tablet,extended release 24 hr Exam Narrative Narrative: Stress ECHO 2023 Assessment and Plan Assessment Anesthesia Assessment: Chart Reviewed Documented by User: Mario Alberto Sun MD 08/22/25 09:43 [facility] Past Medical History Medical History IBS (irritable bowel syndrome) SVT (supraventricular tachycardia) Myopericarditis Migraines Sacroiliitis Spondylosis of lumbar region without myelopathy or radiculopathy Scoliosis of thoracolumbar spine Patient : No Family History Family History Mother Breast cancer Father Cardiac arrhythmia Father Cardiac arrhythmia Family history of problems with anesthesia: No Surgical History Surgical History History of breast augmentation History of Problems with Anesthesia: No Social History Social History Are you a primary cardiac care unit nurse to a significant other at home: No Do you presently have visiting nurse or other home services: No Alcohol intake: never Patient Tobacco Use Status: Former Tobacco user service: No Current occupational status: employed Meds Allergies Allergy/AdvReac Type Severity Reaction Status Date / Time aspirin (Aspirin) Allergy Intermediate SWELLING Verified 08/22/25 09:04 seafood AdvReac Severe Anaphylaxis Verified 08/22/25 09:04 Home Medications ?Medication ?Instructions ?Recorded ?Confirmed ?Last Taken ?Type bupropion HCl 300 mg 24 hr tablet, 300 mg PO QAM 01/13/23 08/22/25 Unknown History extended release lidocaine 5 % topical patch 1 patch topical QAM 06/23/23 08/22/25 Unknown History eszopiclone 3 mg tablet 3 mg PO BEDTIME PRN insomnia 05/30/24 08/22/25 Unknown History metoprolol succinate 50 mg 50 mg PO DAILY 06/28/25 08/22/25 Unknown History tablet,extended release 24 hr Exam Airway Mallampati Class: II TM Dist: <=3cm Neck ROM: Full Loose/Missing/Broken Teeth: No Heart: ok Lungs: ok Assessment and Plan Assessment Anesthesia Assessment: Anesthesia Plan Discussed Final Anesthetic Review Family History of Problems with Anesthesia: No History of Problems with Anesthesia: No NPO: Yes ASA Class: III Final Preanesthetic Review: No Changes in Pt Med Stat, Meds/Allgs Chart Reviewed, Consent Obtained/Reviewed and Anes Risks/Benef Reviewed Patient Risk: Intermediate Procedure Risk: Intermediate Anesthetic Plan Anesthetic Plan: Agree w/ Assess. and Plan and TIVA Disposition: Standard PACU
[2025-08-18 12:58] VITALS: BMI 27.6
[2025-08-22] MEDS: Lactated Ringers 1,000 ML 100 ML IVCONT (09:26)
[2025-08-22 09:40] LABS: UPreg QC Valid YES
[2025-08-22 09:50] VITALS: BP 122/65; PULSE 62; RESP 18; TEMP 36.7; O2SAT 97
--- NOTE | 2025-08-22 09:54 | MHC.SHP ---
Pre-Procedural Eval Section A - 24 Hr Update-Section A only Date of Service: 08/22/25 Section B - Complete if H&P > 30 days Chief Complaint: Unspecified abdominal pain Details of Present Illness: Non-ST elevation PA (NSTEMI) Scoliosis Sacroiliitis Spondylosis of lumbar region without myelopathy or radiculopathy Scoliosis of thoracolumbar spine Surgical History History of breast augmentation Present Medications: see Short Stay Collaborative assessment Allergies: Allergies Allergy/AdvReac Type Severity Reaction Status Date / Time aspirin (Aspirin) Allergy Intermediate SWELLING Verified 08/22/25 09:04 seafood AdvReac Severe Anaphylaxis Verified 08/22/25 09:04 Review of Systems Review of Systems Comment: Ten point ROS negative Exam Exam Comment: Gen appear: No acute distress HEENT: no icterus Chest: No overt resp distress Abd: soft, nontender, nondistended Psych: Stable affect, answering questions appropriately Neuro: A/Ox3 noted to move all extremities spontaneously Ext: no peripheral edema Plan Diagnosis/Plan: Unchanged I have reviewed the history and physical and performed a pertinent physical examination on my patient. No changes have occurred unless specified. Time Spent With Patient Time: Total time managing care of this patient today ____ minutes.
--- NOTE | 2025-08-22 11:01 | P.OP_ITS ---
Operative Note Operative Note Date of Service: 08/22/25 Narrative: Procedure: Esophagogastroduodenoscopy Endoscopist: Gala Becker MD Indication: Abd pain, bloating Anesthesia Provider: Maggie Holguin CRNA Anesthesia Type: MAC ?? EGD Procedure:?? The procedure, indications, preparation and potential complications were reviewed with the patient, who indicated understanding and gave written informed consent to proceed. A physical exam was performed. The endoscope was introduced through the mouth, and advanced to the second part of duodenum. The mucosa was carefully examined on slow withdrawal of the endoscope. The patient tolerated the procedure well. There were no immediate complications.? ? EGD Findings:? * Esophagus:? Normal mucosa noted in the entire esophagus. The Z line was at 35 cm and displaced by a medium-sized hiatal hernia with the diaphragmatic pinch at 40 cm. * Stomach:? Normal mucosa was noted in the stomach. Retroflexion was performed in the cardia that showed Hill grade 4 hiatal hernia. Random cold forceps gastric biopsies were taken to rule out H Pylori infection. * Duodenum:? Normal mucosa was noted in the whole of the examined duodenum. Cold forceps biopsies were taken from duodenal bulb and second portion of the duodenum to rule out celiac sprue. ? EGD Impressions:? * Normal esophagus * Hiatal hernia * Normal stomach (biopsy) * Normal duodenum (biopsy) ?? Recommendations:?? * Follow biopsy results. Our office will call or send a letter with results within 7-10 days. * If H pylori +, patient will be prescribed eradication therapy followed by test of cure. * Avoid NSAIDs. * Barium swallow already scheduled for Oct 2025. Above has been reviewed with the patient.
[2025-08-22 11:10] VITALS: BP 115/63; PULSE 86; RESP 15; TEMP 36.6; O2SAT 96
[2025-08-22 11:25] VITALS: BP 120/73; PULSE 78; RESP 16; TEMP 36.6; O2SAT 98
== END 2025-08-22 12:16 | disposition home or self-care (01) ==
PROVIDERS: Nurse Practitioner; PCP Internal Medicine; Visit Provider Internal Medicine
PROC: 0DJ08ZZ Inspection of Upper Intestinal Tract, Via Natural or Artificial Opening Endoscopic (ICD-10-PCS; CPT 43235; principal; 2025-08-22 10:40)
DX: R10.9 Unspecified abdominal pain (principal); K58.9 Irritable bowel syndrome, unspecified; R14.0 Abdominal distension (gaseous); R09.A2 Foreign body sensation, throat; K44.9 Diaphragmatic hernia without obstruction or gangrene
CPT/HCPCS: 43239; 81025; 88305; 88342; J2003; J2704; J3010

== ENCOUNTER → 2025-08-22 08:25 | Outpatient (BNV) | payer MEDICAID, SELFPAY | PROVIDERS: PCP Internal Medicine; Visit Provider Internal Medicine | DX: R10.9 Unspecified abdominal pain (principal); K44.9 Diaphragmatic hernia without obstruction or gangrene | CPT/HCPCS: 43239 ==